=== PATIENT | female | born 1945 | race Caucasian/White ===

== ENCOUNTER → 2016-10-05 | Outpatient (CLI) | payer OTHER ==
[~2016-10-05] MED LIST: ASPEC81 PO; GLCSR500 PO; GLIM2TAB PO; OMG3 PO; PLV75 PO; SIMV40TA4 PO; VTMB12 PO
[2016-10-05 13:01] LABS: ALT/SGPT 17 U/L (12-78); BLOOD UREA NITROGEN 19 mg/dl (7-18); BUN/CREATININE RATIO 20.9 (10-20); CARBON DIOXIDE 25 mmol/L (21-32); CHLORIDE 107 mmol/L (98-107); CHOLESTEROL 190 mg/dl (0-200); CREATININE 0.91 mg/dl (0.60-1.20); GLUCOSE 95 mg/dl (70-99); SODIUM 143 mmol/L (136-145); TRIGLYCERIDES 201 mg/dl (0-150); VERY LOW DENSITY LIPOPROT CALC 40 mg/dl
[2016-10-05 13:08] LABS: ESTIMATED AVERAGE GLUCOSE 120 mg/dl; HA1C FLAG Normal (Normal)
[2016-10-05 13:13] LABS: ALB/GLOB RATIO 1.1 (0.9-2); ALKALINE PHOSPHATASE 38 U/L (45-117); AST/SGOT 11 U/L (15-37); CHOLESTEROL/HDL RATIO 4.8; HDL CHOLESTEROL 40 mg/dl; LDL CHOLESTEROL CALCULATED 110 mg/dl
[2016-10-05 13:15] LABS: RATIO 7.6 mcg/mg (0-30.0)
[2016-10-05 13:22] LABS: CALCIUM 9.7 mg/dl (8.5-10.1)
== END | disposition home or self-care (01) ==
LOC: C.LABBFT 07:34
PROVIDERS: ATTEND Internal Medicine
DX: E11.9 Type 2 diabetes mellitus without complications (principal); E55.9 Vitamin D deficiency, unspecified

== ENCOUNTER → 2017-04-01 | Outpatient (CLI) | payer OTHER ==
[2017-04-01 12:21] LABS: ALT/SGPT 18 U/L (12-78); BLOOD UREA NITROGEN 19 mg/dl (7-18); BUN/CREATININE RATIO 18.5 (10-20); CARBON DIOXIDE 29 mmol/L (21-32); CHLORIDE 102 mmol/L (98-107); CHOLESTEROL 178 mg/dl (0-200); GLUCOSE 100 mg/dl (70-99); POTASSIUM 4.3 mmol/L (3.5-5.1); SODIUM 139 mmol/L (136-145); TRIGLYCERIDES 184 mg/dl (0-150); VERY LOW DENSITY LIPOPROT CALC 37 mg/dl
[2017-04-01 12:31] LABS: ALB/GLOB RATIO 1.1 (0.9-2); ALKALINE PHOSPHATASE 47 U/L (45-117); AST/SGOT 14 U/L (15-37); CHOLESTEROL/HDL RATIO 4.5; HDL CHOLESTEROL 40 mg/dl; LDL CHOLESTEROL CALCULATED 101 mg/dl
[2017-04-01 14:08] LABS: ESTIMATED AVERAGE GLUCOSE 114 mg/dl; HA1C FLAG Normal (Normal)
== END | disposition home or self-care (01) ==
LOC: C.LABBFT 09:48
PROVIDERS: ATTEND Internal Medicine
DX: E11.9 Type 2 diabetes mellitus without complications (principal)

== ENCOUNTER 2017-09-09 11:47 | Inpatient (IN) | payer OTHER ==
[~2017-09-09] VITALS: Ht 154.9 cm; Wt 75.7 kg
[~2017-09-09 11:47] MED LIST changes: -ASPEC81 PO; +ASPI-320 PO
[2017-09-09] MEDS ORDERED: METF500T5 PO (12:25)
[2017-09-09] MEDS ORDERED: GLIM1TAB2 PO (12:25)
[2017-09-09] MEDS ORDERED: CYAN10005 PO (12:25)
[2017-09-09] MEDS ORDERED: ERGO500037 PO (12:25)
[2017-09-09] MEDS ORDERED: SIMV80TA2 PO (12:25)
[2017-09-09] MEDS ORDERED: CLOP1TAB15 PO (12:25)
[2017-09-09] MEDS ORDERED: MoRPHine SULFATE 4 MG/ML 1 ML CARP\\VIAL IV STA (12:44)
[2017-09-09] MEDS ORDERED: ONDANSETRON INJ 2 MG/ML 2 ML VIAL IV STA (12:44)
--- NOTE | 2017-09-09 13:33 | DIAGNOSTIC IMAGING REPORT ---
CHEST ONE VIEW PORTABLE CLINICAL HISTORY: Trauma. Chest pain. COMPARISON STUDY: 10/03/2015 FINDINGS: The heart is enlarged. There is mild mediastinal widening. There is diffuse elevation of the interstitium. This may indicate underlying pulmonary vascular congestion. There is no lobar consolidation. No pneumothorax is visualized on the supine study.[ IMPRESSION: 1. Cardiomegaly 2. Mild mediastinal widening 3. Diffuse elevation of the interstitium. Clinical correlation in regards to congestive failure/fluid overload is recommended Electronically signed by: Serg Peña M.D. 09/09/2017 1:32 PM Dictated Date/Time: 09/09/2017 1:31 PM
--- NOTE | 2017-09-09 13:34 | DIAGNOSTIC IMAGING REPORT ---
R KNEE 3 VIEWS CLINICAL HISTORY: 71 years-old Female presenting with fall. TECHNIQUE: Frontal, lateral, and sunrise views of the right knee were obtained. COMPARISON: None. FINDINGS: Advanced tricompartmental degenerative changes. A bandage overlies the knee which partially obscures underlying osseous detail. Evaluation is further limited by suboptimal positioning on frontal view. Osteopenia also limits evaluation for nondisplaced fracture. Allowing for these limitations, no displaced fracture or acute malalignment is evident. No large knee joint effusion. The patellofemoral compartment demonstrates bone on bone joint space loss laterally with subchondral cystic change. Severe joint space loss also evident to lesser degree in the medial facet. No radiographic soft tissue abnormality. IMPRESSION: 1. Allowing for osteopenia, an overlying bandage, and suboptimal positioning, no evidence of acute osseous injury. 2. Advanced tricompartmental degenerative change most severe in the patellofemoral compartment. Electronically signed by: Heri Olmos M.D. 09/09/2017 1:33 PM Dictated Date/Time: 09/09/2017 1:31 PM
--- NOTE | 2017-09-09 13:34 | DIAGNOSTIC IMAGING REPORT ---
PELVIS 1 OR 2 VIEW ROUTINE CLINICAL HISTORY: Right hip pain status post trauma COMPARISON STUDY: No previous studies for comparison. FINDINGS: The study is mildly obliqued. There is a mildly displaced subcapital right hip fracture. There is no SI joint diastases. There is no symphysis diastases. IMPRESSION: Mildly displaced subcapital right hip fracture. Electronically signed by: Serg Peña M.D. 09/09/2017 1:33 PM Dictated Date/Time: 09/09/2017 1:32 PM
--- NOTE | 2017-09-09 13:39 | DIAGNOSTIC IMAGING REPORT ---
RIGHT FEMUR 4 VIEWS HISTORY: Right leg pain. fall COMPARISON: None. FINDINGS: There is a right femoral neck fracture demonstrating mild superior displacement. No dislocation. The visualized pelvic bones are intact. The mid to distal femur are also intact. The bones are osteopenic. Degenerative changes at the patellofemoral joint. Soft tissues are unremarkable. No radiopaque foreign bodies. IMPRESSION: Mildly displaced subcapital right femoral neck fracture. Electronically signed by: Jose De Jesus Muse M.D. 09/09/2017 1:37 PM Dictated Date/Time: 09/09/2017 1:36 PM
--- NOTE | 2017-09-09 13:39 | DIAGNOSTIC IMAGING REPORT ---
HEAD WITHOUT CONTRAST (CT) CLINICAL HISTORY: 71 years-old Female presenting with fall on the right side. TECHNIQUE: Multidetector CT imaging of the head was performed without the use of intravenous contrast. IV contrast: None. A dose lowering technique was used consistent with the principles of ALARA (as low as reasonably achievable). COMPARISON: 10/03/2015. CT DOSE (mGy.cm): The estimated cumulative dose is 1015.92 mGy.cm. FINDINGS: Programmer Analyst Consultant topogram: The patient is edentulous. Ventricles and sulci normal in size. Unchanged left posterior fossa cystic structure compatible with an arachnoid cyst. Stable left anterior thalamic old appearing infarct. No mass effect or midline shift. No hemorrhage or acute territorial infarct. No extra-axial fluid collection. Mild mucosal thickening in the maxillary sinuses and ethmoid air cells. Calvarium intact. Mild asymmetric swelling of the right temporalis muscle. No large hematoma or significant contusion. IMPRESSION: 1. No significant change compared to the prior study. No acute intracranial abnormality. 2. Mild asymmetric swelling of the right temporalis muscle may be posttraumatic. No large hematoma, significant contusion, or subjacent osseous injury. Electronically signed by: Heri Olmos M.D. 09/09/2017 1:37 PM Dictated Date/Time: 09/09/2017 1:33 PM
--- NOTE | 2017-09-09 13:41 | DIAGNOSTIC IMAGING REPORT ---
CT OF THE CERVICAL SPINE CLINICAL HISTORY: Neck pain status post trauma COMPARISON STUDY: No previous studies for comparison. CT DOSE: TECHNIQUE: CT scan of the cervical spine was performed from the skull base to the thoracic inlet. Images are reviewed in the axial, sagittal, and coronal planes. IV contrast was not administered for this examination. A dose lowering technique was utilized adhering to the principles of ALARA. FINDINGS: There is right paratracheal soft tissue prominence on the insurance clerk topogram The visualized portions of the lung apices reveal no evidence of pneumothorax. There is a left posterior fossa arachnoid cyst No acute fractures are visualized. 1.5 mm of anterior subluxation of C4 on C5 is felt to be degenerative. There are multilevel degenerative changes IMPRESSION: No evidence of acute fracture or traumatic subluxation. Electronically signed by: Serg Peña M.D. 09/09/2017 1:39 PM Dictated Date/Time: 09/09/2017 1:36 PM
[2017-09-09 13:49] LABS: BASO % 0.5 %; BASO ABS # 0.06 K/uL (0-0.2); EOS % 1.2 %; EOS ABS # 0.16 K/uL (0-0.5); HEMATOCRIT 41.5 % (37-47); HEMOGLOBIN 14.5 g/dL (12.0-16.0); IG# 0.03 K/uL (0.00-0.02); LYMPH % 6.9 %; LYMPH ABS # 0.89 K/uL (1.2-3.4); MEAN CELL VOLUME 90.8 fL (80-100); MEAN CORPUSCULAR HEMOGLOBIN 31.7 pg (25-34); MEAN CORPUSCULAR HGB CONC 34.9 g/dl (32-36); MEAN PLATELET VOLUME 10.7 fL (7.4-10.4); MONO % 5.9 %; MONO ABS # 0.76 K/uL (0.11-0.59); NEUT % 85.3 %; NEUT ABS # 10.95 K/uL (1.4-6.5); PLATELET COUNT 214 K/uL (130-400); RED CELL DISTRIBUTION WIDTH CV 13.4 % (11.5-14.5); RED CELL DISTRIBUTION WIDTH SD 44.4 fL (36.4-46.3); WHITE BLOOD COUNT 12.85 K/uL (4.8-10.8)
[2017-09-09 14:00] LABS: CREATININE 0.98 mg/dl (0.60-1.20)
[2017-09-09 14:17] LABS: PTT PATIENT 26.5 SECONDS (21.0-31.0)
[2017-09-09] MEDS ORDERED: BISACODYL 10 MG SUPP PR PRN (14:45)
[2017-09-09] MEDS ORDERED: MoRPHine SULFATE 4 MG/ML 1 ML CARP\\VIAL IV PRN (14:45)
[2017-09-09] MEDS ORDERED: GLUCOSE 10 TABS/TUBE PO PRN (14:45)
[2017-09-09] MEDS ORDERED: GLUCAGON FOR INJ 1 MG VIAL SQ PRN (14:45)
[2017-09-09] MEDS ORDERED: NALOXONE HCL 0.4 MG/1 ML VIAL/CARP IV PRN (14:45)
[2017-09-09] MEDS ORDERED: DEXTROSE 50% 50 ML SYR IV PRN (14:45)
[2017-09-09] MEDS ORDERED: ACETAMINOPHEN 325 MG TAB PO PRN ×2 (14:45)
[2017-09-09] MEDS ORDERED: ALUMINUM/MAGNESIUM/SIMETH (MAALOX MAX) 30 ML UDC PO PRN (14:45)
[2017-09-09] MEDS ORDERED: POLYETHYLENE (MIRALAX) 17 GM PACK PO PRN ×2 (14:45)
[2017-09-09] MEDS ORDERED: MoRPHine SULFATE 2 MG/ML CARP IV PRN (14:45)
[2017-09-09] MEDS ORDERED: GLUCOSE 40% GEL 15 GM TUBE PO PRN (14:45)
[2017-09-09] MEDS ORDERED: SOD PHOSPHATE/SOD BIPHOSPHATE ENEMA 132 ML BTL PR PRN (14:45)
[2017-09-09] MEDS ORDERED: MAGNESIUM HYDROXIDE SUSP 30 ML UDC PO PRN ×2 (14:45)
[2017-09-09] MEDS ORDERED: CARBOHYDRATES FOR HYPOGLYCEMIA PO PRN (14:45)
[2017-09-09] MEDS ORDERED: ONDANSETRON INJ 2 MG/ML 2 ML VIAL IV PRN (14:45)
--- NOTE | 2017-09-09 15:04 | History and Physical ---
History & Physical Date & Time of Service: September 09, 2017 at 14:54 Chief Complaint: Fall/Leg And Hip Pain Primary Care Physician: Guy Metz M.D. History of Present Illness Source: patient, family Ms. Steven is a 71 y/o female with PMHx of CVA (2014), T2DM, and HLD who presents to the ED after a fall this AM. Patient is not a great historian and most of the story came from her . states the fall was not witnessed but he heard her fall and yell for help and he responded immediately and was able to get her off the floor. He states she gets up independently multiple times throughout the night and always slips her slippers on. Theses were found kicked away and he suspects she slid off the bed when trying to put them on. He states she was found sitting on her bottom when he arrived to the room. She instantly developed R hip pain that radiates to the R knee. Patient and family report she has been in normal state of health and had no complaints of illness. She is on Plavix for a CVA in 2014 and took her dose this AM. XR in ED reveals a R subcapital femoral neck fx. CXR suggests possible pulmonary congestion and mildly widened mediastinum. Patient denies SOB or chest pain at this time. Last CXR was from 2014 so difficult to compare. Lungs are clear on auscultation and does not appear to be volume overloaded. Past Medical/Surgical History 1. T2DM 2. CVA - 2014 3. HLD 4. L Internal Carotid Stenosis - 50-60% 5. Grade I Diastolic Dysfunction (2015 Echo) 6. S/P Cholecystectomy Family History Diabetes mellitus Heart Disease Hypertension Myocardial Infarction Social History Smoking Status: Never Smoker Smokeless Tobacco Use: No Drug Use: none Marital Status: Housing status: lives with family Allergies Coded Allergies: NO KNOWN DRUG ALLERGIES (Unverified Allergy, Unknown, N\A, 04/08/15) Home Medications Scheduled Clopidogrel (Plavix), 75 MG PO DAILY Cyanocobalamin (Vitamin B-12), 1,000 MCG PO DAILY Ergocalciferol (Vitamin D 99114 Unit), 50,000 UNIT PO WK Glimepiride (Glimepiride), 1 MG PO DAILY Metformin Hcl Er (Glucophage Er), 500 MG PO BID Simvastatin (Zocor), 80 MG PO QPM Review of Systems Constitutional: No fever, No chills ENT: No nasal symptoms, No sore throat Respiratory: No cough, No shortness of breath Cardiovascular: No chest pain, No palpitations Abdomen: No pain, No nausea, No vomiting, No diarrhea, No constipation Musculoskeletal: + joint pain (R hip with radiation to R knee) Genitourinary - Female: No dysuria Neurologic: No numbness/tingling Hematologic / Lymphatic: No abnormal bleeding/bruising Integumentary: No rash Physical Exam Vital Signs Date Time Temp Pulse Resp B/P (MAP) Pulse Ox O2 Delivery O2 Flow Rate FiO2 09/09/17 13:11 78 09/09/17 11:59 36.5 82 16 142/74 94 Room Air General Appearance: WD/WN, no apparent distress Head: normocephalic, atraumatic Eyes: sclerae normal ENT: hearing grossly normal Neck: supple, no JVD, trachea midline Respiratory/Chest: lungs clear, normal breath sounds, no respiratory distress, no accessory muscle use Cardiovascular: regular rate, rhythm, no gallop, no murmur Abdomen/GI: normal bowel sounds, non tender, soft Extremities/Musculoskelatal: no pedal edema, + pertinent finding Neurologic/Psych: alert, oriented x 3 Skin: normal color, warm/dry Diagnostics Laboratory Results Results Past 24 Hours Test 09/09/17 13:15 Range/Units White Blood Count 12.85 4.8-10.8 K/uL Red Blood Count 4.57 4.2-5.4 M/uL Hemoglobin 14.5 12.0-16.0 g/dL Hematocrit 41.5 37-47 % Mean Corpuscular Volume 90.8 80-100 fL Mean Corpuscular Hemoglobin 31.7 25-34 pg Mean Corpuscular Hemoglobin Concent 34.9 32-36 g/dl Platelet Count 214 130-400 K/uL Mean Platelet Volume 10.7 7.4-10.4 fL Neutrophils (%) (Auto) 85.3 % Lymphocytes (%) (Auto) 6.9 % Monocytes (%) (Auto) 5.9 % Eosinophils (%) (Auto) 1.2 % Basophils (%) (Auto) 0.5 % Neutrophils # (Auto) 10.95 1.4-6.5 K/uL Lymphocytes # (Auto) 0.89 1.2-3.4 K/uL Monocytes # (Auto) 0.76 0.11-0.59 K/uL Eosinophils # (Auto) 0.16 0-0.5 K/uL Basophils # (Auto) 0.06 0-0.2 K/uL RDW Standard Deviation 44.4 36.4-46.3 fL RDW Coefficient of Variation 13.4 11.5-14.5 % Immature Granulocyte % (Auto) 0.2 % Immature Granulocyte # (Auto) 0.03 0.00-0.02 K/uL Prothrombin Time 10.4 9.0-12.0 SECONDS Prothromb Time International Ratio 1.0 0.9-1.1 Activated Partial Thromboplast Time 26.5 21.0-31.0 SECONDS Partial Thromboplastin Ratio 1.0 Sodium Level 139 136-145 mmol/L Potassium Level 4.0 3.5-5.1 mmol/L Chloride Level 106 98-107 mmol/L Carbon Dioxide Level 27 21-32 mmol/L Anion Gap 6.0 3-11 mmol/L Blood Urea Nitrogen 18 7-18 mg/dl Creatinine 0.98 0.60-1.20 mg/dl Est Creatinine Clear Calc Drug Dose 50.4 ml/min Estimated GFR () 68.2 Estimated GFR (Non- 58.9 BUN/Creatinine Ratio 18.8 10-20 Random Glucose 119 70-99 mg/dl Calcium Level 9.0 8.5-10.1 mg/dl Diagnostic Radiology RIGHT FEMUR 4 VIEWS FINDINGS: There is a right femoral neck fracture demonstrating mild superior displacement. No dislocation. The visualized pelvic bones are intact. The mid to distal femur are also intact. The bones are osteopenic. Degenerative changes at the patellofemoral joint. Soft tissues are unremarkable. No radiopaque foreign bodies. IMPRESSION: Mildly displaced subcapital right femoral neck fracture. HEAD WITHOUT CONTRAST (CT) FINDINGS: Director Of Accreditation topogram: The patient is edentulous. Ventricles and sulci normal in size. Unchanged left posterior fossa cystic structure compatible with an arachnoid cyst. Stable left anterior thalamic old appearing infarct. No mass effect or midline shift. No hemorrhage or acute territorial infarct. No extra-axial fluid collection. Mild mucosal thickening in the maxillary sinuses and ethmoid air cells. Calvarium intact. Mild asymmetric swelling of the right temporalis muscle. No large hematoma or significant contusion. IMPRESSION: 1. No significant change compared to the prior study. No acute intracranial abnormality. 2. Mild asymmetric swelling of the right temporalis muscle may be posttraumatic. No large hematoma, significant contusion, or subjacent osseous injury. Impression Assessment and Plan Ms. Steven is a 71 y/o female with PMHx of CVA (2014), T2DM, and HLD who presents to the ED after a fall this AM. Acute Closed R Subcapital Femoral Neck Fracture: - Admit to Med/Surg with geriatic hip protocol; Ancef 2 g IV pre-op - Pain control with Tylenol and Morphine; Continue bowel regimen - Hold Plavix - last dose this AM on 09/09 - Consult orthopedics - appreciate surgical intervention CXR - Congestive Failure? Widened Mediastinum: - Patient is laying supine in bed without dyspnea, appropriate O2 saturations, denies CP or SOB at this time. Does not appear to be volume overloaded at this time. Last CXR from 2014. - Echo 2014 - EF 60-65% and grade I diastolic dysfunction - Repeat CXR in AM Pre-Operative Clearance: - Patient and family state she has never had a cardiac event including CHF, AL, or arrhythmia; CXR as above however is clear on auscultation; echo from 2014 does show grade I diastolic dysfunction but EF 60-65% - Hemoglobin adequate and renal function appropriate, coags WNL; will check liver series; has mild leukocytosis and will monitor with routine labs - no source of infectious process and possibly reactive - According to ACS scale she is below average risk for complication at this time T2DM: Alc 5.6 - states PCP would like her to remain on Metformin and Glimepiride but will hold - Cover with SSI Poor Oral Intake: - Family expresses that patient has been progressively eating less - reporting not much of an appetite but does enjoy boost supplementation; Will continue Boost HLD: - Simvastatin 80 mg daily DVT Prophylaxis: SCDs Code Status: FULL RESUSCITATION Disposition: PT/OT evaluations - likely rehab vs SNF on D/C Resident Physician Supervision Note: I was present with Rene MARTINEZ during the history and exam. I discussed the case with the PA and agree with the findings and plan as documented in the note. Any exceptions or clarifications are listed here: 71 y/o F Hx CVA 2014 with residual R weakness, DM II, HPL - fell onto R side when getting out of bed this AM - pelvic XR is consistent with a R subcapital fracture. OE Poor historian - no obvious distress S1,2 R CTAB NT, ND No CCE - RLE shortened and externally rotated P: Pt will likely proceed for surgery AM Risk is acceptable per RCRI and she does not have a history of decompensated CHF despite history of grade 1 diastolic dysfunction on echo NPO, IVF, pain control - Q6H SS pending ortho eval Admitted with hip Fx protocol Documented By: Victor Hugo Molina Resuscitation Status VTE Prophylaxis Will order VTE Prophylaxis: Yes
[2017-09-09] MEDS: INSULIN ASPART 100 UNITS/ML 3 ML PEN SC SCH ×2 (16:00→21:00)
--- NOTE | 2017-09-09 17:58 | EMERGENCY ROOM VISIT NOTE ---
History Report prepared by Mitali: Jameel Tong Under the Supervision of: Dr. Jacky Rob D.O. First contact with patient: 12:26 Chief Complaint: FALL Stated Complaint: FALL/LEG AND HIP PAIN History of Present Illness The patient is a 71 year old female who presents to the Emergency Room with complaints of constant pain in the right knee and hip that began following a falling episode that occurred just prior to arrival. The patient's daughter at bedside notes that the patient has a history of a stroke, and is not the best historian. The patient states that she was getting up out of bed when she fell. The fall was not witnessed by the , but he states that he found the patient sitting on her butt. The daughter notes that she was trying to put on her slippers when the flipped out from under her. The patient denies hitting her head or losing consciousness, as well as any other injuries. Pain is a 10 out of 10 in the right hip with movement. Rest and keeping flexed does help improve the pain. Source of History: patient Onset: Just prior to arival Position: knee (right) Quality: other (Pain from traumatic fall) Timing: constant Associated Symptoms: No LOC, No headache Review of Systems See HPI for pertinent positives & negatives. A total of 10 systems reviewed and were otherwise negative. Past Medical & Surgical Medical Problems: (1) Closed subcapital fracture of neck of right femur (2) Rhabdomyolysis (3) Stroke Family History Patient reports no known family medical history. Social History Smoking Status: Never Smoker Drug Use: none Marital Status: Housing Status: lives with family Current/Historical Medications Scheduled Clopidogrel (Plavix), 75 MG PO DAILY Cyanocobalamin (Vitamin B-12), 1,000 MCG PO DAILY Ergocalciferol (Vitamin D 87299 Unit), 50,000 UNIT PO WK Glimepiride (Glimepiride), 1 MG PO DAILY Metformin Hcl Er (Glucophage Er), 500 MG PO BID Simvastatin (Zocor), 80 MG PO QPM Allergies Coded Allergies: NO KNOWN DRUG ALLERGIES (Unverified Allergy, Unknown, N\A, 04/08/15) Physical Exam Vital Signs Date Time Temp Pulse Resp B/P (MAP) Pulse Ox O2 Delivery O2 Flow Rate FiO2 09/09/17 17:35 91 18 96 09/09/17 17:30 129/83 09/09/17 17:05 83 14 95 09/09/17 17:00 109/59 09/09/17 16:35 88 18 94 09/09/17 16:30 130/69 09/09/17 16:05 85 18 93 09/09/17 16:00 114/59 09/09/17 15:35 85 20 93 09/09/17 15:30 134/66 09/09/17 15:05 76 20 92 09/09/17 15:00 125/71 09/09/17 14:47 77 20 94 09/09/17 14:30 131/71 09/09/17 14:17 76 17 94 09/09/17 14:00 134/77 09/09/17 13:50 130/73 09/09/17 13:17 79 19 95 09/09/17 13:11 78 09/09/17 13:08 138/81 09/09/17 11:59 36.5 82 16 142/74 94 Room Air Physical Exam GENERAL: alert, well appearing, pleasantly demented, well nourished, no distress , non-toxic HEAD: normal cephalic, atraumatic EYE EXAM: normal conjunctiva, PERRL and EOM's grossly intact OROPHARYNX: no exudate, no erythema, lips, buccal mucosa, and tongue normal and mucous membranes are moist EARS: TMs clear b/l NECK: supple, no nuchal rigidity, no adenopathy, non-tender CHEST: stable to compression anteriorly and posteriorly LUNGS: clear to auscultation. Normal chest wall mechanics HEART: no murmurs, S1 normal and S2 normal ABDOMEN: abdomen soft, non-tender, normo-active bowel sounds, no masses, no rebound or guarding. PELVIS: stable to compression anteriorly and posteriorly BACK: Back is symmetrical on inspection and there is no deformity, no midline tenderness, no CVA tenderness. UPPER EXTREMITIES: full active and passive range of motion of all joints without tenderness to palpation LOWER EXTREMITIES: The right leg is held in flexion at the hip with tenderness on palpation and ROM of the right hip and knee. DPs are 2/4 bilaterally. NEURO EXAM: Patient is awake and alert, following commands, not oriented to year cranial nerves II-XII grossly intact, normal speech, no gross weakness of arms. GCS: 14. Medical Decision & Procedures ER Provider Diagnostic Interpretation: Radiology results as stated below per my review and the radiologist's interpretation: CHEST ONE VIEW PORTABLE CLINICAL HISTORY: Trauma. Chest pain. COMPARISON STUDY: 10/03/2015 FINDINGS: The heart is enlarged. There is mild mediastinal widening. There is diffuse elevation of the interstitium. This may indicate underlying pulmonary vascular congestion. There is no lobar consolidation. No pneumothorax is visualized on the supine study.[ IMPRESSION: 1. Cardiomegaly 2. Mild mediastinal widening 3. Diffuse elevation of the interstitium. Clinical correlation in regards to congestive failure/fluid overload is recommended Electronically signed by: Serg Peña M.D. 09/09/2017 1:32 PM Dictated Date/Time: 09/09/2017 1:[address] OF THE CERVICAL SPINE CLINICAL HISTORY: Neck pain status post trauma COMPARISON STUDY: No previous studies for comparison. CT DOSE: TECHNIQUE: CT scan of the cervical spine was performed from the skull base to the thoracic inlet. Images are reviewed in the axial, sagittal, and coronal planes. IV contrast was not administered for this examination. A dose lowering technique was utilized adhering to the principles of ALARA. FINDINGS: There is right paratracheal soft tissue prominence on the lens hardener topogram The visualized portions of the lung apices reveal no evidence of pneumothorax. There is a left posterior fossa arachnoid cyst No acute fractures are visualized. 1.5 mm of anterior subluxation of C4 on C5 is felt to be degenerative. There are multilevel degenerative changes IMPRESSION: No evidence of acute fracture or traumatic subluxation. HEAD WITHOUT CONTRAST (CT) CLINICAL HISTORY: 71 years-old Female presenting with fall on the right side. TECHNIQUE: Multidetector CT imaging of the head was performed without the use of intravenous contrast. IV contrast: None. A dose lowering technique was used consistent with the principles of ALARA (as low as reasonably achievable). COMPARISON: 10/03/2015. CT DOSE (mGy.cm): The estimated cumulative dose is 1015.92 mGy.cm. FINDINGS: Napper Runner topogram: The patient is edentulous. Ventricles and sulci normal in size. Unchanged left posterior fossa cystic structure compatible with an arachnoid cyst. Stable left anterior thalamic old appearing infarct. No mass effect or midline shift. No hemorrhage or acute territorial infarct. No extra-axial fluid collection. Mild mucosal thickening in the maxillary sinuses and ethmoid air cells. Calvarium intact. Mild asymmetric swelling of the right temporalis muscle. No large hematoma or significant contusion. IMPRESSION: 1. No significant change compared to the prior study. No acute intracranial abnormality. 2. Mild asymmetric swelling of the right temporalis muscle may be posttraumatic. No large hematoma, significant contusion, or subjacent osseous injury. Electronically signed by: Heri Olmos M.D. 09/09/2017 1:37 PM Dictated Date/Time: 09/09/2017 1:33 PM PELVIS 1 OR 2 VIEW ROUTINE CLINICAL HISTORY: Right hip pain status post trauma COMPARISON STUDY: No previous studies for comparison. FINDINGS: The study is mildly obliqued. There is a mildly displaced subcapital right hip fracture. There is no SI joint diastases. There is no symphysis diastases. IMPRESSION: Mildly displaced subcapital right hip fracture. Electronically signed by: Serg Peña M.D. 09/09/2017 1:33 PM Dictated Date/Time: 09/09/2017 1:32 PM RIGHT FEMUR 4 VIEWS HISTORY: Right leg pain. fall COMPARISON: None. FINDINGS: There is a right femoral neck fracture demonstrating mild superior displacement. No dislocation. The visualized pelvic bones are intact. The mid to distal femur are also intact. The bones are osteopenic. Degenerative changes at the patellofemoral joint. Soft tissues are unremarkable. No radiopaque foreign bodies. IMPRESSION: Mildly displaced subcapital right femoral neck fracture. Electronically signed by: Jose De Jesus Muse M.D. 09/09/2017 1:37 PM Dictated Date/Time: 09/09/2017 1:36 PM R KNEE 3 VIEWS CLINICAL HISTORY: 71 years-old Female presenting with fall. TECHNIQUE: Frontal, lateral, and sunrise views of the right knee were obtained. COMPARISON: None. FINDINGS: Advanced tricompartmental degenerative changes. A bandage overlies the knee which partially obscures underlying osseous detail. Evaluation is further limited by suboptimal positioning on frontal view. Osteopenia also limits evaluation for nondisplaced fracture. Allowing for these limitations, no displaced fracture or acute malalignment is evident. No large knee joint effusion. The patellofemoral compartment demonstrates bone on bone joint space loss laterally with subchondral cystic change. Severe joint space loss also evident to lesser degree in the medial facet. No radiographic soft tissue abnormality. IMPRESSION: 1. Allowing for osteopenia, an overlying bandage, and suboptimal positioning, no evidence of acute osseous injury. 2. Advanced tricompartmental degenerative change most severe in the patellofemoral compartment. Electronically signed by: Heri Olmos M.D. 09/09/2017 1:33 PM Dictated Date/Time: 09/09/2017 1:31 PM Laboratory Results 09/09/17 13:15 Red Blood Count 4.57, Mean Corpuscular Volume 90.8, Mean Corpuscular Hemoglobin 31.7, Mean Corpuscular Hemoglobin Concent 34.9, Mean Platelet Volume 10.7, Neutrophils (%) (Auto) 85.3, Lymphocytes (%) (Auto) 6.9, Monocytes (%) (Auto) 5.9, Eosinophils (%) (Auto) 1.2, Basophils (%) (Auto) 0.5, Neutrophils # (Auto) 10.95, Lymphocytes # (Auto) 0.89, Monocytes # (Auto) 0.76, Eosinophils # (Auto) 0.16, Basophils # (Auto) 0.06 09/09/17 13:15 Test 09/09/17 13:15 White Blood Count 12.85 K/uL (4.8-10.8) Red Blood Count 4.57 M/uL (4.2-5.4) Hemoglobin 14.5 g/dL (12.0-16.0) Hematocrit 41.5 % (37-47) Mean Corpuscular Volume 90.8 fL (80-100) Mean Corpuscular Hemoglobin 31.7 pg (25-34) Mean Corpuscular Hemoglobin Concent 34.9 g/dl (32-36) Platelet Count 214 K/uL (130-400) Mean Platelet Volume 10.7 fL (7.4-10.4) Neutrophils (%) (Auto) 85.3 % Lymphocytes (%) (Auto) 6.9 % Monocytes (%) (Auto) 5.9 % Eosinophils (%) (Auto) 1.2 % Basophils (%) (Auto) 0.5 % Neutrophils # (Auto) 10.95 K/uL (1.4-6.5) Lymphocytes # (Auto) 0.89 K/uL (1.2-3.4) Monocytes # (Auto) 0.76 K/uL (0.11-0.59) Eosinophils # (Auto) 0.16 K/uL (0-0.5) Basophils # (Auto) 0.06 K/uL (0-0.2) RDW Standard Deviation 44.4 fL (36.4-46.3) RDW Coefficient of Variation 13.4 % (11.5-14.5) Immature Granulocyte % (Auto) 0.2 % Immature Granulocyte # (Auto) 0.03 K/uL (0.00-0.02) Prothrombin Time 10.4 SECONDS (9.0-12.0) Prothromb Time International Ratio 1.0 (0.9-1.1) Activated Partial Thromboplast Time 26.5 SECONDS (21.0-31.0) Partial Thromboplastin Ratio 1.0 Anion Gap 6.0 mmol/L (3-11) Est Creatinine Clear Calc Drug Dose 50.4 ml/min Estimated GFR () 68.2 Estimated GFR (Non- 58.9 BUN/Creatinine Ratio 18.8 (10-20) Calcium Level 9.0 mg/dl (8.5-10.1) Laboratory results per my review. Medications Administered Medications (Trade) Dose Ordered Sig/Eliz Route Start Time Stop Time Status Last Admin Dose Admin Morphine Sulfate (MoRPHine SULFATE INJ) 4 mg NOW STAT IV 09/09/17 12:44 09/09/17 12:51 DC 09/09/17 13:02 4 MG Ondansetron HCl (Zofran Inj) 4 mg NOW STAT IV 09/09/17 12:44 09/09/17 12:51 DC 09/09/17 13:03 4 MG ED Course ED COURSE: Vital signs were reviewed and showed situationally hypertensive vitals. The patients medical record was reviewed The above diagnostic studies were performed and reviewed. ED treatments and interventions as stated above. 1239: The patient was evaluated in room C7. A complete history and physical examination was performed. 1244: Ordered Zofran 4 mg IV, Morphine Sulfate 4 mg IV. 1333: I discussed the case with Dr. Dallas - Orthopedics. He will come to the department to evaluate the patient. 1420: I discussed the case with Dr. Moilna - [facility] Hospitalist. He will evaluate the patient for further treatment. 1452: Upon reevaluation, the patient is resting in bed.I discussed my findings with the patient and she understands and agrees with the treatment plan. Based on the patients age, coexisting illnesses, exam and lab findings the decision to treat as an inpatient was made. The patient remained stable while under my care. The patient appeared well at the time of discharge. Medical Decision Differential diagnoses include major intracranial, cervical, spinal, thoracic, abdominal, pelvic and neurologic injury. Fracture, contusion, sprain, strain, laceration, abrasions included as well. Patient is a 71-year-old female who presents the ER following falling out of bed. She is complaining of severe right hip pain. X-rays show an obvious fracture. CT head and neck were negative. CBC has a mild leukocytosis. BMP along with INR was unremarkable. X-rays of the knee and chest were unremarkable. Patient was updated at bedside. She was given IV narcotics. Patient and family were updated. Discussed with orthopedics and internal medicine. Patient was admitted for further workup. Head Trauma GCS Score: 14 Medication Reconcilliation Current Medication List: was personally reviewed by me Blood Pressure Screening Patient's blood pressure: Elevated blood pressure Blood pressure disposition: Elevated BP felt to be situational Consults Time Called: 1325 Consulting Physician: Dr. Dallas - Orthopedics Returned Call: [phone] I discussed the case with Dr. [facility]. He will come to the department to evaluate the patient. Impression Primary Impression: Hip fracture, right Additional Impression: Fall Scribe Attestation The scribe's documentation has been prepared under my direction and personally reviewed by me in its entirety. I confirm that the note above accurately reflects all work, treatment, procedures, and medical decision making performed by me. Departure Information Dispostion Being Evaluated By Hospitalist Guy Epps M.D. (PCP) Patient Instructions My [facility] Problem Qualifiers Primary Impression: Hip fracture, right Encounter type: initial encounter Fracture type: closed Qualified Codes: S72.001A - Fracture of unspecified part of neck of right femur, initial encounter for closed fracture Additional Impression: Fall Encounter type: initial encounter Qualified Codes: W19.XXXA - Unspecified fall, initial encounter
[2017-09-09 18:28] VITALS: O2SAT 92; BMI 31.5
[2017-09-09] MEDS: SODIUM CHLORIDE 0.9% 1000ML 1,000 ML IV SCH (19:11)
[2017-09-09] MEDS: BOOST GLUCOSE CONTROL PO SCH (21:00)
[2017-09-09] MEDS ORDERED: SIMVASTATIN 80 MG TAB PO SCH (21:00)
[2017-09-09] MEDS: DOCUSATE SODIUM/SENNA 50/8.6MG TAB PO SCH (22:01)
[2017-09-09 22:40] VITALS: BP 114/65; PULSE 87; TEMP 37.2; O2SAT 93
[2017-09-09] MEDS ORDERED: NURSING DECISION MEDICATION ORDER SCH (23:45)
[2017-09-10] VITALS (8 sets, daily range): BP systolic 98–148; BP diastolic 54–80; PULSE 65–76; TEMP 36.4–37.6; O2SAT 90–97
[2017-09-10] MEDS: SODIUM CHLORIDE 0.9% 1000ML 1,000 ML IV SCH ×3 (05:58→18:45)
[2017-09-10] MEDS: INSULIN ASPART 100 UNITS/ML 3 ML PEN SC SCH ×4 (06:00→21:00)
[2017-09-10] MEDS ORDERED: CEFAZOLIN IV 2,000 MG in DEXTROSE 5% 50ML 50 ML IV SCH (06:00)
[2017-09-10] MEDS ORDERED: CEFAZOLIN 2000MG IV PUSH 15 ML IV SCH (06:00)
[2017-09-10 06:54] LABS: BASO % 0.5 %; BASO ABS # 0.04 K/uL (0-0.2); EOS % 2.7 %; EOS ABS # 0.21 K/uL (0-0.5); HEMATOCRIT 40.4 % (37-47); HEMOGLOBIN 13.3 g/dL (12.0-16.0); IG# 0.01 K/uL (0.00-0.02); LYMPH ABS # 1.25 K/uL (1.2-3.4); MEAN CELL VOLUME 93.3 fL (80-100); MEAN CORPUSCULAR HEMOGLOBIN 30.7 pg (25-34); MEAN CORPUSCULAR HGB CONC 32.9 g/dl (32-36); MEAN PLATELET VOLUME 10.4 fL (7.4-10.4); MONO % 6.3 %; MONO ABS # 0.49 K/uL (0.11-0.59); NEUT % 74.4 %; NEUT ABS # 5.79 K/uL (1.4-6.5); PLATELET COUNT 180 K/uL (130-400); RED CELL DISTRIBUTION WIDTH CV 13.7 % (11.5-14.5); RED CELL DISTRIBUTION WIDTH SD 47.3 fL (36.4-46.3); WHITE BLOOD COUNT 7.79 K/uL (4.8-10.8)
[2017-09-10] MEDS: BOOST GLUCOSE CONTROL PO SCH ×2 (07:11→21:00)
--- NOTE | 2017-09-10 07:12 | DIAGNOSTIC IMAGING REPORT ---
CHEST ONE VIEW PORTABLE HISTORY: 71 years-old Female F/U CXR from ED follow-up study in a patient with acute chest injury with recent fall COMPARISON: Chest radiograph 09/09/2017 TECHNIQUE: Portable AP view of the chest FINDINGS: Cardiac silhouette is mildly enlarged. Atherosclerosis of the aorta. There is decreased amount of mediastinal widening from prior study with better inspiratory effort on today's study. No pneumothorax or large pleural effusion. Mild right hemidiaphragmatic elevation with mild interstitial coarsening, slightly improved. Subsegmental left basilar opacities. Trace fluid within the minor fissure. Degenerative changes of the shoulders and spine. IMPRESSION: 1. Cardiomegaly with persistent mildly improved bilateral interstitial coarsening. 2. Subsegmental left basilar opacities favor atelectasis. The above report was generated using voice recognition software. It may contain grammatical, syntax or spelling errors. Electronically signed by: Van Vazquez M.D. 09/10/2017 7:11 AM Dictated Date/Time: 09/10/2017 7:09 AM
[2017-09-10 07:25] LABS: ALBUMIN 3.3 gm/dl (3.4-5.0); CALCIUM 8.5 mg/dl (8.5-10.1); CREATININE 1.01 mg/dl (0.60-1.20); POTASSIUM 3.9 mmol/L (3.5-5.1)
[2017-09-10 07:28] LABS: TOTAL PROTEIN 6.9 gm/dl (6.4-8.2)
--- NOTE | 2017-09-10 08:36 | Orthopedic Consultation ---
Orthopedic Consultation Date of Consultation: September 10, 2017. Attending Physician: Victor Hugo Molina M.D. Reason for Consultation: Right hip fracture History of Present Illness Patient is a 71-year-old female with significant past medical history for CVA 2015, diabetes, HLD who presented to [facility] after mechanical fall sustained in the morning of 09/09/2017. Patient takes Plavix for her CVA. Patient was evaluated and diagnosed with displaced right subcapital hip fracture. Denies numbness and tingling right lower extremity or additional injuries or pain. Past Medical/Surgical History Medical Problems: (1) Fall Status: Acute (2) Hip fracture, right Status: Acute (3) Malaise and fatigue Status: Acute (4) Stroke Status: Acute (5) Weakness Status: Acute Family History Diabetes mellitus Heart Disease Hypertension Myocardial Infarction Social History Smoking Status: Never Smoker Smokeless Tobacco Use: No Drug Use: none Marital Status: Housing Status: lives with family Allergies Coded Allergies: NO KNOWN DRUG ALLERGIES (Unverified Allergy, Unknown, N\A, 04/08/15) Home Medications Scheduled Clopidogrel (Plavix), 75 MG PO DAILY Cyanocobalamin (Vitamin B-12), 1,000 MCG PO DAILY Ergocalciferol (Vitamin D 40207 Unit), 50,000 UNIT PO WK Glimepiride (Glimepiride), 1 MG PO DAILY Metformin Hcl Er (Glucophage Er), 500 MG PO BID Simvastatin (Zocor), 80 MG PO QPM Current Inpatient Medications Current Inpatient Medications Medications (Trade) Dose Ordered Sig/Eliz Route Start Time Stop Time Status Last Admin Dose Admin Acetaminophen (Tylenol Tab) 650 mg Q4H PRN PO 09/09/17 14:45 10/09/17 14:44 Al Hydrox/Mg Hydrox/Simethicone (Maalox Max Susp) 15 ml Q4H PRN PO 09/09/17 14:45 10/09/17 14:44 Magnesium Hydroxide (Milk Of Magnesia Susp) 30 ml Q6H PRN PO 09/09/17 14:45 10/09/17 14:44 Ondansetron HCl (Zofran Inj) 4 mg Q6H PRN IV 09/09/17 14:45 10/09/17 14:44 Sodium Chloride 1,000 ml @ 75 mls/hr [id number] IV 09/09/17 14:43 10/09/17 14:42 09/10/17 05:58 75 MLS/HR Morphine Sulfate (MoRPHine SULFATE INJ) 2 mg Q2H PRN IV 09/09/17 14:45 09/23/17 14:44 Morphine Sulfate (MoRPHine SULFATE INJ) 4 mg Q2H PRN IV 09/09/17 14:45 09/23/17 14:44 09/09/17 22:00 4 MG Naloxone HCl (Narcan Inj) 0.1 mg PRN PRN IV 09/09/17 14:45 10/09/17 14:44 Senna/Docusate Sodium (Senokot S Tab) 2 tab HS PO 09/09/17 21:00 10/09/17 20:59 09/09/17 22:01 2 TAB Polyethylene (Miralax Powder Packet) 17 gm DAILY PRN PO 09/09/17 14:45 10/09/17 14:44 Bisacodyl (Dulcolax Supp) 10 mg DAILY PRN [place] 09/09/17 14:45 10/09/17 14:44 Sodium Biphosphate/ Sodium Phosphate (Fleet Enema) 132 ml PRN PRN [place] 09/09/17 14:45 Glucose (Glucose 40% Gel) 15-30 GRAMS 15 GRAMS... UD PRN PO 09/09/17 14:45 10/09/17 14:44 Glucose (Glucose Chew Tab) 4-8 Tablets 4 Tabl... UD PRN PO 09/09/17 14:45 10/09/17 14:44 Dextrose (Dextrose 50% 50ML Syringe) 25-50ML 25ML FOR ... UD PRN IV 09/09/17 14:45 10/09/17 14:44 Glucagon (Glucagon Inj) 1 mg UD PRN SQ 09/09/17 14:45 10/09/17 14:44 Carbohydrates (Carbohydrates For Hypoglycemia) 15-30 GRAMS 15 grams if BSG 54-69... UD PRN PO 09/09/17 14:45 10/09/17 14:44 Cyanocobalamin (Vitamin B-12 Tab) 1,000 mcg DAILY PO 09/10/17 09:00 10/10/17 08:59 Simvastatin (Zocor Tab) 80 mg QPM PO 09/09/17 21:00 10/09/17 20:59 09/09/17 22:01 80 MG Enteral Nutritional Formula (Boost Glucose Control) 1 can BID PO 09/09/17 21:00 10/09/17 20:59 Cefazolin Sodium 15 ml @ 3.75 mls/ min PREOP IV 09/10/17 06:00 09/10/17 18:00 Insulin Aspart (novoLOG ASPART) SLIDING SCALE If C... Q6 SC 09/10/17 06:00 10/10/17 05:59 Review of Systems Review of systems negative with exception of those mentioned in HPI above. Physical Exam Date Time Temp Pulse Resp B/P (MAP) Pulse Ox O2 Delivery O2 Flow Rate FiO2 09/10/17 07:37 37.3 76 18 148/80 (102) 92 Room Air 09/10/17 03:03 37.6 75 16 131/70 (90) 90 Room Air 09/09/17 23:50 Room Air 09/09/17 22:40 37.2 87 16 114/65 (81) 93 Room Air 09/09/17 18:28 92 Room Air 09/09/17 18:19 36.5 91 18 129/83 96 09/09/17 18:15 Room Air 09/09/17 17:35 91 18 96 09/09/17 17:30 129/83 09/09/17 17:05 83 14 95 09/09/17 17:00 109/59 09/09/17 16:35 88 18 94 09/09/17 16:30 130/69 09/09/17 16:05 85 18 93 09/09/17 16:00 114/59 09/09/17 15:35 85 20 93 09/09/17 15:30 134/66 09/09/17 15:05 76 20 92 09/09/17 15:00 125/71 09/09/17 14:47 77 20 94 09/09/17 14:30 131/71 09/09/17 14:17 76 17 94 09/09/17 14:00 134/77 09/09/17 13:50 130/73 09/09/17 13:17 79 19 95 09/09/17 13:11 78 09/09/17 13:08 138/81 09/09/17 11:59 36.5 82 16 142/74 94 Room Air No apparent distress Right lower extremity neurovascular sensory intact, positive dorsalis pedis pulse, capillary refill less than 2 seconds, compartments soft nontender, skin intact. Range of motion hip deferred secondary to pain, no tenderness to palpation to the knee or ankle. Left lower extremities neurovascular sensory intact, painless range of motion of the hip knee ankle. Compartments soft nontender. Laboratory Results Last 24 Hours Test 09/09/17 13:15 09/09/17 18:41 09/09/17 21:40 09/09/17 23:55 White Blood Count 12.85 K/uL Red Blood Count 4.57 M/uL Hemoglobin 14.5 g/dL Hematocrit 41.5 % Mean Corpuscular Volume 90.8 fL Mean Corpuscular Hemoglobin 31.7 pg Mean Corpuscular Hemoglobin Concent 34.9 g/dl Platelet Count 214 K/uL Mean Platelet Volume 10.7 fL Neutrophils (%) (Auto) 85.3 % Lymphocytes (%) (Auto) 6.9 % Monocytes (%) (Auto) 5.9 % Eosinophils (%) (Auto) 1.2 % Basophils (%) (Auto) 0.5 % Neutrophils # (Auto) 10.95 K/uL Lymphocytes # (Auto) 0.89 K/uL Monocytes # (Auto) 0.76 K/uL Eosinophils # (Auto) 0.16 K/uL Basophils # (Auto) 0.06 K/uL RDW Standard Deviation 44.4 fL RDW Coefficient of Variation 13.4 % Immature Granulocyte % (Auto) 0.2 % Immature Granulocyte # (Auto) 0.03 K/uL Prothrombin Time 10.4 SECONDS Prothromb Time International Ratio 1.0 Activated Partial Thromboplast Time 26.5 SECONDS Partial Thromboplastin Ratio 1.0 Sodium Level 139 mmol/L Potassium Level 4.0 mmol/L Chloride Level 106 mmol/L Carbon Dioxide Level 27 mmol/L Anion Gap 6.0 mmol/L Blood Urea Nitrogen 18 mg/dl Creatinine 0.98 mg/dl Est Creatinine Clear Calc Drug Dose 50.4 ml/min Estimated GFR () 68.2 Estimated GFR (Non- 58.9 BUN/Creatinine Ratio 18.8 Random Glucose 119 mg/dl Calcium Level 9.0 mg/dl Bedside Glucose 141 mg/dl 120 mg/dl 93 mg/dl Test 09/10/17 00:30 5/8/18 05:59 09/10/17 06:32 Urine Color DK YELLOW Urine Appearance CLEAR Urine pH 5.0 Urine Specific [place] 1.025 Urine Protein NEG Urine Glucose (UA) NEG Urine Ketones NEG Urine Occult Blood 1+ Urine Nitrite NEG Urine Bilirubin NEG Urine Urobilinogen NEG Urine Leukocyte Esterase MODERATE Urine WBC (Auto) >30 /hpf Urine RBC (Auto) 5-10 /hpf Urine Hyaline Casts (Auto) 5-10 /lpf Urine Epithelial Cells (Auto) >30 /lpf Urine Bacteria (Auto) NEG Bedside Glucose 110 mg/dl White Blood Count 7.79 K/uL Red Blood Count 4.33 M/uL Hemoglobin 13.3 g/dL Hematocrit 40.4 % Mean Corpuscular Volume 93.3 fL Mean Corpuscular Hemoglobin 30.7 pg Mean Corpuscular Hemoglobin Concent 32.9 g/dl Platelet Count 180 K/uL Mean Platelet Volume 10.4 fL Neutrophils (%) (Auto) 74.4 % Lymphocytes (%) (Auto) 16.0 % Monocytes (%) (Auto) 6.3 % Eosinophils (%) (Auto) 2.7 % Basophils (%) (Auto) 0.5 % Neutrophils # (Auto) 5.79 K/uL Lymphocytes # (Auto) 1.25 K/uL Monocytes # (Auto) 0.49 K/uL Eosinophils # (Auto) 0.21 K/uL Basophils # (Auto) 0.04 K/uL RDW Standard Deviation 47.3 fL RDW Coefficient of Variation 13.7 % Immature Granulocyte % (Auto) 0.1 % Immature Granulocyte # (Auto) 0.01 K/uL Sodium Level 140 mmol/L Potassium Level 3.9 mmol/L Chloride Level 107 mmol/L Carbon Dioxide Level 28 mmol/L Anion Gap 5.0 mmol/L Blood Urea Nitrogen 18 mg/dl Creatinine 1.01 mg/dl Est Creatinine Clear Calc Drug Dose 48.9 ml/min Estimated GFR () 65.8 Estimated GFR (Non- 56.8 BUN/Creatinine Ratio 17.5 Random Glucose 102 mg/dl Calcium Level 8.5 mg/dl Magnesium Level 2.0 mg/dl Total Bilirubin 0.8 mg/dl Direct Bilirubin 0.2 mg/dl Aspartate Amino Transf (AST/SGOT) 142 U/L Alanine Aminotransferase (ALT/SGPT) 177 U/L Alkaline Phosphatase 52 U/L Total Protein 6.9 gm/dl Albumin 3.3 gm/dl Assessment & Plan Displaced right subcapital femoral neck fracture The patient is a 71-year-old female with displaced right femoral neck fracture sustained after a fall from standing height. I indicated the patient for right hip hemiarthroplasty. The patient, and son were informed of the risks and benefits of surgery, which include but not limited to infection, bleeding, blood clots, damage to nerves, vessels, bone and soft tissue, dislocation, leg length discrepancy, chronic pain, need for additional surgery and . They collectively chose to move forward with surgical intervention and informed consent was obtained. Nonweightbearing right lower extremity Bedrest Zavala N.p.o. Pain control Hold anticoagulation Preoperative antibiotics on hold to the OR Medical clearance pending [~ rep ct add3]] R KNEE 3 VIEWS CLINICAL HISTORY: 71 years-old Female presenting with fall. TECHNIQUE: Frontal, lateral, and sunrise views of the right knee were obtained. COMPARISON: None. FINDINGS: Advanced tricompartmental degenerative changes. A bandage overlies the knee which partially obscures underlying osseous detail. Evaluation is further limited by suboptimal positioning on frontal view. Osteopenia also limits evaluation for nondisplaced fracture. Allowing for these limitations, no displaced fracture or acute malalignment is evident. No large knee joint effusion. The patellofemoral compartment demonstrates bone on bone joint space loss laterally with subchondral cystic change. Severe joint space loss also evident to lesser degree in the medial facet. No radiographic soft tissue abnormality. IMPRESSION: 1. Allowing for osteopenia, an overlying bandage, and suboptimal positioning, no evidence of acute osseous injury. 2. Advanced tricompartmental degenerative change most severe in the patellofemoral compartment. RIGHT FEMUR 4 VIEWS HISTORY: Right leg pain. fall COMPARISON: None. FINDINGS: There is a right femoral neck fracture demonstrating mild superior displacement. No dislocation. The visualized pelvic bones are intact. The mid to distal femur are also intact. The bones are osteopenic. Degenerative changes at the patellofemoral joint. Soft tissues are unremarkable. No radiopaque foreign bodies. IMPRESSION: Mildly displaced subcapital right femoral neck fracture. PELVIS 1 OR 2 VIEW ROUTINE CLINICAL HISTORY: Right hip pain status post trauma COMPARISON STUDY: No previous studies for comparison. FINDINGS: The study is mildly obliqued. There is a mildly displaced subcapital right hip fracture. There is no SI joint diastases. There is no symphysis diastases. IMPRESSION: Mildly displaced subcapital right hip fracture.
--- NOTE | 2017-09-10 09:15 | Hospitalist Progress Note ---
Hospitalist Progress Note Date of Service September 10, 2017. (Simona Montaño PA-C) Subjective Pt evaluation today including: conversation w/ patient, physical exam, chart review, lab review, review of studies, conversation w/ decorating consultant Pain: R hip pain PO Intake: NPO Voiding: no voiding problems, rangel catheter in place The patient was seen and examined this morning. Pt reports significant pain in the RLE even with minimal palpation or movement. Her and son are present at bedside. Patient has been kept n.p.o. this morning. Patient found to be acutely tender in the right upper quadrant, she cannot recall that this is a new or old finding. Patient denies falling and hitting her right side. Her did not witness the event and found her sitting on her bottom after sliding out of bed during the initial insight. Will check a abdomen pelvis CT. Additional Comments: Constitutional: No fever, sweats or chills Eyes: No diplopia, no worsening or blurred vision ENT: normal hearing, no trouble swallowing Respiratory: No cough, sputum, dyspnea at rest or on exertion Cardiovascular: No chest pain, tightness or palpitations Abdomen: No pain, nausea, vomiting, diarrhea or constipation Musculoskeletal: See HPI Neurologic: Progressive bilateral lower extremity weakness, no numbness/tingling , or balance problems, does not use a walker or cane for ambulation assistance. Psychiatric: No anxiety or depression Skin: No rash or itch (Simona Montaño PA-C) Objective Vital Signs Date Time Temp Pulse Resp B/P (MAP) Pulse Ox O2 Delivery O2 Flow Rate FiO2 09/10/17 07:37 37.3 76 18 148/80 (102) 92 Room Air 09/10/17 03:03 37.6 75 16 131/70 (90) 90 Room Air 09/09/17 23:50 Room Air 09/09/17 22:40 37.2 87 16 114/65 (81) 93 Room Air 09/09/17 18:28 92 Room Air 09/09/17 18:19 36.5 91 18 129/83 96 09/09/17 18:15 Room Air 09/09/17 17:35 91 18 96 09/09/17 17:30 129/83 09/09/17 17:05 83 14 95 09/09/17 17:00 109/59 5/7/18 16:35 88 18 94 09/09/17 16:30 130/69 09/09/17 16:05 85 18 93 09/09/17 16:00 114/59 09/09/17 15:35 85 20 93 09/09/17 15:30 134/66 09/09/17 15:05 76 20 92 09/09/17 15:00 125/71 09/09/17 14:47 77 20 94 09/09/17 14:30 131/71 09/09/17 14:17 76 17 94 09/09/17 14:00 134/77 09/09/17 13:50 130/73 09/09/17 13:17 79 19 95 09/09/17 13:11 78 09/09/17 13:08 138/81 09/09/17 11:59 36.5 82 16 142/74 94 Room Air (Simona Montaño PA-C) Physical Exam Notes: General: awake, alert, no apparent distress, obese BMI equal 31.5, fatigued Head: Normocephalic, atraumatic ENT: PERRL, EOMI, no pharyngeal exudate, mucous membranes moist Chest: Clear to auscultation, on room air, no adventitious breath sounds Cardiac: Regular rate and rhythm, no murmur, no JVD, normal peripheral pulses, good capillary refill Abdominal: NABS x 4 quadrants, soft, tenderness to palpation on the RUQ, no rebound, guarding or tenderness, incisional scar present over RUQ s/p cholecystectomy. Extremities: RLE externally rotated and shortened, otherwise normal inspection, no peripheral edema or erythema, calfs nontender to palpation Psych: Normal mood and affect Neuro: AAO x 3, poor historian, speech is clear, no peripheral sensory deficits (Simona Montaño PA-C) Laboratory Results Last 24 Hours Test 09/09/17 13:15 09/09/17 18:41 09/09/17 21:40 09/09/17 23:55 White Blood Count 12.85 K/uL Red Blood Count 4.57 M/uL Hemoglobin 14.5 g/dL Hematocrit 41.5 % Mean Corpuscular Volume 90.8 fL Mean Corpuscular Hemoglobin 31.7 pg Mean Corpuscular Hemoglobin Concent 34.9 g/dl Platelet Count 214 K/uL Mean Platelet Volume 10.7 fL Neutrophils (%) (Auto) 85.3 % Lymphocytes (%) (Auto) 6.9 % Monocytes (%) (Auto) 5.9 % Eosinophils (%) (Auto) 1.2 % Basophils (%) (Auto) 0.5 % Neutrophils # (Auto) 10.95 K/uL Lymphocytes # (Auto) 0.89 K/uL Monocytes # (Auto) 0.76 K/uL Eosinophils # (Auto) 0.16 K/uL Basophils # (Auto) 0.06 K/uL RDW Standard Deviation 44.4 fL RDW Coefficient of Variation 13.4 % Immature Granulocyte % (Auto) 0.2 % Immature Granulocyte # (Auto) 0.03 K/uL Prothrombin Time 10.4 SECONDS Prothromb Time International Ratio 1.0 Activated Partial Thromboplast Time 26.5 SECONDS Partial Thromboplastin Ratio 1.0 Sodium Level 139 mmol/L Potassium Level 4.0 mmol/L Chloride Level 106 mmol/L Carbon Dioxide Level 27 mmol/L Anion Gap 6.0 mmol/L Blood Urea Nitrogen 18 mg/dl Creatinine 0.98 mg/dl Est Creatinine Clear Calc Drug Dose 50.4 ml/min Estimated GFR () 68.2 Estimated GFR (Non- 58.9 BUN/Creatinine Ratio 18.8 Random Glucose 119 mg/dl Calcium Level 9.0 mg/dl Bedside Glucose 141 mg/dl 120 mg/dl 93 mg/dl Test 09/10/17 00:30 09/10/17 05:59 09/10/17 06:32 Urine Color DK YELLOW Urine Appearance CLEAR Urine pH 5.0 Urine Specific [place] 1.025 Urine Protein NEG Urine Glucose (UA) NEG Urine Ketones NEG Urine Occult Blood 1+ Urine Nitrite NEG Urine Bilirubin NEG Urine Urobilinogen NEG Urine Leukocyte Esterase MODERATE Urine WBC (Auto) >30 /hpf Urine RBC (Auto) 5-10 /hpf Urine Hyaline Casts (Auto) 5-10 /lpf Urine Epithelial Cells (Auto) >30 /lpf Urine Bacteria (Auto) NEG Bedside Glucose 110 mg/dl White Blood Count 7.79 K/uL Red Blood Count 4.33 M/uL Hemoglobin 13.3 g/dL Hematocrit 40.4 % Mean Corpuscular Volume 93.3 fL Mean Corpuscular Hemoglobin 30.7 pg Mean Corpuscular Hemoglobin Concent 32.9 g/dl Platelet Count 180 K/uL Mean Platelet Volume 10.4 fL Neutrophils (%) (Auto) 74.4 % Lymphocytes (%) (Auto) 16.0 % Monocytes (%) (Auto) 6.3 % Eosinophils (%) (Auto) 2.7 % Basophils (%) (Auto) 0.5 % Neutrophils # (Auto) 5.79 K/uL Lymphocytes # (Auto) 1.25 K/uL Monocytes # (Auto) 0.49 K/uL Eosinophils # (Auto) 0.21 K/uL Basophils # (Auto) 0.04 K/uL RDW Standard Deviation 47.3 fL RDW Coefficient of Variation 13.7 % Immature Granulocyte % (Auto) 0.1 % Immature Granulocyte # (Auto) 0.01 K/uL Sodium Level 140 mmol/L Potassium Level 3.9 mmol/L Chloride Level 107 mmol/L Carbon Dioxide Level 28 mmol/L Anion Gap 5.0 mmol/L Blood Urea Nitrogen 18 mg/dl Creatinine 1.01 mg/dl Est Creatinine Clear Calc Drug Dose 48.9 ml/min Estimated GFR () 65.8 Estimated GFR (Non- 56.8 BUN/Creatinine Ratio 17.5 Random Glucose 102 mg/dl Calcium Level 8.5 mg/dl Magnesium Level 2.0 mg/dl Total Bilirubin 0.8 mg/dl Direct Bilirubin 0.2 mg/dl Aspartate Amino Transf (AST/SGOT) 142 U/L Alanine Aminotransferase (ALT/SGPT) 177 U/L Alkaline Phosphatase 52 U/L Total Protein 6.9 gm/dl Albumin 3.3 gm/dl (Simona Montaño, PA-C) Assessment and Plan Ms. Steven is a 71 y/o female with PMHx of CVA (2015), T2DM, and HLD who presented after a fall, found to have R. subcapital femoral neck fracture. Acute Closed R Subcapital Femoral Neck Fracture: - Geriatric hip protocol; Ancef 2 g IV pre-op - Pain control with Tylenol and Morphine; Continue bowel regimen - Hold Plavix - last dose 09/09 - Consult orthopedics - appreciate surgical intervention CXR - Congestive Failure? Widened Mediastinum: - Patient is laying supine in bed without dyspnea, appropriate O2 saturations, denies CP or SOB at this time. Does not appear to be volume overloaded at this time. Last CXR from 2014. - Echo 2014 - EF 60-65% and grade I diastolic dysfunction - Repeat CXR this morning showing cardiomegaly with persistent mildly improved bilateral interstitial coarsening. Subsegmental left basilar opacities favor atelectasis. Elevated AST/ALT - Will trend with am labs, CK only 45 so unlikely from rhabdo - s/p cholecystectomy - CT abd/pelvis showing dilation of biliary ducts, significant fecal load. Will order an aggressive bowel regimen status post surgery - on simvastatin 80 mg - will hold for now Pre-Operative Clearance: - Patient and family state she has never had a cardiac event including CHF, CO, or arrhythmia; CXR as above however is clear on auscultation Echo from 2014 does show grade I diastolic dysfunction but EF 60-65% - Hemoglobin adequate and renal function appropriate, coags WNL; mild leukocytosis resolved - possibly reactive - According to ACS scale she is below average risk for complication at this time Internal carotid stenosis - L. ICA 50-60% done apr 2015 - Carotid U/S rechecked today: unchanged compared to previous. 1. Hemodynamically significant stenosis within the proximal left internal carotid artery (50-69% stenosis). 2. Hemodynamically significant stenosis within the proximal left external carotid artery. T2DM: Alc 5.6 - states PCP would like her to remain on Metformin and Glimepiride but will hold - Cover with SSI with accuchecks achs Poor Oral Intake: ? Progressive memory dysfunction? - Family expresses that patient has been progressively eating less - reporting not much of an appetite but does enjoy boost supplementation; Will continue Boost -Also the patient is a very poor historian at bedside. HLD: - HOLD Simvastatin 80 mg daily DVT Prophylaxis: SCDs, no chemical ppx Code Status: FULL RESUSCITATION Disposition: Patient cleared for surgical intervention, PT/OT evaluations - likely rehab vs SNF on D/C (Simona Montaño PA-C) Reviewed: Pt Seen/Exam by Me (Gregoria May MD) History Physician Customer Experience Specialist supervision Note: I interviewed and examined the patient. Discussed with MICHELLE Montaño and agree with findings and plan as documented in the note. Any exceptions or clarifications are listed here: Patient seen in the PACU during recovery. She is still quite drowsy but did wake up to verbal stimulation but fell right back asleep. She is moving all extremities. Vital signs are stable. Vitals reviewed Gen: Drowsy, NAD HEENT: anicteric sclerae, atraumatic CV: RRR no mgr nl S1S2 Pulm: CTAB no wcr Abd: +BS soft NT ND no masses or hernias Ext: no edema, right hip with dressing and ice pack in place Skin: Right upper quadrant of the abdomen with approximately 4 x 3 cm patch of multiple scabbed over circular lesions on the mildly erythematous base, warm/dry Neuro: Moving all 4 extremities This patient is a 71-year-old female with a history of CVA in 2015, DM 2, and dyslipidemia, who presented after a mechanical fall with a right subcapital femoral neck fracture. -Appreciate orthopedic surgical management -DVT prophylaxis with aspirin twice daily, will also add Plavix back tomorrow if okay with orthopedics Also with significantly elevated LFTs-CT of abdomen pelvis without any findings to explain this in the liver or to explain her tenderness on exam by the PA as above except possibly the constipation. But also with rash on the right side of the abdomen that looks like herpes zoster and perhaps could be causing the pain. It is scabbed over and treatment with Valtrex at this point would not be beneficial. -Follow LFTs and holding simvastatin Documented By: Gregoria May (Gregoria May MD)
--- NOTE | 2017-09-10 09:49 | Clinical Documentation Query ---
CLINICAL DOCUMENTATION QUERY QUERY 1 OF 2 71 yo female admitted with right subcapital femoral neck fracture. Patient's 2014 echo showed a grade I diastolic dysfunction and EF of 60-65%. In your clinical opinion is this patient being managed for: ( x ) Chronic diastolic CHF ( ) Not Agree ( ) Other explanation of clinical findings (Please Explain. If no explanation given, this would be considered a no response.) ( ) Unable to determine ( ) Need to Discuss (Please call CDS via extension or qliq. If no interaction occurs this is considered a no response.) The medical record reflects the following clinical findings, treatment, and risk factors. Clinical Indicators: As above Treatment: CXR, echo 2014 Risk Factors: Age, acute fracture QUERY 2 OF 2 Documentation states patient has been progressively eating less, decreased appetite, and uses boost supplementation. In your clinical opinion is this patient being managed for: ( x ) Mild protein-calorie malnutrition ( ) Not Agree ( ) Other explanation of clinical findings (Please Explain. If no explanation given, this would be considered a no response.) ( ) Unable to determine ( ) Need to Discuss (Please call CDS via extension or qliq. If no interaction occurs this is considered a no response.) The medical record reflects the following clinical findings, treatment, and risk factors. Clinical Indicators: As above Treatment: Boost shakes Risk Factors: Age, DM, acute fracture Please clarify and document your clinical opinion in the progress notes and discharge summary. Terms such as "probable", "suspected", "likely", "questionable", "possible", or "still to be ruled out" are acceptable. IF IN AGREEMENT, YOU MUST DOCUMENT ABOVE DIAGNOSTIC STATEMENT IN DAILY PROGRESS NOTES AND DISCHARGE SUMMARY. This document is not part of the patient's record. Thank You, Nadiya Castillo RN [phone]
[2017-09-10] MEDS: CYANOCOBALAMIN 500 MCG TAB (VIT B-12) PO SCH (10:08)
[2017-09-10] MEDS ORDERED: BUPIVACAINE 0.5 % 5 MG/1 ML PF 10ML VIAL ONE (11:22)
[2017-09-10] MEDS ORDERED: ATROPINE SULFATE 0.1 MG/ML 5ML SYR IV PRN (12:45)
[2017-09-10] MEDS ORDERED: FENTANYL CITRATE INJ 50 MCG/1 ML 2 ML VIAL IV PRN (12:45)
[2017-09-10] MEDS ORDERED: EpHEDrine SULFATE INJ 50 MG/ML AMP IV PRN (12:45)
[2017-09-10] MEDS ORDERED: ONDANSETRON INJ 2 MG/ML 2 ML VIAL IV PRN ×2 (12:45→18:45)
[2017-09-10] MEDS ORDERED: OPTIRAY 320 IV PRN (13:30)
--- NOTE | 2017-09-10 13:45 | DIAGNOSTIC IMAGING REPORT ---
CAROTID DOPPLER NECK ART CLINICAL HISTORY: 71 years-old Female presenting with h/o carotid stenosis, follow up prior to surgery. TECHNIQUE: Real-time grayscale and color and spectral Doppler ultrasound imaging of the bilateral carotid arteries was performed. NASCET criteria was used in evaluating this study. COMPARISON: 04/08/2015. FINDINGS: Right: Common carotid: Atherosclerosis at the carotid bulb. Peak systolic velocity 88 cm/s. Internal carotid artery: Atherosclerosis of the proximal ICA. Peak systolic velocity 97 cm/s. End diastolic velocity 22 cm/s. Systolic ratio: 1.1. External carotid artery: Atherosclerosis. Peak systolic velocity 140 cm/s. Left: Common carotid: Atherosclerosis at the carotid bulb. Peak systolic velocity 78 cm/s. Internal carotid artery: Atherosclerosis of the proximal ICA. Peak systolic velocity 190 cm/s. End-diastolic velocity 42 cm/s. Systolic ratio: 2.4. External carotid artery: Atherosclerosis. Peak systolic velocity 267 cm/s. Bilateral antegrade flow within the vertebral arteries. Reference ranges: Stenosis measurements are compared to reference velocity parameters. Primary parameters: ICA peak systolic velocity (PSV) < 125 cm/s normal or indicating < 50% stenosis; ICA PSV 125-230 cm/s equivalent to 50-69% stenosis; ICA PSV > 230 cm/s equivalent to greater than or equal to 70% stenosis. Additional parameters: ICA PSV to common carotid artery PSV ratio < 2 normal or < 50% stenosis; 2-4 equates to 50-69% stenosis, > 4 equates to greater than or equal to 70% stenosis. Normal ICA end-diastolic velocity less than 40. Blood pressure: Brachial: Right: 136/67 mmHg, Left: 133/65 mmHg. IMPRESSION: 1. Hemodynamically significant stenosis within the proximal left internal carotid artery (50-69% stenosis). 2. Hemodynamically significant stenosis within the proximal left external carotid artery. Electronically signed by: Heri Olmos M.D. 09/10/2017 1:44 PM Dictated Date/Time: 09/10/2017 1:39 PM
--- NOTE | 2017-09-10 14:43 | DIAGNOSTIC IMAGING REPORT ---
ABD/PELVIS IV CONTRAST ONLY CT DOSE: 588.49 mGy.cm HISTORY: Pain Assess RUQ pain, elevated ALT, AST TECHNIQUE: Multiaxial CT images of the abdomen and pelvis were performed following the use of intravenous contrast. A dose lowering technique was utilized adhering to the principles of ALARA. COMPARISON STUDY: None. FINDINGS: Mild bibasilar atelectasis. Mild biliary ductal prominence most likely on a postcholecystectomy basis. Liver is uniform. Fatty replacement of the pancreas. The adrenal glands are normal. Kidneys show mild cortical scarring but are negative for hydronephrosis or perinephric infiltrative process. Bowel pattern is considered nonobstructive. There is an increase in fecal load throughout the bulk of the colon consistent with fecal stasis. There is no evidence for abscess or collection. There is a small focal hernia lateral aspect right soft tissue pelvic region. This is considered nonobstructive. There is no bowel distention or bowel wall thickening. Uterus is anteflexed. A Zavala catheter is in position. The fracture of the right femoral neck is again noted. There is moderate generalized surrounding soft tissue edematous change. Moderate degenerative change throughout all remaining additional bony structures. No acute abnormality of 9 noted is appreciated. IMPRESSION: 1. Fracture right hip which of been described previously. 2. Increased colonic fecal load consistent with a component of fecal stasis. 3. Biliary ductal prominence most likely on a postcholecystectomy basis although prior exams are not available for comparison. 4. Remainder the abdomen and pelvis shows no additional acute process. The above report was generated using voice recognition software. It may contain grammatical, syntax or spelling errors. Electronically signed by: Alonso Rodriguez M.D. 09/10/2017 2:42 PM Dictated Date/Time: 09/10/2017 2:35 PM
[2017-09-10] MEDS ORDERED: BISACODYL 10 MG SUPP PR PRN (16:00)
[2017-09-10] MEDS ORDERED: POVIDONE-IODINE OP SOLN 30 ML BTL ONE (16:22)
[2017-09-10] MEDS ORDERED: BACITRACIN 50000 UNIT VIAL ONE (16:22)
[2017-09-10] MEDS ORDERED: MIDAZOLAM HCL 1 MG/ML 2ML VIAL ONE (16:29)
[2017-09-10] MEDS ORDERED: FENTANYL CITRATE INJ 50 MCG/1 ML 2 ML VIAL ONE ×2 (16:30→17:41)
[2017-09-10] MEDS ORDERED: LIDOCAINE HCL 2% 2 ML VIAL (20MG/ML) ONE (17:12)
[2017-09-10] MEDS ORDERED: PROPOFOL IV EMULSION 10 MG/ML 20 ML VIAL ONE (17:12)
[2017-09-10] MEDS ORDERED: ROCURONIUM BROMIDE 10 MG/ML 5 ML VIAL ONE (17:12)
[2017-09-10] MEDS ORDERED: PHENYLEPHRINE 100MCG/ML 5ML SYR ONE (17:43)
[2017-09-10] MEDS ORDERED: ONDANSETRON INJ 2 MG/ML 2 ML VIAL ONE (17:43)
[2017-09-10] MEDS ORDERED: EpHEDrine SULFATE 50MG/5ML SYR ONE (17:43)
[2017-09-10] MEDS ORDERED: NEOSTIGMINE METHYLSULFATE 5 MG/5 ML SYR ONE (17:43)
[2017-09-10] MEDS ORDERED: GLYCOPYRROLATE INJ 0.2 MG/ML VIAL ONE (17:43)
[2017-09-10] MEDS ORDERED: PHENYLEPHRINE HCL INJ 10 MG/ML VIAL ONE (17:43)
[2017-09-10] MEDS ORDERED: ROPIVACAINE 5MG/ML 30 ML 150 MG, BUPIVACAINE 0.5% MPF INJ 30 ML, EpINEphrine HCL INJ 0.... INFIL SCH ×8 (18:00)
--- NOTE | 2017-09-10 18:28 | [facility] Post Operative Brief Note ---
Immediate Operative Summary Operative Date September 10, 2017. Pre-Operative Diagnosis Right femoral neck fracture Post-Operative Diagnosis Right femoral neck fracture Procedure(s) Performed Right hip Hemiarthroplasty Surgeon Dr. Jose Elias [place] Research And Development Technician Surgeon(s) Iker Mcdermott PA-C Estimated Blood Loss 400 Findings Consistent with Post-Op Diagnosis Fluids (cc crystalloids) 1500 Specimens femoral head Drains None Anesthesia Type General Complication(s) none Disposition Disposition: Recovery Room / PACU
--- NOTE | 2017-09-10 18:41 | [facility] Operative Report ---
Operative Report Operative Date September 10, 2017. Pre-Operative Diagnosis Right femoral neck fracture Post-Operative Diagnosis Right femoral neck fracture Procedure(s) Performed Right hip Hemiarthroplasty Surgeon Dr. Jose Elias [place] Medical Physics Professor Surgeon(s) Iker Mcdermott PA-C Estimated Blood Loss 400 Findings See dictated op note Fluids 1500 Specimens femoral head Drains None Anesthesia Type General Complication(s) none Disposition Surgical ICU Indications The patient is a 71-year-old female with displaced right femoral neck fracture sustained after a fall from standing height. The patient was medically stabilized on 09/10/2017. I indicated the patient for right hip hemiarthroplasty. The patient and family members were informed of the risks and benefits of surgery, which include but not limited to infection, bleeding, blood clots, damage to nerves, vessels, bone and soft tissue, dislocation, leg length discrepancy, need for additional surgery and . They collectively chose to move forward with surgical intervention and informed consent was obtained. Description of Procedure Following induction of adequate general anesthesia, the patient was transferred to the OR table and placed in the lateral decubitus position with left hip down. The right hip was prepped and draped in usual sterile manner. A posterior incision was made. Subcutaneous tissue was sharply dissected. Electro cautery was used for hemostasis. Fascia was incised throughout the length of the wound and the piriformis was identified. A #1 Vicryl suture was used to tage the piriformis. The short external rotators were divided from the posterior aspect of the femur and a capsulotomy was performed. A second #1 Vicryl suture was used to tag the capsule. Next, I turned my attention to the femoral neck fracture. The fracture was relatively high on the calcar and decision was made to proceed with the oscillating saw and create the calcar osteotomy. This bone fragment was removed. Following this, tenaculum and cob elevater was utilized to remove the femoral head. The head was measured on the back table and the 43mm femoral head was chosen as the size to be used. Next, attention was turned to the acetabulum which was found to have no significant arthritis. All bony debris was removed. A sponge was placed in the acetabulum. Attention was then turned to the proximal femur where box osteotome was used to gain access to the femoral canal. A canal finder and power lateralizing reamer were utilized to further open. Sequential raspings were taken up to a size 12, which was sunk completely and trial reduction was carried out and a 22+0 mm femoral head was chosen the size to be used with the 43 bipolar cup. Following a trial reduction, the hip was found to be stable to 45 degrees of internal rotation and 90 degrees of flexion with equal leg lengths. The calcar reamer was utilized to smooth the calcar and the instruments and trial components were removed. The hip was thoroughly irrigated with pulsatile irrigation. The canal was irrigated and dried, cement restrictor was placed and [place] cement was mixed. The size 12 low demand fracture stem was placed with a 11 mm disc centralizer and this was held in position well. All excess cement was removed and cement hardened. Following insertion of final stem component another trial reduction was carried out and again a +0 neck size was chosen as the size to be used. The final head and neck was impacted into position and the hip was reduced and stablity assess and was found to be stable to 45 degrees of internal rotation and 90 degrees of flexion. The wound was again irrigated. Giselle-incisional soft tissue was injected with the [place] Orthomix which includes a combination of Ropivicaine 0.5% 150mg, Bupivicaine 0.5%/Epinephrine 1:200,000 30ml, Toradol 30mg, Dexamethasone 4mg, Ketamine 10mg, Clonidine 100mcg and NSS 30ml solution. The capsulebwas repaired using #5 fiberwire sutures through drill holes. Following this, the short external rotators were reapproximated to the posterior aspect of the femur also through drill holes and these were tied. Once again the wound was copiously irrigated with sterile saline solution with bacitracin. Fascia was closed using #1 Vicryl [id number] sutures, subcutaneous tissue was closed using 2-0 vicryl, and skin was closed with leticia. Sterile dressings xeroform, 4x4's, abd's, foam tape were applied and abduction pillow placed between the legs. The patient tolerated the procedure well and was taken to recovery room in stable condition. Due to the complex nature of the procedure, the entire surgery was performed with the operational assistance of Iker Mcdermott PA-C. The medical assistant secretary, under direct supervision, was involved in the actual performance of all aspects of the surgical procedure including patient positioning, hemostasis, tissue retraction, instrument management and wound closure. I attest to the content of the Intraoperative Record and any orders documented therein. Any exceptions are noted below.
[2017-09-10] MEDS ORDERED: ACETAMINOPHEN 325 MG TAB PO PRN (18:45)
[2017-09-10] MEDS ORDERED: OXYCODONE HCL IR 5 MG TAB (IMMEDIATE RELEASE) PO PRN (18:45)
[2017-09-10] MEDS ORDERED: MoRPHine SULFATE 4 MG/ML 1 ML CARP\\VIAL IV PRN (18:45)
--- NOTE | 2017-09-10 18:54 | Orthopedic Progress Note ---
Orthopedic Progress Note Date of Service September 10, 2017. Subjective Additional Notes: Postoperative progress note Patient seen in PACU, she is coming out of general anesthesia, still mildly confused and not following commands however does actually move all 4 extremities. Objective No apparent distress Right lower extremity, vascularly intact, +2 dorsalis pedis pulse, compartments soft nontender, dressings clean dry and intact, abduction pillow in place. Date Time Temp Pulse Resp B/P (MAP) Pulse Ox O2 Delivery O2 Flow Rate FiO2 09/10/17 07:37 37.3 76 18 148/80 (102) 92 Room Air 09/10/17 03:03 37.6 75 16 131/70 (90) 90 Room Air 09/09/17 23:50 Room Air 09/09/17 22:40 37.2 87 16 114/65 (81) 93 Room Air Laboratory Results 24 Hours: Test 09/10/17 06:32 White Blood Count 7.79 K/uL Red Blood Count 4.33 M/uL Hemoglobin 13.3 g/dL Hematocrit 40.4 % Mean Corpuscular Volume 93.3 fL Mean Corpuscular Hemoglobin 30.7 pg Mean Corpuscular Hemoglobin Concent 32.9 g/dl Platelet Count 180 K/uL Mean Platelet Volume 10.4 fL Neutrophils (%) (Auto) 74.4 % Lymphocytes (%) (Auto) 16.0 % Monocytes (%) (Auto) 6.3 % Eosinophils (%) (Auto) 2.7 % Basophils (%) (Auto) 0.5 % Neutrophils # (Auto) 5.79 K/uL Lymphocytes # (Auto) 1.25 K/uL Monocytes # (Auto) 0.49 K/uL Eosinophils # (Auto) 0.21 K/uL Basophils # (Auto) 0.04 K/uL Assessment & Plan Assessment: Status post right hip hemiarthroplasty Plan: -Ancef 24 -DVT prophylaxis aspirin twice daily -Weight-bear as tolerates right lower extremity -Posterior hip precautions -PT OT -Postoperative x-ray -A.m. labs
--- NOTE | 2017-09-10 19:20 | Anesthesiology Progress Note ---
Anesthesia Post Op Note Date & Time September 10, 2017 at 19:20 Vital Signs Pain Intensity: 0 Vital Signs Past 12 Hours Date Time Temp Pulse Resp B/P (MAP) Pulse Ox O2 Delivery O2 Flow Rate FiO2 09/10/17 19:10 71 16 115/59 93 Nasal Cannula 4 09/10/17 19:00 74 17 112/64 94 Oxymask 10 09/10/17 18:50 72 20 123/67 93 Oxymask 10 09/10/17 18:44 37.4 70 18 127/76 94 Oxymask 10 09/10/17 07:37 37.3 76 18 148/80 (102) 92 Room Air Notes Mental Status: alert / awake / arousable, participated in evaluation Pt Amnestic to Procedure: Yes Nausea / Vomiting: adequately controlled Pain: adequately controlled Airway Patency, RR, SpO2: stable & adequate BP & HR: stable & adequate Hydration State: stable & adequate Anesthetic Complications: no major complications apparent
--- NOTE | 2017-09-10 19:21 | DIAGNOSTIC IMAGING REPORT ---
R HIP UNILATERAL 2 VIEWS CLINICAL HISTORY: s/p Right hip hemiarthroplasty COMPARISON: None. DISCUSSION: There are postsurgical changes of a bipolar right hip arthroplasty. There are no acute fractures. There is no dislocation. There are overlying skin leticia. There is air within soft tissues consistent with recent surgery. IMPRESSION: Status post bipolar right hip arthroplasty. No complicating features identified. Electronically signed by: Serg Peña M.D. 09/10/2017 7:20 PM Dictated Date/Time: 09/10/2017 7:17 PM
[2017-09-10] MEDS ORDERED: NURSING VERBAL MED ORDER ONE (20:30)
[2017-09-10] MEDS: DOCUSATE SODIUM/SENNA 50/8.6MG TAB PO SCH ×2 (21:00)
[2017-09-10] MEDS: CEFAZOLIN IV 1,000 MG in SYRINGE 0 ML IV SCH (21:38)
[2017-09-11 03:48] VITALS: BP 114/71; PULSE 67; TEMP 36.8; O2SAT 96
[2017-09-11] MEDS ORDERED: ROPIVACAINE 5MG/ML 30 ML 150 MG, BUPIVACAINE 0.5% MPF INJ 30 ML, EpINEphrine HCL INJ 0.... INFIL SCH ×8 (06:00)
[2017-09-11] MEDS: CEFAZOLIN IV 1,000 MG in SYRINGE 0 ML IV SCH (06:42)
[2017-09-11] MEDS: SODIUM CHLORIDE 0.9% 1000ML 1,000 ML IV SCH (06:43)
[2017-09-11] MEDS: INSULIN ASPART 100 UNITS/ML 3 ML PEN SC SCH ×4 (08:00→20:58)
[2017-09-11 08:08] LABS: BASO % 0.1 %; BASO ABS # 0.02 K/uL (0-0.2); EOS % 0.1 %; EOS ABS # 0.02 K/uL (0-0.5); HEMATOCRIT 34.1 % (37-47); HEMOGLOBIN 11.3 g/dL (12.0-16.0); IG# 0.04 K/uL (0.00-0.02); LYMPH % 6.7 %; LYMPH ABS # 0.89 K/uL (1.2-3.4); MEAN CELL VOLUME 92.4 fL (80-100); MEAN CORPUSCULAR HEMOGLOBIN 30.6 pg (25-34); MEAN CORPUSCULAR HGB CONC 33.1 g/dl (32-36); MEAN PLATELET VOLUME 10.2 fL (7.4-10.4); MONO % 5.3 %; MONO ABS # 0.71 K/uL (0.11-0.59); NEUT % 87.5 %; PLATELET COUNT 166 K/uL (130-400); RED CELL DISTRIBUTION WIDTH CV 13.6 % (11.5-14.5); RED CELL DISTRIBUTION WIDTH SD 45.8 fL (36.4-46.3); WHITE BLOOD COUNT 13.38 K/uL (4.8-10.8)
[2017-09-11 08:28] VITALS: BP 118/65; PULSE 71; TEMP 37; O2SAT 95
--- NOTE | 2017-09-11 08:31 | Orthopedic Progress Note ---
Orthopedic Progress Note Date of Service September 11, 2017. Subjective Post OP Day: 1 Reports: feeling well, Denies: chest pain, SOB, nausea / vomiting, light headedness, calf pain Additional Notes: Pt feeling better since surgery. Much less pain than before. No new complaints this AM. Objective calves soft nontender, N/V intact, dressing C/D/I, A&O x3, toes mobile Date Time Temp Pulse Resp B/P (MAP) Pulse Ox O2 Delivery O2 Flow Rate FiO2 09/11/17 08:28 37.0 71 16 118/65 (82) 95 2.0 09/11/17 03:48 36.8 67 16 114/71 (85) 96 Nasal Cannula 2.0 09/10/17 23:30 96 Nasal Cannula 2.0 09/10/17 23:05 36.6 69 16 109/64 (79) 96 Nasal Cannula 2.0 09/10/17 22:08 36.7 67 16 113/67 (82) 94 Nasal Cannula 3.0 09/10/17 21:02 36.8 65 16 98/54 (69) 97 Nasal Cannula 2.0 09/10/17 20:41 36.6 70 16 118/67 (84) 94 Nasal Cannula 2.0 09/10/17 20:00 96 Nasal Cannula 2.0 09/10/17 20:00 Nasal Cannula 2.0 09/10/17 20:00 36.4 69 16 111/66 (81) 96 Nasal Cannula 2.0 09/10/17 19:45 68 15 111/64 98 Nasal Cannula 2 09/10/17 19:30 64 16 111/56 94 Nasal Cannula 4 09/10/17 19:20 36.2 67 19 111/61 91 Nasal Cannula 4 09/10/17 19:10 71 16 115/59 93 Nasal Cannula 4 09/10/17 19:00 74 17 112/64 94 Oxymask 10 09/10/17 18:50 72 20 123/67 93 Oxymask 10 09/10/17 18:44 37.4 70 18 127/76 94 Oxymask 10 Laboratory Results 24 Hours: Test 09/11/17 07:57 09/11/17 08:24 White Blood Count 13.38 K/uL Red Blood Count 3.69 M/uL Hemoglobin 11.3 g/dL Hematocrit 34.1 % Mean Corpuscular Volume 92.4 fL Mean Corpuscular Hemoglobin 30.6 pg Mean Corpuscular Hemoglobin Concent 33.1 g/dl Platelet Count 166 K/uL Mean Platelet Volume 10.2 fL Neutrophils (%) (Auto) 87.5 % Lymphocytes (%) (Auto) 6.7 % Monocytes (%) (Auto) 5.3 % Eosinophils (%) (Auto) 0.1 % Basophils (%) (Auto) 0.1 % Neutrophils # (Auto) 11.70 K/uL Lymphocytes # (Auto) 0.89 K/uL Monocytes # (Auto) 0.71 K/uL Eosinophils # (Auto) 0.02 K/uL Basophils # (Auto) 0.02 K/uL Assessment & Plan Assessment: POD 1 s/p right hip hemiarthroplasty Plan: -Ancef 24 -DVT prophylaxis aspirin twice daily -Weight-bear as tolerates right lower extremity -Posterior hip precautions -PT OT -Postoperative x-ray -A.m. labs pending Inhouse Planning Pain Management: Morphine, Oxy IR DVT Prophylaxis: TEDs, SCDs, ASA Discharge Planning Discharge Planning: uncertain
--- NOTE | 2017-09-11 08:34 | Hospitalist Progress Note ---
Hospitalist Progress Note Date of Service September 11, 2017. (Simona Montaño PA-C) Subjective Pt evaluation today including: conversation w/ patient, physical exam, chart review, lab review, review of studies Pain: R hip well controlled PO Intake: Good Voiding: no voiding problems The patient was seen and examined this morning. Pt reports doing well this morning. She notes her R hip pain is well controlled. She has not been up out of bed yet today. Pt tolerated breakfast, + flatus but no BM yet. Constitutional: No fever, No chills, No sweats, No fatigue Eyes: No diplopia ENT: No nasal symptoms, No trouble swallowing Respiratory: No cough, No shortness of breath Cardiovascular: No chest pain, No palpitations Abdomen: No pain, No nausea, No vomiting, No diarrhea Musculoskeletal: + see HPI, No muscle pain, No calf pain Neurologic: No numbness/tingling Endo: No fatigue Skin: No rash, No itch (Simona Montaño, ESTEBAN) Objective Vital Signs Date Time Temp Pulse Resp B/P (MAP) Pulse Ox O2 Delivery O2 Flow Rate FiO2 09/11/17 03:48 36.8 67 16 114/71 (85) 96 Nasal Cannula 2.0 09/10/17 23:30 96 Nasal Cannula 2.0 09/10/17 23:05 36.6 69 16 109/64 (79) 96 Nasal Cannula 2.0 09/10/17 22:08 36.7 67 16 113/67 (82) 94 Nasal Cannula 3.0 09/10/17 21:02 36.8 65 16 98/54 (69) 97 Nasal Cannula 2.0 09/10/17 20:41 36.6 70 16 118/67 (84) 94 Nasal Cannula 2.0 09/10/17 20:00 96 Nasal Cannula 2.0 09/10/17 20:00 Nasal Cannula 2.0 09/10/17 20:00 36.4 69 16 111/66 (81) 96 Nasal Cannula 2.0 09/10/17 19:45 68 15 111/64 98 Nasal Cannula 2 09/10/17 19:30 64 16 111/56 94 Nasal Cannula 4 09/10/17 19:20 36.2 67 19 111/61 91 Nasal Cannula 4 09/10/17 19:10 71 16 115/59 93 Nasal Cannula 4 09/10/17 19:00 74 17 112/64 94 Oxymask 10 09/10/17 18:50 72 20 123/67 93 Oxymask 10 09/10/17 18:44 37.4 70 18 127/76 94 Oxymask 10 (Simona Montaño, ESTEBAN) Physical Exam Notes: General: awake, alert, no apparent distress, obese BMI equal 31.5, fatigued Head: Normocephalic, atraumatic ENT: PERRL, EOMI, no pharyngeal exudate, mucous membranes moist Chest: On 2 L via NC, + faint crackles bibasilarly, worse on the L compared to R, no other adventitious breath sounds Cardiac: Regular rate and rhythm, no murmur, no JVD, normal peripheral pulses, good capillary refill Abdominal: NABS x 4 quadrants, soft, No tenderness to palpation on the RUQ, no rebound, guarding or tenderness, incisional scar present over RUQ s/p cholecystectomy. + dermatomal scabbed over lesions over the R flank. Extremities: RLE dressing c/d/i, otherwise normal inspection, no peripheral edema or erythema, calfs nontender to palpation Psych: Normal mood and affect Neuro: AAO x 3, poor historian, speech is clear, no peripheral sensory deficits (Simona Montaño, ESTEBAN) Laboratory Results Last 24 Hours Test 09/10/17 12:01 09/10/17 18:54 09/10/17 20:07 09/11/17 07:57 Bedside Glucose 105 mg/dl 111 mg/dl 118 mg/dl White Blood Count 13.38 K/uL Red Blood Count 3.69 M/uL Hemoglobin 11.3 g/dL Hematocrit 34.1 % Mean Corpuscular Volume 92.4 fL Mean Corpuscular Hemoglobin 30.6 pg Mean Corpuscular Hemoglobin Concent 33.1 g/dl Platelet Count 166 K/uL Mean Platelet Volume 10.2 fL Neutrophils (%) (Auto) 87.5 % Lymphocytes (%) (Auto) 6.7 % Monocytes (%) (Auto) 5.3 % Eosinophils (%) (Auto) 0.1 % Basophils (%) (Auto) 0.1 % Neutrophils # (Auto) 11.70 K/uL Lymphocytes # (Auto) 0.89 K/uL Monocytes # (Auto) 0.71 K/uL Eosinophils # (Auto) 0.02 K/uL Basophils # (Auto) 0.02 K/uL RDW Standard Deviation 45.8 fL RDW Coefficient of Variation 13.6 % Immature Granulocyte % (Auto) 0.3 % Immature Granulocyte # (Auto) 0.04 K/uL (Simona Montaño, ESTEBAN) Assessment and Plan Ms. Steven is a 71 y/o female with PMHx of CVA (2014), T2DM, and HLD who presented after a fall, found to have R. subcapital femoral neck fracture. Acute Closed R Subcapital Femoral Neck Fracture: - S/p fixation by Dr. [place] on 09/10 - appreciate ortho recs and assistance - Pain control with Tylenol and Morphine; Continue bowel regimen as there was large fecal load on CT abd - will order dulcolax supp now. - Hold Plavix - last dose 09/09 - resume today if ok with ortho. - PT/OT, WBAT RLE Chronic Diastolic CHF - no acute exacerbation - Echo 2014 - EF 60-65% and grade I diastolic dysfunction - Repeat CXR this morning showing cardiomegaly with persistent mildly improved bilateral interstitial coarsening. Subsegmental left basilar opacities favor atelectasis. - Faint crackles bibasilarly on exam, slightly worse on the L compared to right - STOP IVFs, monitor closely for pulm edema. Pt instructed on incentive spirometry at bedside. Currently on 2 L, saturations good, no supplemental O2 at baseline so attempt to wean off today. Elevated AST/ALT - Trending labs - today improved, no abdominal tenderness on exam. - CK only 45 so unlikely from rhabdo - s/p cholecystectomy - CT abd/pelvis showing dilation of biliary ducts, significant fecal load. - bowel regimen ordered - on simvastatin 80 mg - will hold for now Hypomagnesemia - 1.7 today, replaced with 1g IV Internal carotid stenosis - L. ICA 50-60% done apr 2015 - Carotid U/S rechecked today: unchanged compared to previous. 1. Hemodynamically significant stenosis within the proximal left internal carotid artery (50-69% stenosis). 2. Hemodynamically significant stenosis within the proximal left external carotid artery. T2DM: Alc 5.6 - Hold Metformin and Glimepiride - Cover with SSI with accuchecks achs Mild Protein Malnutrition ? Progressive memory dysfunction? - Family expresses that patient has been progressively eating less - reporting not much of an appetite but does enjoy boost supplementation; Will continue Boost - Also the patient is a very poor historian at bedside. - albumin 2.8 HLD: - HOLD Simvastatin 80 mg daily DVT Prophylaxis: SCDs, no chemical ppx Code Status: FULL RESUSCITATION Disposition: PT/OT evaluations - likely rehab vs SNF on D/C, possible dc within 1-2 days (Simona Montaño, ESTEBAN) Reviewed: Pt Seen/Exam by Me (Gregoria May MD) History Physician Demolition Hammer Operator supervision Note: I interviewed and examined the patient. Discussed with MICHELLE Montaño and agree with findings and plan as documented in the note. Any exceptions or clarifications are listed here: DOing well, pain controlled. No CP or SOB. LFTs trending downward. Vitals reviewed Gen: AAOx3, NAD HEENT: anicteric sclerae, atraumatic CV: RRR no mgr nl S1S2 Pulm: CTAB no wcr Abd: +BS soft NT ND no masses or hernias Ext: no edema, right hip with dressing and ice pack in place Skin: Right upper quadrant of the abdomen with approximately 4 x 3 cm patch of multiple scabbed over circular lesions on the mildly erythematous base, warm/dry Neuro: Moving all 4 extremities This patient is a 71-year-old female with a history of CVA in 2015, DM 2, and dyslipidemia, who presented after a mechanical fall with a right subcapital femoral neck fracture. -Appreciate orthopedic surgical management -DVT prophylaxis with aspirin twice daily, will also add Plavix back today Also with significantly elevated LFTs now trending downward and no abd pain or tenderness-CT of abdomen pelvis without any findings to explain this but also with rash on the right side of the abdomen that looks like herpes zoster and perhaps could be causing the pain. It is scabbed over and treatment with Valtrex at this point would not be beneficial. -Follow LFTs and holding simvastatin Could be discharged to rehab likely tomorrow Documented By: Gregoria May (Gregoria May MD)
[2017-09-11 08:44] LABS: CALCIUM 8.6 mg/dl (8.5-10.1); CREATININE 0.99 mg/dl (0.60-1.20); POTASSIUM 4.4 mmol/L (3.5-5.1)
[2017-09-11 08:57] LABS: INR 1.1 (0.9-1.1)
[2017-09-11] MEDS: ASPIRIN/ALUM/MAGNES/CAL CARB 325 MG TAB PO SCH ×2 (09:11→21:03)
[2017-09-11] MEDS: CYANOCOBALAMIN 500 MCG TAB (VIT B-12) PO SCH (09:11)
[2017-09-11] MEDS: POLYETHYLENE (MIRALAX) 17 GM PACK PO SCH (09:12)
[2017-09-11] MEDS: SENNA 8.6 MG TAB PO SCH (09:12)
[2017-09-11 09:25] LABS: ALBUMIN 2.8 gm/dl (3.4-5.0); TOTAL PROTEIN 6.1 gm/dl (6.4-8.2)
[2017-09-11] MEDS: BOOST GLUCOSE CONTROL PO SCH ×2 (09:28→21:02)
[2017-09-11] MEDS ORDERED: BISACODYL 10 MG SUPP PR STA (10:17)
[2017-09-11] MEDS ORDERED: MAGNESIUM SULFATE 1GM / D5W 100 ML IV ONE (10:45)
[2017-09-11 11:06] VITALS: Ht 154.9 cm; Wt 75.7 kg
[2017-09-11 12:04] VITALS: BP 102/63; PULSE 82; TEMP 37.2; O2SAT 93
[2017-09-11 16:20] VITALS: BP 147/73; PULSE 101; TEMP 37.7; O2SAT 92
[2017-09-11] MEDS: OXYCODONE HCL IR 5 MG TAB (IMMEDIATE RELEASE) PO PRN ×2 (18:23→19:39)
[2017-09-11] MEDS: DOCUSATE SODIUM/SENNA 50/8.6MG TAB PO SCH ×2 (20:58→21:02)
[2017-09-11 23:47] VITALS: BP 118/69; PULSE 87; TEMP 37.4; O2SAT 87; O2SAT 91
[2017-09-12 07:35] VITALS: BP 140/84; PULSE 87; TEMP 37.2; O2SAT 90
[2017-09-12] MEDS: INSULIN ASPART 100 UNITS/ML 3 ML PEN SC SCH ×2 (08:00→12:00)
--- NOTE | 2017-09-12 08:03 | Orthopedic Progress Note ---
Orthopedic Progress Note Date of Service September 12, 2017. Subjective Post OP Day: 2 Reports: feeling well, Denies: chest pain, SOB, nausea / vomiting, light headedness, calf pain Additional Notes: Lying in bed. Having her labs drawn currently. States her hip is a little sore today. No other complaints. States she was up ambulating yesterday and it went fairly well. Objective calves soft nontender, N/V intact, hip located, incision C/D/I (mild erythema around the leticia), A&O x3, toes mobile Date Time Temp Pulse Resp B/P (MAP) Pulse Ox O2 Delivery O2 Flow Rate FiO2 09/12/17 00:45 Nasal Cannula 2.0 09/11/17 23:47 91 Nasal Cannula 2.0 09/11/17 23:47 37.4 87 14 118/69 (85) 87 Room Air 09/11/17 16:30 Room Air 09/11/17 16:20 37.7 101 18 147/73 (97) 92 Room Air 09/11/17 12:04 37.2 82 18 102/63 (76) 93 Room Air 09/11/17 09:11 Room Air 09/11/17 08:28 37.0 71 16 118/65 (82) 95 2.0 Laboratory Results 24 Hours: Test 09/11/17 08:32 09/12/17 07:44 Prothromb Time International Ratio 1.1 Prothrombin Time 11.2 SECONDS Assessment & Plan Assessment: POD 2 s/p right hip hemiarthroplasty Plan: -DVT prophylaxis aspirin twice daily -Weight-bear as tolerates right lower extremity -Posterior hip precautions -PT OT -A.m. labs pending Inhouse Planning Pain Management: Morphine, Oxy IR DVT Prophylaxis: TEDs, SCDs, ASA, other (Plavix) Discharge Planning Discharge Planning: uncertain
[2017-09-12 08:08] LABS: BASO % 0.3 %; BASO ABS # 0.03 K/uL (0-0.2); EOS % 2.1 %; EOS ABS # 0.21 K/uL (0-0.5); HEMATOCRIT 33.3 % (37-47); HEMOGLOBIN 11.1 g/dL (12.0-16.0); IG# 0.02 K/uL (0.00-0.02); LYMPH % 12.5 %; LYMPH ABS # 1.26 K/uL (1.2-3.4); MEAN CELL VOLUME 91.7 fL (80-100); MEAN CORPUSCULAR HEMOGLOBIN 30.6 pg (25-34); MEAN CORPUSCULAR HGB CONC 33.3 g/dl (32-36); MEAN PLATELET VOLUME 10.5 fL (7.4-10.4); MONO % 7.6 %; MONO ABS # 0.77 K/uL (0.11-0.59); NEUT % 77.3 %; NEUT ABS # 7.82 K/uL (1.4-6.5); PLATELET COUNT 194 K/uL (130-400); RED CELL DISTRIBUTION WIDTH CV 13.9 % (11.5-14.5); RED CELL DISTRIBUTION WIDTH SD 46.2 fL (36.4-46.3); WHITE BLOOD COUNT 10.11 K/uL (4.8-10.8)
[2017-09-12 08:46] LABS: CALCIUM 8.8 mg/dl (8.5-10.1); CREATININE 0.9 mg/dl (0.60-1.20); POTASSIUM 3.7 mmol/L (3.5-5.1)
[2017-09-12] MEDS: BOOST GLUCOSE CONTROL PO SCH (09:00)
[2017-09-12] MEDS ORDERED: CLOPIDOGREL BISULFATE 75 MG TAB PO SCH (09:00)
[2017-09-12] MEDS: ASPIRIN/ALUM/MAGNES/CAL CARB 325 MG TAB PO SCH (09:08)
[2017-09-12] MEDS: CYANOCOBALAMIN 500 MCG TAB (VIT B-12) PO SCH (09:09)
[2017-09-12] MEDS: POLYETHYLENE (MIRALAX) 17 GM PACK PO SCH (09:09)
[2017-09-12] MEDS: SENNA 8.6 MG TAB PO SCH (09:09)
[2017-09-12 09:11] LABS: TOTAL PROTEIN 6.8 gm/dl (6.4-8.2)
--- NOTE | 2017-09-12 11:53 | Hospitalist Progress Note ---
Hospitalist Progress Note Date of Service September 12, 2017. (Jennifer Guerrier CRNP) Subjective Pt evaluation today including: conversation w/ patient, physical exam, chart review, lab review, review of inpatient medication list Voiding: no voiding problems Ms. Steven has no complaints. ROS Constitutional: no chills, aches, sweats or fever Respiratory: no sob,cough, sputum, or wheezing Cardiac: no chest pain, palpitations, edema, orthopnea or lightheadedness GI: no abdominal pain, nausea, vomiting, diarrhea or constipation : no dysuria or hesitancy Extremities: no joint pain or weakness Skin: no rash All other systems reviewed and negative (Jennifer Guerrier CRNP) Medications Medications Administered Medications (Trade) Dose Ordered Sig/Eliz Route Start Time Stop Time Status Last Admin Dose Admin Morphine Sulfate (MoRPHine SULFATE INJ) 4 mg NOW STAT IV 09/09/17 12:44 09/09/17 12:51 DC 09/09/17 13:02 4 MG Ondansetron HCl (Zofran Inj) 4 mg NOW STAT IV 09/09/17 12:44 09/09/17 12:51 DC 09/09/17 13:03 4 MG Sodium Chloride 1,000 ml @ 75 mls/hr [id number] IV 09/09/17 14:43 09/10/17 23:33 DC 09/10/17 05:58 75 MLS/HR Morphine Sulfate (MoRPHine SULFATE INJ) 4 mg Q2H PRN IV 09/09/17 14:45 09/10/17 18:43 DC 09/09/17 22:00 4 MG Senna/Docusate Sodium (Senokot S Tab) 2 tab HS PO 09/09/17 21:00 10/09/17 20:59 09/11/17 21:02 2 TAB Cyanocobalamin (Vitamin B-12 Tab) 1,000 mcg DAILY PO 09/10/17 09:00 10/10/17 08:59 09/12/17 09:09 1,000 MCG Simvastatin (Zocor Tab) 80 mg QPM PO 09/09/17 21:00 10/09/17 20:59 Future Hold 09/09/17 22:01 80 MG Enteral Nutritional Formula (Boost Glucose Control) 1 can BID PO 09/09/17 21:00 10/09/17 20:59 5/9/18 21:02 1 CAN Polyethylene (Miralax Powder Packet) 17 gm DAILY PO 09/11/17 09:00 10/09/17 14:44 09/12/17 09:09 17 GM Senna (Senokot Tab) 8.6 mg QAM PO 09/11/17 09:00 10/11/17 08:59 09/12/17 09:09 8.6 MG Povidone Iodine (Betadine Ophthalmic Prep Solution) 30 ml STK-MED ONCE .ROUTE 09/10/17 16:22 09/10/17 16:23 DC 09/10/17 18:00 30 ML Bacitracin (Bacitracin Inj) 50,000 units STK-MED ONCE .ROUTE 09/10/17 16:22 09/10/17 16:23 DC 09/10/17 18:00 50,000 UNITS Ropivacaine 150 mg/Bupivacaine HCl 30 ml/ Epinephrine HCl 0.15 mg/Ketorolac Tromethamine 30 mg/Dexamethasone Sodium Phosphate 4 mg/Ketamine HCl 10 mg/Clonidine 100 mcg/Sodium Chloride 93.35 ml @ 0 mls/hr 1800 INFIL 09/10/17 18:00 09/10/17 20:00 DC 09/10/17 18:00 93.3 MLS/HR Sodium Chloride 1,000 ml @ 85 mls/hr [id number] IV 09/10/17 18:45 09/11/17 10:25 DC 09/11/17 06:43 85 MLS/HR Cefazolin Sodium 1000 mg/Syringe 7.5 ml @ 2.5 mls/min Q8H IV 09/10/17 23:00 09/11/17 07:02 DC 09/11/17 06:42 2.5 MLS/MIN Oxycodone HCl (Roxicodone Immediate Rel Tab) 5 mg Q4H PRN PO 09/10/17 18:45 09/24/17 18:44 09/11/17 19:39 5 MG Aspirin/Aluminum/ Magnesium/Ca Carb (Ascriptin Tab) 325 mg BID PO 09/11/17 09:00 10/11/17 08:59 09/12/17 09:08 325 MG Magnesium Sulfate 100 ml @ 100 mls/hr TODAY@1045 ONCE IV 09/11/17 10:45 09/11/17 11:44 DC 09/11/17 11:30 100 MLS/HR Bisacodyl (Dulcolax Supp) [address] 09/11/17 10:17 09/11/17 10:33 DC 09/11/17 11:35 10 MG Clopidogrel Bisulfate (plAVix TAB) 75 mg DAILY PO 09/12/17 09:00 10/12/17 08:59 09/12/17 09:08 75 MG (Jennifer Guerrier CRNP) Objective Vital Signs Date Time Temp Pulse Resp B/P (MAP) Pulse Ox O2 Delivery O2 Flow Rate FiO2 09/12/17 07:35 37.2 87 21 140/84 (102) 90 Room Air 09/12/17 00:45 Nasal Cannula 2.0 09/11/17 23:47 91 Nasal Cannula 2.0 09/11/17 23:47 37.4 87 14 118/69 (85) 87 Room Air 09/11/17 16:30 Room Air 09/11/17 16:20 37.7 101 18 147/73 (97) 92 Room Air 09/11/17 12:04 37.2 82 18 102/63 (76) 93 Room Air (Jennifer Guerrier CRNP) Physical Exam Notes: General: no distress Eyes: normal inspection, PERLL Respiratory: chest non tender, clear to auscultation, normal breath sounds, no respiratory distress, no accessory muscle use Cardiac: regular rate and rhythm, no rub or gallop, no murmur, no edema, no jvd GI/: active bowel sounds, no abd pain or tenderness, soft, non distended Extremities: normal range of motion, normal strength, non tender Neuro/Psych: alert and oriented x 3, normal mood and affect Skin: normal color, dry (Jennifer Guerrier CRNP) Laboratory Results Last 24 Hours Test 09/11/17 11:56 09/11/17 17:30 09/11/17 20:52 09/12/17 07:44 Bedside Glucose 178 mg/dl 159 mg/dl 165 mg/dl White Blood Count 10.11 K/uL Red Blood Count 3.63 M/uL Hemoglobin 11.1 g/dL Hematocrit 33.3 % Mean Corpuscular Volume 91.7 fL Mean Corpuscular Hemoglobin 30.6 pg Mean Corpuscular Hemoglobin Concent 33.3 g/dl Platelet Count 194 K/uL Mean Platelet Volume 10.5 fL Neutrophils (%) (Auto) 77.3 % Lymphocytes (%) (Auto) 12.5 % Monocytes (%) (Auto) 7.6 % Eosinophils (%) (Auto) 2.1 % Basophils (%) (Auto) 0.3 % Neutrophils # (Auto) 7.82 K/uL Lymphocytes # (Auto) 1.26 K/uL Monocytes # (Auto) 0.77 K/uL Eosinophils # (Auto) 0.21 K/uL Basophils # (Auto) 0.03 K/uL RDW Standard Deviation 46.2 fL RDW Coefficient of Variation 13.9 % Immature Granulocyte % (Auto) 0.2 % Immature Granulocyte # (Auto) 0.02 K/uL Sodium Level 141 mmol/L Potassium Level 3.7 mmol/L Chloride Level 106 mmol/L Carbon Dioxide Level 27 mmol/L Anion Gap 8.0 mmol/L Blood Urea Nitrogen 18 mg/dl Creatinine 0.90 mg/dl Est Creatinine Clear Calc Drug Dose 54.9 ml/min Estimated GFR () 75.6 Estimated GFR (Non- 65.2 BUN/Creatinine Ratio 20.1 Random Glucose 112 mg/dl Calcium Level 8.8 mg/dl Magnesium Level 2.0 mg/dl Total Bilirubin 0.6 mg/dl Direct Bilirubin 0.2 mg/dl Aspartate Amino Transf (AST/SGOT) 49 U/L Alanine Aminotransferase (ALT/SGPT) 82 U/L Alkaline Phosphatase 48 U/L Total Protein 6.8 gm/dl Albumin 3.0 gm/dl Test 09/12/17 08:03 Bedside Glucose 125 mg/dl (Jennifer Guerrier CRNP) Assessment and Plan Ms. Steven is a 71 year old woman here for right hip fracture following a fall Acute Closed R Subcapital Femoral Neck Fracture: - S/p fixation by Dr. Dallas on 09/10 - appreciate ortho recs and assistance - Pain control with Tylenol and Morphine; Continue bowel regimen as there was large fecal load on CT abd - patient did have large bm overnight. - Plavix restarted - PT/OT, WBAT RLE Chronic Diastolic CHF - no acute exacerbation - Echo 2014 - EF 60-65% and grade I diastolic dysfunction - Repeat CXR 09/11 showing cardiomegaly with persistent mildly improved bilateral interstitial coarsening. Subsegmental left basilar opacities favor atelectasis. Elevated AST/ALT - CK only 45 so unlikely from rhabdo - s/p cholecystectomy - CT abd/pelvis showing dilation of biliary ducts, significant fecal load. - continue bowel regimen - on simvastatin 80 mg - will hold for now until LFTs resolve Hypomagnesemia - replaced Internal carotid stenosis - L. ICA 50-60% done apr 2015 - Carotid U/S rechecked today: unchanged compared to previous. 1. Hemodynamically significant stenosis within the proximal left internal carotid artery (50-69% stenosis). 2. Hemodynamically significant stenosis within the proximal left external carotid artery. T2DM: Alc 5.6 - Hold Metformin and Glimepiride - Cover with SSI with accuchecks achs - bsgs stable Mild Protein Malnutrition ? Progressive memory dysfunction? - Family expresses that patient has been progressively eating less - reporting not much of an appetite but does enjoy boost supplementation; Will continue Boost - albumin 2.8 HLD: - HOLD Simvastatin 80 mg daily as above DVT Prophylaxis: SCDs, no chemical ppx Code Status: FULL RESUSCITATION Disposition: PT/OT evaluations - [facility] (Jennifer Guerrier ., NORBERTO)
[2017-09-12] MEDS ORDERED: SENN-61 PO (12:07)
[2017-09-12] MEDS ORDERED: DLCS PR (12:07)
[2017-09-12] MEDS ORDERED: SENN8.6T7 PO (12:07)
[2017-09-12] MEDS ORDERED: NUTR-7 PO (12:07)
[2017-09-12] MEDS ORDERED: ACET-1047 PO (12:07)
[2017-09-12] MEDS ORDERED: ASPI325T60 PO (12:07)
[2017-09-12 12:21] VITALS: O2SAT 89; O2SAT 97
--- NOTE | 2017-09-12 12:39 | Discharge Instructions ---
Discharge Instructions Date of Service September 12, 2017. Admission Reason for Admission: Closed Subcapital Fracture Of Neck Of Right Femur Discharge Discharge Diagnosis / Problem: Closed subcapital fracture of Neck of Right femur Discharge Goals Goal(s): Decrease discomfort, Increase independence Activity Recommendations Activity Level: Assistance Required Therapies: Physical Therapy, Occupational Therapy Weightbearing Status: Right weightbearing (as tolerated) . Additional Information Patient informed of condition: Yes Advance Directives: No DNR: No Level of Care: Acute Rehab Communicable Disease: Yes (possible resolving shingles rash abd) Prognosis: Stable Oxygen at (LPM): 2L nc [place] Catheter: No Instructions / Follow-Up Instructions / Follow-Up Please have patient hold metformin until evening of 09/[address] contrast administration 09/10. Please have patient follow up with ortho in 2 weeks - patient will need leticia removed Please draw LFTs in a few days to check that they are still trending down. Can restart statin at lower dose when they have normalized Current Hospital Diet Patient's current hospital diet: Regular Diet Discharge Diet Recommended Diet: Regular Diet Procedures Procedures Performed: Right hip Hemiarthroplasty Abdomen pelvis CT Hip Xray Carotid US Cervical Spine Head CT Pelvis Xray Femur Xray Knee Xray Pending Studies Studies pending at discharge: no Physician Orders On Transfer POLST Discussion: without POLST completion Laboratory Results Medications Administered Medications (Trade) Dose Ordered Sig/Eliz Route Start Time Stop Time Status Last Admin Dose Admin Morphine Sulfate (MoRPHine SULFATE INJ) 4 mg NOW STAT IV 09/09/17 12:44 09/09/17 12:51 DC 09/09/17 13:02 4 MG Ondansetron HCl (Zofran Inj) 4 mg NOW STAT IV 09/09/17 12:44 09/09/17 12:51 DC 09/09/17 13:03 4 MG Sodium Chloride 1,000 ml @ 75 mls/hr [id number] IV 09/09/17 14:43 09/10/17 23:33 DC 09/10/17 05:58 75 MLS/HR Morphine Sulfate (MoRPHine SULFATE INJ) 4 mg Q2H PRN IV 09/09/17 14:45 09/10/17 18:43 DC 09/09/17 22:00 4 MG Senna/Docusate Sodium (Senokot S Tab) 2 tab HS PO 09/09/17 21:00 10/09/17 20:59 09/11/17 21:02 2 TAB Cyanocobalamin (Vitamin B-12 Tab) 1,000 mcg DAILY PO 09/10/17 09:00 10/10/17 08:59 09/12/17 09:09 1,000 MCG Simvastatin (Zocor Tab) 80 mg QPM PO 09/09/17 21:00 10/09/17 20:59 Future Hold 09/09/17 22:01 80 MG Enteral Nutritional Formula (Boost Glucose Control) 1 can BID PO 09/09/17 21:00 10/09/17 20:59 09/11/17 21:02 1 CAN Polyethylene (Miralax Powder Packet) 17 gm DAILY PO 09/11/17 09:00 10/09/17 14:44 09/12/17 09:09 17 GM Senna (Senokot Tab) 8.6 mg QAM PO 09/11/17 09:00 10/11/17 08:59 09/12/17 09:09 8.6 MG Povidone Iodine (Betadine Ophthalmic Prep Solution) 30 ml STK-MED ONCE .ROUTE 09/10/17 16:22 09/10/17 16:23 DC 09/10/17 18:00 30 ML Bacitracin (Bacitracin Inj) 50,000 units STK-MED ONCE .ROUTE 09/10/17 16:22 09/10/17 16:23 DC 09/10/17 18:00 50,000 UNITS Ropivacaine 150 mg/Bupivacaine HCl 30 ml/ Epinephrine HCl 0.15 mg/Ketorolac Tromethamine 30 mg/Dexamethasone Sodium Phosphate 4 mg/Ketamine HCl 10 mg/Clonidine 100 mcg/Sodium Chloride 93.35 ml @ 0 mls/hr 1800 INFIL 09/10/17 18:00 09/10/17 20:00 DC 09/10/17 18:00 93.3 MLS/HR Sodium Chloride 1,000 ml @ 85 mls/hr [id number] IV 09/10/17 18:45 09/11/17 10:25 DC 09/11/17 06:43 85 MLS/HR Cefazolin Sodium 1000 mg/Syringe 7.5 ml @ 2.5 mls/min Q8H IV 09/10/17 23:00 09/11/17 07:02 DC 09/11/17 06:42 2.5 MLS/MIN Oxycodone HCl (Roxicodone Immediate Rel Tab) 5 mg Q4H PRN PO 09/10/17 18:45 09/24/17 18:44 09/11/17 19:39 5 MG Aspirin/Aluminum/ Magnesium/Ca Carb (Ascriptin Tab) 325 mg BID PO 09/11/17 09:00 10/11/17 08:59 09/12/17 09:08 325 MG Magnesium Sulfate 100 ml @ 100 mls/hr TODAY@1045 ONCE IV 09/11/17 10:45 09/11/17 11:44 DC 09/11/17 11:30 100 MLS/HR Bisacodyl (Dulcolax Supp) 10 mg NOW STAT GA 09/11/17 10:17 09/11/17 10:33 DC 09/11/17 11:35 10 MG Clopidogrel Bisulfate (plAVix TAB) 75 mg DAILY PO 09/12/17 09:00 10/12/17 08:59 09/12/17 09:08 75 MG Medical Emergencies . Who to Call and When: Medical Emergencies: If at any time you feel your situation is an emergency, please call 911 immediately. . Non-Emergent Contact Non-Emergency issues call your: Primary Care Provider Call Non-Emergent contact if: you have a fever . . "Provider Documentation" section prepared by Jennifer Guerrier. . Core Measure Problem Core Measures: None
[2017-09-12] MEDS ORDERED: NURSING VERBAL MED ORDER ONE (12:45)
--- NOTE | 2017-09-12 12:54 | Discharge Summary ---
Discharge Summary Date of Service September 12, 2017. Discharge Summary Admission Date: September 09, 2017 at 14:51 Discharge Date: September 12, 2017 Discharge Disposition: Rehab Principal Diagnosis: Acute Closed R Subcapital Femoral Neck Fracture Problems/Secondary Diagnoses: Chronic Diastolic CHF Elevated AST/ALT Hypomagnesemia Carotid artery [id number]% DM 2, not on long-term insulin, controlled Mild Protein calorie malnutrition HLD History of CVA Constipation Mild cognitive impairment Herpes zoster Procedures: R HIP UNILATERAL 2 VIEWS CLINICAL HISTORY: s/p Right hip hemiarthroplasty COMPARISON: None. DISCUSSION: There are postsurgical changes of a bipolar right hip arthroplasty. There are no acute fractures. There is no dislocation. There are overlying skin leticia. There is air within soft tissues consistent with recent surgery. IMPRESSION: Status post bipolar right hip arthroplasty. No complicating features identified. Electronically signed by: Serg Peña M.D. 09/10/2017 7:20 PM [~ rep ct add3]] ABD/PELVIS IV CONTRAST ONLY CT DOSE: 588.49 mGy.cm HISTORY: Pain Assess RUQ pain, elevated ALT, AST TECHNIQUE: Multiaxial CT images of the abdomen and pelvis were performed following the use of intravenous contrast. A dose lowering technique was utilized adhering to the principles of ALARA. COMPARISON STUDY: None. FINDINGS: Mild bibasilar atelectasis. Mild biliary ductal prominence most likely on a postcholecystectomy basis. Liver is uniform. Fatty replacement of the pancreas. The adrenal glands are normal. Kidneys show mild cortical scarring but are negative for hydronephrosis or perinephric infiltrative process. Bowel pattern is considered nonobstructive. There is an increase in fecal load throughout the bulk of the colon consistent with fecal stasis. There is no evidence for abscess or collection. There is a small focal hernia lateral aspect right soft tissue pelvic region. This is considered nonobstructive. There is no bowel distention or bowel wall thickening. Uterus is anteflexed. A Zavala catheter is in position. The fracture of the right femoral neck is again noted. There is moderate generalized surrounding soft tissue edematous change. Moderate degenerative change throughout all remaining additional bony structures. No acute abnormality of 9 noted is appreciated. IMPRESSION: 1. Fracture right hip which of been described previously. 2. Increased colonic fecal load consistent with a component of fecal stasis. 3. Biliary ductal prominence most likely on a postcholecystectomy basis although prior exams are not available for comparison. 4. Remainder the abdomen and pelvis shows no additional acute process. The above report was generated using voice recognition software. It may contain grammatical, syntax or spelling errors. Electronically signed by: Alonso Rodriguez M.D. 09/10/2017 2:42 PM CAROTID DOPPLER NECK ART CLINICAL HISTORY: 71 years-old Female presenting with h/o carotid stenosis, follow up prior to surgery. TECHNIQUE: Real-time grayscale and color and spectral Doppler ultrasound imaging of the bilateral carotid arteries was performed. NASCET criteria was used in evaluating this study. COMPARISON: 04/08/2015. FINDINGS: Right: Common carotid: Atherosclerosis at the carotid bulb. Peak systolic velocity 88 cm/s. Internal carotid artery: Atherosclerosis of the proximal ICA. Peak systolic velocity 97 cm/s. End diastolic velocity 22 cm/s. Systolic ratio: 1.1. External carotid artery: Atherosclerosis. Peak systolic velocity 140 cm/s. Left: Common carotid: Atherosclerosis at the carotid bulb. Peak systolic velocity 78 cm/s. Internal carotid artery: Atherosclerosis of the proximal ICA. Peak systolic velocity 190 cm/s. End-diastolic velocity 42 cm/s. Systolic ratio: 2.4. External carotid artery: Atherosclerosis. Peak systolic velocity 267 cm/s. Bilateral antegrade flow within the vertebral arteries. Reference ranges: Stenosis measurements are compared to reference velocity parameters. Primary parameters: ICA peak systolic velocity (PSV) < 125 cm/s normal or indicating < 50% stenosis; ICA PSV 125-230 cm/s equivalent to 50-69% stenosis; ICA PSV > 230 cm/s equivalent to greater than or equal to 70% stenosis. Additional parameters: ICA PSV to common carotid artery PSV ratio < 2 normal or < 50% stenosis; 2-4 equates to 50-69% stenosis, > 4 equates to greater than or equal to 70% stenosis. Normal ICA end-diastolic velocity less than 40. Blood pressure: Brachial: Right: 136/67 mmHg, Left: 133/65 mmHg. IMPRESSION: 1. Hemodynamically significant stenosis within the proximal left internal carotid artery (50-69% stenosis). 2. Hemodynamically significant stenosis within the proximal left external carotid artery. Electronically signed by: Heri Olmos M.D. 09/10/2017 1:44 PM CHEST ONE VIEW PORTABLE HISTORY: 71 years-old Female F/U CXR from ED follow-up study in a patient with acute chest injury with recent fall COMPARISON: Chest radiograph 09/09/2017 TECHNIQUE: Portable AP view of the chest FINDINGS: Cardiac silhouette is mildly enlarged. Atherosclerosis of the aorta. There is decreased amount of mediastinal widening from prior study with better inspiratory effort on today's study. No pneumothorax or large pleural effusion. Mild right hemidiaphragmatic elevation with mild interstitial coarsening, slightly improved. Subsegmental left basilar opacities. Trace fluid within the minor fissure. Degenerative changes of the shoulders and spine. IMPRESSION: 1. Cardiomegaly with persistent mildly improved bilateral interstitial coarsening. 2. Subsegmental left basilar opacities favor atelectasis. Electronically signed by: Van Vazquez M.D. 09/10/2017 7:11 AM CHEST ONE VIEW PORTABLE CLINICAL HISTORY: Trauma. Chest pain. COMPARISON STUDY: 10/03/2015 FINDINGS: The heart is enlarged. There is mild mediastinal widening. There is diffuse elevation of the interstitium. This may indicate underlying pulmonary vascular congestion. There is no lobar consolidation. No pneumothorax is visualized on the supine study.[ IMPRESSION: 1. Cardiomegaly 2. Mild mediastinal widening 3. Diffuse elevation of the interstitium. Clinical correlation in regards to congestive failure/fluid overload is recommended Electronically signed by: Serg Peña M.D. 09/09/2017 1:[address] OF THE CERVICAL SPINE CLINICAL HISTORY: Neck pain status post trauma COMPARISON STUDY: No previous studies for comparison. CT DOSE: TECHNIQUE: CT scan of the cervical spine was performed from the skull base to the thoracic inlet. Images are reviewed in the axial, sagittal, and coronal planes. IV contrast was not administered for this examination. A dose lowering technique was utilized adhering to the principles of ALARA. FINDINGS: There is right paratracheal soft tissue prominence on the ecmo specialist topogram The visualized portions of the lung apices reveal no evidence of pneumothorax. There is a left posterior fossa arachnoid cyst No acute fractures are visualized. 1.5 mm of anterior subluxation of C4 on C5 is felt to be degenerative. There are multilevel degenerative changes IMPRESSION: No evidence of acute fracture or traumatic subluxation. Electronically signed by: Serg Peña M.D. 09/09/2017 1:39 PM HEAD WITHOUT CONTRAST (CT) CLINICAL HISTORY: 71 years-old Female presenting with fall on the right side. TECHNIQUE: Multidetector CT imaging of the head was performed without the use of intravenous contrast. IV contrast: None. A dose lowering technique was used consistent with the principles of ALARA (as low as reasonably achievable). COMPARISON: 10/03/2015. CT DOSE (mGy.cm): The estimated cumulative dose is 1015.92 mGy.cm. FINDINGS: Psych Coordinator topogram: The patient is edentulous. Ventricles and sulci normal in size. Unchanged left posterior fossa cystic structure compatible with an arachnoid cyst. Stable left anterior thalamic old appearing infarct. No mass effect or midline shift. No hemorrhage or acute territorial infarct. No extra-axial fluid collection. Mild mucosal thickening in the maxillary sinuses and ethmoid air cells. Calvarium intact. Mild asymmetric swelling of the right temporalis muscle. No large hematoma or significant contusion. IMPRESSION: 1. No significant change compared to the prior study. No acute intracranial abnormality. 2. Mild asymmetric swelling of the right temporalis muscle may be posttraumatic. No large hematoma, significant contusion, or subjacent osseous injury. Electronically signed by: Heri Olmos M.D. 09/09/2017 1:37 PM [~ rep ct add3]] PELVIS 1 OR 2 VIEW ROUTINE CLINICAL HISTORY: Right hip pain status post trauma COMPARISON STUDY: No previous studies for comparison. FINDINGS: The study is mildly obliqued. There is a mildly displaced subcapital right hip fracture. There is no SI joint diastases. There is no symphysis diastases. IMPRESSION: Mildly displaced subcapital right hip fracture. Electronically signed by: Serg Peña M.D. 09/09/2017 1:33 PM RIGHT FEMUR 4 VIEWS HISTORY: Right leg pain. fall COMPARISON: None. FINDINGS: There is a right femoral neck fracture demonstrating mild superior displacement. No dislocation. The visualized pelvic bones are intact. The mid to distal femur are also intact. The bones are osteopenic. Degenerative changes at the patellofemoral joint. Soft tissues are unremarkable. No radiopaque foreign bodies. IMPRESSION: Mildly displaced subcapital right femoral neck fracture. Electronically signed by: Jose De Jesus Muse M.D. 09/09/2017 1:37 PM R KNEE 3 VIEWS CLINICAL HISTORY: 71 years-old Female presenting with fall. TECHNIQUE: Frontal, lateral, and sunrise views of the right knee were obtained. COMPARISON: None. FINDINGS: Advanced tricompartmental degenerative changes. A bandage overlies the knee which partially obscures underlying osseous detail. Evaluation is further limited by suboptimal positioning on frontal view. Osteopenia also limits evaluation for nondisplaced fracture. Allowing for these limitations, no displaced fracture or acute malalignment is evident. No large knee joint effusion. The patellofemoral compartment demonstrates bone on bone joint space loss laterally with subchondral cystic change. Severe joint space loss also evident to lesser degree in the medial facet. No radiographic soft tissue abnormality. IMPRESSION: 1. Allowing for osteopenia, an overlying bandage, and suboptimal positioning, no evidence of acute osseous injury. 2. Advanced tricompartmental degenerative change most severe in the patellofemoral compartment. Electronically signed by: Heri Olmos M.D. 09/09/2017 1:33 PM Consultations: Dr. Dallas from orthopedic surgery Medication Reconciliation New Medications: Acetaminophen (Mapap) 325 Mg Tab 650 MG PO Q6H PRN for Pain for 14 Days, #112 TAB Aspirin Buffered (Filiberto Carb-Mag (Tri-Buffered Aspirin) 1 Tab Tab 325 MG PO BID for 30 Days, #30 TAB Bisacodyl (Bisac-Evac) 10 Mg Supp 10 MG NE DAILY PRN for Constipation for 7 Days, #7 SUPP Nutritional Supplements (Boost) 1 Liq Liq 1 CAN PO BID for 30 Days, #30 CAN Senna (Senokot) 8.6 Mg Tab 8.6 MG PO QAM for 14 Days, #14 TAB Sennosides-Docusate Sodium (Senokot S) 1 Tab Tab 2 TAB PO HS for 14 Days, #14 TAB Continued Medications: Clopidogrel (Plavix) 75 Mg Tab 75 MG PO DAILY, TAB Cyanocobalamin (Vitamin B-12) 1,000 Mcg Tab 1000 MCG PO DAILY, TAB Ergocalciferol (Vitamin D 12613 Unit) 50,000 Unit Cap 49799 UNIT PO WK, CAP Glimepiride (Glimepiride) 1 Mg Tab 1 MG PO DAILY for 90 Days, #90 TAB 3 Refills Metformin Hcl Er (Glucophage Er) 500 Mg Tab 500 MG PO BID, TAB Simvastatin (Zocor) 80 Mg Tab 80 MG PO QPM, TAB Discharge Exam ROS Constitutional: no chills, aches, sweats or fever Respiratory: no sob,cough, sputum, or wheezing Cardiac: no chest pain, palpitations, edema, orthopnea or lightheadedness GI: no abdominal pain, nausea, vomiting, diarrhea or constipation : no dysuria or hesitancy Extremities: no joint pain or weakness Skin: no rash All other systems reviewed and negative General: no distress Eyes: normal inspection, PERLL Respiratory: chest non tender, very faint basilar crackles, requiring 2L NC, no respiratory distress, no accessory muscle use Cardiac: regular rate and rhythm, no rub or gallop, no murmur, no edema, no jvd GI/: active bowel sounds, no abd pain or tenderness, soft, non distended Extremities: normal range of motion, normal strength, non tender Neuro/Psych: alert and oriented x 3, normal mood and affect Skin: normal color, dry Hospital Course Ms. Steven is a 71 y/o female with PMHx of CVA (2014), T2DM, and HLD who presented to the ED after a fall. Patient is not a great historian and most of the story came from her . stated the fall was not witnessed but he heard her fall and yell for help and he responded immediately and was able to get her off the floor. He stated she gets up independently multiple times throughout the night and always slips her slippers on. Theses were found kicked away and he suspects she slid off the bed when trying to put them on. He states she was found sitting on her bottom when he arrived to the room. She instantly developed R hip pain that radiated to the R knee. Patient and family report she has been in normal state of health and had no complaints of illness. She is on Plavix for a CVA in 2014 and took her dose this AM. XR in ED reveals a R subcapital femoral neck fx. CXR suggests possible pulmonary congestion and mildly widened mediastinum. Acute Closed R Subcapital Femoral Neck Fracture: - S/p fixation by Dr. Dallas on 09/10 - Pain control with Tylenol and Morphine; Continue bowel regimen as there was large fecal load on CT abd - patient did have large bm overnight. - Plavix restarted - PT/OT, WBAT RLE - Ortho consulted Chronic Diastolic CHF - no acute exacerbation - Echo 2014 - EF 60-65% and grade I diastolic dysfunction - Repeat CXR 09/11 showing cardiomegaly with persistent mildly improved bilateral interstitial coarsening. Subsegmental left basilar opacities favor atelectasis. Elevated AST/ALT - continues to trend down - CK only 45 so unlikely from rhabdo - s/p cholecystectomy - CT abd/pelvis showing dilation of biliary ducts, significant fecal load. - continue bowel regimen - on simvastatin 80 mg - will hold for now until LFTs resolve Hypomagnesemia - replaced Internal carotid stenosis - L. ICA 50-60% done apr 2015 - Carotid U/S rechecked today: unchanged compared to previous. 1. Hemodynamically significant stenosis within the proximal left internal carotid artery (50-69% stenosis). 2. Hemodynamically significant stenosis within the proximal left external carotid artery. T2DM: Alc 5.6 - Restart Metformin and Glimepiride for home - hold on metformin until tomorrow evening for CT contrast - Covered with SSI with accuchecks achs - bsgs stable Mild Protein Malnutrition ? Progressive memory dysfunction? - Family expresses that patient has been progressively eating less - reporting not much of an appetite but does enjoy boost supplementation; Will continue Boost - albumin 2.8 HLD: - HOLD Simvastatin 80 mg daily as above - restart at 40 mg daily when LFTs have normalized DVT Prophylaxis: SCDs, no chemical ppx Code Status: FULL RESUSCITATION Disposition: PT/OT evaluations - [facility] Total Time Spent: Greater than 30 minutes This includes examination of the patient, discharge planning, medication reconciliation, and communication with other providers. Discharge Instructions Please refer to the electronic Patient Visit Report (Discharge Instructions) for additional information. Follow-Up Ortho in 1-2 weeks Additional Copies To Jose Elias Dallas D.O.; [facility]; Guy Metz M.D. Reviewed: Pt Seen/Exam by Me History NORBERTO supervision Note: I interviewed and examined the patient. Discussed with NORBERTO Guerrier and agree with findings and plan as documented in the note. Any exceptions or clarifications are listed here: DOing well, pain controlled. No CP or SOB. LFTs trending downward. Moving bowels and tolerating p.o. Vitals reviewed Gen: AAOx3, NAD HEENT: anicteric sclerae, atraumatic CV: RRR no mgr nl S1S2 Pulm: CTAB no wcr Abd: +BS soft NT ND no masses or hernias Ext: no edema, right hip with dressing and ice pack in place Skin: Right upper quadrant of the abdomen with approximately 4 x 3 cm patch of multiple scabbed over circular lesions on the mildly erythematous base, warm/dry Neuro: Moving all 4 extremities This patient is a 71-year-old female with a history of CVA in 2015, DM 2, and dyslipidemia, who presented after a mechanical fall with a right subcapital femoral neck fracture. -Appreciate orthopedic surgical management -DVT prophylaxis with aspirin twice daily, will also add Plavix back Also with significantly elevated LFTs continuing to trend downward and no abd pain or tenderness-CT of abdomen pelvis without any findings to explain this but also with rash on the right side of the abdomen that looks like herpes zoster and perhaps could be causing the pain. It is scabbed over and treatment with Valtrex at this point would not be beneficial. -Follow LFTs at rehab and holding simvastatin until completely back to normal Stable for discharge Documented By: Gregoria May
[2017-09-12] MEDS ORDERED: SIMV40TA4 PO (13:22)
[2017-09-12 15:40] VITALS: BP 140/84; PULSE 87; TEMP 37.2; O2SAT 97
== END 2017-09-12 16:21 | DRG 470 ==
LOC: EDBD 11:47 → C.EDC 11:49 → UNDOADMIN 14:51 → C.MSN 14:51 → ENRESERV 15:12
PROVIDERS: ADMIT Internal Medicine; ATTEND Family Medicine
PROC: 0SRR0J9 Replacement of Right Hip Joint, Femoral Surface with Synthetic Substitute, Cemented, Open Approach (ICD-10-PCS; principal; 2017-09-10 13:00)
DX: S72.011A Unspecified intracapsular fracture of right femur, initial encounter for closed fracture (principal); I50.32 Chronic diastolic (congestive) heart failure; E44.1 Mild protein-calorie malnutrition; Z86.73 Personal history of transient ischemic attack (TIA), and cerebral infarction without residual deficits; E11.9 Type 2 diabetes mellitus without complications; E78.5 Hyperlipidemia, unspecified; I65.22 Occlusion and stenosis of left carotid artery; Z82.49 Family history of ischemic heart disease and other diseases of the circulatory system; Z79.02 Long term (current) use of antithrombotics/antiplatelets; Z79.84 Long term (current) use of oral hypoglycemic drugs; E83.42 Hypomagnesemia; K59.00 Constipation, unspecified; Y92.013 Bedroom of single-family (private) house as the place of occurrence of the external cause; G31.84 Mild cognitive impairment of uncertain or unknown etiology; W06.XXXA Fall from bed, initial encounter

== ENCOUNTER 2018-10-02 20:32 | Inpatient (IN) ==
[2018-10-02 20:51] LABS: iSTAT Hemoglobin 14.6 g/dl (12.0-16.0); iSTAT Ionized Calcium 1.15 mmol/l (1.12-1.32)
[2018-10-02] MEDS ORDERED: OPTIRAY 320 125ml IV PRN (20:52)
--- NOTE | 2018-10-02 20:53 | Emergency Department Note ---
Entered by Jann Tidwell acting as a scribe for History of Present Illness General Chief complaint: Stroke/CVA Symptoms Stated complaint: CVA Time Seen by Provider: 10/02/18 20:36 Source: family and EMS History of Present Illness Provider complaint: Stroke like symptoms Onset (ago): hour(s) (1.5) Location: head Radiation: non-radiation Severity: similar to prior episodes Pain Consistency: + intermittent Relieved By: + none Exacerbated By: + none Associated symptoms: + confusion, + loss of appetite, + weakness and + other (Negative neck pain; Positive facial droop; Positive diarrhea; ); no headaches The patient is a 72 year old female who presents to the Emergency Room via EMS with complaints of intermittent stroke like symptoms that started yesterday. Per the , the patient has not been eating much, she was too weak to get out of her chair, and she had diarrhea. The patient then became altered today around 1900 and did not know where she was. They state the patient has bilateral facial droop and is having trouble talking, both of which started today. She does not have any headache or neck pain. EMS also spoke with the patient's family who told them the patient had a stroke 2 years and has right sided deficits at baseline from this event. Per EMS, the patient is able to move all of her extremities. En route the patient was sating 92% on room air, which went up to 96% after getting put on 4L. The patient does not wear oxygen at baseline, she has not had any recent falls and it not a smoker. Home Medications Home Medications Medication Instructions Recorded Confirmed Type atorvastatin 20 mg PO HS 10/02/18 10/02/18 History clopidogrel [Plavix] 75 mg PO DAILY 10/02/18 10/02/18 History cyanocobalamin (vitamin B-12) 1,000 mcg PO DAILY 10/02/18 10/02/18 History [Vitamin B-12] docusate sodium [Colace] 100 mg PO BID 10/02/18 10/02/18 History food supplemt, lactose-reduced 1 ea PO DAILY 10/02/18 10/02/18 History [Boost] glimepiride 1 mg PO QAM 10/02/18 10/02/18 History metformin 500 mg PO BID 10/02/18 10/02/18 History Allergies Allergy/AdvReac Type Severity Reaction Status Date / Time No Known Drug Allergies Allergy Unknown N\A Verified 10/02/18 20:46 Past Med/Surg History Medical History Abdominal pain (Acute) Closed subcapital fracture of neck of right femur Constipation Rhabdomyolysis Stroke (Resolved) Family History Other Family history non-contributory Social History Preferred Language: Kiswahili Communication Ability: Confusion Communication Ability Comment: Confusion Residential Property Consultant Required: No Beliefs That Will Affect Care: None Current Living Situation: Spouse Other Information That Helps Us Care for You: No Feels Safe at Home: Yes Safety Concerns: Feels Safe At This Time Smoking Status: Never smoker Do You Dip or Chew Tobacco: No Second Hand Exposure: No Tobacco Cessation Education Requested by Patient: No Hx Alcohol Use: No Hx Substance Use: No Review of Systems See HPI for pertinent positives & negatives. and A total of 10 systems reviewed and were otherwise negative Physical Exam Vital Signs Vital Signs - 24 hr 10/02/18 20:35 10/02/18 20:42 10/02/18 20:54 Temperature 37.4 C Temperature Source Oral Sepsis Recent Fever Within 48 Hours No Sepsis New/Unexplained Change in Mental Status Yes Sepsis Action Taken by Nursing No Action Required Pulse Rate 105 H 104 H Pulse Rate [Left Finger] Pulse Rate from SpO2 Sensor Respiratory Rate 20 27 H Respiratory Effort / Characteristics Respiratory Depth Respiratory Pattern Blood Pressure 146/82 H 134/73 Blood Pressure [Left Arm] Blood Pressure Mean 103 93 Blood Pressure Mean [Left Arm] Blood Pressure Position [Left Arm] Pulse Oximetry 88 L 91 92 Oxygen Delivery Method Room Air Nasal Cannula Room Air Nasal Cannula Oxygen Flow Rate 0 2 10/02/18 21:01 10/02/18 21:09 10/02/18 21:16 Temperature Temperature Source Sepsis Recent Fever Within 48 Hours Sepsis New/Unexplained Change in Mental Status Sepsis Action Taken by Nursing Pulse Rate 103 H 105 H 103 H Pulse Rate [Left Finger] Pulse Rate from SpO2 Sensor Respiratory Rate 22 20 27 H Respiratory Effort / Characteristics Respiratory Depth Respiratory Pattern Blood Pressure 139/78 133/79 140/82 Blood Pressure [Left Arm] Blood Pressure Mean 98 97 101 Blood Pressure Mean [Left Arm] Blood Pressure Position [Left Arm] Pulse Oximetry 92 92 93 Oxygen Delivery Method Nasal Cannula Nasal Cannula Nasal Cannula Oxygen Flow Rate 2 2 2 10/02/18 21:31 10/02/18 22:14 10/02/18 22:35 Temperature Temperature Source Sepsis Recent Fever Within 48 Hours Sepsis New/Unexplained Change in Mental Status Sepsis Action Taken by Nursing Pulse Rate 108 H Pulse Rate [Left Finger] 102 H 99 H Pulse Rate from SpO2 Sensor Respiratory Rate 20 20 16 Respiratory Effort / Characteristics Non-Labored Spontaneous Non-Labored Spontaneous Respiratory Depth Normal Normal Respiratory Pattern Regular Regular Blood Pressure 138/88 Blood Pressure [Left Arm] 124/99 137/86 Blood Pressure Mean 104 Blood Pressure Mean [Left Arm] 107 103 Blood Pressure Position [Left Arm] Lying Sitting Pulse Oximetry 93 95 94 Oxygen Delivery Method Nasal Cannula Nasal Cannula Room Air Oxygen Flow Rate 2 2 10/02/18 23:01 10/02/18 23:02 10/02/18 23:16 Temperature Temperature Source Sepsis Recent Fever Within 48 Hours Sepsis New/Unexplained Change in Mental Status Sepsis Action Taken by Nursing Pulse Rate 99 H 113 H 102 H Pulse Rate [Left Finger] Pulse Rate from SpO2 Sensor 102 H Respiratory Rate 22 20 Respiratory Effort / Characteristics Respiratory Depth Respiratory Pattern Blood Pressure 133/95 133/83 Blood Pressure [Left Arm] Blood Pressure Mean 107 99 Blood Pressure Mean [Left Arm] Blood Pressure Position [Left Arm] Pulse Oximetry 93 93 Oxygen Delivery Method Room Air Oxygen Flow Rate 10/02/18 23:17 10/02/18 23:30 Temperature Temperature Source Sepsis Recent Fever Within 48 Hours Sepsis New/Unexplained Change in Mental Status Sepsis Action Taken by Nursing Pulse Rate 100 H 99 H Pulse Rate [Left Finger] Pulse Rate from SpO2 Sensor 100 H 99 H Respiratory Rate 21 18 Respiratory Effort / Characteristics Respiratory Depth Respiratory Pattern Blood Pressure Blood Pressure [Left Arm] Blood Pressure Mean Blood Pressure Mean [Left Arm] Blood Pressure Position [Left Arm] Pulse Oximetry 91 92 Oxygen Delivery Method Oxygen Flow Rate GENERAL: The patient is listless and slow to respond to questioning. She does follow commands slowly. EYES: The conjunctivae are clear. The pupils are round and reactive. EARS, NOSE, MOUTH AND THROAT: Mucous memories are dry. NECK: The neck is nontender and supple. RESPIRATORY: Shallow respirations were noted. Diminished breath sounds noted throughout. CARDIOVASCULAR: Regular rate and rhythm noted there no murmurs rubs or gallops normal S1 normal S2 GASTROINTESTINAL: The abdomen is soft. Bowel sounds are present in all quadrants. Abdomen is nontender BACK: No midline tenderness or or step-off noted range of motion in flexion extension as well as rotation no signs of muscle spasm noted MUSCULOSKELETAL/EXTREMITIES: There is no evidence of gross deformity full range of motion is noted in the hips and shoulders SKIN: There is no obvious evidence of any rash. Trace pedal edema was noted bilaterally. NEUROLOGIC: Patient is slow to respond to questions but can say her name. She appears oriented to person place and situation. Strength was diminished in both lower extremities. Patient is able to hold each leg off the bed for approx imately 5 seconds. There is no drift in the upper extremities. Spot Remover strength is diminished but symmetric. Course 2027: The patient was evaluated in room A01, and a complete history and physical examination were performed. 2054: I spoke to Dr. Leobardo Benson and she is going to evaluate the patient via TeleStroke. 2199: I spoke to Dr. Anthony [facility] Hospitalist about the patient's case and he is going to accept her for further evaluation. Consultations Consultation #1: I spoke to Dr. Leobardo Benson and she is going to evaluate the patient via TeleStroke. Time: 20:55 Consultation #2: I spoke to Dr. Anthony [facility] Hospitalist about the patient's case and he is going to accept her for further evaluation. Time: 22:00 Administered Medications Sodium Chloride (Nss 1000ml) 1,000 mls @ 50 mls/hr IV .Q20H RIMMA Stop: 11/01/18 20:44 Last Infusion: 10/02/18 22:54 Dose: 50 mls/hr Documented by: [id number] Infusion: 10/02/18 21:48 Dose: 0 mls/hr Documented by: [id number] Admin: 10/02/18 21:09 Dose: 50 mls/hr Documented by: [id number] Ioversol (Optiray 320 125ml) 116 ml IV ONCE PRN PRN Reason: Interaction Checking Stop: 10/06/18 20:51 Last Admin: 10/02/18 20:52 Dose: 116 ml Documented by: [id number] Discontinued Medications Sodium Chloride (Nss 1000ml) 1,000 mls @ 999 mls/hr IV .Q1H1M ONE Stop: 10/02/18 22:45 Last Infusion: 10/02/18 22:54 Dose: 0 mls/hr Documented by: [id number] Admin: 10/02/18 21:48 Dose: 999 mls/hr Documented by: [id number] Medical Decision Making Differential Diagnosis Differential Diagnosis includes but is not limited to dehydration, stroke, anemia, hypoglycemia, hyponatremia, hypernatremia, urinary tract infection, pneumonia, bronchitis, sepsis, gastroenteritis, additional abdominal pathology, metabolic abnormalities and infections. Medical Records Attestation: I reviewed the patient's medical records. Home Medications Current Medication List: was personally reviewed by me Laboratory Data Attestation: I reviewed the patient's lab results. Result diagrams: 10/02/18 20:56 10/02/18 20:56 Lab Results 10/02/18 10/02/18 10/02/18 Range/Units 20:36 20:56 20:56 WBC 7.37 (4.8-10.8) K/uL RBC 4.21 (4.2-5.4) M/uL Hgb 13.0 (12.0-16.0) g/dL POC Hgb 14.6 (12.0-16.0) g/dl Hct 38.6 (37-47) % POC Hct 43 (37-47) % MCV 91.7 (80-100) fL MCH 30.9 (25-34) pg MCHC 33.7 (32-36) g/dL RDW Std Deviation 48.7 H (36.4-46.3) fL RDW Coeff of Flaquito 14.5 (11.5-14.5) % Plt Count 189 (130-400) K/uL MPV 10.2 (7.4-10.4) fL Immature Gran % (Auto) 0.1 % Neut % (Auto) 87.8 % Lymph % (Auto) 6.2 % Ellis % (Auto) 5.3 % Eos % (Auto) 0.3 % Baso % (Auto) 0.3 % Immature Gran # (Auto) 0.01 (0.00-0.02) K/uL Neut # (Auto) 6.47 (1.4-6.5) K/uL Lymph # (Auto) 0.46 L (1.2-3.4) K/uL Ellis # (Auto) 0.39 (0.11-0.59) K/uL Eos # (Auto) 0.02 (0-0.5) K/uL Baso # (Auto) 0.02 (0-0.2) K/uL PT 11.4 (9.0-12.0) Seconds INR 1.1 (0.9-1.1) APTT 29.1 (21.0-31.0) Seconds PTT Ratio 1.1 POC Sodium 139 (135-144) mEq/L Sodium (136-145) mmol/L POC Potassium 4.0 (3.3-5.0) mEq/L Potassium (3.5-5.1) mmol/L POC Chloride 102 (101-112) mEq/L Chloride (98-107) mmol/L Carbon Dioxide (21-32) mmol/L POC Total CO2 23 L (24-31) mEq/l Anion Gap (3-11) POC Anion Gap 19.0 (16-25) mmol/L POC BUN 20 H (7-18) mg/dl BUN (7-18) mg/dl Creatinine (0.6-1.2) mg/dl POC Creatinine 1.0 (0.6-1.3) mg/dl Est Cr Clr Drug Dosing ml/min Est GFR ( Amer) Est GFR (Non-Af Amer) BUN/Creatinine Ratio (10-20) Glucose (70-99) mg/dl POC Glucose (other) 167 H (70-99) mg/dl Calcium (8.5-10.1) mg/dl POC Ioniz Calcium Tamika 1.15 (1.12-1.32) mmol/l Magnesium (1.8-2.4) mg/dl Total Bilirubin (0.2-1) mg/dl AST (15-37) U/L ALT (12-78) U/L Alkaline Phosphatase (45-117) U/L Troponin I (0-0.045) ng/ml Total Protein (6.4-8.2) gm/dl Albumin (3.4-5.0) gm/dl Globulin (2.5-4.0) gm/dl Albumin/Globulin Ratio (0.9-2) Blood Type Antibody Screen 10/02/18 10/02/18 Range/Units 20:56 20:56 WBC (4.8-10.8) K/uL RBC (4.2-5.4) M/uL Hgb (12.0-16.0) g/dL POC Hgb (12.0-16.0) g/dl Hct (37-47) % POC Hct (37-47) % MCV (80-100) fL MCH (25-34) pg MCHC (32-36) g/dL RDW Std Deviation (36.4-46.3) fL RDW Coeff of Flaquito (11.5-14.5) % Plt Count (130-400) K/uL MPV (7.4-10.4) fL Immature Gran % (Auto) % Neut % (Auto) % Lymph % (Auto) % Ellis % (Auto) % Eos % (Auto) % Baso % (Auto) % Immature Gran # (Auto) (0.00-0.02) K/uL Neut # (Auto) (1.4-6.5) K/uL Lymph # (Auto) (1.2-3.4) K/uL Ellis # (Auto) (0.11-0.59) K/uL Eos # (Auto) (0-0.5) K/uL Baso # (Auto) (0-0.2) K/uL PT (9.0-12.0) Seconds INR (0.9-1.1) APTT (21.0-31.0) Seconds PTT Ratio POC Sodium (135-144) mEq/L Sodium 137 (136-145) mmol/L POC Potassium (3.3-5.0) mEq/L Potassium 3.8 (3.5-5.1) mmol/L POC Chloride (101-112) mEq/L Chloride 105 (98-107) mmol/L Carbon Dioxide 24 (21-32) mmol/L POC Total CO2 (24-31) mEq/l Anion Gap 8.0 (3-11) POC Anion Gap (16-25) mmol/L POC BUN (7-18) mg/dl BUN 18 (7-18) mg/dl Creatinine 1.05 (0.6-1.2) mg/dl POC Creatinine (0.6-1.3) mg/dl Est Cr Clr Drug Dosing 51.5 ml/min Est GFR ( Amer) 62.3 Est GFR (Non-Af Amer) 53.8 BUN/Creatinine Ratio 16.8 (10-20) Glucose 152 H (70-99) mg/dl POC Glucose (other) (70-99) mg/dl Calcium 8.7 (8.5-10.1) mg/dl POC Ioniz Calcium Tamika (1.12-1.32) mmol/l Magnesium 1.9 (1.8-2.4) mg/dl Total Bilirubin 0.4 (0.2-1) mg/dl AST 10 L (15-37) U/L ALT 14 (12-78) U/L Alkaline Phosphatase 38 L (45-117) U/L Troponin I < 0.015 (0-0.045) ng/ml Total Protein 6.5 (6.4-8.2) gm/dl Albumin 3.1 L (3.4-5.0) gm/dl Globulin 3.4 (2.5-4.0) gm/dl Albumin/Globulin Ratio 0.9 (0.9-2) Blood Type O Positive Antibody Screen NEGATIVE Imaging Data Radiologist's Impression: Radiology results as stated below per my review and the radiologist's interpretation: XR chest 1V portable CLINICAL HISTORY: weakness COMPARISON STUDY: 09/10/2017 FINDINGS: The heart remains enlarged. There is mild mediastinal widening unchanged from the prior study. There is stable interstitial thickening. There is no lobar consolidation. There are no pleural effusions.[ IMPRESSION: Cardiomegaly and stable mild interstitial thickening. No evidence of lobar consolidation Electronically signed by: Serg Peña M.D. 10/02/2018 9:[address] head/brain wo con CLINICAL HISTORY: Stroke evaluation COMPARISON STUDY: 09/09/2017 TECHNIQUE: Axial CT of the brain is performed from the vertex to the skull base. IV contrast was not administered for this examination. A dose lowering technique was utilized adhering to the principles of ALARA. CT DOSE: FINDINGS: There is a stable left retrocerebellar arachnoid cyst. There is no CT evidence of acute cortical infarction. There is no midline shift. There is no acute hemorrhage. There are no calvarial fractures. There are patchy white matter hypodensities likely on a small vessel basis. There is an old lacunar infarct just medial to the genu of the left internal capsule. There is no evidence of pathologic ventricular dilatation. There is trace mucosal thickening/fluid in the sphenoid sinus. On the bacteriology professor topogram, there is possible superior mediastinal widening. This finding was described on a prior chest x-ray performed September 2017 IMPRESSION: 1. No acute intracranial findings 2. Left posterior fossa arachnoid cyst 3. Small lacunar infarct just medial to the genu of the left internal capsule 4. Superior mediastinal widening. Electronically signed by: Serg Peña M.D. 10/02/2018 8:[address] angio head w con CLINICAL HISTORY: Weakness. Possible acute stroke. TECHNIQUE: CT angiography of the head was performed in a dynamic helical fashion during intravenous administration of 116 cc of Optiray 320. MIP imaging was performed. A dose lowering technique was utilized adhering to the principles of ALARA. CT DOSE: COMPARISON STUDY: No previous studies for comparison. FINDINGS: There are no lesion suspicious for aneurysm. There are no major intracranial branch occlusions. The dural venous sinuses appear patent. Inflammatory changes are present within the paranasal sinuses. IMPRESSION: Unremarkable CT angiography of the brain. Electronically signed by: Serg Peña M.D. 10/02/2018 9:[address] angio neck with con CLINICAL HISTORY: weakness POSSIBLE ACUTE STROKE COMPARISON STUDY: No previous studies for comparison. TECHNIQUE: CT angiography was performed from the aortic arch to the skull base. MIP imaging was performed. The patient was scanned in a dynamic helical fashion during intravenous administration of 116 cc of Optiray 320. A dose lowering technique was utilized adhering to the principles of ALARA. CT DOSE: 1057.09 mGy.cm Technique: CT angiogram of the carotid and vertebral arteries was obtained using intravenous contrast and 3-D reconstruction. NASCET criteria was utilized. Findings: The right carotid revealed no evidence of aneurysm and no evidence of dissection. There is no evidence of hemodynamic significant stenosis. The right carotid has a medial retropharyngeal course. There is a 65% diameter stenosis of the left internal carotid origin. The left internal carotid artery has a medial retropharyngeal course. There is prominent plaque at the right vertebral artery origin making stenosis evaluation difficult. There are mild multifocal vertebral artery narrowings, which are not felt to be of hemodynamic significance. There is superior mediastinal widening secondary to mediastinal fat deposition There are multiple venous collaterals within the left neck. There is reflux of contrast into the left internal jugular vein. This is indirect evidence for an innominate vein stenosis. IMPRESSION: 1. 65% diameter stenosis of the left internal carotid artery origin 2. No evidence of hemodynamically significant right internal carotid artery stenosis 3. Mediastinal widening secondary to fat deposition 4. Multiple left-sided venous collaterals. 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 10/02/2018 9:05 PM ECG Data Attestation: I personally reviewed and interpreted this ECG as follows: Indication: altered mental status Rate (beats per minute): 103 Rhythm: sinus tachycardia Findings: + ST depression (High lateral leads); no PAC and no PVC Comparison ECG Date: from (09/12/17) Change: no significant change Blood Pressure Blood Pressure Findings: Normal blood pressure Blood Pressure Disposition: further management by hospitalist MDM Narrative The patient is a 72-year-old female who presented to the emergency department as a possible stroke alert. I was notified by the prehospital personnel that they may have a stroke alert but they did not feel comfortable calling it is a stroke alert because of the patient's subacute presentation. The patient arrived at the emergency department she was made a stroke alert. Further questioning did reveal that the patient had been experiencing some symptoms for the last 2 to 3 days. I discussed the patient's presentation with the stroke neurologist at [facility]. She did evaluate the patient using the telestroke cart. She does not feel the patient at this time has any indication for TPA given the vague presentation as well as the unreliable last known well time. I discussed the patient's laboratory and radiographic studies with her and her family members. She did continue to improve in the emergency departm ent. She was treated with IV fluids. Because of her presentation and her history of stroke in the past I also discussed her case with the on-call [facility] hospitalist group. They have agreed to evaluate the patient to the emergency department for further management and disposition. Impression & Plan Weakness, Altered mental status Discharge Plan Visit Data *Final* Discharge Date/Time: 10/03/18 00:16 Chief Complaint: Stroke/CVA Symptoms Stated Complaint: CVA ED Provider: Damir Tatum Discharge Problem: Weakness, Altered mental status Patient Disposition: Admitted As Inpatient Discharge Instructions Interventions: ED Discharge Assessment Last Done: 10/03/18 00:16 Discharge Problem: Altered mental status Qualifiers: Altered mental status type: unspecified Qualified Code(s): R41.82 - Altered mental status, unspecified The scribe's documentation has been prepared under my direction and personally reviewed by me in its entirety. I confirm that the note above accurately reflects all work, treatment, procedures, and medical decision making performed by me.
--- NOTE | 2018-10-02 20:59 | CT Scan Report ---
CT head/brain wo con CLINICAL HISTORY: Stroke evaluation COMPARISON STUDY: 09/09/2017 TECHNIQUE: Axial CT of the brain is performed from the vertex to the skull base. IV contrast was not administered for this examination. A dose lowering technique was utilized adhering to the principles of ALARA. CT DOSE: FINDINGS: There is a stable left retrocerebellar arachnoid cyst. There is no CT evidence of acute cortical infa rction. There is no midline shift. There is no acute hemorrhage. There are no calvarial fractures. There are patchy white matter hypodensities likely on a small vessel basis. There is an old lacunar i nfarct just medial to the genu of the left internal capsule. There is no evidence of pathologic ventricular dilatation. There is trace mucosal thickening/fluid in the sphenoid sinus. On the core cleaner topogram, there is possible superior mediastinal widening. This finding was described on a prior chest x-ray performed September 2017 IMPRESSION: 1. No acute intracranial findings 2. Left posterior fossa arachnoid cyst 3. Small lacunar infarct just medial to the genu of the left internal capsule 4. Superior mediastinal widening. Electronically signed by: Serg Peña M.D. 10/02/2018 8:57 PM
--- NOTE | 2018-10-02 21:06 | CT Scan Report ---
CT angio neck with con CLINICAL HISTORY: weakness POSSIBLE ACUTE STROKE COMPARISON STUDY: No previous studies for comparison. TECHNIQUE: CT angiography was performed from the aortic arch to the skull base. MIP imaging was perfo rmed. The patient was scanned in a dynamic helical fashion during intravenous administration of 116 c c of Optiray 320. A dose lowering technique was utilized adhering to the principles of ALARA. CT DOSE: 1057.09 mGy.cm Technique: CT angiogram of the carotid and vertebral arteries was obtained using intravenous contrast and 3-D reconstruction. NASCET criteria was utilized. Findings: The right carotid revealed no evidence of aneurysm and no evidence of dissection. There is no evidenc e of hemodynamic significant stenosis. The right carotid has a medial retropharyngeal course. There is a 65% diameter stenosis of the left internal carotid origin. The left internal carotid arter y has a medial retropharyngeal course. There is prominent plaque at the right vertebral artery origin making stenosis evaluation difficult. There are mild multifocal vertebral artery narrowings, which are not felt to be of hemodynamic signif icance. There is superior mediastinal widening secondary to mediastinal fat deposition There are multiple venous collaterals within the left neck. There is reflux of contrast into the left internal jugular vein. This is indirect evidence for an innominate vein stenosis. IMPRESSION: 1. 65% diameter stenosis of the left internal carotid artery origin 2. No evidence of hemodynamically significant right internal carotid artery stenosis 3. Mediastinal widening secondary to fat deposition 4. Multiple left-sided venous collaterals. This is indirect evidence for left innominate vein stenosi s Electronically signed by: Serg Peña M.D. 10/02/2018 9:05 PM
[2018-10-02 21:07] LABS: Basophils # (auto) 0.02 K/uL (0-0.2); Basophils % (auto) 0.3 %; Eosinophils # (auto) 0.02 K/uL (0-0.5); Eosinophils % (auto) 0.3 %; Hematocrit (blood only) 38.6 % (37-47); Immature Granulocytes # (auto) 0.01 K/uL (0.00-0.02); Immature Granulocytes % (auto) 0.1 %; Lymphocytes # (auto) 0.46 K/uL (1.2-3.4); Lymphocytes % (auto) 6.2 %; Mean Corpuscular Hgb Conc 33.7 g/dL (32-36); Mean Corpuscular Volume 91.7 fL (80-100); Mean Platelet Volume 10.2 fL (7.4-10.4); Monocytes # (auto) 0.39 K/uL (0.11-0.59); Monocytes % (auto) 5.3 %; Neutrophils # (auto) 6.47 K/uL (1.4-6.5); Neutrophils % (auto) 87.8 %; Platelet Count 189 K/uL (130-400); RDW Coefficient of Variation 14.5 % (11.5-14.5); RDW Standard Deviation 48.7 fL (36.4-46.3); Red Blood Count 4.21 M/uL (4.2-5.4); White Blood Count 7.37 K/uL (4.8-10.8)
[2018-10-02] MEDS: SODIUM CHLORIDE 0.9% 1000ML 1,000 ML IV SCH (21:09)
--- NOTE | 2018-10-02 21:10 | CT Scan Report ---
CT angio head w con CLINICAL HISTORY: Weakness. Possible acute stroke. TECHNIQUE: CT angiography of the head was performed in a dynamic helical fashion during intravenous a dministration of 116 cc of Optiray 320. MIP imaging was performed. A dose lowering technique was util ized adhering to the principles of ALARA. CT DOSE: COMPARISON STUDY: No previous studies for comparison. FINDINGS: There are no lesion suspicious for aneurysm. There are no major intracranial branch occlusi ons. The dural venous sinuses appear patent. Inflammatory changes are present within the paranasal sinuses. IMPRESSION: Unremarkable CT angiography of the brain. Electronically signed by: Serg Peña M.D. 10/02/2018 9:09 PM
--- NOTE | 2018-10-02 21:11 | XRay Report ---
XR chest 1V portable CLINICAL HISTORY: weakness COMPARISON STUDY: 09/10/2017 FINDINGS: The heart remains enlarged. There is mild mediastinal widening unchanged from the prior julieth dy. There is stable interstitial thickening. There is no lobar consolidation. There are no pleural ef fusions.[ IMPRESSION: Cardiomegaly and stable mild interstitial thickening. No evidence of lobar consolidation Electronically signed by: Serg Peña M.D. 10/02/2018 9:10 PM
[2018-10-02 21:22] LABS: INR 1.1 (0.9-1.1); Partial Thromboplastin Ratio 1.1; Partial Thromboplastin Time 29.1 Seconds (21.0-31.0); Prothrombin Time 11.4 Seconds (9.0-12.0)
[2018-10-02 21:35] LABS: Alanine Aminotransferase 14 U/L (12-78); Albumin Level 3.1 gm/dl (3.4-5.0); Aspartate Aminotransferase 10 U/L (15-37); BUN Creatinine Ratio 16.8 (10-20); Blood Urea Nitrogen 18 mg/dl (7-18); Calcium 8.7 mg/dl (8.5-10.1); Carbon Dioxide 24 mmol/L (21-32); Chloride 105 mmol/L (98-107); Creatinine Clr Calc Pharmacy 51.5 ml/min; Est GFR (African American) 62.3; Est GFR (Non-African American) 53.8; Glucose 152 mg/dl (70-99); Magnesium 1.9 mg/dl (1.8-2.4); Potassium 3.8 mmol/L (3.5-5.1); Sodium 137 mmol/L (136-145)
[2018-10-02 21:40] LABS: Albumin Globulin Ratio 0.9 (0.9-2); Alkaline Phosphatase 38 U/L (45-117); Bilirubin,Total 0.4 mg/dl (0.2-1); Globulin 3.4 gm/dl (2.5-4.0); Total Protein 6.5 gm/dl (6.4-8.2); Troponin I < 0.015 ng/ml (0-0.045)
[2018-10-02] MEDS ORDERED: SODIUM CHLORIDE 0.9% 1000ML 1,000 ML IV ONE (21:45)
--- NOTE | 2018-10-02 23:46 | History & Physical Report ---
Date of Service October 02, 2018 Assessment & Plan (1) TIA (transient ischemic attack): Patient presented to the emergency department with TIA symptoms consisting primarily of altered mental state with confusion and decreased ability to recognize family. By the time of my assessment, family reports the patient had completely returned to her baseline. Patient will be admitted to a monitored bed with the "stroke without TPA" protocol order set. CT of head did not show new findings, but did demonstrate an old lacunar infarct medial to the left internal capsule, of which the patient did have a known stroke 2 years previously, and had right-sided weakness at that had completely resolved. CTA head neck was significant for a 65% stenosis of the left ICA origin. Patient will be continued on clopidogrel 75 mg p.o. daily. We will consult neurology, and will leave to their determination whether the patient should have the addition of aspirin 81 mg daily as well. Neurochecks per protocol. MRI brain without contrast has been ordered. Present on Admission?: Yes (2) More than 50 percent stenosis of left internal carotid artery: As noted on CTA of neck. Present on Admission?: Yes (3) History of CVA (cerebrovascular accident): See above Present on Admission?: Yes (4) Altered mental status: See above Present on Admission?: Yes (5) Hyperlipidemia LDL goal <70: Continue atorvastatin 20 mg p.o. daily at bedtime. Check a fasting lipid panel. Present on Admission?: Yes (6) Diabetes mellitus: Hold metformin 500 mg p.o. twice daily and glimepiride 1 mg p.o. every morning. Placed on Accu-Cheks before meals and at bedtime with NovoLog coverage per scale. Check hemoglobin A1c Present on Admission?: Yes (7) Vitamin B12 deficiency: Continue 1000 mcg p.o. daily supplement Present on Admission?: Yes History of Present Illness Chief Complaint: The patient is brought to the emergency department due to family concerns regarding the development last evening of confusion, loss of appetite, facial droop, generalized weakness and inability to recognize some of her family members. Her reports that he felt the symptoms began after she had an episode of diarrhea last evening. Primary Care Provider: Guy Metz MD The patient is a 72-year-old female with a past medical history including previous CVA that resulted in some persistent and later resolved right-sided weakness, who developed acute onset of confusion, decreased recognition of family members, decreased oral intake both liquids and solids, generalized weakness and facial droop that began last evening. The family reports that around 1900 hrs. today, she became more confused, did not know where she was, at that point was not able to recognize any family members, and EMS was called and brought the patient to the ED for assessment. She presented to the emergency department as a stroke alert, and was assessed by neurologist Dr. Booth via tele-stroke, who did not recommend TPA, but did recommend admission for obs ervation and follow-up MRI and other studies. At the time of my assessment, the family reports that the patient's mental status has returned completely back to baseline. Allergies Allergy/AdvReac Type Severity Reaction Status Date / Time No Known Drug Allergies Allergy Unknown N\\A Verified 10/02/18 20:46 Home Medications Home Medications Medication Instructions Recorded Confirmed Type atorvastatin 20 mg PO HS 10/02/18 10/02/18 History clopidogrel [Plavix] 75 mg PO DAILY 10/02/18 10/02/18 History cyanocobalamin (vitamin B-12) 1,000 mcg PO DAILY 10/02/18 10/02/18 History [Vitamin B-12] docusate sodium [Colace] 100 mg PO BID 10/02/18 10/02/18 History food supplemt, lactose-reduced 1 ea PO DAILY 10/02/18 10/02/18 History [Boost] glimepiride 1 mg PO QAM 10/02/18 10/02/18 History metformin 500 mg PO BID 10/02/18 10/02/18 History Past Med/Surg History Medical History Abdominal pain (Acute) Closed subcapital fracture of neck of right femur Constipation Rhabdomyolysis Stroke (Resolved) Family History Other Family history non-contributory Social History Preferred Language: Russian Communication Ability: Confusion Communication Ability Comment: Confusion 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 Beliefs That Will Affect Care: None Current Living Situation: Spouse Other Information That Helps Us Care for You: No Feels Safe at Home: Yes Safety Concerns: Feels Safe At This Time Smoking Status: Never smoker Do You Dip or Chew Tobacco: No Second Hand Exposure: No Tobacco Cessation Education Requested by Patient: No Hx Alcohol Use: No Hx Substance Use: No Review of Systems Review of Systems: The patient at the time of my assessment, denies chest pain, palpitations, shortness of breath, dyspnea on exertion, cough, lower extremity swelling, sore throat, fevers, chills, sweats, weight change, fatigue, nausea, vomiting, diarrhea , constipation, abdominal pain, pelvic pain, blood in urine or stool, dysuria, urinary frequency or urgency, lightheadedness, dizziness, headache, memory loss, loss of consciousness, rash, abnormal bruising or bleeding, imbalance, focal or generalized weakness, numbness or tingling in arms or legs, generalized arthralgias or myalgias, back or neck pain, or night sweats. The review of systems is otherwise negative other than for that already noted above, and at least 10 systems have been reviewed. Physical Exam Physical Exam: The patient is awake, alert and oriented 3, well developed and well nourished, normocephalic and atraumatic, lying in bed and in no acute distress. HEENT--PERRL, EOMI, mucous membranes and oropharynx normal. Neck--supple. No JVD. No bruits. Thyroid normal, trachea midline, no adenopathy. Heart--normal S1 and S2. No murmurs, rubs or gallops. Lungs--clear bilaterally, no respiratory distress, no accessory muscle use. Abdomen--normal bowel sounds and soft. Nontender. Nondistended. Extremities--no cyanosis or clubbing. No edema. There are good distal pulses b/l. Dermatologic--normal skin turgor, normal color, no abnormal lymph nodes, no rash. Neurologic--cranial nerves II through XII grossly intact. Rheumatologic--normal range of motion. Psychiatric--normal affect. Results & Data Vital Signs (Past 12 Hours) Vital Signs Temp Pulse Pulse Resp BP BP Pulse Ox 10/02/18 23:16 102 H 20 133/83 93 10/02/18 23:02 113 H 10/02/18 23:01 99 H 22 133/95 93 10/02/18 22:35 99 H 16 137/86 94 10/02/18 22:14 102 H 20 124/99 95 10/02/18 21:31 108 H 20 138/88 93 10/02/18 21:16 103 H 27 H 140/82 93 10/02/18 21:09 105 H 20 133/79 92 10/02/18 21:01 103 H 22 139/78 92 10/02/18 20:54 104 H 27 H 134/73 92 10/02/18 20:42 99.3 F 105 H 20 146/82 H 91 10/02/18 20:35 88 L Laboratory Results Laboratory Results WBC 7.37 K/uL (4.8-10.8) 10/02/18 20:56 RBC 4.21 M/uL (4.2-5.4) 10/02/18 20:56 Hgb 13.0 g/dL (12.0-16.0) 10/02/18 20:56 POC Hgb 14.6 g/dl (12.0-16.0) 10/02/18 20:36 Hct 38.6 % (37-47) 10/02/18 20:56 POC Hct 43 % (37-47) 10/02/18 20:36 MCV 91.7 fL (80-100) 10/02/18 20:56 MCH 30.9 pg (25-34) 10/02/18 20:56 MCHC 33.7 g/dL (32-36) 10/02/18 20:56 RDW Std Deviation 48.7 fL (36.4-46.3) H 10/02/18 20:56 RDW Coeff of [place] 14.5 % (11.5-14.5) 10/02/18 20:56 Plt Count 189 K/uL (130-400) 10/02/18 20:56 MPV 10.2 fL (7.4-10.4) 10/02/18 20:56 Immature Gran % (Auto) 0.1 % 10/02/18 20:56 Neut % (Auto) 87.8 % 10/02/18 20:56 Lymph % (Auto) 6.2 % 10/02/18 20:56 [place] % (Auto) 5.3 % 10/02/18 20:56 Eos % (Auto) 0.3 % 10/02/18 20:56 Baso % (Auto) 0.3 % 10/02/18 20:56 Immature Gran # (Auto) 0.01 K/uL (0.00-0.02) 10/02/18 20:56 Neut # (Auto) 6.47 K/uL (1.4-6.5) 10/02/18 20:56 Lymph # (Auto) 0.46 K/uL (1.2-3.4) L 10/02/18 20:56 [place] # (Auto) 0.39 K/uL (0.11-0.59) 10/02/18 20:56 Eos # (Auto) 0.02 K/uL (0-0.5) 10/02/18 20:56 Baso # (Auto) 0.02 K/uL (0-0.2) 10/02/18 20:56 PT 11.4 Seconds (9.0-12.0) 10/02/18 20:56 INR 1.1 (0.9-1.1) 10/02/18 20:56 APTT 29.1 Seconds (21.0-31.0) 10/02/18 20:56 PTT Ratio 1.1 10/02/18 20:56 POC Sodium 139 mEq/L (135-144) 10/02/18 20:36 Sodium 137 mmol/L (136-145) 10/02/18 20:56 POC Potassium 4.0 mEq/L (3.3-5.0) 10/02/18 20:36 Potassium 3.8 mmol/L (3.5-5.1) 10/02/18 20:56 POC Chloride 102 mEq/L (101-112) 10/02/18 20:36 Chloride 105 mmol/L (98-107) 10/02/18 20:56 Carbon Dioxide 24 mmol/L (21-32) 10/02/18 20:56 POC Total CO2 23 mEq/l (24-31) L 10/02/18 20:36 8.0 (3-11) 10/02/18 20:56 POC Anion Gap 19.0 mmol/L (16-25) 10/02/18 20:36 POC BUN 20 mg/dl (7-18) H 10/02/18 20:36 BUN 18 mg/dl (7-18) 10/02/18 20:56 1.05 mg/dl (0.6-1.2) 10/02/18 20:56 POC Creatinine 1.0 mg/dl (0.6-1.3) 10/02/18 20:36 Est Cr Clr Drug Dosing 51.5 ml/min 10/02/18 20:56 Est GFR ( Amer) 62.3 10/02/18 20:56 Est GFR (Non-Af Amer) 53.8 10/02/18 20:56 16.8 (10-20) 10/02/18 20:56 Glucose 152 mg/dl (70-99) H 10/02/18 20:56 POC Glucose (other) 167 mg/dl (70-99) H 10/02/18 20:36 Calcium 8.7 mg/dl (8.5-10.1) 10/02/18 20:56 POC Ioniz Calcium Tamika 1.15 mmol/l (1.12-1.32) 10/02/18 20:36 Magnesium 1.9 mg/dl (1.8-2.4) 10/02/18 20:56 0.4 mg/dl (0.2-1) 10/02/18 20:56 AST 10 U/L (15-37) L 10/02/18 20:56 ALT 14 U/L (12-78) 10/02/18 20:56 38 U/L (45-117) L 10/02/18 20:56 < 0.015 ng/ml (0-0.045) 10/02/18 20:56 6.5 gm/dl (6.4-8.2) 10/02/18 20:56 3.1 gm/dl (3.4-5.0) L 10/02/18 20:56 3.4 gm/dl (2.5-4.0) 10/02/18 20:56 0.9 (0.9-2) 10/02/18 20:56 Blood Type O Positive 10/02/18 20:56 Antibody Screen NEGATIVE 10/02/18 20:56 Diagnostic Findings [facility] [place], [place] [phone] CT Scan Report Patient: FARZANA JIMENEZ EAdmit Date: 10/02/18 MR#: [id number]: [address] [facility] Acct ID:[id number]: Date: 1945[facility] Zip: [place] [address] Age: 72Location: ED Sex: F Room/Bed: Att Phy: Diagnosis: CVA Marie Phy: Guy Metz III, MDService Date: 10/02/18 [facility] Phy: Interpreting Phy: Serg Peña MD Admit Phy: Ordering Phy: Damir Tatum DO cc: ~ CT head/brain wo con CLINICAL HISTORY: Stroke evaluation COMPARISON STUDY: 09/09/2017 TECHNIQUE: Axial CT of the brain is performed from the vertex to the skull base. IV contrast was not administered for this examination. A dose lowering technique was utilized adhering to the principles of ALARA. CT DOSE: FINDINGS: There is a stable left retrocerebellar arachnoid cyst. There is no CT evidence of acute cortical infarction. There is no midline shift. There is no acute hemorrhage. There are no calvarial fractures. There are patchy white matter hypodensities likely on a small vessel basis. There is an old lacunar infarct just medial to the genu of the left internal capsule. There is no evidence of pathologic ventricular dilatation. There is trace mucosal thickening/fluid in the sphenoid sinus. On the aligner typewriter topogram, there is possible superior mediastinal widening. This finding was described on a prior chest x-ray performed September 2017 IMPRESSION: 1. No acute intracranial findings 2. Left posterior fossa arachnoid cyst 3. Small lacunar infarct just medial to the genu of the left internal capsule 4. Superior mediastinal widening. Electronically signed by: Serg Peña M.D. 10/02/2018 8:57 PM Dictated: 10/02/182051 Transcribed: 10/02/182051 [place], [place] [phone] XRay Report Patient: FARZANA JIMENEZ EAdmit Date: 10/02/18 MR#: [id number]: [address] [facility] Acct ID:[id number]: Date: 1945 Zip: [place] [address] Age: 72Location: ED Sex: F Room/Bed: Att Phy: Diagnosis: CVA Marie Phy: Guy Metz III, MDService Date: 10/02/18 [facility] Phy: Interpreting Phy: Serg Peña MD Admit Phy: Ordering Phy: Damir Tatum DO cc: ~ XR chest 1V portable CLINICAL HISTORY: weakness COMPARISON STUDY: 09/10/2017 FINDINGS: The heart remains enlarged. There is mild mediastinal widening u nchanged from the prior study. There is stable interstitial thickening. There is no lobar consolidation. There are no pleural effusions.[ IMPRESSION: Cardiomegaly and stable mild interstitial thickening. No evidence of lobar consolidation Electronically signed by: Serg Peña M.D. 10/02/2018 9:10 PM Dictated: 10/02/182108 Transcribed: 10/02/182108 [facility] [place], [place] [phone] CT Scan Report Patient: FARZANA JIMENEZ EAdmit Date: 10/02/18 MR#: [id number]: 103 [facility] Acct ID:[id number]: Date: 1945[facility] [address] Age: 72Location: ED Sex: F Room/Bed: Att Phy: Diagnosis: CVA Marie Phy: Guy Metz, III, MDService Date: 10/02/18 [facility] Phy: Interpreting Phy: Serg Peña MD Admit Phy: Ordering Phy: Damir Tatum DO cc: ~ CT angio neck with con CLINICAL HISTORY: weakness POSSIBLE ACUTE STROKE COMPARISON STUDY: No previous studies for comparison. TECHNIQUE: CT angiography was performed from the aortic arch to the skull base. MIP imaging was performed. The patient was scanned in a dynamic helical fashion during intravenous administration of 116 cc of Optiray 320. A dose lowering technique was utilized adhering to the principles of ALARA. CT DOSE: 1057.09 mGy.cm Technique: CT angiogram of the carotid and vertebral arteries was obtained using intravenous contrast and 3-D reconstruction. NASCET criteria was utilized. Findings: The right carotid revealed no evidence of aneurysm and no evidence of dissection. There is no evidence of hemodynamic significant stenosis. The right carotid has a medial retropharyngeal course. There is a 65% diameter stenosis of the left internal carotid origin. The left internal carotid artery has a medial retropharyngeal course. There is prominent plaque at the right vertebral artery origin making stenosis evaluation difficult. There are mild multifocal vertebral artery narrowings, which are not felt to be of hemodynamic significance. There is superior mediastinal widening secondary to mediastinal fat deposition There are multiple venous collaterals within the left neck. There is reflux of contrast into the left internal jugular vein. This is indirect evidence for an innominate vein stenosis. IMPRESSION: 1. 65% diameter stenosis of the left internal carotid artery origin 2. No evidence of hemodynamically significant right internal carotid artery stenosis 3. Mediastinal widening secondary to fat deposition 4. Multiple left-sided venous collaterals. 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 10/02/2018 9:05 PM Dictated: 10/02/182056 Transcribed: 10/02/182056 [place], [place] [phone] CT Scan Report Patient: FARZANA JIMENEZ EAdmit Date: 10/02/18 MR#: [id number]: 103 [facility] Acct ID:[id number]: Date: 1945[facility] Zip: [place] [address] Age: 72Location: ED Sex: F Room/Bed: Att Phy: Diagnosis: CVA Marie Phy: Guy Metz, III, MDService Date: 10/02/18 Fam Phy: Interpreting Phy: Serg Peña MD Admit Phy: Ordering Phy: Damir Tatum DO cc: ~ CT angio head w con CLINICAL HISTORY: Weakness. Possible acute stroke. TECHNIQUE: CT angiography of the head was performed in a dynamic helical fashion during intravenous administration of 116 cc of Optiray 320. MIP imaging was performed. A dose lowering technique was utilized adhering to the principles of ALARA. CT DOSE: COMPARISON STUDY: No previous studies for comparison. FINDINGS: There are no lesion suspicious for aneurysm. There are no major intracranial branch occlusions. The dural venous sinuses appear patent. Inflammatory changes are present within the paranasal sinuses. IMPRESSION: Unremarkable CT angiography of the brain. Electronically signed by: Serg Peña M.D. 10/02/2018 9:09 PM Dictated: 10/02/182106 Transcribed: 10/02/182106 Code Status & VTE Plan Code Status Full code VTE Prophylaxis Plan VTE Prophylaxis will be ordered: Yes (1) Altered mental status Altered mental status type: unspecified Qualified Code(s): R41.82 - Altered mental status, unspecified
[2018-10-03] MEDS ORDERED: GLUCOSE 10 TABS/TUBE PO PRN (00:29)
[2018-10-03] MEDS ORDERED: GLUCOSE 40% GEL 15 GM TUBE PO PRN (00:29)
[2018-10-03] MEDS ORDERED: PHARMACIST DISCHARGE MED REC CONSULT PRN (00:29)
[2018-10-03] MEDS ORDERED: DEXTROSE 50% 50 ML SYRINGE IV PRN (00:29)
[2018-10-03] MEDS ORDERED: GLUCAGON FOR INJ 1 MG VIAL SQ PRN (00:29)
[2018-10-03] MEDS ORDERED: CARBOHYDRATES FOR HYPOGLYCEMIA PO PRN (00:29)
[2018-10-03] MEDS ORDERED: NYSTATIN POWDER 15GM BTL EXT PRN (02:44)
[2018-10-03 06:33] LABS: Basophils # (auto) 0.03 K/uL (0-0.2); Basophils % (auto) 0.4 %; Eosinophils # (auto) 0.07 K/uL (0-0.5); Hematocrit (blood only) 39.3 % (37-47); Hemoglobin 13.4 g/dL (12.0-16.0); Immature Granulocytes # (auto) 0.01 K/uL (0.00-0.02); Immature Granulocytes % (auto) 0.1 %; Lymphocytes # (auto) 0.83 K/uL (1.2-3.4); Lymphocytes % (auto) 12.1 %; Mean Corpuscular Hgb Conc 34.1 g/dL (32-36); Mean Corpuscular Volume 91.4 fL (80-100); Monocytes # (auto) 0.48 K/uL (0.11-0.59); Neutrophils # (auto) 5.42 K/uL (1.4-6.5); Neutrophils % (auto) 79.4 %; Platelet Count 188 K/uL (130-400); RDW Coefficient of Variation 14.6 % (11.5-14.5); White Blood Count 6.84 K/uL (4.8-10.8)
--- NOTE | 2018-10-03 06:36 | Magnetic Resonance Report ---
MR brain wo con HISTORY: Mental status change TIA TECHNIQUE: Multiplanar multisequence MRI of the brain was performed without the use of contrast. COMPARISON STUDY: 04/11/2015 FINDINGS: There are no areas of restricted diffusion to suggest acute infarction. The midline structu res are intact. The paranasal sinuses are clear. The mastoid air cells are clear. The ventricles and sulci are within normal limits for age. There is no mass, hematoma, midline shift. The major vascular flow-voids at the skull base are well maintained. There are findings of age-related chronic small ve ssel change and atrophy. There is a left posterior fossa arachnoid cyst unchanged. There is an old le ft thalamic infarct unaltered. IMPRESSION: No acute intracranial abnormality. Chronic and pre-existing change. Age-related change. The above report was generated using voice recognition software. It may contain grammatical, syntax or spelling errors. Electronically signed by: Alonso Rodriguez M.D. 10/03/2018 6:35 AM
[2018-10-03 07:03] LABS: Blood Urea Nitrogen 16 mg/dl (7-18); Calcium 8.8 mg/dl (8.5-10.1); Carbon Dioxide 23 mmol/L (21-32); Chloride 109 mmol/L (98-107); Creatinine Clr Calc Pharmacy 63.3 ml/min; Est GFR (African American) 80.5; Est GFR (Non-African American) 69.4; Glucose 107 mg/dl (70-99); Potassium 3.8 mmol/L (3.5-5.1); Sodium 141 mmol/L (136-145)
[2018-10-03 07:09] LABS: Chol HDL Ratio 5; Cholesterol 166 mg/dl (0-200); HDL Cholesterol 31 mg/dl; LDL Cholesterol Calculated 112 mg/dl; Triglycerides 115 mg/dl (0-150); Troponin I < 0.015 ng/ml (0-0.045); VLDL Cholesterol 23 mg/dl
[2018-10-03] MEDS ORDERED: PERFLUTREN LIPID MICROSPHERE (DEFINITY) IV ONE (07:16)
[2018-10-03] MEDS: INSULIN ASPART 100 UNITS/ML 3 ML PEN SC SCH ×4 (07:58→19:59)
[2018-10-03] MEDS: CLOPIDOGREL BISULFATE 75 MG TAB PO SCH (07:59)
[2018-10-03] MEDS: CYANOCOBALAMIN 500 MCG TABLET (VITAMIN B-12) PO SCH (08:00)
[2018-10-03] MEDS: HEPARIN SOD 5,000 UNIT/0.5 ML VIAL SQ SCH ×2 (08:00→19:59)
--- NOTE | 2018-10-03 08:11 | Hospitalist Progress Note ---
Date of Service October 03, 2018 Assessment & Plan (1) TIA (transient ischemic attack): Patient presented to the emergency department with TIA symptoms consisting primarily of altered mental state with confusion and decreased ability to recognize family. By the time of my assessment, family reports the patient had completely returned to her baseline. admitted with the "stroke without TPA" protocol order set. CT of head did not show new findings, but did demonstrate an old lacunar infarct medial to the left internal capsule, of which the patient did have a known stroke 2 years previously, and had right-sided weakness at that had completely resolved. CTA head neck was significant for a 65% stenosis of the left ICA origin. Patient will be continued on clopidogrel 75 mg p.o. daily MRI brain without contrast with acute changes (2) More than 50 percent stenosis of left internal carotid artery: As noted on CTA of neck. (3) History of CVA (cerebrovascular accident): See above (4) Altered mental status: concern for metabolic encephalopathy, will have urine eval and rule out stool infection given diarrhea (5) Hyperlipidemia LDL goal <70: Continue atorvastatin but increase to 40 mg daily (6) Diabetes mellitus: Hold metformin 500 mg p.o. twice daily and glimepiride 1 mg p.o. every morning. Placed on Accu-Cheks before meals and at bedtime with NovoLog coverage per scale. pending hemoglobin A1c (7) Vitamin B12 deficiency: Continue 1000 mcg p.o. daily supplement Subjective Patient has some baseline memory loss according to the family but she is not near her baseline at this time states that she is been having increased diarrhea at home and but her level of confusion we will admit is used more than her usual. She said no fevers or chills not complain of any urinary complaints to her and she has no acute intracranial event seen on imaging Review of Systems Review of Systems: Unobtainable due to cognitive status Physical Exam Physical Exam: The patient appeared well nourished and normally developed. Vital signs as documented. Head exam is unremarkable. normocephalic, atraumatic Neck is without jugular venous distension, thyromegaly, or lymphademopathy Lungs are clear to auscultation and percussion. Cardiac exam reveals Rhythm is regular. First and second heart sounds normal. Abdominal exam reveals normal bowel sounds, no masses, no organomegaly Extremities are nonedematous and both pedal pulses are present Neurologic exam is A&Ox2, no focal deficits, strength is equal bilateral Psychologically seems bewildered Skin is warm / Dry Results & Data Vital Signs (Past 12 Hours) Vital Signs Temp Pulse Pulse Resp BP BP Pulse Ox 10/03/18 08:00 37.0 C 75 20 130/80 92 10/03/18 04:11 36.9 C 84 16 134/74 94 10/03/18 02:28 94 H 10/03/18 00:38 36.6 C 93 H 16 168/78 H 94 10/03/18 00:00 95 H 19 90 10/02/18 23:49 95 H 24 134/80 91 10/02/18 23:30 99 H 18 92 10/02/18 23:17 100 H 21 91 10/02/18 23:16 102 H 20 133/83 93 10/02/18 23:02 113 H 10/02/18 23:01 99 H 22 133/95 93 10/02/18 22:35 99 H 16 137/86 94 10/02/18 22:14 102 H 20 124/99 95 10/02/18 21:31 108 H 20 138/88 93 10/02/18 21:16 103 H 27 H 140/82 93 10/02/18 21:09 105 H 20 133/79 92 10/02/18 21:01 103 H 22 139/78 92 10/02/18 20:54 104 H 27 H 134/73 92 10/02/18 20:42 37.4 C 105 H 20 146/82 H 91 10/02/18 20:35 88 L (1) Altered mental status Altered mental status type: unspecified Qualified Code(s): R41.82 - Altered mental status, unspecified
[2018-10-03] MEDS ORDERED: NON-FORMULARY MEDICATION (Food Supplemt, Lactose-Reduced [Boost] 1 EA) PO SCH (09:00)
[2018-10-03] MEDS ORDERED: DOCUSATE SODIUM 100 MG CAP PO SCH (09:00)
--- NOTE | 2018-10-03 09:21 | Neurology Consultation ---
Date of Consultation October 03, 2018 Assessment & Plan (1) TIA (transient ischemic attack): Probable TIA presenting with confusion and weakness, although somewhat nonlocalizing. Nonetheless, she does have a 65% stenosis of the left internal carotid artery. She does have a chronic ischemic infarct in the left cerebral hemisphere which may suggest that her carotid stenosis has been symptomatic in the past as well. Agree with increasing the dosage of atorvastatin. Continue clopidogrel. Would add aspirin 81 mg/day for the time being. Would recommend an outpatient consultation with vascular surgery. Would consider discontinuing aspirin after 3 months depending on patient's clinical status. (2) Left carotid stenosis: 65% stenosis of the left internal carotid artery at its origin. I suspect this lesion has been symptomatic. As above, continue Plavix, add daily low-dose aspirin for the time being, agree with atorvastatin dosage increase. Would also recommend outpatient consultation with vascular surgery. History of Present Illness Reason for Consultation: TIA? Requesting Physician: Jonathon Anthony MD Attending Physician: Yo Gibbs MD History of Present Illness The patient is a 72-year-old female who presents with generalized weakness, loss of appetite, diarrhea, and confusion. Her symptoms began subacutely although her altered mental status began about an hour prior to arrival. She has been observed to have difficulty getting up out of her chair and was also felt to have bilateral facial weakness. The patient is an unreliable historian. She denies diplopia, dysphagia, or muscle pain. She denies any vision loss or dizziness. The etiology of her symptoms is not entirely clear although she was admitted with a diagnosis of TIA. Allergies Allergy/AdvReac Type Severity Reaction Status Date / Time No Known Drug Allergies Allergy Unknown N\A Verified 10/02/18 20:46 Home Medications Home Medications Medication Instructions Recorded Confirmed Type atorvastatin 20 mg PO HS 10/02/18 10/02/18 History clopidogrel [Plavix] 75 mg PO DAILY 10/02/18 10/02/18 History cyanocobalamin (vitamin B-12) 1,000 mcg PO DAILY 10/02/18 10/02/18 History [Vitamin B-12] docusate sodium [Colace] 100 mg PO BID 10/02/18 10/02/18 History food supplemt, lactose-reduced 1 ea PO DAILY 10/02/18 10/02/18 History [Boost] glimepiride 1 mg PO QAM 10/02/18 10/02/18 History metformin 500 mg PO BID 10/02/18 10/02/18 History Patient History Medical History Abdominal pain (Acute) Closed subcapital fracture of neck of right femur Constipation Rhabdomyolysis Stroke (Resolved) Family History Other Family history non-contributory Social History Preferred Language: Albanian Communication Ability: Confusion Communication Ability Comment: Confusion 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 Beliefs That Will Affect Care: None Current Living Situation: Spouse Other Information That Helps Us Care for You: No Feels Safe at Home: Yes Safety Concerns: Feels Safe At This Time Smoking Status: Never smoker Do You Dip or Chew Tobacco: No Second Hand Exposure: No Tobacco Cessation Education Requested by Patient: No Hx Alcohol Use: No Hx Substance Use: No Review of Systems Constitutional: no fever and no chills Eyes: no blind spots and no diplopia Ear, Nose, Mouth, Throat: no hearing loss Respiratory: no cough and no dyspnea Cardiovascular: no chest pain and no palpitations Gastrointestinal: as per Subjective / HPI and + diarrhea/loose stools Genitourinary: no dysuria Musculoskeletal: no myalgia Integumentary: no rash and no lesions Neurologic: as per Subjective / HPI Psychiatric: no depression and no anxiety Hematologic / Lymphatic: no easy bleeding Physical Exam Physical Exam: The patient is a well-developed, well-nourished elderly female. She is alert and oriented to person and hospital only. Recent and remote memory are impaired although difficult to fully assess due to impaired attention. Concentration impaired as well. Patient is able to name objects and repeat phrases. Otherwise, she provides little in the way of spontaneous speech. Patient has an age-appropriate fund of knowledge in terms of language comprehension. Visual echevarria full to confrontation. Visual acuity normal. Pupils equal round react to light and accommodation. Eye movements normal. Facial sensation intact. There is normal facial symmetry and strength. Hearing intact. Palate elevates to midline. Shoulder shrug intact. Tongue protrudes to midline. Sensation intact all modalities in all 4 limbs. Deep tendon reflexes are 1+ throughout. Plantar responses downgoing. There is no dysdiadochokinesia or dysmetria [id number]-gl-[id number] or [id number] bilaterally. Ophthalmoscopic examination reveals normal-appearing optic disks and posterior segments. No papilledema or hemorrhages. Carotid pulses normal bilaterally, no bruits to auscultation. Gait is slow and ataxic appearing. Patient has mild proximal weakness for the legs. Strength for the upper limbs intact. Muscle tone normal throughout. There is no focal atrophy. No abnormal movements observed. Results & Data Vital Signs (Past 12 Hours) Vital Signs Temp Pulse Pulse Resp BP BP Pulse Ox 10/03/18 08:00 37.0 C 75 20 130/80 92 10/03/18 04:11 36.9 C 84 16 134/74 94 10/03/18 02:28 94 H 10/03/18 00:38 36.6 C 93 H 16 168/78 H 94 10/03/18 00:00 95 H 19 90 10/02/18 23:49 95 H 24 134/80 91 10/02/18 23:30 99 H 18 92 10/02/18 23:17 100 H 21 91 10/02/18 23:16 102 H 20 133/83 93 10/02/18 23:02 113 H 10/02/18 23:01 99 H 22 133/95 93 10/02/18 22:35 99 H 16 137/86 94 10/02/18 22:14 102 H 20 124/99 95 10/02/18 21:31 108 H 20 138/88 93 Laboratory Results Recent labs reviewed. WBC 6.84, hemoglobin 13.4, platelet count 188, sodium 141, potassium 3.8, BUN 16, creatinine 0.85, glucose 107, transaminases normal, albumin 3.[address] of the head completed yesterday was negative for hemorrhage or acute process. There is a left posterior fossa arachnoid cyst as well as a small chronic lacunar infarct just medial to the genu of the left internal capsule. Images and report reviewed. CTA of the head unremarkable. CTA of the neck reveals a 65% stenosis of the left internal carotid artery at its origin. 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 An MRI of the brain completed today is negative for acute or subacute stroke. There is an old left thalamic infarct and a left posterior fossa arachnoid cyst. Images and report reviewed. Electrocardiogram completed yesterday revealed sinus tachycardia, 103 bpm.
[2018-10-03 09:59] LABS: Estimated Average Glucose 131 mg/dl; Hemoglobin A1C 6.2 % (4.5-5.6)
[2018-10-03] MEDS: SODIUM CHLORIDE 0.9% 1000ML 1,000 ML IV SCH (20:01)
[2018-10-03] MEDS ORDERED: ATORVASTATIN 20 MG TAB PO SCH (21:00)
[2018-10-03] MEDS ORDERED: ATORVASTATIN 40 MG TAB PO SCH (21:00)
[2018-10-04 07:33] LABS: Basophils # (auto) 0.03 K/uL (0-0.2); Basophils % (auto) 0.4 %; Eosinophils # (auto) 0.25 K/uL (0-0.5); Eosinophils % (auto) 3.6 %; Hematocrit (blood only) 39.1 % (37-47); Hemoglobin 13.2 g/dL (12.0-16.0); Immature Granulocytes # (auto) 0.02 K/uL (0.00-0.02); Immature Granulocytes % (auto) 0.3 %; Lymphocytes # (auto) 0.78 K/uL (1.2-3.4); Lymphocytes % (auto) 11.2 %; Mean Corpuscular Hgb Conc 33.8 g/dL (32-36); Mean Platelet Volume 10.3 fL (7.4-10.4); Monocytes # (auto) 0.69 K/uL (0.11-0.59); Monocytes % (auto) 9.9 %; Neutrophils # (auto) 5.18 K/uL (1.4-6.5); Neutrophils % (auto) 74.6 %; Platelet Count 192 K/uL (130-400); RDW Coefficient of Variation 14.6 % (11.5-14.5); RDW Standard Deviation 49.5 fL (36.4-46.3); Red Blood Count 4.25 M/uL (4.2-5.4); White Blood Count 6.95 K/uL (4.8-10.8)
[2018-10-04] MEDS: CYANOCOBALAMIN 500 MCG TABLET (VITAMIN B-12) PO SCH (08:09)
[2018-10-04] MEDS: CLOPIDOGREL BISULFATE 75 MG TAB PO SCH (08:09)
[2018-10-04] MEDS: HEPARIN SOD 5,000 UNIT/0.5 ML VIAL SQ SCH (08:10)
[2018-10-04] MEDS: INSULIN ASPART 100 UNITS/ML 3 ML PEN SC SCH ×2 (08:10→11:51)
[2018-10-04 08:15] LABS: BUN Creatinine Ratio 19.7 (10-20); Calcium 8.8 mg/dl (8.5-10.1); Creatinine Clr Calc Pharmacy 69.4 ml/min; Est GFR (African American) 90.7; Est GFR (Non-African American) 78.2; Potassium 3.5 mmol/L (3.5-5.1)
--- NOTE | 2018-10-04 10:06 | Neurology Progress Note ---
Date of Service October 04, 2018 Assessment & Plan (1) Left carotid stenosis: Left carotid stenosis, probably symptomatic in the past given the presence of a chronic left thalamic ischemic stroke, and possibly symptomatic with her recent presentation that was potentially consistent with TIA. Continue with clopidogrel and atorvastatin. Can probably hold off on adding daily low-dose aspirin as dual antiplatelet therapy is not necessarily proven for stroke risk reduction in patients with moderate degrees of carotid stenosis that may or may not be symptomatic. Would still recommend outpatient consultation with vascular surgery. No further immediate neurological recommendations. Additional medical evaluation ongoing. Discussed with Dr. Gibbs. Subjective Follow-up for TIA The patient is a 72-year-old female who presented with confusion and generalized weakness of acute to subacute onset, but occurring in the context of diarrhea which have been present for a few days. She has a past medical history of a chronic ischemic left thalamic infarct that had presented with transient right hemiparesis a few years ago. A CT angiogram has revealed a 65% stenosis of the left internal carotid artery at its origin during this hospitalization. A brain MRI was negative for acute or subacute infarct, however. The patient did appear to be mildly encephalopathic yesterday as she was not completely oriented and exhibited some impairment of attention and concentration. She was not aphasic, however. A urinalysis has been ordered by the hospitalist service although a clean-catch has not been as of yet obtained. There remains some question as to whether or not her presentation was actually a TIA or may have been triggered by a UTI or her persistent diarrhea. Currently, the patient does seem a bit more attentive and appropriate than she did yesterday. She denies headache, dizziness, speech changes, or focal weakness or sensory loss at this time. Additional details as below. Review of Systems Constitutional: no fever and no chills Eyes: no blind spots and no diplopia Neurologic: as per Subjective / HPI; no localized weakness, no dizziness and no headache(s) Physical Exam Physical Exam: The patient is alert and fully oriented. Attention and concentration are normal. She is able to name objects and repeat phrases. She exhibits an age-appropriate fund of knowledge and normal comprehension of vocabulary. Visual echevarria full to confrontation. Visual acuity normal. Pupils equal round react to light and accommodation. Eye movements normal. Facial sensation intact. There is no facial droop or weakness. Hearing intact. Palate elevates to midline. Shoulder shrug intact. Tongue protrudes to midline. Sensation intact in all 4 limbs. Deep tendon reflexes intact and symmetrical for the arms and legs. There is no dysdiadochokinesia or dysmetria with qkuyze-[id number]-vbtg or efim-cj-[id number] bilaterally. Results & Data Vital Signs (Past 12 Hours) Vital Signs Temp Pulse Pulse Resp BP Pulse Ox 10/04/18 08:00 37 C 84 22 136/77 95 10/04/18 04:13 36.8 C 71 16 149/91 H 95 10/04/18 00:11 37.2 C 86 81 16 136/78 96 Laboratory Results Recent labs reviewed. WBC 6.95, hemoglobin 13.2, hematocrit 39.1, platelet count 192, sodium 140, potassium 3.5, BUN 15, creatinine 0.77, glucose 98 Diagnostic Findings A brain MRI completed yesterday was negative for acute or subacute infarct. There is evidence of chronic small vessel ischemic change and atrophy as well as an old left thalamic infarct. There is also a left posterior fossa arachnoid cyst. A CTA of the head completed October 02, 2018 was unremarkable. A CTA of the neck completed October 02, 2018 revealed a 65% diameter stenosis of the left internal carotid artery at its origin. An echocardiogram completed yesterday revealed normal left ventricular systolic function, ejection fraction 55 to 60%, no regional wall motion abnormalities, no intra-arterial shunt.
[2018-10-04] MEDS: SODIUM CHLORIDE 0.9% 1000ML 1,000 ML IV SCH (11:50)
[2018-10-04 12:39] LABS: Appearance Urine Clear (Clear); Bilirubin Urine Negative (Negative); Blood Urine Negative (Negative); Color Urine Yellow; Glucose Urine UA Negative (Negative); Ketones Urine Negative (Negative); Leukocyte Esterase Urine Negative (Negative); Nitrite Urine Negative (Negative); Protein Urine Negative (Negative); Specific Gravity Urine 1.025 (1.000-1.030); Urobilinogen Urine Negative (Negative)
[2018-10-04] MEDS ORDERED: STROKE PATIENT DISCHARGE STA (13:43)
--- NOTE | 2018-10-04 13:50 | Discharge Summary ---
Date of Service October 04, 2018 Admission HPI Per Admitting Provider The patient is a 72-year-old female with a past medical history including previous CVA that resulted in some persistent and later resolved right-sided weakness, who developed acute onset of confusion, decreased recognition of family members, decreased oral intake both liquids and solids, generalized weakness and facial droop that began last evening. The family reports that around 1900 hrs. today, she became more confused, did not know where she was, at that point was not able to recognize any family members, and EMS was called and brought the patient to the ED for assessment. She presented to the emergency department as a stroke alert, and was assessed by neurologist Dr. Booth via tele-stroke, who did not recommend TPA, but did recommend admission for observation and follow-up MRI and other studies. At the time of my assessment, the family reports that the patient's mental status has returned completely back to baseline. Principal Diagnosis tia left carotid stenosis ulceration Discharge Exam Constitutional well developed and average body habitus Eyes no conjunctival abnormality and no scleral abnormality Neck normal visual inspection and trachea midline Respiratory normal respiratory effort; no respiratory distress Auscultation: lungs clear to auscultation bilaterally Cardiovascular RRR, no murmur, no edema Gastrointestinal (Abdomen) normal bowel sounds, soft, nontender, no hepatosplenomegaly Musculoskeletal no cyanosis or clubbing, extremities motor strength 5/5 Discharge Data Allergies Allergy/AdvReac Type Severity Reaction Status Date / Time No Known Drug Allergies Allergy Unknown N\\A Verified 10/02/18 20:46 Consultations 10/02/18 21:55 ED Decision to Admit Stat 10/03/18 00:29 Consult Case Management - Discharge Planning Routine Consult Neurology Routine 10/04/18 13:44 Consult [facility] noc analyst Routine Ordered Studies 10/02/18 20:36 CT head/brain wo con Stat 10/02/18 20:37 CT angio head w con Stat CT angio neck with con Stat 10/03/18 00:29 MR brain wo con Routine Hospital Course (1) TIA (transient ischemic attack): Patient presented to the emergency department with TIA symptoms consisting primarily of altered mental state with confusion and decreased ability to recognize family. By the time of my assessment, family reports the patient had completely returned to her baseline. admitted with the "stroke without TPA" protocol order set. CT of head did not show new findings, but did demonstrate an old lacunar infarct medial to the left internal capsule, of which the patient did have a known stroke 2 years previously, and had right-sided weakness at that had completely resolved. CTA head neck was significant for a 65% stenosis of the left ICA origin. Patient will be continued on clopidogrel 75 mg p.o. daily, increased atorvastatin to 40 mg daily MRI brain without contrast with acute changes (2) More than 50 percent stenosis of left internal carotid artery: As noted on CTA of neck., will have outpt follow up for progression (3) History of CVA (cerebrovascular accident): See above, maintained on plavix, secondary risk reduction (4) Altered mental status: concern for metabolic encephalopathy, has been ruled out, may have been tia, or mild dehydration though not suggested by labs, improved with hydration (5) Hyperlipidemia LDL goal <70: Continue atorvastatin but increase to 40 mg daily (6) Diabetes mellitus: metformin 500 mg p.o. twice daily and glimepiride 1 mg p.o. every morning. (7) Vitamin B12 deficiency: Continue 1000 mcg p.o. daily supplement Total Time Total Time Spent Total Time Spent (In Minutes): greater than 30 minutes were required to prepare discharge Discharge Plan Discharge Items Patient Disposition: Home - Home Health Services Reason For Visit: TIA Discharge Diagnosis: tia, left carotid artery narrowing that will need to be followed up as outpt Discharge Goals: Decrease discomfort and Diagnostic testing Activity: Resume your previous activity Activity Comment: consider home PT/ot Non-emergency contact: Primary Care Provider Call non-emergency contact if: you have any medication questions Follow-up/Referrals: Guy Metz III, MD [Primary Care Provider] - (Notified Dr. Metz's office that you will need a follow-up appointment within the next week. A task was sent to the nurse. You will be receiving a call from the nurse with your appointment date and time. Please call your PCP's office with any questions or concerns.) Terrance Maria MD [Physician] - (A referral has been sent to Dr. Maria's office. His nurse will be calling you with an appointment date and time. Please call his office with any questions or concerns. ) Diet: Heart Healthy Addtl Provider Instructions: Please rest and recover be sure to follow up with your primary care doctor this week, we will increase your atrovostatin to 40 mg and are awaiting final analysis of your urine testing Prescriptions: New atorvastatin 20 mg Tablet 40 mg PO HS Qty: 60 RF: 5 Continued metformin 500 mg Tablet 500 mg PO BID RF: 0 clopidogrel [Plavix] 75 mg Tablet 75 mg PO DAILY RF: 0 glimepiride 1 mg Tablet 1 mg PO QAM RF: 0 cyanocobalamin (vitamin B-12) [Vitamin B-12] 500 mcg Tablet 1,000 mcg PO DAILY RF: 0 Boost 0.04 gram- 1 kcal/mL Liquid 1 ea PO DAILY RF: 0 Discontinued docusate sodium [Colace] 100 mg Capsule 100 mg PO BID RF: 0 Stand-Alone Forms: [facility] Discharge Orders: Discharge Order (Routine); Ordered 10/04/18 Ordered By: Yo Gibbs Admission Data Admit Date/Time: 10/02/18 23:45 Attending Provider: Yo Gibbs Admit Provider: Jonathon Anthony Primary Care Provider: Guy Metz III Other Providers: Jonathon Anthony ; Ismael Fong Service: Telemetry Other Interventions: Discharge Summary Assessment (RN) Last Done: 10/04/18 13:43
== END 2018-10-04 14:42 | disposition home health service (06) | DRG 69 ==
LOC: ED 20:32 → SUATTDRO 23:45 → 2S 23:45

== ENCOUNTER 2020-04-27 04:03 | Observation (INO) ==
[2020-04-27] MEDS ORDERED: SODIUM CHLORIDE 0.9% 1000ML 500 ML IV ONE (04:11)
--- NOTE | 2020-04-27 04:14 | Emergency Department Note ---
Impression & Plan Acute confusion, Acidosis, lactic ED Provider Note Name: FARZANA JIMENEZ Age: 74 Sex: F Arrives Via: Ambulance Informant: Patient, EMS ED Provider: Vincent Phelps MD Chief Complaint: Confusion Impression: Acute Confusion Acidosis, Lactic Medical Decision Makin yr old female with history DMII, Vit d deficiency, CVA, HTN, B12 deficiency, dyslipidemia who arrives for 3 days worsening confusion. She is shaking on arrival unclear if rigors, chilled or tremors. Given IV fluids and labs obtained. CT head negative. CXR ok. No evidence cardiac issues at present. Lactate returns mildly elevated. No fevers, no wbc and no clear evidence infection. Not convinced this is infectious cause rather seems more likely dehydration. Will given further fluids and consult hospitalist. Patient comfortable and stable. She has soft non-tender abdomen, she has no nuchal rigidity. Prior Medical Record and Triage/Nursing Notes reviewed by Me Additional history obtained from chart Differentials:Infection, hypoglycemia, electrolyte abnormalities, overdose, toxicologic, cardiac sources, intracerebral event, neurologic, trauma, as well as other pathologies. Vital Signs: reviewed and remarkable for no significant abnormalities Interventions: saline lock, nss bolus Labs:Reviewed and remarkable for lactic elevation Imaging:[facility] Radiologist interpretation reviewed by me: ct head negative X ray results are stated below per my interpretation: Chest: 1 view: No infiltrate, no effusion, normal cardiac border. EKG:Per My Interpretation: Indication confusion: NSR 83 bpm, qtc 432 with nonspecific U wave noted in some leads. No Ectopy. No Ischemia. Compared to EKG 04/27/20, no significant changes. Cardiac/Tele Monitoring: Cardiac Monitoring: An Order was placed for continuous cardiac monitoring. The monitor shows a rate of 80 with a normal sinus rhythm. Consults:Dr Gabrielle BANGURA Hospitalist Plan: Disposition:Hospitalization. Condition: Good History of Present Illness:74 yr old female arrives for evaluation of co nfusion. Patient was confused this evening at home not knowing what time it was, who she was nor where she was. This was with her who called 911. En route symptoms improving. Patient notes she feels cold but denies other symptoms. No medications priro to arrival. Time made better, nothing seemed to make worse. No reported trauma, injuries, falls. This occurred previously with hypoglycemia but her BSG was 80 at home. Patient denies chest pain, sob, cough, fevers, syncope, headache, neck pain, weakness, abdominal pain, nausea, vomiting, bowel/bladder changes, leg swelling, rashes, nor other symptoms. States she has been taking her medications as prescribed. ROS: See above HPI for pertinent positives & negatives. A total of 10 systems reviewed and were otherwise negative. Past Medical History:DMII, Vit d deficiency, CVA, HTN, B12 deficiency, dyslipidemia Past Surgical History:right hip surgery, cholecystectomy Family History:See Below Social History:Retired, lives with , nonsmoker, no etoh Home Medications:atorvastatin, clopidogrel, codusate, glimepiride, metformin Allergies:NKDA Vitals:Blood Pressure: 160/81, Pulse 78, RR 18, T 37C, O2 94% on RA Physical Exam: GENERAL: Patient is tired appearing and in mild distress. Dehydrated appearing EYES: No scleral icterus, unremarkable pupils. ENT: Mucous membranes dry, no nasal congestion. NECK: No masses appreciated, nomeningismus, trachea is midline. RESPIRATORY: No dyspnea. Clear to auscultation and equal bilaterally. No wheeze, no rhonchi. CARDIOVASCULAR: Regular rate and rhythm.No murmurs, rubs, gallops appreciated. GASTROINTESTINAL: Abdomen soft, non-tender, no peritonitis.Bowel sounds positive.No masses appreciated. BACK: No midline tenderness, no CVA tenderness EXTREMITIES: Normal motion all extremities, no cyanosis, no edema. NEUROLOGIC: Periodic tremors/rigors, mildly confused, simple answers, no acute motor or sensory deficits, no focal weakness, cranial nerves grossly intact. SKIN: No rash, no jaundice, no diaphoresis. PSYCH: Appropriate GCS: 15 ED Course: Times/Reassessments: Stable, tired Vincent Phelps MD Past Med/Surg History Medical History (Updated 04/28/20 @ 01:12 by Vincent Phelps MD) Abdominal pain Closed subcapital fracture of neck of right femur Constipation Essential hypertension Hip fracture, right History of CVA (cerebrovascular accident) Hyperlipidemia Ischemic stroke (~2014) More than 50 percent stenosis of left internal carotid artery Rhabdomyolysis Stenosis of carotid artery Stroke Type 2 diabetes mellitus Vitamin D deficiency Surgical History History of cholecystectomy History of right hip hemiarthroplasty (~09/09/17) Dr. [place] Family History Sister Cardiac disorder Diabetes Hypertension Gallbladder disease Daughter Gallbladder disease Family/Other Myocardial infarction Gait abnormality Other Family history non-contributory Social History Smoking Status: Never smoker Second Hand Exposure: No; Hx Alcohol Use: No Hx Substance Use: No Preferred Language: Armenian Communication Ability: Effective Hearing Ability: Normal Crimp Setter Required: No Beliefs That Will Affect Care: None marital status: Current Living Situation: Spouse current occupational status: retired Feels Safe at Home: Yes Seatbelt Use: always Sunscreen Use: No Assistive Devices: Denture - Upper, Glasses and Walker Allergies Allergies Allergy/AdvReac Type Severity Reaction Status Date / Time No Known Drug Allergies Allergy Unknown N\A Verified 04/27/20 05:13 Home Meds Home Medications Medication Instructions Recorded Confirmed Boost 1 ea PO DAILY 10/02/18 04/27/20 blood sugar diagnostic #10 ea 10/06/18 02/22/20 docusate sodium 100 mg capsule 100 mg PO BID cap 05/17/19 04/27/20 Previous Rx's Medication Instructions Recorded lancets 28 gauge #25 ea 10/06/18 atorvastatin 40 mg tablet 40 mg PO DAILY #90 tab 08/04/19 clopidogrel 75 mg tablet 75 mg PO DAILY #90 tab 08/04/19 glimepiride 1 mg tablet 1 mg PO DAILY #90 tab 08/04/19 metformin 500 mg tablet 500 mg PO BID #180 tab 08/04/19 Results & Data (ED) Vital Signs Vital Signs - 24 hr 04/27/20 04:10 04/27/20 04:15 04/27/20 04:20 Temperature 37 C Temperature Source Rectal Pulse Rate 77 78 90 Pulse Rate from SpO2 Sensor 76 90 Respiratory Rate 17 18 16 Respiratory Depth Normal Blood Pressure 160/81 H Blood Pressure Mean 107 Pulse Oximetry 96 94 93 Oxygen Delivery Method Room Air Sepsis Recent Fever Within 48 Hours No Sepsis New/Unexplained Change in Mental Status No Sepsis Action Taken by Nursing No Action Required 04/27/20 04:30 04/27/20 04:31 04/27/20 04:49 Temperature Temperature Source Pulse Rate 78 79 81 Pulse Rate from SpO2 Sensor 82 78 86 Respiratory Rate 20 14 18 Respiratory Depth Blood Pressure 165/84 H Blood Pressure Mean 112 Pulse Oximetry 96 94 94 Oxygen Delivery Method Sepsis Recent Fever Within 48 Hours Sepsis New/Unexplained Change in Mental Status Sepsis Action Taken by Nursing 04/27/20 04:50 04/27/20 05:00 04/27/20 05:10 Temperature Temperature Source Pulse Rate 94 H 81 77 Pulse Rate from SpO2 Sensor 86 74 78 Respiratory Rate 16 21 15 Respiratory Depth Blood Pressure Blood Pressure Mean Pulse Oximetry 97 95 94 Oxygen Delivery Method Sepsis Recent Fever Within 48 Hours Sepsis New/Unexplained Change in Mental Status Sepsis Action Taken by Nursing 04/27/20 05:20 04/27/20 06:00 Temperature Temperature Source Pulse Rate Pulse Rate from SpO2 Sensor 79 89 Respiratory Rate 15 Respiratory Depth Blood Pressure Blood Pressure Mean Pulse Oximetry 93 98 Oxygen Delivery Method Sepsis Recent Fever Within 48 Hours Sepsis New/Unexplained Change in Mental Status Sepsis Action Taken by Nursing Laboratory Data Result diagrams: 04/27/20 04:15 04/27/20 04:15 Lab Results 04/27/20 04/27/20 04/27/20 Range/Units 04:15 04:15 04:15 WBC 9.19 (4.8-10.8) K/uL RBC 4.57 (4.2-5.4) M/uL Hgb 13.9 (12.0-16.0) g/dL Hct 42.6 (37-47) % MCV 93.2 (80-100) fL MCH 30.4 (25-34) pg MCHC 32.6 (32-36) g/dL RDW Std Deviation 48.6 H (36.4-46.3) fL RDW Coeff of [place] 14.5 (11.5-14.5) % Plt Count 287 (130-400) K/uL MPV 10.0 (7.4-10.4) fL Immature Gran % (Auto) 0.2 % Neut % (Auto) 71.1 % Lymph % (Auto) 17.3 % [place] % (Auto) 6.9 % Eos % (Auto) 3.8 % Baso % (Auto) 0.7 % Neut # (Auto) 6.54 H (1.4-6.5) K/uL Lymph # (Auto) 1.59 (1.2-3.4) K/uL [place] # (Auto) 0.63 H (0.11-0.59) K/uL Eos # (Auto) 0.35 (0-0.5) K/uL Baso # (Auto) 0.06 (0-0.2) K/uL Immature Gran # (Auto) 0.02 (0.00-0.02) K/uL Sodium 139 (136-145) mmol/L Potassium 4.2 (3.5-5.1) mmol/L Chloride 106 (98-107) mmol/L Carbon Dioxide 28 (21-32) mmol/L Anion Gap 5.0 (3-11) BUN 13 (7-18) mg/dl Creatinine 1.04 (0.6-1.2) mg/dl Est Cr Clr Drug Dosing 51.0 ml/min Est GFR ( Amer) 62.2 Est GFR (Non-Af Amer) 53.6 BUN/Creatinine Ratio 12.3 (10-20) Glucose 112 H (70-99) mg/dl Lactate 2.4 H* (0.4-2.0) mmol/L Calcium 9.3 (8.5-10.1) mg/dl Magnesium 2.4 (1.8-2.4) mg/dl Total Bilirubin 0.4 (0.2-1) mg/dl Direct Bilirubin < 0.1 (0-0.2) mg/dl AST 12 L (15-37) U/L ALT 19 (12-78) U/L Alkaline Phosphatase 57 (45-117) U/L Troponin I < 0.015 (0-0.045) ng/ml Total Protein 7.8 (6.4-8.2) gm/dl Albumin 3.8 (3.4-5.0) gm/dl Triglycerides (0-150) mg/dl Cholesterol (0-200) mg/dl LDL Cholesterol, Calc mg/dl VLDL Cholesterol, Calc mg/dl HDL Cholesterol mg/dl Cholesterol/HDL Ratio Procalcitonin (0-0.5) ng/ml TSH 2.520 (0.300-4.500) uIu/ml Urine Color Urine Appearance (Clear) Urine pH (4.5-7.5) Ur Specific [place] (1.000-1.030) Urine Protein (Negative) Urine Glucose (UA) (Negative) Urine Ketones (Negative) Urine Blood (Negative) Urine Nitrite (Negative) Urine Bilirubin (Negative) Urine Urobilinogen (Negative) Ur Leukocyte Esterase (Negative) Urine WBC (Auto) (0-5) /hpf Urine RBC (Auto) (0-4) /hpf U Hyaline Cast (Auto) (0-5) /lpf U Epithel Cells (Auto) (0-5) /lpf Urine Bacteria (Auto) (Negative) COVID-19 Eval Order SARS-CoV-2, RNA, NAAT (NEGATIVE) 04/27/20 04/27/20 04/27/20 Range/Units 04:15 04:15 04:20 WBC (4.8-10.8) K/uL RBC (4.2-5.4) M/uL Hgb (12.0-16.0) g/dL Hct (37-47) % MCV (80-100) fL MCH (25-34) pg MCHC (32-36) g/dL RDW Std Deviation (36.4-46.3) fL RDW Coeff of [place] (11.5-14.5) % Plt Count (130-400) K/uL MPV (7.4-10.4) fL Immature Gran % (Auto) % Neut % (Auto) % Lymph % (Auto) % [place] % (Auto) % Eos % (Auto) % Baso % (Auto) % Neut # (Auto) (1.4-6.5) K/uL Lymph # (Auto) (1.2-3.4) K/uL [place] # (Auto) (0.11-0.59) K/uL Eos # (Auto) (0-0.5) K/uL Baso # (Auto) (0-0.2) K/uL Immature Gran # (Auto) (0.00-0.02) K/uL Sodium (136-145) mmol/L Potassium (3.5-5.1) mmol/L Chloride (98-107) mmol/L Carbon Dioxide (21-32) mmol/L Anion Gap (3-11) BUN (7-18) mg/dl Creatinine (0.6-1.2) mg/dl Est Cr Clr Drug Dosing ml/min Est GFR ( Amer) Est GFR (Non-Af Amer) BUN/Creatinine Ratio (10-20) Glucose (70-99) mg/dl Lactate (0.4-2.0) mmol/L Calcium (8.5-10.1) mg/dl Magnesium (1.8-2.4) mg/dl Total Bilirubin (0.2-1) mg/dl Direct Bilirubin (0-0.2) mg/dl AST (15-37) U/L ALT (12-78) U/L Alkaline Phosphatase (45-117) U/L Troponin I (0-0.045) ng/ml Total Protein (6.4-8.2) gm/dl Albumin (3.4-5.0) gm/dl Triglycerides 201 H (0-150) mg/dl Cholesterol 197 (0-200) mg/dl LDL Cholesterol, Calc 117 mg/dl VLDL Cholesterol, Calc 40 mg/dl HDL Cholesterol 40 mg/dl Cholesterol/HDL Ratio 5 Procalcitonin < 0.05 (0-0.5) ng/ml TSH (0.300-4.500) uIu/ml Urine Color Yellow Urine Appearance Cloudy A (Clear) Urine pH 8.5 H (4.5-7.5) Ur Specific [place] 1.017 (1.000-1.030) Urine Protein Negative (Negative) Urine Glucose (UA) Negative (Negative) Urine Ketones Negative (Negative) Urine Blood Negative (Negative) Urine Nitrite Negative (Negative) Urine Bilirubin Negative (Negative) Urine Urobilinogen Negative (Negative) Ur Leukocyte Esterase 1+ H (Negative) Urine WBC (Auto) 1-5 (0-5) /hpf Urine RBC (Auto) 0-4 (0-4) /hpf U Hyaline Cast (Auto) 1-5 (0-5) /lpf U Epithel Cells (Auto) 5-10 H (0-5) /lpf Urine Bacteria (Auto) Negative (Negative) COVID-19 Eval Order SARS-CoV-2, RNA, NAAT (NEGATIVE) 04/27/20 04/27/20 04/27/20 Range/Units 05:07 05:07 06:03 WBC (4.8-10.8) K/uL RBC (4.2-5.4) M/uL Hgb (12.0-16.0) g/dL Hct (37-47) % MCV (80-100) fL MCH (25-34) pg MCHC (32-36) g/dL RDW Std Deviation (36.4-46.3) fL RDW Coeff of [place] (11.5-14.5) % Plt Count (130-400) K/uL MPV (7.4-10.4) fL Immature Gran % (Auto) % Neut % (Auto) % Lymph % (Auto) % [place] % (Auto) % Eos % (Auto) % Baso % (Auto) % Neut # (Auto) (1.4-6.5) K/uL Lymph # (Auto) (1.2-3.4) K/uL [place] # (Auto) (0.11-0.59) K/uL Eos # (Auto) (0-0.5) K/uL Baso # (Auto) (0-0.2) K/uL Immature Gran # (Auto) (0.00-0.02) K/uL Sodium (136-145) mmol/L Potassium (3.5-5.1) mmol/L Chloride (98-107) mmol/L Carbon Dioxide (21-32) mmol/L Anion Gap (3-11) BUN (7-18) mg/dl Creatinine (0.6-1.2) mg/dl Est Cr Clr Drug Dosing ml/min Est GFR ( Amer) Est GFR (Non-Af Amer) BUN/Creatinine Ratio (10-20) Glucose (70-99) mg/dl Lactate 1.7 (0.4-2.0) mmol/L Calcium (8.5-10.1) mg/dl Magnesium (1.8-2.4) mg/dl Total Bilirubin (0.2-1) mg/dl Direct Bilirubin (0-0.2) mg/dl AST (15-37) U/L ALT (12-78) U/L Alkaline Phosphatase (45-117) U/L Troponin I (0-0.045) ng/ml Total Protein (6.4-8.2) gm/dl Albumin (3.4-5.0) gm/dl Triglycerides (0-150) mg/dl Cholesterol (0-200) mg/dl LDL Cholesterol, Calc mg/dl VLDL Cholesterol, Calc mg/dl HDL Cholesterol mg/dl Cholesterol/HDL Ratio Procalcitonin (0-0.5) ng/ml TSH (0.300-4.500) uIu/ml Urine Color Urine Appearance (Clear) Urine pH (4.5-7.5) Ur Specific [place] (1.000-1.030) Urine Protein (Negative) Urine Glucose (UA) (Negative) Urine Ketones (Negative) Urine Blood (Negative) Urine Nitrite (Negative) Urine Bilirubin (Negative) Urine Urobilinogen (Negative) Ur Leukocyte Esterase (Negative) Urine WBC (Auto) (0-5) /hpf Urine RBC (Auto) (0-4) /hpf U Hyaline Cast (Auto) (0-5) /lpf U Epithel Cells (Auto) (0-5) /lpf Urine Bacteria (Auto) (Negative) COVID-19 Eval Order Covid19 IDNow [id number] SARS-CoV-2, RNA, NAAT NEGATIVE (NEGATIVE) Administered Medications Atorvastatin Calcium (Atorvastatin 40 Mg Tab) 80 mg PO DAILY RIMMA Stop: 05/27/20 09:34 Last Admin: 04/27/20 13:24 Dose: 80 mg Documented by: [id number] Clopidogrel Bisulfate (Clopidogrel Bisulfate 75 Mg Tab) 75 mg PO DAILY RIMMA Stop: 05/27/20 09:34 Last Admin: 04/27/20 13:24 Dose: 75 mg Documented by: [id number] Docusate Sodium (Docusate Sodium 100 Mg Cap) 100 mg PO BID RIMMA Stop: 05/27/20 09:34 Last Admin: 04/27/20 20:28 Dose: 100 mg Documented by: [id number] Admin: 04/27/20 13:24 Dose: 100 mg Documented by: [id number] Insulin Aspart (Insulin Aspart 100 Units/Ml 3 Ml Pen) 0 units SC ACHS RIMMA Stop: 05/27/20 09:34 Last Admin: 04/27/20 20:28 Dose: Not Given Documented by: [id number] Cosigned by: [id number] Admin: 04/27/20 17:42 Dose: 1 units Documented by: [id number] Cosigned by: [id number] Admin: 04/27/20 12:15 Dose: Not Given Documented by: [id number] Cosigned by: [id number] Admin: 04/27/20 10:16 Dose: Not Given Documented by: [id number] Cosigned by: [id number] Discontinued Medications Sodium Chloride (Nss 1000ml) 500 mls @ 999 mls/hr IV .Q31M ONE Stop: 04/27/20 04:41 Last Infusion: 04/27/20 04:53 Dose: 0 mls/hr Documented by: [id number] Admin: 04/27/20 04:20 Dose: 999 mls/hr Documented by: [id number] Sodium Chloride (Nss 1000ml) 1,000 mls @ 999 mls/hr IV .Q1H1M ONE Stop: 04/27/20 05:56 Last Infusion: 04/27/20 06:00 Dose: 0 mls/hr Documented by: [id number] Admin: 04/27/20 05:05 Dose: 999 mls/hr Documented by: [id number] Potassium Chloride/Sodium Chloride (Normal Saline W/20 Meq Kcl) 20 meq in 1,000 mls @ 100 mls/hr IV .Q10H RIMMA Stop: 04/27/20 19:59 Last Infusion: 04/28/20 00:15 Dose: 0 mls/hr Documented by: [id number] Admin: 04/27/20 14:07 Dose: 100 mls/hr Documented by: [id number] Ioversol (Optiray 320 125ml) 120 ml IV ONCE ONE Stop: 04/27/20 11:04 Last Admin: 04/27/20 11:04 Dose: 120 ml Documented by: [id number] Discharge Plan Visit Data Chief Complaint: Altered Mental Status Stated Complaint: ALTERED MENTAL STATUS ED Provider: Vincent Phelps Discharge Problem: Acute confusion, Acidosis, lactic Patient Disposition: Admitted As Inpatient Discharge Instructions Interventions: ED Discharge Assessment Last Done: 04/27/20 08:28
[2020-04-27 04:24] LABS: Basophils # (auto) 0.06 K/uL (0-0.2); Basophils % (auto) 0.7 %; Eosinophils # (auto) 0.35 K/uL (0-0.5); Eosinophils % (auto) 3.8 %; Hematocrit (blood only) 42.6 % (37-47); Hemoglobin 13.9 g/dL (12.0-16.0); Immature Granulocytes # (auto) 0.02 K/uL (0.00-0.02); Immature Granulocytes % (auto) 0.2 %; Lymphocytes # (auto) 1.59 K/uL (1.2-3.4); Lymphocytes % (auto) 17.3 %; Mean Corpuscular Hemoglobin 30.4 pg (25-34); Mean Corpuscular Hgb Conc 32.6 g/dL (32-36); Mean Corpuscular Volume 93.2 fL (80-100); Monocytes # (auto) 0.63 K/uL (0.11-0.59); Monocytes % (auto) 6.9 %; Neutrophils # (auto) 6.54 K/uL (1.4-6.5); Neutrophils % (auto) 71.1 %; Platelet Count 287 K/uL (130-400); RDW Coefficient of Variation 14.5 % (11.5-14.5); RDW Standard Deviation 48.6 fL (36.4-46.3); Red Blood Count 4.57 M/uL (4.2-5.4); White Blood Count 9.19 K/uL (4.8-10.8)
[2020-04-27 04:38] LABS: Appearance Urine Cloudy (Clear); Bacteria Urine Automated Negative (Negative); Bilirubin Urine Negative (Negative); Blood Urine Negative (Negative); Color Urine Yellow; Glucose Urine UA Negative (Negative); Ketones Urine Negative (Negative); Leukocyte Esterase Urine 1+ (Negative); Nitrite Urine Negative (Negative); Protein Urine Negative (Negative); RBC Urine Automated 0-4 /hpf (0-4); Specific Gravity Urine 1.017 (1.000-1.030); Urobilinogen Urine Negative (Negative); pH Urine 8.5 (4.5-7.5)
[2020-04-27 04:46] LABS: Alanine Aminotransferase 19 U/L (12-78); Albumin Level 3.8 gm/dl (3.4-5.0); Aspartate Aminotransferase 12 U/L (15-37); BUN Creatinine Ratio 12.3 (10-20); Bilirubin Direct < 0.1 mg/dl (0-0.2); Blood Urea Nitrogen 13 mg/dl (7-18); Calcium 9.3 mg/dl (8.5-10.1); Carbon Dioxide 28 mmol/L (21-32); Chloride 106 mmol/L (98-107); Est GFR (African American) 62.2; Est GFR (Non-African American) 53.6; Glucose 112 mg/dl (70-99); Magnesium 2.4 mg/dl (1.8-2.4); Potassium 4.2 mmol/L (3.5-5.1); Sodium 139 mmol/L (136-145)
[2020-04-27] MEDS ORDERED: SODIUM CHLORIDE 0.9% 1000ML 1,000 ML IV ONE (04:56)
[2020-04-27 04:57] LABS: Alkaline Phosphatase 57 U/L (45-117); Bilirubin,Total 0.4 mg/dl (0.2-1); Total Protein 7.8 gm/dl (6.4-8.2); Troponin I < 0.015 ng/ml (0-0.045)
--- NOTE | 2020-04-27 06:52 | History & Physical Report ---
Date of Service April 27, 2020 Assessment & Plan (1) Decreased appetite: Her is more concerned about her decrease in appetite than any specific neurologic cause of her symptoms. He reports that he can hardly get her to eat anything. She does take Metformin 500 mg p.o. twice daily, which may be acting as too much of an appetite suppressant for her. We will hold metformin and recommend either holding Metformin upon discharge or cutting the dose to once daily in the a.m. He reports that the last time she eats anything is sometime in the afternoon, and at the same time she takes her second dose of Metformin. We will hold glimepiride while in hospital also. Depend upon how her Accu-Cheks are, may consider decreasing the dose of this medication as well, due to the prolonged hypoglycemia it may cause with her irregular appetite We will perform a full neurologic work-up as noted below, however, the thinks and clinically it appears that her symptoms may be more metabolic in nature. Present on Admission?: Yes (2) TIA (transient ischemic attack): TIA in September 2018/old left thalamic CVA- Order CTA head neck. Order MRI brain without contrast Continue clopidogrel 75 mg every morning. She received full dose 324 mg aspirin in the ED. We will start aspirin 81 mg every morning on 04/28. Consult PT/OT/neurology. Present on Admission?: Yes (3) Ischemic stroke: See above Present on Admission?: Yes (4) Type 2 diabetes mellitus: As noted above. Check hemoglobin A1c Present on Admission?: Yes (5) Essential hypertension: Allow permissive hypertension. Present on Admission?: Yes (6) Left carotid stenosis: Left internal carotid artery stenosis of 65% noted during admission from 09/2018. We will order CTA of head and neck for follow-up now. Present on Admission?: Yes (7) Hyperlipidemia LDL goal <70: At last admission in September 2018, her atorvastatin was increased from 20 to 40 mg. We will increase atorvastatin further from 40 to 80 mg. Check a fasting lipid panel Present on Admission?: Yes (8) Vitamin B12 deficiency: She is noted in her history is having a B12 deficiency, but is not appear to be on any supplement other than boost. Check a vitamin B 12 and folic acid level Present on Admission?: Yes (9) Vitamin D deficiency: She is also noted to have a vitamin D deficiency, but is not on any supplementation at this time. Check a vitamin D level. Present on Admission?: Yes History of Present Illness Chief Complaint: The patient presents to the emergency department with an episode of confusion that occurred during the evening, when she awoke up from sleep. Her reports that this is occurred the past few evenings, because it was a second time in a row, he called 911 and she was brought to the emergency department. Primary Care Provider: Guy Metz MD The patient is a 74-year-old female with a past medical history including vitamin D deficiency, diabetes mellitus type 2, ischemic stroke in 2014, essential hypertension, left internal carotid artery stenosis 65% on 09/2018, Rob B12 deficiency, hyperlipidemia, TIA 09/2018, constipation and decreased appetite. The patient presented with similar symptoms when I admitted her from 10/02/2018-10/04/2018, and in both instances, symptoms were resolved and patient was back to her baseline by the time of our assessment. Her is concerned about her decreased appetite, reporting that her last intake of food may be sometime in mid afternoon and that is the time that she takes her second Metformin pill. She reports no change in physical activity. Allergies Allergy/AdvReac Type Severity Reaction Status Date / Time No Known Drug Allergies Allergy Unknown N\A Verified 04/27/20 05:13 Home Medications Medication Instructions Recorded Confirmed Type Boost 1 ea PO DAILY 10/02/18 04/27/20 History blood sugar diagnostic #10 ea 10/06/18 02/22/20 History lancets 28 gauge #25 ea 10/06/18 02/22/20 Rx docusate sodium 100 mg capsule 100 mg PO BID cap 05/17/19 04/27/20 History atorvastatin 40 mg tablet 40 mg PO DAILY #90 tab 08/04/19 04/27/20 Rx clopidogrel 75 mg tablet 75 mg PO DAILY #90 tab 08/04/19 04/27/20 Rx glimepiride 1 mg tablet 1 mg PO DAILY #90 tab 08/04/19 04/27/20 Rx metformin 500 mg tablet 500 mg PO BID #180 tab 08/04/19 04/27/20 Rx Past Med/Surg History Medical History (Updated 04/27/20 @ 06:40 by Jonathon Anthony MD) Abdominal pain Closed subcapital fracture of neck of right femur Constipation Essential hypertension Hip fracture, right History of CVA (cerebrovascular accident) Hyperlipidemia Ischemic stroke (~2014) More than 50 percent stenosis of left internal carotid artery Rhabdomyolysis Stenosis of carotid artery Stroke Type 2 diabetes mellitus Vitamin D deficiency Surgical History History of cholecystectomy History of right hip hemiarthroplasty (~09/09/17) Dr. [place] Family History Sister Cardiac disorder Diabetes Hypertension Gallbladder disease Daughter Gallbladder disease Family/Other Myocardial infarction Gait abnormality Other Family history non-contributory Social History Smoking Status: Never smoker Second Hand Exposure: No; Hx Alcohol Use: No Hx Substance Use: No Preferred Language: Moldovan Communication Ability: Effective Hearing Ability: Normal Procurement Officer Required: No Beliefs That Will Affect Care: None marital status: Current Living Situation: Spouse current occupational status: retired Feels Safe at Home: Yes Seatbelt Use: always Sunscreen Use: No Assistive Devices: Walker Review of Systems Review of Systems: The patient denies chest pain, palpitations, shortness of breath, dyspnea on exertion, cough, lower extremity swelling, sore throat, fevers, chills, sweats, nausea, vomiting, diarrhea , constipation, abdominal pain, pelvic pain, blood in urine or stool, dysuria, urinary frequency or urgency, loss of consciousness, rash, abnormal bruising or bleeding, imbalance, focal weakness, numbness or tingling in arms or legs, generalized arthralgias or myalgias, back or neck pain, or night sweats. The review of systems is otherwise negative other than for that already noted above, and at least 10 systems have been reviewed. Physical Exam Physical Exam: The patient is awake, alert and oriented 3, well developed and well nourished, normocephalic and atraumatic, lying in bed and in no acute distress. HEENT--PERRL, EOMI, mucous membranes and oropharynx dry. Neck--supple. No JVD. No bruits. Thyroid normal, trachea midline, no adenopathy. Heart--normal S1 and S2. No murmurs, rubs or gallops. Lungs--clear bilaterally, no respiratory distress, no accessory muscle use. Abdomen--normal bowel sounds and soft. Nontender. Nondistended, no hernias or masses, no organomegaly. Extremities--no cyanosis or clubbing. No edema. Dermatologic--normal skin turgor, normal color, no abnormal lymph nodes, no rash. Neurologic--cranial nerves II through XII grossly intact. Rheumatologic--normal range of motion. Psychiatric--normal affect. Results & Data Results & Data ([facility]) Vital Signs (Past 12 Hours) Vital Signs Temp Pulse Resp BP Pulse Ox 04/27/20 05:20 15 93 04/27/20 05:10 77 15 94 04/27/20 05:00 81 21 95 04/27/20 04:50 94 H 16 97 04/27/20 04:49 81 18 94 04/27/20 04:31 79 14 165/84 H 94 04/27/20 04:30 78 20 96 04/27/20 04:20 90 16 93 04/27/20 04:15 98.6 F 78 18 160/81 H 94 04/27/20 04:10 77 17 96 Laboratory Results Laboratory Results WBC 9.19 K/uL (4.8-10.8) 04/27/20 04:15 RBC 4.57 M/uL (4.2-5.4) 04/27/20 04:15 Hgb 13.9 g/dL (12.0-16.0) 04/27/20 04:15 Hct 42.6 % (37-47) 04/27/20 04:15 MCV 93.2 fL (80-100) 04/27/20 04:15 MCH 30.4 pg (25-34) 04/27/20 04:15 MCHC 32.6 g/dL (32-36) 04/27/20 04:15 RDW Std Deviation 48.6 fL (36.4-46.3) H 04/27/20 04:15 RDW Coeff of [place] 14.5 % (11.5-14.5) 04/27/20 04:15 Plt Count 287 K/uL (130-400) 04/27/20 04:15 MPV 10.0 fL (7.4-10.4) 04/27/20 04:15 Immature Gran % (Auto) 0.2 % 04/27/20 04:15 Neut % (Auto) 71.1 % 04/27/20 04:15 Lymph % (Auto) 17.3 % 04/27/20 04:15 [place] % (Auto) 6.9 % 04/27/20 04:15 Eos % (Auto) 3.8 % 04/27/20 04:15 Baso % (Auto) 0.7 % 04/27/20 04:15 Neut # (Auto) 6.54 K/uL (1.4-6.5) H 04/27/20 04:15 Lymph # (Auto) 1.59 K/uL (1.2-3.4) 04/27/20 04:15 [place] # (Auto) 0.63 K/uL (0.11-0.59) H 04/27/20 04:15 Eos # (Auto) 0.35 K/uL (0-0.5) 04/27/20 04:15 Baso # (Auto) 0.06 K/uL (0-0.2) 04/27/20 04:15 Immature Gran # (Auto) 0.02 K/uL (0.00-0.02) 04/27/20 04:15 Sodium 139 mmol/L (136-145) 04/27/20 04:15 Potassium 4.2 mmol/L (3.5-5.1) 04/27/20 04:15 Chloride 106 mmol/L (98-107) 04/27/20 04:15 Carbon Dioxide 28 mmol/L (21-32) 04/27/20 04:15 Anion Gap 5.0 (3-11) 04/27/20 04:15 BUN 13 mg/dl (7-18) 04/27/20 04:15 Creatinine 1.04 mg/dl (0.6-1.2) 04/27/20 04:15 Est Cr Clr Drug Dosing 51.0 ml/min 04/27/20 04:15 Est GFR ( Amer) 62.2 04/27/20 04:15 Est GFR (Non-Af Amer) 53.6 04/27/20 04:15 BUN/Creatinine Ratio 12.3 (10-20) 04/27/20 04:15 Glucose 112 mg/dl (70-99) H 04/27/20 04:15 Lactate 2.4 mmol/L (0.4-2.0) H* 04/27/20 04:15 Calcium 9.3 mg/dl (8.5-10.1) 04/27/20 04:15 Magnesium 2.4 mg/dl (1.8-2.4) 04/27/20 04:15 Total Bilirubin 0.4 mg/dl (0.2-1) 04/27/20 04:15 Direct Bilirubin < 0.1 mg/dl (0-0.2) 04/27/20 04:15 AST 12 U/L (15-37) L 04/27/20 04:15 ALT 19 U/L (12-78) 04/27/20 04:15 Alkaline Phosphatase 57 U/L (45-117) 04/27/20 04:15 Troponin I < 0.015 ng/ml (0-0.045) 04/27/20 04:15 Total Protein 7.8 gm/dl (6.4-8.2) 04/27/20 04:15 Albumin 3.8 gm/dl (3.4-5.0) 04/27/20 04:15 Procalcitonin < 0.05 ng/ml (0-0.5) 04/27/20 04:15 TSH 2.520 uIu/ml (0.300-4.500) 04/27/20 04:15 Urine Color Yellow 04/27/20 04:20 Urine Appearance Cloudy (Clear) A 04/27/20 04:20 Urine pH 8.5 (4.5-7.5) H 04/27/20 04:20 Ur Specific [place] 1.017 (1.000-1.030) 04/27/20 04:20 Urine Protein Negative (Negative) 04/27/20 04:20 Urine Glucose (UA) Negative (Negative) 04/27/20 04:20 Urine Ketones Negative (Negative) 04/27/20 04:20 Urine Blood Negative (Negative) 04/27/20 04:20 Urine Nitrite Negative (Negative) 04/27/20 04:20 Urine Bilirubin Negative (Negative) 04/27/20 04:20 Urine Urobilinogen Negative (Negative) 04/27/20 04:20 Ur Leukocyte Esterase 1+ (Negative) H 04/27/20 04:20 Urine WBC (Auto) 1-5 /hpf (0-5) 04/27/20 04:20 Urine RBC (Auto) 0-4 /hpf (0-4) 04/27/20 04:20 U Hyaline Cast (Auto) 1-5 /lpf (0-5) 04/27/20 04:20 U Epithel Cells (Auto) 5-10 /lpf (0-5) H 04/27/20 04:20 Urine Bacteria (Auto) Negative (Negative) 04/27/20 04:20 COVID-19 Eval Order Covid19 [facility] 04/27/20 05:07 SARS-CoV-2, RNA, NAAT NEGATIVE (NEGATIVE) 04/27/20 05:07 Diagnostic Findings [facility] Patient: FARZANA JIMENEZ (Female) : 49 Status: ER Date: 04/27/20 04:49 Room #: History: AMS, CONFUSION Slices: 66 Priors: Tech: Allan Estrella @ [phone] Exams: CT HEAD Contrast: Accession Numbers: [id number] Preliminary Findings Only See Final Report For Complete Findings CT HEAD: Comparison MRI of the brain, 10/03/2018. No acute intracranial hemorrhage, edema or mass. Old left thalamic infarct, as before. Left posterior fossa arachnoid cyst, as before. No calvarial fracture. Mild chronic sinus disease. Orbits and mastoids are unremarkable. Radiologist: Zachariah Prajapati M.D. Study ready at 04:54 and initial results transmitted at 05:02 *This report constitutes a preliminary interpretation only. Non-acute findings felt to be unrelated to the clinical presentation may not be discussed in this report. The study will be interpreted and a final report will be generated by the local Radiologist the following shift. To reach the hospital radiology department call [phone]. If a discrepancy is found between the preliminary and final interpretations of this study, please notify us via our Client Portal at [email or web address] under QA Exams.You can also fax this report with a description of the discrepancy, or include the final report, to our daytime fax number [phone].If faxing, please indicate the severity of discrepancy using one of the following categories: [ ] 1 - Agree/Informational [ ] 2 - Unlikely to Affect Management [ ] 3 - Possible Eventual Change of Management [ ] 4 - Probable Immediate Change of Management For all other patient related information, please fax us at [phone]. [id number] Code Status & VTE Plan Code Status Full code VTE Prophylaxis Plan VTE Prophylaxis will be ordered: Yes PG Care Time/CCT Total # of Minutes Spent Total Time Spent with Patient: Total time spent is greater than 50% in coordination of care (as documented) at patient's floor/unit and/or counseling patient: Coding Level of Care Code 16717 OBS Care - Level 3 Diagnoses Decreased appetite R63.0 TIA (transient ischemic attack) G45.9 Ischemic stroke I63.9 Type 2 diabetes mellitus E11.9 Essential hypertension I10 Left carotid stenosis I65.22 Hyperlipidemia LDL goal <70 E78.5 Vitamin B12 deficiency E53.8 Vitamin D deficiency E55.9
--- NOTE | 2020-04-27 07:07 | XRay Report ---
XR chest 1V portable CLINICAL HISTORY: Confusion COMPARISON STUDY: Chest radiograph October 02, 2018. FINDINGS: Lung volumes are normal. There is no pneumothorax or pleural effusion. Cardiomegaly is unch anged. There is no evidence for pulmonary edema. The appearance of the chest is unchanged. IMPRESSION: No acute cardiopulmonary findings. No change in appearance of the chest. ACT 112: Negative or not required by law. Electronically signed by: Amando Stephens M.D. 04/27/2020 7:06 AM
--- NOTE | 2020-04-27 07:18 | CT Scan Report ---
HEAD CT NONCONTRAST CT DOSE: 614.27 mGy.cm HISTORY: confusion TECHNIQUE: Multiaxial CT images of the head were performed without the use of intravenous contrast. A utomated exposure control was utilized for this study. A dose lowering technique was utilized adheri ng to the principles of ALARA. Comparison: Head CT 10/02/2018. Findings: Mild mucosal thickening within the ethmoid air cells and a small retention cyst within the right maxillary sinus. The mastoid air cells are clear. The calvarium and skull base are intact. Ther e is no mass, hematoma, midline shift, acute infarct. White matter hypodensity is nonspecific but sug gestive of microvascular ischemic change. The ventricles and sulci demonstrate mild age-related invol utional changes. Old lacunar infarct within the left thalamus. Left posterior fossa arachnoid cyst, u nchanged. Impression: No significant change compared to the prior study. No acute intracranial abnormality. ACT 112: Negative or not required by law. Electronically signed by: Jose De Jesus Muse M.D. 04/27/2020 7:16 AM
[2020-04-27 09:20] LABS: Folate (Folic Acid) 15.8 ng/ml (>5.38)
[2020-04-27] MEDS ORDERED: CARBOHYDRATES FOR HYPOGLYCEMIA PO PRN (09:35)
[2020-04-27] MEDS ORDERED: DEXTROSE 50% 50 ML SYRINGE IV PRN (09:35)
[2020-04-27] MEDS ORDERED: ACETAMINOPHEN 325 MG TAB PO PRN (09:35)
[2020-04-27] MEDS ORDERED: GLUCOSE 40% GEL 15 GM TUBE PO PRN (09:35)
[2020-04-27] MEDS ORDERED: GLUCOSE 10 TABS/TUBE PO PRN (09:35)
[2020-04-27] MEDS ORDERED: GLUCAGON FOR INJ 1 MG VIAL SQ PRN (09:35)
[2020-04-27] MEDS ORDERED: NON-FORMULARY MEDICATION (Food Supplemt, Lactose-Reduced [Boost] 0.04 gram- 1 kcal/mL Liqu PO SCH (09:35)
[2020-04-27] MEDS ORDERED: ONDANSETRON INJ 2 MG/ML 2 ML VIAL IV PRN (09:35)
[2020-04-27] MEDS ORDERED: NSS + 20MEQ KCL 20 MEQ/1,000 ML BAG IV SCH (10:00)
[2020-04-27] MEDS: INSULIN ASPART 100 UNITS/ML 3 ML PEN SC SCH ×4 (10:16→20:28)
[2020-04-27] MEDS ORDERED: OPTIRAY 320 125ml IV ONE (11:03)
--- NOTE | 2020-04-27 11:23 | CT Scan Report ---
CTA ANGIOGRAPHY OF THE HEAD CLINICAL HISTORY: Transient ischemic attack. COMPARISON STUDY: CTA of the head October 02, 2018. MRI of the brain October 03, 2018. Head CT April 27, 2020. TECHNIQUE: Helical axial images of the head were obtained following uneventful intravenous administr ation of 120 cc of Optiray 320. Sagittal and coronal reconstructions were viewed as well as maximal i ntensity projections on an independent 3-D workstation. Automated exposure control was utilized for the study. A dose lowering technique was utilized adhering to the principles of ALARA. FINDINGS: No acute intracranial hemorrhage, midline shift or mass effect is present. A left posterior fossa arachnoid cyst is unchanged. Ventricular system is unremarkable. Basal cisterns are patent. Th ere are no extra-axial collections. No intracranial masses are identified. The bilateral M1 and A1 se gments are patent. The right M2 segments are unremarkable. No central vessel occlusion is identified. Note is made of asymmetric decreased flow within multiple left sylvian branches which appear attenua og. This was not evident on prior head CT of October 02, 2018. No definitive intraluminal thrombus is id entified. There is mild plaque within the proximal intracranial portion of the right vertebral artery without significant stenosis. Note is made of severe stenosis of the right T1 segment. Basilar arter y is patent. There is mild stenosis of the left posterior cerebral artery. There is no intracranial a neurysm. IMPRESSION: 1. No central vessel occlusion however asymmetric decreased flow within multiple distal left MCA bran ches which appear attenuated, a finding new since CTA of October 02, 2018. An MRI of the brain could be o btained to evaluate for an associated acute infarct. 2. Bilateral posterior cerebral artery stenoses, more severe on the right. ACT 112: Negative or not required by law. Electronically signed by: Amando Stephens M.D. 04/27/2020 11:21 AM
--- NOTE | 2020-04-27 11:26 | CT Scan Report ---
NECK CTA HISTORY: Altered mental status. Confusion. TIA, Hx left ICA 65% stenosis TECHNIQUE: Multiaxial CT images of the neck were performed following the intravenous administration o f contrast to evaluate the major cervical vessels. Maximum intensity projection images were also obta ined. All measurements were calculated based on NASCET criteria. A dose lowering technique was utili zed adhering to the principles of ALARA. COMPARISON STUDY: Neck CTA 10/02/2018. FINDINGS: The aortic arch and proximal great vessels are widely patent. There is approximately 70% f ocal stenosis at the takeoff of the left internal carotid artery. This is similar to the prior study. The right internal carotid artery and bilateral vertebral arteries appear patent. No evidence for oc clusion or dissection. There is a 7 mm groundglass nodule within the right lung apex. There are few p artially visualized borderline enlarged mediastinal lymph nodes. IMPRESSION: 1. Approximately 70% focal stenosis at the takeoff of the left internal carotid artery. This is simil ar to the prior study. 2. No evidence for vascular occlusion or dissection within the carotid or vertebral arteries. 3. A 7 mm groundglass nodule within the right lung apex. Please refer to the chart below for recommen ded follow-up. 4. A few partially visualized poorly enlarged mediastinal lymph nodes. These can also be evaluated on the follow-up chest CT. Please refer to below summary of Fleischner criteria recommendations for fol low-up of incidental CT nodules (Ray Harrison, Guidelines for management of small pulmonary nodules det ected on CT scans: A statement from the Fleischner Society, Radiology 237: [phone].) SOLID NODULES Solitary nodule size: <6 mm * Low risk patients: no follow-up needed * high risk patients: optional CT at 12 months Solitary nodule size: 6-8 mm * Low risk patients: follow-up at 6-12 months, then consider further follow-up at 18-24 months * high risk patients: initial follow-up CT at 6-12 months and then at 18-24 months if no change Solitary nodule size: >8 mm * either low or high risk patients - consider follow-up CT at 3 months, and/or CT-PET, and/or biopsy Multiple nodules size: <6 mm * Low risk patients: no routine follow-up * high risk patients: optional CT at 12 months Multiple nodules size: 6-8 mm * Low risk patients: follow-up at 3-6 months, then consider further follow-up at 18-24 months * high risk patients: follow-up at 3-6 months, then at 18-24 months if no change Multiple nodules size: >8 mm * Low risk patients: follow-up at 3-6 months, then consider further follow-up at 18-24 months * high risk patients: follow-up at 3-6 months, then at 18-24 months if no change Note: newly detected indeterminate nodule in persons 35 years of age or older. * Low risk patients: minimal or absent history of smoking and/or other known risk factors * high risk patients: history of smoking or of other known risk factors (e.g. first degree relative with lung cancer, or exposure to asbestos, radon, uranium) * if a nodule up to 8 mm is partly solid or is ground glass further follow-up is required after 24 m onths to exclude possible slow growing adenocarcinoma (ELIO) SUBSOLID NODULES Solitary pure ground-glass nodule * nodule size <6 mm - no CT follow-up required * nodule size >=6 mm - follow-up CT at 6-12 months, then every 2 years until 5 years Solitary part-solid nodule * nodule size <6 mm - no CT follow-up required * nodule size >=6 mm - follow-up CT at 3-6 months. If unchanged, and solid component remains <6 mm, then annual follow-up for 5 years Multiple subsolid nodules * nodule size <6 mm - follow-up CT at 3-6 months, consider further follow-up at 2 and 4 years if sta ble * nodule size >=6 mm - follow-up CT at 3-6 months, subsequent management based on the most suspiciou s nodule(s) ACT 112: Positive. There are findings on this exam that require communication between the performing entity and the patient folowing Patient Test Result Information Act ([place] Act 112) guidelines. Electronically signed by: Jose De Jesus Muse M.D. 04/27/2020 11:25 AM
[2020-04-27 11:41] LABS: Chol HDL Ratio 5; Cholesterol 197 mg/dl (0-200); HDL Cholesterol 40 mg/dl; LDL Cholesterol Calculated 117 mg/dl; Triglycerides 201 mg/dl (0-150); VLDL Cholesterol 40 mg/dl
--- NOTE | 2020-04-27 12:44 | XCELERA ---
[id number] \\[id number]
--- NOTE | 2020-04-27 12:49 | Magnetic Resonance Report ---
MRI OF THE BRAIN WITHOUT IV CONTRAST CLINICAL HISTORY: Transient ischemic attack. COMPARISON STUDY: CT of the brain dated 04/27/2020. TECHNIQUE: MRI of the brain was performed utilizing various T1 and T2-weighted sequences in the axial , sagittal, and coronal planes. IV contrast was not administered for this examination. FINDINGS: Brain parenchyma: There is age-related involutional change noting minimal microangiopathic disease. T here is no hemorrhage or midline shift. A 5 cm arachnoid cyst is again seen in the left posterior fos sa. This causes mild mass effect on the left cerebellar hemisphere. There is no restricted diffusion to suggest acute ischemia. A chronic lacunar infarct is noted in the left thalamus. Contreras-white matter differentiation is preserved. No extra-axial fluid collection is seen. The cerebellar tonsils are no rmal in configuration. Ventricles, sulci, and cisterns: Prominent secondary to involutional change. Pituitary and sella: Unremarkable. Intracranial vasculature: Normal flow voids are maintained at the skull base. Orbits: The bony orbits are grossly intact. Orbital contents are normal in appearance. Sinuses and mastoids: Mild mucosal thickening is noted in the maxillary antra. The remaining paranasa l sinuses and the mastoid air cells are clear. Calvarium: Unremarkable. Cervical cord: Partially visualized cervical spinal cord is normal in morphology and signal intensity . IMPRESSION: No acute intracranial abnormality. ACT 112: Negative or not required by law. Electronically signed by: Nilton Harley M.D. 04/27/2020 12:47 PM
[2020-04-27] MEDS: DOCUSATE SODIUM 100 MG CAP PO SCH ×2 (13:24→20:28)
[2020-04-27] MEDS: ATORVASTATIN 40 MG TAB PO SCH (13:24)
[2020-04-27] MEDS: CLOPIDOGREL BISULFATE 75 MG TAB PO SCH (13:24)
--- NOTE | 2020-04-27 17:05 | Electrocardiogram Report ---
Test Reason : Blood Pressure : / mmHG Vent. Rate : 083 BPM Atrial Rate : 083 BPM P-R Int : 164 ms QRS Dur : 082 ms QT Int : 368 ms P-R-T Axes : 052 017 081 degrees QTc Int : 432 ms Poor data quality, interpretation may be adversely affected Normal sinus rhythm Normal ECG When compared with ECG of 02-OCT-2018 20:34, Nonspecific T wave abnormality no longer present Confirmed by Ari Peterson ([id number]) on 04/27/2020 5:04:51 PM Referred By: REFERRED SELF Confirmed By:Ari Peterson
[2020-04-28] MEDS: DOCUSATE SODIUM 100 MG CAP PO SCH (07:55)
[2020-04-28] MEDS: ATORVASTATIN 40 MG TAB PO SCH (07:55)
[2020-04-28] MEDS: CLOPIDOGREL BISULFATE 75 MG TAB PO SCH (07:55)
[2020-04-28] MEDS: INSULIN ASPART 100 UNITS/ML 3 ML PEN SC SCH ×2 (07:56→12:10)
[2020-04-28 08:43] LABS: Basophils # (auto) 0.03 K/uL (0-0.2); Basophils % (auto) 0.4 %; Eosinophils # (auto) 0.37 K/uL (0-0.5); Hematocrit (blood only) 41.2 % (37-47); Hemoglobin 13.5 g/dL (12.0-16.0); Immature Granulocytes # (auto) 0.01 K/uL (0.00-0.02); Immature Granulocytes % (auto) 0.1 %; Lymphocytes # (auto) 1.34 K/uL (1.2-3.4); Lymphocytes % (auto) 18.3 %; Mean Corpuscular Hemoglobin 30.5 pg (25-34); Mean Corpuscular Hgb Conc 32.8 g/dL (32-36); Mean Platelet Volume 10.4 fL (7.4-10.4); Monocytes # (auto) 0.39 K/uL (0.11-0.59); Monocytes % (auto) 5.3 %; Neutrophils # (auto) 5.19 K/uL (1.4-6.5); Neutrophils % (auto) 70.9 %; Platelet Count 287 K/uL (130-400); RDW Coefficient of Variation 14.4 % (11.5-14.5); RDW Standard Deviation 48.7 fL (36.4-46.3); Red Blood Count 4.43 M/uL (4.2-5.4); White Blood Count 7.33 K/uL (4.8-10.8)
[2020-04-28 08:53] LABS: Partial Thromboplastin Time 29.1 Seconds (21.0-31.0)
[2020-04-28] MEDS ORDERED: ASPIRIN 81 MG ECTAB PO SCH (09:00)
[2020-04-28 09:03] LABS: Estimated Average Glucose 140 mg/dl; Hemoglobin A1C 6.5 % (4.5-5.6)
[2020-04-28 09:13] LABS: Albumin Level 3.7 gm/dl (3.4-5.0); BUN Creatinine Ratio 11.1 (10-20); Calcium 9.5 mg/dl (8.5-10.1); Creatinine Clr Calc Pharmacy 53.7 ml/min; Est GFR (African American) 67.6; Est GFR (Non-African American) 58.3; Magnesium 2.3 mg/dl (1.8-2.4)
--- NOTE | 2020-04-28 09:13 | Neurology Consultation ---
Date of Consultation April 28, 2020 Assessment & Plan (1) Acute confusion: (2) Left carotid stenosis: (3) Ischemic stroke: (4) Decreased appetite: Patient has been having episodes of confusion. She has no encephalopathy this morning but acts more like a combination of depression damon ses underlying dementia. there may be a vascular dementia present. She does have a history of small left thalamic stroke in 2014 as well as a "TIA" in September of 2018 has been stable on clopidogrel. I do not believe this current event was a TIA. MRI shows no stroke. Patient has a history of left internal carotid artery stenosis of 70 percent, and some decrease prominence of distal MCA branches bilaterally. I am very concerned with her clinical picture including the decreased appetite and the lung and lymph node changes seen on CT angiography. She may have a metastatic process occurring. Recommendations: 1. follow up with CT scan of the chest and other tests as necessary to evaluate for metastases 2. I do not have any testing recommendations from a neurologic standpoint to make otherwise at this time. I can follow as an outpatient. 3. Treat vitamin-D deficiency with 5000 units of vitamin D3 daily. Overall, I spent a total of 60 minutes with this case including review of records, review of MRI films , direct evaluation the patient at bedside, and discussion of the case with the patient at bedside, RN at bedside, and Dr. Freedman including differential diagnosis and treatment options. History of Present Illness Reason for Consultation: Patient is a 74-year-old, who I was asked to see at the request of Dr. Anthony, for neurologic consultation regarding new onset confusion Requesting Physician: Dr. Anthony Attending Physician: Yeison Freedman MD History of Present Illness I 1st saw this patient in April of 2015 when she had right-sided weakness and was discovered to have a relatively small left thalamic / internal capsule stroke. I did not see her again. In September of [address] Fong and was determined to have a TIA and was noted to have a left internal carotid artery stenosis of 65 percent.Patient has been on clopidogrel 75 milligrams daily. She also has a history of diabetes type 2, dyslipidemia, hypertension, and a s ignificantly decreased appetite recently. Apparently she has been waking from sleep with confusion the last several days and did so April 27. She arrived to the emergency room April 27 at 0415 with a temperature of 37, pulse 78 regular, respiratory rate 14, blood pressure 160/81, and O2 saturation 94 percent. Neurologic examination was described in the emergency room as mildly confused without focal deficits and periodically tremors. By the time of her admission, her neurologic examination was described as normal CBC and Chem profile were unremarkable. Vitamin-D was low at 22 and B12 and TSH were unremarkable. CT scan of the head was unremarkable for acute changes. CT angiography of the neck revealed 70 percent stenosis at the origin of the left internal carotid artery as well as a 7 millimeter right lung apex glass ground lesion with increased lymph nodes. CT angiography of the head showed decreased flow in the distal MCA branches bilaterally. MRI of the brain showed no acute stroke but did show atrophy and small vessel ischemic changes. Echocardiogram showed no change compared to September of 2018. Hemoglobin A1c is pending. Nursing reports no new issues overnight the patient feels "good" this morning. She does not have any recall as to why she is here but has no complaint of pain, headache, dizziness, vision issues, weakness, numbness, or other problems Allergies Allergy/AdvReac Type Severity Reaction Status Date / Time No Known Drug Allergies Allergy Unknown N\\A Verified 04/27/20 05:13 Home Medications Medication Instructions Recorded Confirmed Type Boost 1 ea PO DAILY 10/02/18 04/27/20 History blood sugar diagnostic #10 ea 10/06/18 02/22/20 History lancets 28 gauge #25 ea 10/06/18 02/22/20 Rx docusate sodium 100 mg capsule 100 mg PO BID cap 05/17/19 04/27/20 History atorvastatin 40 mg tablet 40 mg PO DAILY #90 tab 08/04/19 04/27/20 Rx clopidogrel 75 mg tablet 75 mg PO DAILY #90 tab 08/04/19 04/27/20 Rx glimepiride 1 mg tablet 1 mg PO DAILY #90 tab 08/04/19 04/27/20 Rx metformin 500 mg tablet 500 mg PO BID #180 tab 08/04/19 04/27/20 Rx Patient History Medical History Abdominal pain Closed subcapital fracture of neck of right femur Constipation Essential hypertension Hip fracture, right History of CVA (cerebrovascular accident) Hyperlipidemia Ischemic stroke (~2014) More than 50 percent stenosis of left internal carotid artery Rhabdomyolysis Stenosis of carotid artery Stroke Type 2 diabetes mellitus Vitamin D deficiency Surgical History History of cholecystectomy History of right hip hemiarthroplasty (~09/09/17) Dr. Dallas Family History Sister Cardiac disorder Diabetes Hypertension Gallbladder disease Daughter Gallbladder disease Family/Other Myocardial infarction Gait abnormality Mother , in her 80s of stroke Diabetes Stroke Father , in early 90s of cerebral aneurysm Cerebral aneurysm Other Family history non-contributory Social History Smoking Status: Never smoker Second Hand Exposure: No; Hx Alcohol Use: No Hx Substance Use: No Preferred Language: Tanzanian Communication Ability: Effective Hearing Ability: Normal Bracer Required: No Beliefs That Will Affect Care: None marital status: Current Living Situation: Spouse current occupational status: retired Feels Safe at Home: Yes Seatbelt Use: always Sunscreen Use: No Assistive Devices: Denture - Upper, Glasses and Walker Review of Systems Constitutional: + anorexia; no fever, no fatigue and no weakness Eyes: no diplopia, no eye pain and no worsening vision Ear, Nose, Mouth, Throat: no ear pain, no tinnitus, no hearing loss, no dizziness, no snoring, no hoarseness and no dysphagia Respiratory: no cough and no dyspnea Cardiovascular: no chest pain, no palpitations and no lightheadedness Gastrointestinal: no abdominal pain, no nausea and no vomiting Genitourinary: no dysuria, no urinary frequency and no urinary incontinence Musculoskeletal: no back pain, no neck pain, no radicular pain, no joint pain and no myalgia Integumentary: no rash and no lesions Neurologic: + memory loss; no gait abnormality, no localized weakness, no generalized weakness, no tingling, no numbness, no tremor(s), no abnormal movements, no headache(s), no abnormal speech and no confusion Psychiatric: no depression, no irritability, no anxiety, no difficulty concentrating, no confusion and no hallucinations Endocrine: no fatigue and no flushing Hematologic / Lymphatic: no easy bleeding and no easy bruising Allergy / Immunological: no urticaria and no problem reported Exam (Neuro) Physical Exam: The patient is right-handed. The patient is awake, alert, and attentive. Speech is sparse/quiet, but without any obvious aphasia or dysarthria. She can name objects, repeat phrases, and has normal spontaneous speech. Mentation and thought processes are somewhat poor. She knew the month and the fact that she was in the hospital but did not know her age, date, day, or year. Attention and concentration are normal. Although she is pleasant and cooperative, and her mood is reasonable, she has a quiet /flat affect. General appearance and grooming are normal. Short and long- term memory are impaired The discs are sharp with positive venous pulsations bilaterally. There are no exudates, hemorrhages, or blood vessel changes seen. Pupils are 3 mm bilaterally and reactive to light. Extraocular eye muscles are intact without nystagmus. Visual acuity and visual echevarria seem normal grossly to confrontation. There are no deficits to sensation in the face in all 3 distributions of the fifth cranial nerve bilaterally. Corneal reflexes are positive bilaterally. Facial strength was normal bilaterally, but there may have been some slight asymmetry of the corner of the mouth on the right with a little droop compared to the left. It does move voluntarily. Hearing seems normal to whisper and finger rub bilaterally. Palate moves well without asymmetry. There is normal sternocleidomastoid and trapezius (shoulder shrug) strength bilaterally. Tongue is midline with good strength bilaterally. Neck has a full range of motion without discomfort. There are no cervical bruits bilaterally. There are no cranial or ocular bruits. Heart is without murmur. There is a regular rhythm and rate. Cervical, thoracic, and lumbar spine are nontender to palpation. Gait is narrow based but cautious. She needs a walker for support. With outstretched arms there is no drift. There are no resting, postural, or action tremors. There is no ataxia with finger to nose testing. There is no ataxia with [id number] testing. There is good facility in the hands. No other abnormal involuntary movements are noted. Motor strength is 5/5 diffusely in the arms bilaterally including deltoids, biceps, triceps, brachioradialis, wrist flexors and extensors, photo optics technician, and intrinsic hand muscles. Motor strength is 5/5 diffusely in the legs bilaterally including hip flexors, quadriceps, hamstrings, gastrocnemius, tibialis anterior, tibialis posterior, and Peroneii muscles. Toe extensors are normal and there is good bulk in the extensor digitorum brevis muscles bilaterally. The limbs have good tone without rigidity or spasticity. There is no atrophy noted in the muscles. Muscle bulk is normal, there is no tenderness to palpation, no myotonia to percussion, and no fasciculations seen. Sensory examination is intact to touch and pin throughout all 4 limbs diffusely. Reflexes are 2/4 in the biceps, triceps, brachioradialis, and quadriceps tendons bilaterally. Achilles tendon reflexes are absent bilaterally. There is no clonus bilaterally. Toes are downgoing with plantar stimulation bilaterally. Peripheral pulses are present and of normal quality distally in all 4 limbs. There is no peripheral edema noted in the limbs. Results & Data ([facility]) Vital Signs (Past 12 Hours) Vital Signs Temp Pulse Resp BP BP Pulse Ox 04/28/20 08:02 36.9 C 86 18 145/69 H 95 04/27/20 23:12 36.6 C 74 17 153/72 H 98 PG Care Time/CCT Total # of Minutes Spent Total Time Spent with Patient: Total time spent is greater than 50% in coord ination of care (as documented) at patient's floor/unit and/or counseling patient: Coding Level of Care Code 22973 Initial Inpt Care Lvl 3 Diagnoses Acute confusion R41.0 Left carotid stenosis I65.22 Ischemic stroke I63.9 Decreased appetite R63.0 Time Spent (min) 60
[2020-04-28 09:16] LABS: Bilirubin,Total 0.7 mg/dl (0.2-1); Globulin 3.6 gm/dl (2.5-4.0); Total Protein 7.3 gm/dl (6.4-8.2)
--- NOTE | 2020-04-28 13:24 | CT Scan Report ---
CT chest wo con CT DOSE: 460.77 mGy.cm CLINICAL HISTORY: 74 years-old Female with Nodules; lymphadenopathy. Follow-up study in a patient wi th 7 mm groundglass nodule of the right lung apex TECHNIQUE: Multiaxial CT images of the chest were performed without contrast. A dose lowering techni que was utilized adhering to the principles of ALARA. COMPARISON: CTA of the neck 04/27/2020, 10/02/2018, CT cervical spine 09/09/2017. FINDINGS: Unremarkable thyroid. There is no adenopathy. Mild cardiomegaly with extensive coronary artery calcif ications. There is no thoracic aortic aneurysm. No pneumothorax or pleural effusion. No overt pulmona ry edema or lobar airspace consolidation. Subpleural 7 mm groundglass nodule of the right lung apex o n image 65 series 4 is new from 10/02/2018. There is mild bibasilar predominant subpleural reticulatio n with intermixed groundglass densities. Central airways are patent. Scattered calcified granulomata of the liver. Unremarkable soft tissues. No acute fracture or suspici ous bone lesion. Chronic appearing superior endplate compression deformity at T12. IMPRESSION: 1. 7 mm groundglass nodule of the apical segment right upper lobe is new from 10/02/2018. This may ref lect an adenomatous lesion and continued follow-up is recommended. 2. Mild subpleural reticulation with intermixed groundglass densities in a bibasilar predominant dist ribution is suggestive of mild fibrosis with atelectasis. 3. Mild cardiomegaly with extensive coronary artery calcifications. Please refer to below summary of Fleischner criteria recommendations for follow-up of incidental CT n odules (Ray Harrison, Guidelines for management of small pulmonary nodules detected on CT scans: A sta tement from the Fleischner Society, Radiology 237: [id number].) Note: newly detected indeterminate nodule in persons 35 years of age or older. * Low risk patients: minimal or absent history of smoking and/or other known risk factors * high risk patients: history of smoking or of other known risk factors (e.g. first degree relative with lung cancer, or exposure to asbestos, radon, uranium) * if a nodule up to 8 mm is partly solid or is ground glass further follow-up is required after 24 m onths to exclude possible slow growing adenocarcinoma (ELIO) SUBSOLID NODULES Solitary pure ground-glass nodule * nodule size <6 mm - no CT follow-up required * nodule size >=6 mm - follow-up CT at 6-12 months, then every 2 years until 5 years ACT 112: Positive. There are findings on this exam that require communication between the performing entity and the patient following Patient Test Result Information Act ([place] Act 112) guidelines. Electronically signed by: Van Vazquez M.D. 04/28/2020 1:23 PM
--- NOTE | 2020-04-28 15:37 | Discharge Summary ---
Date of Service April 28, 2020 Admission HPI Per Admitting Provider The patient is a 74-year-old female with a past medical history including vitamin D deficiency, diabetes mellitus type 2, ischemic stroke in 2015, essential hypertension, left internal carotid artery stenosis 65% on 09/2018, Rob B12 deficiency, hyperlipidemia, TIA 09/2018, constipation and decreased appetite. The patient presented with similar symptoms when I admitted her from 10/02/2018-10/04/2018, and in both instances, symptoms were resolved and patient was back to her baseline by the time of our assessment. Her is concerned about her decreased appetite, reporting that her last intake of food may be sometime in mid afternoon and that is the time that she takes her second Metformin pill. She reports no change in physical activity. Principal Diagnosis Episode of confusion Discharge Exam Constitutional WD/WN, vitals as above Eyes EOM intact bilaterally; no conjunctival abnormality ENMT external ear and nose normal, oropharynx normal Neck trachea midline, no thyromegaly normal visual inspection Respiratory normal respiratory effort, lungs clear to auscultation no respiratory distress Cardiovascular RRR, no murmur, no edema Gastrointestinal (Abdomen) Inspection/Auscultation: abdomen normal to inspection; abdomen not distended Musculoskeletal no cyanosis or clubbing, extremities motor strength 5/5 Skin no rashes, warm and dry Neurologic moves all extremities and awake Psychiatric Orientation: alert, oriented to person and cooperative Discharge Data Allergies Allergy/AdvReac Type Severity Reaction Status Date / Time No Known Drug Allergies Allergy Unknown N\\A Verified 04/27/20 05:13 Consultations 04/27/20 06:04 ED Decision to Admit Stat 04/27/20 09:35 Consult Case Management - Discharge Planning Routine Consult Neurology Routine Ordered Studies 04/27/20 04:11 CT head/brain wo con Urgent 04/27/20 09:35 CT angio head w con Stat CT angio neck with con Stat MR brain wo con Routine 04/28/20 12:10 CT chest wo con Routine Hospital Course (1) Acute confusion: Unclear etiology. TIA possible, but thought less likely by neurology. Possible hypoglycemic episode. - Resolved in the ED. - MRI showed no new CVA. - CTA head/neck showed overall stable ICAs. CTA head did show "decreased flow within multiple distal left MCA branches" which neurology felt was chronic plaque and not related to her acute symptoms. - On discharge, her glimepiride was stopped in case a hypoglycemic event was the cause of her transient confusion. Dr. Gay also was concerned about early cognitive decline or depression causing cognitive decline. The patient reported sadness due to not seeing her family because of Covid, but denied other symptoms of depression to me. TSH was checked and normal. - Advised to follow up with Dr. Gay for further memory testing as well as management of her CVA/TIA issues. (2) Decreased appetite: Her reports this is long-term and not of great concern to him. Per him, her "mother was the same way." (3) TIA (transient ischemic attack): TIA in September 2018/old left thalamic CVA- - As above (4) Ischemic stroke: See above (5) Type 2 diabetes mellitus: As noted above. Check hemoglobin A1c (6) Essential hypertension: BP was 170/75 in the hospital. Will monitor and can manage as an outpatient. (7) Left carotid stenosis: Left internal carotid artery stenosis of 65% noted during admission from 09/2018. - Stable on imaging (8) Hyperlipidemia LDL goal <70: At last admission in September 2018, her atorvastatin was increased from 20 to 40 mg. - Continue (9) Vitamin B12 deficiency: She is noted in her history is having a B12 deficiency, but is not appear to be on any supplement other than boost. - B12 was 336; send home on supplement. (10) Vitamin D deficiency: She is also noted to have a vitamin D deficiency, but is not on any supplementation at this time. - Low vitamin D. Will discharge on supplement. Total Time Total Time Spent Total Time Spent (In Minutes): 35 Discharge Plan Discharge Items Patient Disposition: Home - Self-Care Reason For Visit: ALTERED MENTAL STATUS Discharge Diagnosis: Confusion Activity: Resume your previous activity Non-emergency contact: Primary Care Provider and Neurologist Call non-emergency contact if: your symptoms worsen Follow-up/Referrals: Kali Gay MD [Physician] - (Please see Dr. Gay or a colleague next month to see how your memory is and any further testing.) Guy Metz III, MD [Primary Care Provider] - Diet: Carb Consistent or DM2 Addtl Attending Provider Instructions: Ms. Steven was admitted for confusion. This resolved by the time she was in the Emergency Department and did not return. We were worried about a TIA (or "mini- stroke"), so we did an MRI and CT scans of the brain, head, and neck. Luckily, we did not see any significant stroke or anything like that. All the findings in the brain were stable. This could also be from the diabetic medications, and we will stop one medication to try to prevent a low blood sugar event which can also cause confusion. Dr. Anthony (the admitting doctor) thought that metformin might be the cause, but the glimepiride is more likely to cause low blood sugars which can cause confusion. Please hold this medication until you see Dr. Metz in the next week or two. For any ongoing memory issues, we would like you to follow up with Dr. Gay next month. Pending Studies at Discharge: No Stand-Alone Forms: [facility], Smoking Cessation Medications and DC Order Prescriptions: New ergocalciferol (vitamin D2) 1,250 mcg (50,000 unit) capsule 50,000 unit PO .weekly Qty: 6 RF: 0 cyanocobalamin (vitamin B-12) 1,000 mcg tablet extended release 1,000 mcg PO DAILY Qty: 30 RF: 0 Continued atorvastatin 40 mg tablet 40 mg PO DAILY Qty: 90 RF: 3 metformin 500 mg tablet 500 mg PO BID Qty: 180 RF: 3 clopidogrel [Plavix] 75 mg tablet 75 mg PO DAILY Qty: 90 RF: 3 docusate sodium 100 mg capsule 100 mg PO BID RF: 0 (DME) Freestyle [employer] Test Strips strip See Dose Instructions .ROUTE .MEDSUPPLY Qty: 10 RF: 0 (DME) lancets [FreeStyle Lancets] 28 gauge misc See Dose Instructions .ROUTE .MEDSUPPLY Qty: 25 RF: 0 Boost 0.04 gram- 1 kcal/mL Liquid 1 ea PO DAILY RF: 0 Discontinued glimepiride 1 mg tablet 1 mg PO DAILY Qty: 90 RF: 3 Discharge Orders: Discharge Order (Routine); Ordered 04/28/20 Ordered By: Yeison Hinton/Other Patient Handouts: Managing Type 2 Diabetes Admission Data Admit Date/Time: 04/27/20 06:29 Attending Provider: Yeison Freedman Admit Provider: Jonathon Anthony Primary Care Provider: Guy Metz III Other Providers: Ismael Fong ; Yeison Freedman Other Interventions: Discharge Summary Assessment (RN) Last Done: 04/28/20 15:07 Coding Level of Care Code 66422 OBS Care - Discharge Diagnoses Acute confusion R41.0 Decreased appetite R63.0 TIA (transient ischemic attack) G45.9 Ischemic stroke I63.9 Type 2 diabetes mellitus E11.9 Essential hypertension I10 Left carotid stenosis I65.22 Hyperlipidemia LDL goal <70 E78.5 Vitamin B12 deficiency E53.8 Vitamin D deficiency E55.9
== END 2020-04-28 15:38 | disposition home or self-care (01) ==
LOC: ED 04:03 → EDINP 04:03 → SUATTDRO 06:29 → 2S 08:28

== ENCOUNTER 2020-11-04 05:57 | Observation (INO) ==
--- NOTE | 2020-11-04 06:07 | Emergency Department Note ---
Impression & Plan Acute alteration in mental status ED Provider Note Name: FARZANA JIMENEZ Age: 75 Sex: F Arrives Via: Ambulance Informant: Patient, EMS, Family ED Provider: Vincent Phelps MD Chief Complaint: AMS Impression: Acute Alteraction in Mental Status Medical Decision Makin yr old female with history DMII, Vit d deficiency, CVA, HTN, B12 deficiency, dyslipidemia arrives from home with several hours of confusion, slurred speech and ataxia. Apparently was normal self when she went to bed around 8pm last night, then awoke around 4 with these symptoms. This is 3rd visit to ED over last 2 years with similar episodes which have been felt to be possible CVA th ough no clear evidence acute stroke noted on MRIs that have been done (older thalamic infarct) Has been on Plavix for this for quite some time. Patient has RACE score of 2 on EMS arrival which resolved and she was talking en route. Normal BSG for EMS with unremarkable vitals. On arrival in ED she once again became slurred speech and aphasic/confused. This happened about 5 minutes after arrival as I was evaluating here. Stroke alert immediately called and patient sent to CT. CT unremarkable and [facility] Neuro consulted. Agree TPA not indicated. On evaluation patient has now had resolution of symptoms and interacting normally. I suspect there could be some sort of underlying seizure going one but will hold off on anti epileptics until further work-up and evaluation. No evidence infec tious etiology at this time. Did seem to feel better with fluids thus possibly this was dehydration exacerbating old infarcts. Prior Medical Record and Triage/Nursing Notes reviewed by Me Additional history obtained from chart, ems, and family Differentials:Infection, dehydration, metabolic abnormality, hypo/hyperglycemia, electrolyte disturbance, anemia, hypoxia, cardiac sources, intracerebral event, toxicologic, neurologic, as well as other pathologies. Vital Signs: reviewed and remarkable for no significant abnormalities Interventions: NSS infusion Labs:Reviewed and remarkable for no acute findings Imaging:Radiologist interpretation reviewed by me: CT head cta head/neck no acute findings: chronic carotid narrowing EKG:Per My Interpretation: Indication AMS: NSR 69 bpm, qtc 413. No Ectopy. No Ischemia. Compared to EKG 04/27/20, no significant changes. Cardiac/Tele Monitoring: Cardiac Monitoring: An Order was placed for continuous cardiac monitoring. The monitor shows a rate of 70 with a normal sinus rhythm. Consults:Dr Sai BANGURA Hospitalist Plan: Disposition:Hospitalization. Condition: Good History of Present Illness:75 yr old female arrives for evaluation of stroke l angie symptoms. Patient was feeling well and her normal self when she went to bed at 8pm. This morning she awoke at 4am with her . She was noted to be confused, was having difficulty walking straight and was slurred speech. After no improvement 911 was called. EMS arrived, vitals OK and BSG OK. She then was noted to wax and wane with her mental status. She was transported to ED. As they arrived she had completely resolved symptoms and stated feeling fine. She denies chest pain, sob, back pain, abdominal pain, urinary symptoms, leg swelling, syncope, neck pain, headache, weakness, nor other symptoms. States she feels well and in no distress. ROS: See above HPI for pertinent positives & negatives. A total of 10 systems reviewed and were otherwise negative. Past Medical History:DMII, Vit d deficiency, CVA, HTN, B12 deficiency, dyslipidemia Past Surgical History:See Below Family History:See Below Social History:See Below Home Medications:See Below Allergies:NKDA Vitals:Blood Pressure: 164/82, Pulse 70, RR 18, T 36.5C, O2 94% on RA Physical Exam: (exam after return from CT SCAN) Initial exam with confusion, ataxia with extremities, not following most commands and slurred/confused minimal speech. GENERAL: Patient is chronically unwell appearing and in no acute distress. EYES: No scleral icterus, unremarkable pupils. ENT: Mucous membranes moist, no nasal congestion. NECK: No masses appreciated, nomeningismus, trachea is midline. RESPIRATORY: No dyspnea. Clear to auscultation and equal bilaterally. No wheeze, no rhonchi. CARDIOVASCULAR: Regular rate and rhythm.No murmurs, rubs, gallops appreciated. GASTROINTESTINAL: Abdomen soft, non-tender, no peritonitis.Bowel sounds positive.No masses appreciated. BACK: No midline tenderness, no CVA tenderness EXTREMITIES: Normal motion all extremities, no cyanosis, no edema. NEUROLOGIC: Alert and oriented, no acute motor or sensory deficits, no focal weakness, cranial nerves grossly intact. SKIN: No rash, no jaundice, no diaphoresis. PSYCH: Appropriate GCS: 15 ED Course: Times/Reassessments: 5:58a arrival by EMS. 6:03a Evaluation by me with acute onset of stroke findings 6:06a Stroke alert called. Patient taken to CT emergently. 6:24a discussed case with Dr Melo and by 6:27a we had agreed that TPA not indicated given waxing/waning, unknown LNW, and history of this several times previously with acute infarct on MRI 6:29a patient with resolution of symptoms and back to normal. Multiple further evaluations completed. Critical Care: I have personally spent 35 minutes of critical care time in the direct management of this patient. Acute Stroke findings leading to Stroke Alert and consideration of TPA. This was a life/limb threatening event. This 35 minutes is in excess of all separately billable procedures. Vincent Phelps MD Past Med/Surg History Medical History (Updated 11/04/20 @ 07:34 by Vincent Phelps MD) Abdominal pain Closed subcapital fracture of neck of right femur Constipation Essential hypertension Hip fracture, right History of CVA (cerebrovascular accident) Hyperlipidemia Ischemic stroke (~2014) More than 50 percent stenosis of left internal carotid artery Rhabdomyolysis Stenosis of carotid artery Stroke Type 2 diabetes mellitus Vitamin D deficiency Surgical History History of cholecystectomy History of right hip hemiarthroplasty (~09/09/17) Dr. [place] Family History Sister Cardiac disorder Diabetes Hypertension Gallbladder disease Daughter Gallbladder disease Family/Other Myocardial infarction Gait abnormality Mother Diabetes Stroke Father Cerebral aneurysm Other Family history non-contributory Social History Smoking Status: Unknown if ever smoked Second Hand Exposure: No; Hx Alcohol Use: No Hx Substance Use: No Preferred Language: Albanian Communication Ability: Impaired Hearing Ability: Normal Humidifier Attendant Required: No Beliefs That Will Affect Care: None marital status: Current Living Situation: Spouse current occupational status: retired Feels Safe at Home: Yes Seatbelt Use: always Sunscreen Use: No Assistive Devices: Denture - Upper, Glasses and Walker Allergies Allergies Allergy/AdvReac Type Severity Reaction Status Date / Time No Known Drug Allergies Allergy Unknown N\A Verified 11/04/20 07:29 Home Meds Home Medications Medication Instructions Recorded Confirmed Boost 1 ea PO DAILY 10/02/18 05/02/20 blood sugar diagnostic #10 ea 10/06/18 05/02/20 docusate sodium 100 mg capsule 100 mg PO BID cap 05/17/19 05/02/20 cholecalciferol (vitamin D3) 25 50 mcg PO DAILY cap 09/05/20 09/05/20 mcg (1,000 unit) capsule Previous Rx's Medication Instructions Recorded lancets 28 gauge #25 ea 10/06/18 atorvastatin 40 mg tablet 40 mg PO DAILY #90 tab 05/11/20 clopidogrel 75 mg tablet 75 mg PO DAILY #90 tab 05/11/20 metformin 500 mg tablet 500 mg PO BID #180 tab 05/11/20 Results & Data (ED) Vital Signs Vital Signs - 24 hr 11/04/20 06:01 11/04/20 06:18 11/04/20 06:23 Temperature 36.5 C Temperature Source Oral Pulse Rate 69 74 70 Pulse Rate from SpO2 Sensor 71 75 Respiratory Rate 22 18 18 Respiratory Effort / Characteristics Non-Labored Spontaneous Respiratory Depth Normal Blood Pressure 164/82 H 157/74 H 164/82 H Blood Pressure Mean 109 101 109 Pulse Oximetry 94 93 94 Oxygen Delivery Method Room Air Sepsis New/Unexplained Change in Mental Status N/A Sepsis Action Taken by Nursing No Action Required 11/04/20 06:30 Temperature Temperature Source Pulse Rate 74 Pulse Rate from SpO2 Sensor 72 Respiratory Rate 14 Respiratory Effort / Characteristics Respiratory Depth Blood Pressure 154/76 H Blood Pressure Mean 102 Pulse Oximetry 94 Oxygen Delivery Method Sepsis New/Unexplained Change in Mental Status Sepsis Action Taken by Nursing Laboratory Data Result diagrams: 11/04/20 06:25 11/04/20 06:25 Lab Results 11/04/20 11/04/20 11/04/20 Range/Units 06:22 06:25 06:25 WBC 8.19 (4.8-10.8) K/uL RBC 4.40 (4.2-5.4) M/uL Hgb 13.2 (12.0-16.0) g/dL Hct 40.3 (37-47) % MCV 91.6 (80-100) fL MCH 30.0 (25-34) pg MCHC 32.8 (32-36) g/dL RDW Std Deviation 46.6 H (36.4-46.3) fL RDW Coeff of [place] 13.9 (11.5-14.5) % Plt Count 255 (130-400) K/uL MPV 10.2 (7.4-10.4) fL Immature Gran % (Auto) 0.2 % Neut % (Auto) 73.1 % Lymph % (Auto) 16.8 % [place] % (Auto) 5.7 % Eos % (Auto) 3.8 % Baso % (Auto) 0.4 % Neut # (Auto) 5.98 (1.4-6.5) K/uL Lymph # (Auto) 1.38 (1.2-3.4) K/uL [place] # (Auto) 0.47 (0.11-0.59) K/uL Eos # (Auto) 0.31 (0-0.5) K/uL Baso # (Auto) 0.03 (0-0.2) K/uL Immature Gran # (Auto) 0.02 (0.00-0.02) K/uL PT 10.7 (9.0-12.0) Seconds INR 1.1 (0.9-1.1) APTT 26.8 (21.0-31.0) Seconds PTT Ratio 1.0 Sodium (136-145) mmol/L Potassium (3.5-5.1) mmol/L Chloride (98-107) mmol/L Carbon Dioxide (21-32) mmol/L Anion Gap (3-11) BUN (7-18) mg/dl Creatinine (0.6-1.2) mg/dl Est Cr Clr Drug Dosing ml/min Est GFR ( Amer) ml/min Est GFR (Non-Af Amer) ml/min BUN/Creatinine Ratio (10-20) Glucose (70-99) mg/dl POC Glucose 136 H (70-99) mg/dl Calcium (8.5-10.1) mg/dl Magnesium (1.8-2.4) mg/dl Total Bilirubin (0.2-1) mg/dl AST (15-37) U/L ALT (12-78) U/L Alkaline Phosphatase (45-117) U/L Troponin I (0-0.045) ng/ml Total Protein (6.4-8.2) gm/dl Albumin (3.4-5.0) gm/dl Globulin (2.5-4.0) gm/dl Albumin/Globulin Ratio (0.9-2) Urine Color Urine Appearance (Clear) Urine pH (4.5-7.5) Ur Specific [place] (1.000-1.030) Urine Protein (Negative) Urine Glucose (UA) (Negative) Urine Ketones (Negative) Urine Blood (Negative) Urine Nitrite (Negative) Urine Bilirubin (Negative) Urine Urobilinogen (Negative) Ur Leukocyte Esterase (Negative) COVID-19 Eval Order 11/04/20 11/04/20 11/04/20 Range/Units 06:25 06:40 06:48 WBC (4.8-10.8) K/uL RBC (4.2-5.4) M/uL Hgb (12.0-16.0) g/dL Hct (37-47) % MCV (80-100) fL MCH (25-34) pg MCHC (32-36) g/dL RDW Std Deviation (36.4-46.3) fL RDW Coeff of [place] (11.5-14.5) % Plt Count (130-400) K/uL MPV (7.4-10.4) fL Immature Gran % (Auto) % Neut % (Auto) % Lymph % (Auto) % [place] % (Auto) % Eos % (Auto) % Baso % (Auto) % Neut # (Auto) (1.4-6.5) K/uL Lymph # (Auto) (1.2-3.4) K/uL [place] # (Auto) (0.11-0.59) K/uL Eos # (Auto) (0-0.5) K/uL Baso # (Auto) (0-0.2) K/uL Immature Gran # (Auto) (0.00-0.02) K/uL PT (9.0-12.0) Seconds INR (0.9-1.1) APTT (21.0-31.0) Seconds PTT Ratio Sodium 136 (136-145) mmol/L Potassium 3.8 (3.5-5.1) mmol/L Chloride 103 (98-107) mmol/L Carbon Dioxide 29 (21-32) mmol/L Anion Gap 5.0 (3-11) BUN 16 (7-18) mg/dl Creatinine 0.93 (0.6-1.2) mg/dl Est Cr Clr Drug Dosing 54.6 ml/min Est GFR ( Amer) 70.7 ml/min Est GFR (Non-Af Amer) 61.0 ml/min BUN/Creatinine Ratio 17.4 (10-20) Glucose 134 H (70-99) mg/dl POC Glucose (70-99) mg/dl Calcium 9.0 (8.5-10.1) mg/dl Magnesium 1.9 (1.8-2.4) mg/dl Total Bilirubin 0.6 (0.2-1) mg/dl AST 15 (15-37) U/L ALT 15 (12-78) U/L Alkaline Phosphatase 39 L (45-117) U/L Troponin I < 0.015 (0-0.045) ng/ml Total Protein 6.6 (6.4-8.2) gm/dl Albumin 3.3 L (3.4-5.0) gm/dl Globulin 3.3 (2.5-4.0) gm/dl Albumin/Globulin Ratio 1.0 (0.9-2) Urine Color Yellow Urine Appearance Clear (Clear) Urine pH 7.5 (4.5-7.5) Ur Specific [place] 1.035 H (1.000-1.030) Urine Protein Negative (Negative) Urine Glucose (UA) Negative (Negative) Urine Ketones Negative (Negative) Urine Blood Negative (Negative) Urine Nitrite Negative (Negative) Urine Bilirubin Negative (Negative) Urine Urobilinogen Negative (Negative) Ur Leukocyte Esterase Negative (Negative) COVID-19 Eval Order Covid19 at [facility] Administered Medications Discontinued Medications Sodium Chloride (Nss) 500 mls @ 999 mls/hr IV .Q31M ONE Stop: 11/04/20 07:00 Last Admin: 11/04/20 06:47 Dose: 999 mls/hr Documented by: [id number] Ioversol (Optiray 320 125ml) 120 ml IV ONCE ONE Stop: 11/04/20 06:09 Last Admin: 11/04/20 06:08 Dose: 120 ml Documented by: [id number] Imaging Data Radiologist's Impression: Head CT 11/04/20 06:05 CT head/brain wo con CLINICAL HISTORY: Stroke Like Symptoms COMPARISON STUDY: Head CT dated 04/27/2020, MRI dated 04/27/2020 TECHNIQUE: Axial CT of the brain is performed from the vertex to the skull base. IV contrast was not administered for this examination. A dose lowering technique was utilized adhering to the principles of ALARA. CT DOSE: FINDINGS: There is a left retrocerebellar arachnoid cyst, unchanged from the preceding study. There is no CT evidence of acute cortical infarction. There is no midline shift. There is no acute hemorrhage. There is an old left thalamic lacunar infarct. There are no calvarial fractures. There are patchy white matter hypodensities likely on a small vessel basis. There is no evidence of pathologic ventricular dilatation. There is minor mucosal thickening within the sphenoid and ethmoid air cells. IMPRESSION: No acute intracranial findings ACT 112: Negative or not required by law. Electronically signed by: Serg Peña M.D. 11/04/2020 6:52 AM Head CTA 11/04/20 06:[address] ANGIOGRAM OF THE BRAIN CLINICAL HISTORY: Strokelike symptoms. COMPARISON STUDY: Unenhanced CT of the brain performed concurrently on 11/04/2020. CT angiogram of the brain dated 04/27/2020. TECHNIQUE: Following the IV administration of 120 cc of Optiray 320, CT angiogram of the brain was performed from the skull base to the vertex. Images are reviewed in the axial, sagittal, and coronal planes. 3-D MIPS images are created and assessed. IV contrast was administered without complication. A dose lowering technique was utilized adhering to the principles of ALARA. CT DOSE: 1163.19 mGy.cm FINDINGS: Brain parenchyma: There is age-related involutional change noting mild subcortical and periventricular microangiopathic disease. A 4.5 cm arachnoid cyst is again seen in the left posterior fossa. There is no hemorrhage, mass effect, or evidence of acute territorial ischemia by CT criteria. There is no evidence of enhancing mass lesion on the angiogram phase images. No extra-axial fluid collection is seen. Contreras-white matter differentiation is preserved. Ventricles, sulci, and cisterns: Prominent secondary to involutional change. CT angiogram of the brain: There is atherosclerotic calcification of the cavernous carotid and vertebral arteries. The internal carotid arteries are widely patent, as are the anterior and middle cerebral arteries. The vertebrobasilar system and posterior cerebral arteries are widely patent. The vertebral arteries are codominant. There is no aneurysm, high-grade stenosis, or focal vessel cutoff identified throughout the intracranial circulation. Dural sinuses: Clear as visualized. Orbits: The bony orbits are intact. The orbital contents are normal as visualized. Sinuses and mastoids: There is mild mucosal thickening within the maxillary and ethmoid sinuses. Trace mucosal thickening is seen within the left sphenoid sinus. The remaining paranasal sinuses are clear. The mastoid air cells are well pneumatized. Calvarium: Unremarkable. IMPRESSION: 1. There is no evidence of hemorrhage, mass effect, or acute territorial ischemia noting angiographic phase technique. 2. Unremarkable CT angiogram of the brain. ACT 112: Negative or not required by law. Electronically signed by: Nilton Harley M.D. 11/04/2020 6:59 AM Neck CTA 11/04/20 06:05 CT angio neck with con CLINICAL HISTORY: Stroke Like Symptoms COMPARISON STUDY: 04/27/2020 TECHNIQUE: CT angiography was performed from the aortic arch to the skull base. MIP imaging was performed. The patient was scanned in a dynamic helical fashion during intravenous administration of 120 cc of Optiray. A dose lowering technique was utilized adhering to the principles of ALARA. CT DOSE: Technique: CT angiogram of the carotid and vertebral arteries was obtained using intravenous contrast and 3-D reconstruction. NASCET criteria was utilized. Findings: The right carotid revealed no evidence of aneurysm and no evidence of dissection. There is no evidence of hemodynamic significant stenosis. There is a 60% diameter stenosis of the left internal carotid origin. There is no evidence of carotid aneurysm or dissection. The carotids have a retropharyngeal course There is no evidence of hemodynamically significant vertebral stenosis. There is no evidence of vertebral dissection. Mediastinal lymph nodes remaining at the upper limits of normal in size. IMPRESSION: 1. No significant change in the 60% diameter stenosis of the left internal carotid origin. 2. No evidence of hemodynamically significant left internal carotid artery stenosis 3. No evidence of hemodynamically significant vertebral artery stenosis. ACT 112: Negative or not required by law. Electronically signed by: Serg Peña M.D. 11/04/2020 6:57 AM Discharge Plan Visit Data Chief Complaint: Neuro Symptoms/Deficit Stated Complaint: NEURO SYMPTOMS ED Provider: Vincent Phelps Discharge Problem: Acute alteration in mental status Forms Stand Alone Forms: My [facility] Prescriptions Prescriptions: No Action atorvastatin 40 mg tablet 40 mg PO DAILY Qty: 90 RF: 3 clopidogrel [Plavix] 75 mg tablet 75 mg PO DAILY Qty: 90 RF: 3 metformin 500 mg tablet 500 mg PO BID Qty: 180 RF: 3 docusate sodium 100 mg capsule 100 mg PO BID RF: 0 cholecalciferol (vitamin D3) 25 mcg (1,000 unit) capsule 50 mcg PO DAILY RF: 0 (DME) Freestyle [employer] Test Strips strip See Dose Instructions .ROUTE .MEDSUPPLY Qty: 10 RF: 0 (DME) lancets [FreeStyle Lancets] 28 gauge misc See Dose Instructions .ROUTE .MEDSUPPLY Qty: 25 RF: 0 Boost 0.04 gram- 1 kcal/mL Liquid 1 ea PO DAILY RF: 0
[2020-11-04] MEDS ORDERED: OPTIRAY 320 125ml IV ONE (06:08)
[2020-11-04] MEDS ORDERED: SODIUM CHLORIDE 0.9% 500 ML IV ONE (06:30)
[2020-11-04 06:35] LABS: Basophils # (auto) 0.03 K/uL (0-0.2); Basophils % (auto) 0.4 %; Eosinophils # (auto) 0.31 K/uL (0-0.5); Eosinophils % (auto) 3.8 %; Hematocrit (blood only) 40.3 % (37-47); Hemoglobin 13.2 g/dL (12.0-16.0); Immature Granulocytes # (auto) 0.02 K/uL (0.00-0.02); Immature Granulocytes % (auto) 0.2 %; Lymphocytes # (auto) 1.38 K/uL (1.2-3.4); Lymphocytes % (auto) 16.8 %; Mean Corpuscular Hgb Conc 32.8 g/dL (32-36); Mean Corpuscular Volume 91.6 fL (80-100); Mean Platelet Volume 10.2 fL (7.4-10.4); Monocytes # (auto) 0.47 K/uL (0.11-0.59); Monocytes % (auto) 5.7 %; Neutrophils # (auto) 5.98 K/uL (1.4-6.5); Neutrophils % (auto) 73.1 %; Platelet Count 255 K/uL (130-400); RDW Coefficient of Variation 13.9 % (11.5-14.5); RDW Standard Deviation 46.6 fL (36.4-46.3); White Blood Count 8.19 K/uL (4.8-10.8)
[2020-11-04 06:49] LABS: INR 1.1 (0.9-1.1); Partial Thromboplastin Time 26.8 Seconds (21.0-31.0); Prothrombin Time 10.7 Seconds (9.0-12.0)
--- NOTE | 2020-11-04 06:53 | CT Scan Report ---
CT head/brain wo con CLINICAL HISTORY: Stroke Like Symptoms COMPARISON STUDY: Head CT dated 04/27/2020, MRI dated 04/27/2020 TECHNIQUE: Axial CT of the brain is performed from the vertex to the skull base. IV contrast was not administered for this examination. A dose lowering technique was utilized adhering to the principles of ALARA. CT DOSE: FINDINGS: There is a left retrocerebellar arachnoid cyst, unchanged from the preceding study. There is no CT ev idence of acute cortical infarction. There is no midline shift. There is no acute hemorrhage. There i s an old left thalamic lacunar infarct. There are no calvarial fractures. There are patchy white matter hypodensities likely on a small vessel basis. There is no evidence of pathologic ventricular dilatation. There is minor mucosal thickening within the sphenoid and ethmoid air cells. IMPRESSION: No acute intracranial findings ACT 112: Negative or not required by law. Electronically signed by: Serg Peña M.D. 11/04/2020 6:52 AM
[2020-11-04 06:56] LABS: Alanine Aminotransferase 15 U/L (12-78); Albumin Level 3.3 gm/dl (3.4-5.0); Aspartate Aminotransferase 15 U/L (15-37); BUN Creatinine Ratio 17.4 (10-20); Blood Urea Nitrogen 16 mg/dl (7-18); Carbon Dioxide 29 mmol/L (21-32); Chloride 103 mmol/L (98-107); Creatinine Clr Calc Pharmacy 54.6 ml/min; Est GFR (African American) 70.7 ml/min; Glucose 134 mg/dl (70-99); Magnesium 1.9 mg/dl (1.8-2.4); Potassium 3.8 mmol/L (3.5-5.1); Sodium 136 mmol/L (136-145)
[2020-11-04 06:57] LABS: Appearance Urine Clear (Clear); Bilirubin Urine Negative (Negative); Blood Urine Negative (Negative); Color Urine Yellow; Glucose Urine UA Negative (Negative); Ketones Urine Negative (Negative); Leukocyte Esterase Urine Negative (Negative); Nitrite Urine Negative (Negative); Protein Urine Negative (Negative); Specific Gravity Urine 1.035 (1.000-1.030); Urobilinogen Urine Negative (Negative); pH Urine 7.5 (4.5-7.5)
--- NOTE | 2020-11-04 06:58 | CT Scan Report ---
CT angio neck with con CLINICAL HISTORY: Stroke Like Symptoms COMPARISON STUDY: 04/27/2020 TECHNIQUE: CT angiography was performed from the aortic arch to the skull base. MIP imaging was perfo rmed. The patient was scanned in a dynamic helical fashion during intravenous administration of 120 c c of Optiray. A dose lowering technique was utilized adhering to the principles of ALARA. CT DOSE: Technique: CT angiogram of the carotid and vertebral arteries was obtained using intravenous contrast and 3-D reconstruction. NASCET criteria was utilized. Findings: The right carotid revealed no evidence of aneurysm and no evidence of dissection. There is no evidenc e of hemodynamic significant stenosis. There is a 60% diameter stenosis of the left internal carotid origin. There is no evidence of carotid aneurysm or dissection. The carotids have a retropharyngeal course There is no evidence of hemodynamically significant vertebral stenosis. There is no evidence of verte bral dissection. Mediastinal lymph nodes remaining at the upper limits of normal in size. IMPRESSION: 1. No significant change in the 60% diameter stenosis of the left internal carotid origin. 2. No evidence of hemodynamically significant left internal carotid artery stenosis 3. No evidence of hemodynamically significant vertebral artery stenosis. ACT 112: Negative or not required by law. Electronically signed by: Serg Peña M.D. 11/04/2020 6:57 AM
[2020-11-04 07:01] LABS: Alkaline Phosphatase 39 U/L (45-117); Bilirubin,Total 0.6 mg/dl (0.2-1); Globulin 3.3 gm/dl (2.5-4.0); Total Protein 6.6 gm/dl (6.4-8.2); Troponin I < 0.015 ng/ml (0-0.045)
--- NOTE | 2020-11-04 07:01 | CT Scan Report ---
320 CT ANGIOGRAM OF THE BRAIN CLINICAL HISTORY: Strokelike symptoms. COMPARISON STUDY: Unenhanced CT of the brain performed concurrently on 11/04/2020. CT angiogram of the brain dated 04/27/2020. TECHNIQUE: Following the IV administration of 120 cc of Optiray 320, CT angiogram of the brain was pe rformed from the skull base to the vertex. Images are reviewed in the axial, sagittal, and coronal pl anes. 3-D MIPS images are created and assessed. IV contrast was administered without complication. A dose lowering technique was utilized adhering to the principles of ALARA. CT DOSE: 1163.19 mGy.cm FINDINGS: Brain parenchyma: There is age-related involutional change noting mild subcortical and periventricula r microangiopathic disease. A 4.5 cm arachnoid cyst is again seen in the left posterior fossa. There is no hemorrhage, mass effect, or evidence of acute territorial ischemia by CT criteria. There is no evidence of enhancing mass lesion on the angiogram phase images. No extra-axial fluid collection is s een. Contreras-white matter differentiation is preserved. Ventricles, sulci, and cisterns: Prominent secondary to involutional change. CT angiogram of the brain: There is atherosclerotic calcification of the cavernous carotid and verteb ral arteries. The internal carotid arteries are widely patent, as are the anterior and middle cerebra l arteries. The vertebrobasilar system and posterior cerebral arteries are widely patent. The vertebr al arteries are codominant. There is no aneurysm, high-grade stenosis, or focal vessel cutoff identif ied throughout the intracranial circulation. Dural sinuses: Clear as visualized. Orbits: The bony orbits are intact. The orbital contents are normal as visualized. Sinuses and mastoids: There is mild mucosal thickening within the maxillary and ethmoid sinuses. Trac e mucosal thickening is seen within the left sphenoid sinus. The remaining paranasal sinuses are maycol r. The mastoid air cells are well pneumatized. Calvarium: Unremarkable. IMPRESSION: 1. There is no evidence of hemorrhage, mass effect, or acute territorial ischemia noting angiographic phase technique. 2. Unremarkable CT angiogram of the brain. ACT 112: Negative or not required by law. Electronically signed by: Nilton Harley M.D. 11/04/2020 6:59 AM
--- NOTE | 2020-11-04 07:29 | History & Physical Report ---
Date of Service November 04, 2020 Assessment & Plan (1) Stroke-like symptoms: Patient came in for stroke alert having waxing and waning strokelike symptoms known as infarction seen no progression of previous left internal carotid artery stenosis. tPA not indicated. Neuro tele-stroke consultation in ER. Previously on Plavix and atorvastatin these to be continued pending neurology consultation. ? Aggrenox given abrupt on and off of these situation wonder if should consider EEG (2) Hypercholesteremia: Patient atorvastatin 40 may consider increasing to 80 (3) Type 2 diabetes mellitus: typically on Metformin this will be held patient be on basal bolus insulin if needed (4) Essential hypertension: Patient has essential hypertension by history however she is not on any medications at this time will allow permissive hypertension (5) Vitamin B12 deficiency: And a B12 on admission last checked April 2020 in normal range (6) DVT prophylaxis: Will consider enoxaparin History of Present Illness Primary Care Provider: Guy Metz MD 75 yr old female with history DMII, Vit d deficiency, CVA, HTN, B12 deficiency, dyslipidemia arrives from home with several hours of confusion, slurred speech and ataxia. Apparently was normal self when she went to bed around 8pm last night, then awoke around 4 with these symptoms. This is 3rd visit to ED over last 2 years with similar episodes which have been felt to be possible CVA though no clear evidence acute stroke noted on MRIs that have been done (older thalamic infarct) Has been on Plavix for this for quite some time. Patient has RACE score of 2 on EMS arrival which resolved and she was talking en route. Normal BSG for EMS with unremarkable vitals. On arrival in ED she once again became slurred speech and aphasic/confused. This happened about 5 minutes after arrival as I was evaluating here. Stroke alert immediately called and patient sent to CT. CT unremarkable and [facility] consulted. Agree TPA not indicated. On evaluation patient has now had resolution of symptoms and interacting normally. According to the she is demented at home she cannot do many activities other than get herself simple food and drink she can move about the home she is not oriented to time. He denies missing any medications prior to this nor changes in her typical habits. [] Allergies Allergy/AdvReac Type Severity Reaction Status Date / Time No Known Drug Allergies Allergy Unknown N\A Verified 11/04/20 07:29 Home Medications Medication Instructions Recorded Confirmed Type Boost 1 ea PO DAILY 10/02/18 05/02/20 History blood sugar diagnostic #10 ea 10/06/18 05/02/20 History lancets 28 gauge #25 ea 10/06/18 05/02/20 Rx clopidogrel 75 mg tablet 75 mg PO DAILY #90 tab 05/11/20 11/04/20 Rx metformin 500 mg tablet 500 mg PO BID #180 tab 05/11/20 11/04/20 Rx cholecalciferol (vitamin D3) 25 50 mcg PO QAM cap 09/05/20 11/04/20 History mcg (1,000 unit) capsule atorvastatin 40 mg PO QAM 11/04/20 11/04/20 History Past Med/Surg History Medical History (Updated 11/05/20 @ 11:34 by Kali Gay MD) Abdominal pain Closed subcapital fracture of neck of right femur Constipation Essential hypertension Hip fracture, right History of CVA (cerebrovascular accident) Hyperlipidemia Ischemic stroke (~2014) More than 50 percent stenosis of left internal carotid artery Rhabdomyolysis Stenosis of carotid artery Stroke Type 2 diabetes mellitus Vitamin D deficiency Surgical History History of cholecystectomy History of right hip hemiarthroplasty (~09/09/17) Dr. Dallas Family History Sister Cardiac disorder Diabetes Hypertension Gallbladder disease Daughter Gallbladder disease Family/Other Myocardial infarction Gait abnormality Mother , in her 80s of stroke Diabetes Stroke Father , in early 90s of cerebral aneurysm Cerebral aneurysm Other Family history non-contributory Social History Smoking Status: Unknown if ever smoked Second Hand Exposure: No; Hx Alcohol Use: No Hx Substance Use: No Preferred Language: Maldivian Communication Ability: Effective Hearing Ability: Normal Director Search Marketing Strategies Required: No Beliefs That Will Affect Care: None marital status: Current Living Situation: Spouse current occupational status: retired Feels Safe at Home: Yes Seatbelt Use: always Sunscreen Use: No Assistive Devices: Denture - Upper, Glasses and Walker Review of Systems Review of Systems: Mild distress and fatigue she has baseline tremor that is easily visible no headache, no visual changes no current speech or swallowing issues he speaks intermittent quiet voice she is able to swallow water in the room for me no chest pain, pressure or palpitations no shortness of breath, cough or wheezes Minor suprapubic abdominal pain, no nausea or vomiting, diarrhea or constipation no dysuria, hematuria or frequency no focal joint pain or swelling no back pain, CVA tenderness or radicular pain no bruising, bleeding or rashes no focal signs of weakness or numbness or altered sensation no complaints of anxiety or depression. Is not oriented to time, does not know the president is. Physical Exam Physical Exam: The patient appeared well nourished and normally developed. the pt is weakened and frail, states this is her baseline Vital signs as documented. Head exam is normocephalic atraumatic Neck is without JVD, thyromegaly, or carotid bruits. Lungs are clear to auscultation, no focal loss of breath sounds Cardiac exam, Rhythm is regular.. No murmurs, rubs or gallops. 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 that she states is from arthritis Skin is without bruises or rashes Psychologically is with concerns for dementia Results & Data Results & Data ([facility]) Vital Signs (Past 12 Hours) Vital Signs Temp Pulse Resp BP Pulse Ox 11/04/20 06:30 74 14 154/76 H 94 11/04/20 06:23 97.7 F 70 18 164/82 H 94 11/04/20 06:18 74 18 157/74 H 93 11/04/20 06:01 69 22 164/[address] 11/04/20 06:05 CT head/brain wo con CLINICAL HISTORY: Stroke Like Symptoms COMPARISON STUDY: Head CT dated 04/27/2020, MRI dated 04/27/2020 TECHNIQUE: Axial CT of the brain is performed from the vertex to the skull base. IV contrast was not administered for this examination. A dose lowering technique was utilized adhering to the principles of ALARA. CT DOSE: FINDINGS: There is a left retrocerebellar arachnoid cyst, unchanged from the preceding study. There is no CT evidence of acute cortical infarction. There is no midline shift. There is no acute hemorrhage. There is an old left thalamic lacunar infarct. There are no calvarial fractures. There are patchy white matter hypodensities likely on a small vessel basis. There is no evidence of pathologic ventricular dilatation. There is minor mucosal thickening within the sphenoid and ethmoid air cells. IMPRESSION: No acute intracranial findings Electronically signed by: Serg Peña M.D. 11/04/2020 6:52 AM Head CTA 11/04/20 06:[address] ANGIOGRAM OF THE BRAIN CLINICAL HISTORY: Strokelike symptoms. COMPARISON STUDY: Unenhanced CT of the brain performed concurrently on 11/04/2020. CT angiogram of the brain dated 04/27/2020. TECHNIQUE: Following the IV administration of 120 cc of Optiray 320, CT angiogram of the brain was performed from the skull base to the vertex. Images are reviewed in the axial, sagittal, and coronal planes. 3-D MIPS images are created and assessed. IV contrast was administered without complication. A dose lowering technique was utilized adhering to the principles of ALARA. CT DOSE: 1163.19 mGy.cm FINDINGS: Brain parenchyma: There is age-related involutional change noting mild subcortical and periventricular microangiopathic disease. A 4.5 cm arachnoid cyst is again seen in the left posterior fossa. There is no hemorrhage, mass effect, or evidence of acute territorial ischemia by CT criteria. There is no evidence of enhancing mass lesion on the angiogram phase images. No extra-axial fluid collection is seen. Contreras-white matter differentiation is preserved. Ventricles, sulci, and cisterns: Prominent secondary to involutional change. CT angiogram of the brain: There is atherosclerotic calcification of the cavernous carotid and vertebral arteries. The internal carotid arteries are widely patent, as are the anterior and middle cerebral arteries. The vertebrobasilar system and posterior cerebral arteries are widely patent. The vertebral arteries are codominant. There is no aneurysm, high-grade stenosis, or focal vessel cutoff identified throughout the intracranial circulation. Dural sinuses: Clear as visualized. Orbits: The bony orbits are intact. The orbital contents are normal as visualized. Sinuses and mastoids: There is mild mucosal thickening within the maxillary and ethmoid sinuses. Trace mucosal thickening is seen within the left sphenoid sinus. The remaining paranasal sinuses are clear. The mastoid air cells are well pneumatized. Calvarium: Unremarkable. IMPRESSION: 1. There is no evidence of hemorrhage, mass effect, or acute territorial ischemia noting angiographic phase technique. 2. Unremarkable CT angiogram of the brain. Electronically signed by: Nilton Harley M.D. 11/04/2020 6:59 AM Neck CTA 11/04/20 06:05 CT angio neck with con CLINICAL HISTORY: Stroke Like Symptoms COMPARISON STUDY: 04/27/2020 TECHNIQUE: CT angiography was performed from the aortic arch to the skull base. MIP imaging was performed. The patient was scanned in a dynamic helical fashion during intravenous administration of 120 cc of Optiray. A dose lowering technique was utilized adhering to the principles of ALARA. CT DOSE: Technique: CT angiogram of the carotid and vertebral arteries was obtained using intravenous contrast and 3-D reconstruction. NASCET criteria was utilized. Findings: The right carotid revealed no evidence of aneurysm and no evidence of dissection. There is no evidence of hemodynamic significant stenosis. There is a 60% diameter stenosis of the left internal carotid origin. There is no evidence of carotid aneurysm or dissection. The carotids have a retropharyngeal course There is no evidence of hemodynamically significant vertebral stenosis. There is no evidence of vertebral dissection. Mediastinal lymph nodes remaining at the upper limits of normal in size. IMPRESSION: 1. No significant change in the 60% diameter stenosis of the left internal carotid origin. 2. No evidence of hemodynamically significant left internal carotid artery stenosis 3. No evidence of hemodynamically significant vertebral artery stenosis. Electronically signed by: Serg Peña M.D. 11/04/2020 6:57 AM PG Care Time/CCT Total # of Minutes Spent Total Time Spent with Patient: Total time spent is greater than 50% in coordination of care (as documented) at patient's floor/unit and/or counseling patient: Coding Level of Care Code 39381 Initial Inpt Care Lvl 3 Diagnoses Stroke-like symptoms R29.90 Hypercholesteremia E78.00 Type 2 diabetes mellitus E11.9 Essential hypertension I10 Vitamin B12 deficiency E53.8 DVT prophylaxis Z29.9
--- NOTE | 2020-11-04 12:02 | Neurology Consultation ---
Date of Consultation November 04, 2020 Assessment & Plan (1) Acute alteration in mental status: (2) Dementia: (3) Stroke-like symptoms: (4) Left carotid stenosis: The patient has had several episodes in the last 2 years of admission for acute confusion with no obvious etiology, with the most recent episode being in April of 2020. today she had an episode of acute confusion occurred company by slurred speech and ataxic gait. On examination currently she seems confused, although I suspect an underlying dementia as well. she has no focal weakness or sensory deficits but I do note some resting tremor in the left upper extremity and perhaps some cogwheeling in that limb as well. She has some bradykinesia and and early parkinsonism cannot be excluded. she has a head tremor and action tremor of a mild nature bilaterally as. Considering her acute confusion and tremor I wonder about a seizure disorder. MRI does not show any lesions new or old that would put her at risk for seizures however. She is afebrile and has no signs of infection currently. There is no evidence for an acute stroke although I cannot entirely exclude a TIA. The patient has a stable left carotid stenosis Recommendations: 1. EEG routine 2. Additional recommendations will be made depending on her clinical course and the EEG. Overall, I spent a total of 60 minutes with this case including review of records, review of MRI films, direct evaluation the patient at bedside, and discussion of the case with Dr. Gibbs including differential diagnosis and treatment options. History of Present Illness Reason for Consultation: Patient is a 75-year-old, who I was asked to see at the request of Dr. Gibbs, for neurologic consultation regarding new onset neurologic symptoms, question stroke. Requesting Physician: Dr. Gibbs History of Present Illness I 1st saw this patient in April of 2015 when she had right-sided weakness and was discovered to have a relatively small left thalamic / internal capsule stroke. I did not see her in followup. In September of [address] Fong, was determined to have a TIA, and was noted to have a left internal carotid artery stenosis of 65 percent. Patient has been on clopidogrel 75 milligrams daily ever since. I next saw her in April of 2020 , for a several day period of confusion. CT scan of the head was unremarkable and CT angiography revealed 70% stenosis of the origin of the left internal carotid artery. MRI of the brain showed no acute stroke but there was atrophy and small vessel ischemic changes of an old nature. She has been on Plavix 75 mg and atorvastatin 40 mg daily. She takes metformin for glucose and vitamin-D for a vitamin-D deficiency. Apparently the patient went to bed at around 8:00 p.m., on November 03 feeling well with no issues. She awoke at 4:00 a.m. today with confusion and slurred speech, according to her . She had balance issues and could not walk well. She arrived to the emergency room today at 0601 with a temperature of 36.5, pulse 69 and regular, respiratory rate 22, blood pressure 164/82, and O2 saturation 94%. She was described as being confused with ataxia in the limbs, not following commands, and some slurred speech. CBC was unremarkable. Chem profile was unremarkable although glucose was 134. urinalysis was negative and she was Covid-[address] scan of the head showed no acute changes. CT angiography of the head was unremarkable without any significant vascular stenoses or anomalies. CT angiography of the neck revealed a 60% stenosis at the origin of the left internal carotid artery, unchanged compared to April of 2020. MRI of the brain showed no acute findings but there was old atrophy and small vessel ischemic changes as before. I reviewed these films. Repeat blood pressure was 141/86. The patient denied pain or headache, dizziness or shakiness. She does admit to being confused and does not recall any abnormalities at home or the ride to the hospital. Allergies Allergy/AdvReac Type Severity Reaction Status Date / Time No Known Drug Allergies Allergy Unknown N\A Verified 11/04/20 07:29 Home Medications Medication Instructions Recorded Confirmed Type Boost 1 ea PO DAILY 10/02/18 05/02/20 History blood sugar diagnostic #10 ea 10/06/18 05/02/20 History lancets 28 gauge #25 ea 10/06/18 05/02/20 Rx clopidogrel 75 mg tablet 75 mg PO DAILY #90 tab 05/11/20 11/04/20 Rx metformin 500 mg tablet 500 mg PO BID #180 tab 05/11/20 11/04/20 Rx cholecalciferol (vitamin D3) 25 50 mcg PO QAM cap 09/05/20 11/04/20 History mcg (1,000 unit) capsule atorvastatin 40 mg PO QAM 11/04/20 11/04/20 History Patient History Medical History (Updated 11/04/20 @ 12:28 by Kali Gay MD) Abdominal pain Closed subcapital fracture of neck of right femur Constipation Essential hypertension Hip fracture, right History of CVA (cerebrovascular accident) Hyperlipidemia Ischemic stroke (~2014) More than 50 percent stenosis of left internal carotid artery Rhabdomyolysis Stenosis of carotid artery Stroke Type 2 diabetes mellitus Vitamin D deficiency Surgical History History of cholecystectomy History of right hip hemiarthroplasty (~09/09/17) Dr. Dallas Family History Sister Cardiac disorder Diabetes Hypertension Gallbladder disease Daughter Gallbladder disease Family/Other Myocardial infarction Gait abnormality Mother , in her 80s of stroke Diabetes Stroke Father , in early 90s of cerebral aneurysm Cerebral aneurysm Other Family history non-contributory Social History Smoking Status: Unknown if ever smoked Second Hand Exposure: No; Hx Alcohol Use: No Hx Substance Use: No Preferred Language: Stateless Communication Ability: Impaired Hearing Ability: Normal Talent Development Coordinator Required: No Beliefs That Will Affect Care: None marital status: Current Living Situation: Spouse current occupational status: retired Feels Safe at Home: Yes Seatbelt Use: always Sunscreen Use: No Assistive Devices: Denture - Upper, Glasses and Walker Review of Systems Constitutional: no fever, no fatigue and no weakness Eyes: no diplopia, no eye pain and no worsening vision Ear, Nose, Mouth, Throat: no ear pain, no tinnitus, no hearing loss, no dizziness, no hoarseness and no dysphagia Respiratory: no cough and no dyspnea Cardiovascular: no chest pain, no palpitations and no lightheadedness Gastrointestinal: no abdominal pain, no nausea and no vomiting Genitourinary: no dysuria, no urinary frequency and no urinary incontinence Musculoskeletal: no back pain, no neck pain, no radicular pain, no joint pain and no myalgia Integumentary: no rash and no lesions Neurologic: + confusion; no gait abnormality, no localized weakness, no generalized weakness, no tingling, no numbness, no tremor(s), no abnormal movements, no headache(s), no abnormal speech and no memory loss Psychiatric: no depression, no irritability, no anxiety, no difficulty concentrating, no confusion and no hallucinations Endocrine: no fatigue and no flushing Hematologic / Lymphatic: no easy bleeding and no easy bruising Allergy / Immunological: no urticaria and no problem reported Exam (Neuro) Physical Exam: The patient is right-handed. The patient is awake And alert, and mostly attentive. I do not detect any obvious aphasia or dysarthria. she knew her name, but did not know her age, the date, the day, the month, the year, or where she lives ( she says [facility] but the chart says she lives in [place]). Her mood is reasonable on her affect is mildly flat. She does follow one-step commands and is cooperative. She seems a little restless / agitated however but can't be specific as to why. The discs are sharp with positive venous pulsations bilaterally. There are no exudates, hemorrhages, or blood vessel changes seen. Pupils are 4 mm bilaterally and reactive to light. Extraocular eye muscles are intact without nystagmus. Visual acuity and visual echevarria seem normal grossly to confrontation. Patient has a mild waxing and waning head tremor from side to side. She also has a mild left hand resting tremor of an intermittent nature. There may be a little bit of bradykinesia and masked face present. There are no deficits to sensation in the face in all 3 distributions of the fifth cranial nerve bilaterally. Corneal reflexes are positive bilaterally. Facial strength and symmetry was normal bilaterally. Hearing seems normal to whisper and finger rub bilaterally. Palate moves well without asymmetry. There is normal sternocleidomastoid and trapezius (shoulder shrug) strength bilaterally. Tongue is midline with good strength bilaterally. Neck has a full range of motion without discomfort. There are no cervical bruits bilaterally. There are no cranial or ocular bruits. Heart is without murmur. There is a regular rhythm and rate. Cervical and thoracic spine are nontender to palpation. Lumbar spinal is mildly tender to palpation without spasm. Gait was not tested and stance sitting up in bed is reasonable although she tires and wants to fall back into the bed. With outstretched arms there is no obvious drift. There is no ataxia with finger to nose or heel to echevarria testing. there is no resting tremor on the right but there is some mild tremor with finger-nose testing bilaterally. There is decreased facility in the hands bilaterally. Motor strength is 5/5 diffusely in the arms bilaterally including deltoids, biceps, triceps, brachioradialis, wrist flexors and extensors, jalousies installer, and intrinsic hand muscles. Motor strength is 5/5 diffusely in the legs bilaterally including hip flexors, quadriceps, hamstrings, gastrocnemius, tibialis anterior, tibialis posterior, and Peroneii muscles. Toe extensors are normal and there is good bulk in the extensor digitorum brevis muscles bilaterally. I do not note any focal weakness. There may be some mild cogwheel rigidity of the left upper extremity but I do not believe there is any on the right. Sensory examination is intact to touch and pin throughout all 4 limbs diffusely. Reflexes are 1/4 in the biceps, triceps, brachioradialis, and quadriceps tendons bilaterally. Achilles tendon reflexes are absent bilaterally. There is no clonus bilaterally. Toes are downgoing with plantar stimulation bilaterally. Peripheral pulses are present and of normal quality distally in all 4 limbs. There is no peripheral edema noted in the limbs. Results & Data ([facility]) Vital Signs (Past 12 Hours) Vital Signs Temp Pulse Resp BP Pulse Ox 11/04/20 11:30 86 18 141/86 H 94 11/04/20 11:20 75 22 91 11/04/20 11:14 90 18 149/72 H 96 11/04/20 09:00 79 18 158/94 H 93 11/04/20 08:31 81 20 148/107 H 94 11/04/20 08:01 84 24 163/108 H 94 11/04/20 07:01 73 22 157/97 H 93 11/04/20 06:30 74 14 154/76 H 94 11/04/20 06:23 36.5 C 70 18 164/82 H 94 11/04/20 06:18 74 18 157/74 H 93 11/04/20 06:01 69 22 164/82 H 94 PG Care Time/CCT Total # of Minutes Spent Total Time Spent with Patient: Total time spent is greater than 50% in coordination of care (as documented) at patient's floor/unit and/or counseling patient: Coding Level of Care Code 00237 OBS Care - Level 2 Diagnoses Acute alteration in mental status R41.82 Dementia F03.90 Stroke-like symptoms R29.90 Left carotid stenosis I65.22 Time Spent (min) 60
[2020-11-04] MEDS ORDERED: POLYETHYLENE (MIRALAX) 17 GM PACK PO PRN (12:17)
[2020-11-04] MEDS ORDERED: ACETAMINOPHEN 325 MG TAB PO PRN (12:17)
[2020-11-04] MEDS ORDERED: ONDANSETRON INJ 2 MG/ML 2 ML VIAL IV PRN (12:17)
[2020-11-04] MEDS ORDERED: CARBOHYDRATES FOR HYPOGLYCEMIA PO PRN (12:17)
[2020-11-04] MEDS ORDERED: ALUMINUM/MAGNESIUM SUSP 30 ML UDC PO PRN (12:17)
[2020-11-04] MEDS ORDERED: DEXTROSE 50% 50 ML SYRINGE IV PRN (12:17)
[2020-11-04] MEDS ORDERED: PHARMACIST DISCHARGE MED REC CONSULT PRN (12:17)
[2020-11-04] MEDS ORDERED: GLUCOSE 40% GEL 15 GM TUBE PO PRN (12:17)
[2020-11-04] MEDS ORDERED: GLUCOSE 10 TABS/TUBE PO PRN (12:17)
[2020-11-04] MEDS ORDERED: GLUCAGON FOR INJ 1 MG VIAL SQ PRN (12:17)
[2020-11-04] MEDS: CHOLECALCIFEROL 1,000 UNITS 25 MCG TAB PO SCH (13:15)
[2020-11-04] MEDS: ATORVASTATIN 40 MG TAB PO SCH (13:15)
[2020-11-04] MEDS: CLOPIDOGREL BISULFATE 75 MG TAB PO SCH (13:15)
[2020-11-04] MEDS: DOCUSATE SODIUM 100 MG CAP PO SCH ×2 (13:18→21:42)
[2020-11-04] MEDS: INSULIN ASPART 100 UNITS/ML 3 ML PEN SC SCH ×3 (13:19→20:37)
--- NOTE | 2020-11-04 13:43 | Electroencephalogram ---
EEG Procedure Note Date of Service November 04, 2020 Start / End Times Start Time: 1324 End Time: [address] Gibbs History 75-year-old with episodes of confusion, question seizure disorder Home Medication List Medication Instructions Recorded Confirmed Type Boost 1 ea PO DAILY 10/02/18 05/02/20 History blood sugar diagnostic #10 ea 10/06/18 05/02/20 History lancets 28 gauge #25 ea 10/06/18 05/02/20 Rx clopidogrel 75 mg tablet 75 mg PO DAILY #90 tab 05/11/20 11/04/20 Rx metformin 500 mg tablet 500 mg PO BID #180 tab 05/11/20 11/04/20 Rx cholecalciferol (vitamin D3) 25 50 mcg PO QAM cap 09/05/20 11/04/20 History mcg (1,000 unit) capsule atorvastatin 40 mg PO QAM 11/04/20 11/04/20 History Inpatient Medication List Atorvastatin Calcium (Atorvastatin 40 Mg Tab) 40 mg PO DAILY RIMMA Stop: 12/04/20 12:16 Last Admin: 11/04/20 13:15 Dose: 40 mg Documented by: [id number] Clopidogrel Bisulfate (Clopidogrel Bisulfate 75 Mg Tab) 75 mg PO DAILY RIMMA Stop: 12/04/20 12:16 Last Admin: 11/04/20 13:15 Dose: 75 mg Documented by: [id number] Docusate Sodium (Docusate Sodium 100 Mg Cap) 100 mg PO BID RIMMA Stop: 12/04/20 12:16 Last Admin: 11/04/20 13:18 Dose: 100 mg Documented by: [id number] Insulin Aspart (Insulin Aspart 100 Units/Ml 3 Ml Pen) 0 units SC ACHS RIMMA Stop: 12/04/20 12:16 Last Admin: 11/04/20 13:19 Dose: 2 units Documented by: [id number] Cosigned by: [id number] Vitamin D (Cholecalciferol 1,000 Units 25 Mcg Tab) 2,000 units PO DAILY RIMMA Stop: 12/04/20 12:16 Last Admin: 11/04/20 13:15 Dose: 2,000 units Documented by: [id number] Discontinued Medications Sodium Chloride (Nss) 500 mls @ 999 mls/hr IV .Q31M ONE Stop: 11/04/20 07:00 Last Infusion: 11/04/20 07:17 Dose: 0 mls/hr Documented by: [id number] Admin: 11/04/20 06:47 Dose: 999 mls/hr Documented by: [id number] Ioversol (Optiray 320 125ml) 120 ml IV ONCE ONE Stop: 11/04/20 06:09 Last Admin: 11/04/20 06:08 Dose: 120 ml Documented by: [id number] Description This is a 21 electrode EEG with a single channel dedicated to limited EKG. The electrodes were placed in accordance with the International 10-20 system. Interpretation The predominant background activity consists of an irregular 4-5 Hz activity, of up to 50 mV in amplitude,seen symmetrically distributed over the posterior head regions bilaterally. there was no significant attenuation with eye opening or other alerting procedures. Photic stimulation was performed and elicited considerable artifact and movement changes, but no abnormal responses were seen. Hyperventilation was not performed. A significant amount of muscle and movement artifact activity contaminated the recording, hinder interpretation throughout most of the recording. There was a significant A2 electrode artifact persistent throughout most of the recording. The muscle and movement artifact activity was such that it was very difficult to see potentially epileptogenic activity, however, there were enough to "quiet" times and I wondered if there was some left frontoparietal sharp waves and spikes at times. Patient did not enter drowsiness or sleep. In summary, this EEG was Abnormal in that it showed generalized slowing of a moderate nature in the background. There were no focal abnormalities although there may be some left frontoparietal potentially epileptogenic discharges present. This was very difficult to interpret due to the movement and A2 electrode artifact present Clinical Correlation A seizure disorder might be present in this patient [facility] EEG Procedure Codes Indication for Procedure (1) Acute alteration in mental status: (2) Seizure-like activity: Neurology Neurology: 78078 EEG include record awake & drowsy
--- NOTE | 2020-11-04 15:50 | Electrocardiogram Report ---
Test Reason : Blood Pressure : / mmHG Vent. Rate : 069 BPM Atrial Rate : 069 BPM P-R Int : 176 ms QRS Dur : 078 ms QT Int : 386 ms P-R-T Axes : 049 017 050 degrees QTc Int : 413 ms Poor data quality, interpretation may be adversely affected Normal sinus rhythm Normal ECG When compared with ECG of 27-APR-2020 04:12, No significant change was found Confirmed by Robert Levin ([id number]) on 11/04/2020 3:50:07 PM Referred By: Confirmed By:Robert Levin
[2020-11-05] MEDS: ENOXAPARIN INJ 40 MG/0.4 ML SYR SQ SCH (06:07)
[2020-11-05 07:00] LABS: Basophils # (auto) 0.03 K/uL (0-0.2); Basophils % (auto) 0.3 %; Eosinophils # (auto) 0.34 K/uL (0-0.5); Eosinophils % (auto) 3.4 %; Hematocrit (blood only) 40.6 % (37-47); Hemoglobin 13.5 g/dL (12.0-16.0); Immature Granulocytes # (auto) 0.02 K/uL (0.00-0.02); Immature Granulocytes % (auto) 0.2 %; Lymphocytes # (auto) 1.65 K/uL (1.2-3.4); Lymphocytes % (auto) 16.6 %; Mean Corpuscular Hemoglobin 30.6 pg (25-34); Mean Corpuscular Hgb Conc 33.3 g/dL (32-36); Mean Corpuscular Volume 92.1 fL (80-100); Mean Platelet Volume 10.3 fL (7.4-10.4); Neutrophils # (auto) 7.21 K/uL (1.4-6.5); Neutrophils % (auto) 72.5 %; Platelet Count 284 K/uL (130-400); RDW Coefficient of Variation 14.1 % (11.5-14.5); RDW Standard Deviation 47.5 fL (36.4-46.3); Red Blood Count 4.41 M/uL (4.2-5.4); White Blood Count 9.95 K/uL (4.8-10.8)
[2020-11-05 07:18] LABS: Estimated Average Glucose 166 mg/dl; Hemoglobin A1C 7.4 % (4.5-5.6)
[2020-11-05 07:34] LABS: BUN Creatinine Ratio 16.3 (10-20); Calcium 9.3 mg/dl (8.5-10.1); Creatinine Clr Calc Pharmacy 55.3 ml/min; Est GFR (African American) 76.6 ml/min; Est GFR (Non-African American) 66.1 ml/min; Potassium 3.9 mmol/L (3.5-5.1)
--- NOTE | 2020-11-05 10:09 | Magnetic Resonance Report ---
MRI OF THE BRAIN WITHOUT IV CONTRAST CLINICAL HISTORY: Strokelike symptoms. COMPARISON STUDY: CT of the brain dated 11/04/2020. TECHNIQUE: MRI of the brain was performed utilizing various T1 and T2-weighted sequences in the axial , sagittal, and coronal planes. IV contrast was not administered for this examination. FINDINGS: Brain parenchyma: There is mild age-related involutional change. There is no hemorrhage or mass effec t. There is no restricted diffusion to suggest acute ischemia. Contreras-white matter differentiation is p reserved. No extra-axial fluid collection is seen. The cerebellar tonsils are normal in configuration . A 5 cm arachnoid cyst is noted in the left posterior fossa. Ventricles, sulci, and cisterns: Prominent secondary to involutional change. Pituitary and sella: Unremarkable. Intracranial vasculature: Normal flow voids are maintained at the skull base. Orbits: The bony orbits are grossly intact. Orbital contents are normal in appearance. Sinuses and mastoids: There is mild mucosal thickening within the ethmoid and maxillary sinuses. The remaining paranasal sinuses are clear. The mastoid air cells are well pneumatized. Calvarium: Unremarkable. Cervical cord: Partially visualized cervical spinal cord is normal in morphology and signal intensity . IMPRESSION: No acute intracranial abnormality. ACT 112: Negative or not required by law. Electronically signed by: Nilton Harley M.D. 11/05/2020 10:08 AM
[2020-11-05] MEDS: CHOLECALCIFEROL 1,000 UNITS 25 MCG TAB PO SCH (10:22)
[2020-11-05] MEDS: CLOPIDOGREL BISULFATE 75 MG TAB PO SCH (10:22)
[2020-11-05] MEDS: ATORVASTATIN 40 MG TAB PO SCH (10:22)
[2020-11-05] MEDS: DOCUSATE SODIUM 100 MG CAP PO SCH ×2 (10:22→20:54)
[2020-11-05] MEDS: INSULIN ASPART 100 UNITS/ML 3 ML PEN SC SCH ×4 (10:23→20:54)
--- NOTE | 2020-11-05 11:41 | Neurology Progress Note ---
Date of Service November 05, 2020 Assessment & Plan (1) Acute alteration in mental status: (2) Dementia: (3) Seizure-like activity: (4) Stroke-like symptoms: (5) Left carotid stenosis: (6) Parkinsonism: The patient has had several episodes in the last 2 years of admission for acute confusion with no obvious etiology, with the most recent episode being in April of 2020. on November 04, she had an episode of acute confusion occurred company by slurred speech and ataxic gait. On examination November 04 she seemed confused, although I suspected an underlying dementia as well. She had no focal weakness or sensory deficits but I do note some resting tremor in the left upper extremity and perhaps some cogwheeling in that limb as well. She has some bradykinesia and an early parkinsonism cannot be excluded. she has a head tremor and action tremor of a mild nature bilaterally as well. Today she is less confused and very calm. I strongly suspect a significant underlying dementia. She also has very mild but noticeable resting tremor of the left hand with some cogwheeling in that extremity. The head tremor is mild this morning and she has no postural or action tremor in the upper extremities. EEG yesterday was remarkable for potential epileptogenic activity although it was very difficult to read due to artifact and movement. MRI of the brain was unremarkable today. There was no stroke or other issues. Considering her acute confusion, tremor , and EEG, I wonder about a seizure disorder. MRI does not show any lesions new or old that would put her at risk for seizures, however. She is afebrile and has no signs of infection currently. In addition she has some early Parkinson's. Although she did not have an actual stroke I cannot entirely exclude TIA November 04. The patient has a stable left carotid stenosis Recommendations: 1. initiate Lamictal 25 mg twice daily for 1 week, then 50 mg twice daily. this would be excellent for possible seizures as well as mood. 2. There is no reason to initiate any antiparkinson medication at this time. 3. Hold on initiating any dementia medication as well. 4. I can follow as an outpatient. Overall, I spent a total of 35 minutes with this case including review of records, review of MRI films, direct evaluation the patient at bedside, and discussion of the case with Dr. Gibbs including differential diagnosis and treatment options. Admission and Anticipated Discharge Date Admission Date: November 04, 2020 Subjective patient feels better today and has no pain or headache. She is not dizzy or weak. She has no numbness. EEG yesterday was very difficult to interpret due to movement and electrode artifact. I did think there may have been some left-sided spikes and sharp waves intermittently. MRI of the brain was obtained this morning and was unremarkable. I reviewed these films. CBC and Chem profile today were unremarkable. Hemoglobin A1c was 7.4, triglycerides 129, total cholesterol 161. Patient is in sinus rhythm in the 60s to 80s and blood pressure was 135/65. Results & Data ([facility]) Vital Signs (Past 12 Hours) Vital Signs Temp Pulse Pulse Resp BP Pulse Ox 11/05/20 07:30 36.8 C 65 16 135/65 94 11/05/20 07:15 67 11/05/20 03:36 37.0 C 88 18 130/78 99 11/05/20 00:50 65 Exam (Neuro) Physical Exam: She is awake and alert. She does not have aphasia or dysarthria. She is poor with answering long and short-term memory questions and was not oriented to the date, the day, the month, the year, or her age. She was pleasant and cooperative with a good mood. She had a rather flat affect. There is slight masklike face but a negative glabellar sign. Gait is slow and cautious particularly with turns and needs the assistance of at least 1. she has very mild intermittent resting tremor of the left hand and some mild cogwheel rigidity of the left upper extremity. This was not present on the right. She has very mild horizontal head tremor which is intermittent but no obvious postural or action tremor in the upper extremities. There is no ataxia with [id number]-[id number] testing and strength was symmetrical in all 4 limbs. PG Care Time/CCT Total # of Minutes Spent Total Time Spent with Patient: Total time spent is greater than 50% in tripe cooker rdination of care (as documented) at patient's floor/unit and/or counseling patient: Coding Level of Care Code 31326 Subseq Hosp Care Lvl 3 Diagnoses Acute alteration in mental status R41.82 Dementia F03.90 Seizure-like activity R56.9 Stroke-like symptoms R29.90 Left carotid stenosis I65.22 Parkinsonism G20 Time Spent (min) 35
--- NOTE | 2020-11-05 16:23 | Hospitalist Progress Note ---
Date of Service November 05, 2020 Assessment & Plan (1) Stroke-like symptoms: Patient came in for stroke alert having waxing and waning strokelike symptoms known as infarction seen no progression of previous left internal carotid artery stenosis. tPA not indicated. Neuro tele-stroke consultation in ER. Previously on Plavix and atorvastatin these to be continued Agitation cannot rule out seizure activity will initiate Lamictal therapy 25 twice daily for 1 week then increase to 50 twice daily. Will follow neurology clinic. PT OT evaluation (2) Hypercholesteremia: Patient atorvastatin 40 (3) Type 2 diabetes mellitus: typically on Metformin this will be held patient be on basal bolus insulin if needed (4) Essential hypertension: Patient has essential hypertension by history however she is not on any medications at this time will allow permissive hypertension (5) Vitamin B12 deficiency: And a B12 on admission last checked April 2020 in normal range (6) DVT prophylaxis: Will consider enoxaparin Admission and Anticipated Discharge Date Admission Date: November 04, 2020 Subjective patient feels better today and has no pain or headache. Patient still has some tremulousness and the consideration of the rapid onset of symptoms and resolution is concerning for possible seizure activity. EEG was difficult to interpret per neurology however they wish to initiate Lamictal therapy at 25 twice daily for 1 week then 50 twice daily with follow-up in their clinic. We will initiate this therapy get PT OT evaluation to determine her fitness to r eturn home. Review of Systems Review of Systems: Mild distress and fatigue she has baseline tremor that is e asily visible no headache, no visual changes no current speech or swallowing issues he speaks intermittent quiet voice has been swallowing without issues no chest pain, pressure or palpitations no shortness of breath, cough or wheezes Minor suprapubic abdominal pain, no nausea or vomiting, diarrhea or constipation no dysuria, hematuria or frequency no focal joint pain or swelling no back pain, CVA tenderness or radicular pain no bruising, bleeding or rashes no focal signs of weakness or numbness or altered sensation no complaints of anxiety or depression. Is not oriented to time Physical Exam Physical Exam: The patient appeared well nourished and normally developed. the pt is weakened and frail, states this is her baseline Vital signs as documented. Head exam is normocephalic atraumatic Neck is without JVD, thyromegaly, or carotid bruits. Lungs are clear to auscultation, no focal loss of breath sounds Cardiac exam, Rhythm is regular.. No murmurs, rubs or gallops. Abdominal exam reveals normal bowel sounds, soft mild suprapubic tenderness Extremities are nonedematous and both pedal pulses are present Neurologic exam is alert and oriented x 2, no focal loss of strength or sensation, some decrease left hand window draper that she states is from arthritis Skin is without bruises or rashes Psychologically is with concerns for dementia Results & Data Results & Data ([facility]) Vital Signs (Past 12 Hours) Vital Signs Temp Pulse Pulse Resp BP Pulse Ox 11/05/20 12:00 98.2 F 72 18 122/63 96 11/05/20 07:30 98.2 F 65 16 135/65 94 11/05/20 07:15 67 PG Care Time/CCT Total # of Minutes Spent Total Time Spent with Patient: Total time spent is greater than 50% in coordination of care (as documented) at patient's floor/unit and/or counseling patient: Coding Level of Care Code 62413 Subseq Hosp Care Lvl 2 Diagnoses Stroke-like symptoms R29.90 Hypercholesteremia E78.00 Type 2 diabetes mellitus E11.9 Essential hypertension I10 Vitamin B12 deficiency E53.8 DVT prophylaxis Z29.9
[2020-11-05] MEDS: lamoTRIgine 25 MG TAB PO SCH (20:54)
[2020-11-06] MEDS: ENOXAPARIN INJ 40 MG/0.4 ML SYR SQ SCH (06:07)
[2020-11-06 06:51] LABS: Basophils # (auto) 0.04 K/uL (0-0.2); Basophils % (auto) 0.5 %; Eosinophils # (auto) 0.32 K/uL (0-0.5); Eosinophils % (auto) 4.4 %; Hematocrit (blood only) 42.9 % (37-47); Hemoglobin 14.1 g/dL (12.0-16.0); Immature Granulocytes # (auto) 0.01 K/uL (0.00-0.02); Immature Granulocytes % (auto) 0.1 %; Lymphocytes # (auto) 1.15 K/uL (1.2-3.4); Lymphocytes % (auto) 15.8 %; Mean Corpuscular Hemoglobin 29.9 pg (25-34); Mean Corpuscular Hgb Conc 32.9 g/dL (32-36); Mean Corpuscular Volume 91.1 fL (80-100); Mean Platelet Volume 10.2 fL (7.4-10.4); Monocytes # (auto) 0.48 K/uL (0.11-0.59); Monocytes % (auto) 6.6 %; Neutrophils # (auto) 5.28 K/uL (1.4-6.5); Neutrophils % (auto) 72.6 %; Platelet Count 276 K/uL (130-400); RDW Coefficient of Variation 14.1 % (11.5-14.5); Red Blood Count 4.71 M/uL (4.2-5.4); White Blood Count 7.28 K/uL (4.8-10.8)
[2020-11-06 07:20] LABS: BUN Creatinine Ratio 15.4 (10-20); Calcium 9.5 mg/dl (8.5-10.1); Creatinine Clr Calc Pharmacy 48.7 ml/min; Est GFR (African American) 66.3 ml/min; Est GFR (Non-African American) 57.2 ml/min; Potassium 3.8 mmol/L (3.5-5.1)
[2020-11-06] MEDS: INSULIN ASPART 100 UNITS/ML 3 ML PEN SC SCH ×2 (08:02→11:15)
[2020-11-06] MEDS: ATORVASTATIN 40 MG TAB PO SCH (08:03)
[2020-11-06] MEDS: CLOPIDOGREL BISULFATE 75 MG TAB PO SCH (08:04)
[2020-11-06] MEDS: lamoTRIgine 25 MG TAB PO SCH (08:04)
[2020-11-06] MEDS: CHOLECALCIFEROL 1,000 UNITS 25 MCG TAB PO SCH (08:04)
[2020-11-06] MEDS: DOCUSATE SODIUM 100 MG CAP PO SCH (08:06)
--- NOTE | 2020-11-06 15:41 | Discharge Summary ---
Date of Service November 06, 2020 Admission HPI Per Admitting Provider 75 yr old female with history DMII, Vit d deficiency, CVA, HTN, B12 deficiency, dyslipidemia arrives from home with several hours of confusion, slurred speech and ataxia. Apparently was normal self when she went to bed around 8pm last night, then awoke around 4 with these symptoms. This is 3rd visit to ED over last 2 years with similar episodes which have been felt to be possible CVA though no clear evidence acute stroke noted on MRIs that have been done (older thalamic infarct) Has been on Plavix for this for quite some time. Patient has RACE score of 2 on EMS arrival which resolved and she was talking en route. Normal BSG for EMS with unremarkable vitals. On arrival in ED she once again became slurred speech and aphasic/confused. This happened about 5 minutes after arrival as I was evaluating here. Stroke alert immediately called and patient sent to CT. CT unremarkable and [place] [facility] consulted. Agree TPA not indicated. On evaluation patient has now had resolution of symptoms and interacting normally. According to the she is demented at home she cannot do many activities other than get herself simple food and drink she can move about the home she is not oriented to time. He denies missing any medications prior to this nor changes in her typical habits. [] Principal Diagnosis possible seizure Discharge Exam The patient appeared well Vital signs as documented. Lungs are clear to auscultation and appear unlabored Cardiac exam, Rhythm is regular.. No murmurs, rubs or gallops. Abdominal exam reveals normal bowel sounds, soft non tender, no masses Extremities are nonedematous and both pedal pulses are normal. Neurologic exam is alert and oriented now oritented to time too, still with minor tremor,no clearly resting tremor , no focal loss of strength or sensation Skin is without bruises or rashes Psychologically is with concerns for dementia Discharge Data Allergies Allergy/AdvReac Type Severity Reaction Status Date / Time No Known Drug Allergies Allergy Unknown N\A Verified 11/04/20 07:29 Consultations 11/04/20 07:03 ED Decision to Admit Stat 11/04/20 12:17 Consult Neurology Routine Ordered Studies 11/04/20 06:05 CT angio head w con Stat CT angio neck with con Stat CT head/brain wo con Stat 11/05/20 08:57 MR brain wo con Routine Hospital Course (1) Stroke-like symptoms: Patient came in for stroke alert having waxing and waning strokelike symptoms known as infarction seen no progression of previous left internal carotid artery stenosis. tPA not indicated. Neuro tele-stroke consultation in ER. Previously on Plavix and atorvastatin these to be continued Agitation cannot rule out seizure activity will initiate Lamictal therapy 25 twice daily for 1 week then increase to 50 twice daily. Will follow neurology clinic. PT OT evaluation (2) Hypercholesteremia: Patient atorvastatin 40 (3) Type 2 diabetes mellitus: typically on Metformin (4) Essential hypertension: Patient has essential hypertension by history however she is not on any medications at this time (5) Vitamin B12 deficiency: And a B12 on admission last checked April 2020 in normal range Total Time Total Time Spent Total Time Spent (In Minutes): It required greater than 30 minutes to prepare this patient for discharge Discharge Plan Discharge Items Patient Disposition: Home - Home Health Services Reason For Visit: STROKE LIKE SYMPTOMS Discharge Diagnosis: possible atypical seizure Activity: Per Instructions section Activity Comment: slowly increase activity Non-emergency contact: Primary Care Provider and Neurologist Call non-emergency contact if: you have any medication questions and your symptoms worsen Follow-up/Referrals: Kali Gay MD [Physician] - None (please call office this week to set a 4 week follow up) Guy Metz III, MD [Primary Care Provider] - (please call office this week to set a one week follow up) Diet: Regular Addtl Attending Provider Instructions: take new medicine lamictal twice a day, after one week double the dose to take 2 pills twice a day Pending Studies at Discharge: No Stand-Alone Forms: My [employer], Smoking Cessation Medications and DC Order Prescriptions: New lamotrigine [Lamictal] 25 mg Tablet 25 mg PO UD Qty: 120 RF: 5 Continued clopidogrel [Plavix] 75 mg tablet 75 mg PO DAILY Qty: 90 RF: 3 metformin 500 mg tablet 500 mg PO BID Qty: 180 RF: 3 cholecalciferol (vitamin D3) 25 mcg (1,000 unit) capsule 50 mcg PO QAM RF: 0 (DME) Freestyle [employer] Test Strips strip See Dose Instructions .ROUTE .MEDSUPPLY Qty: 10 RF: 0 (DME) lancets [FreeStyle Lancets] 28 gauge misc See Dose Instructions .ROUTE .MEDSUPPLY Qty: 25 RF: 0 Boost 0.04 gram- 1 kcal/mL Liquid 1 ea PO DAILY RF: 0 atorvastatin 40 mg tablet 40 mg PO QAM RF: 0 Discharge Orders: Discharge Order (Routine); Ordered 11/06/20 Ordered By: Yo Hinton/Other Patient Handouts: High Blood Sugar (Hyperglycemia), Hypoglycemia (Low Blood Sugar), Managing Type 2 Diabetes, ED Seizure New Onset Unk Cause Ch, A1C Admission Data Admit Date/Time: 11/04/20 07:52 Attending Provider: Yo Gibbs Admit Provider: Yo Gibbs Primary Care Provider: Guy Metz III Other Providers: Yo Gibbs ; Kali Gay Other Interventions: Discharge Summary Assessment (RN) Last Done: 11/06/20 11:06 Coding Level of Care Code D/C Day Management >30 mins Diagnoses Stroke-like symptoms R29.90 Hypercholesteremia E78.00 Type 2 diabetes mellitus E11.9 Essential hypertension I10 Vitamin B12 deficiency E53.8
== END 2020-11-06 13:24 | disposition home health service (06) ==
LOC: ED 05:57 → 2S 07:52 → INTOOBSV 07:52 → 2S 11:47

== ENCOUNTER 2021-05-02 17:23 | Inpatient (IN) ==
[2021-05-02] MEDS ORDERED: SODIUM CHLORIDE 0.9% 1000ML 500 ML IV ONE (17:45)
--- NOTE | 2021-05-02 17:59 | Emergency Department Note ---
Impression & Plan Tachycardia, COVID-19, Weakness, Caregiver unable to cope ED Provider Note CHIEF COMPLAINT: Generalized weakness, Covid, poor p.o. intake HISTORY OF PRESENT ILLNESS: This 75-year-old female patient presents to the emergency department by EMS after being diagnosed with Covid in the early morn ing hours today. Patient was seen in the emergency department for generalized weakness and falls from bed. Patient did test positive for COVID-19 but was felt stable for discharge, for which she insisted. Today the EMS crew apparently was called to the house 2 or 3 times by report. Family was concerned for persistent weakness and inability to care. Patient does have a history of dementia and parkinsonism. stated she does not leave the house much. REVIEW OF SYSTEMS: History and review of systems are limited due to the patient's dementia and limited verbal feedback. ALLERGIES: see below MEDICATIONS: see below PMH: see below SOCIAL HISTORY: see below DDx: Infection, dehydration, metabolic abnormality, hypo/hyperglycemia, electrolyte disturbance, anemia, hypoxia, cardiac sources, intracerebral event, toxicologic, neurologic, as well as other pathologies. PHYSICAL EXAM: Vital signs reviewed. General: Chronically ill appearing 75 yo female, in no significant distress. HEENT: No scleral icterus, PERRLA, neck supple. Atraumatic. Dry mucous membranes. Cardiovascular: Tachycardic rate and regular rhythm, no extra sounds. Pulmonary: Clear to auscultation bilaterally, normal work of breathing. Abdomen: Soft, nontender, nondistended, positive bowel sounds. Musculoskeletal: Atraumatic, no peripheral edema. Neurologic: Patient awake alert and answers simple questions. Does follow simple commands and moves all extremities equally. Skin: Warm, dry, no rash EMERGENCY DEPARTMENT COURSE/MDM: This patient was evaluated and appeared to be in no significant distress. IV access was obtained and laboratory work was drawn. Patient was placed on a campus monitor and noted to be in a sinus tachycardia. Was hydrated with normal saline solution. Patient is not able to give much history however I was the provider on the case yesterday and much of the history is by report with nursing/EMS. Patient's laboratory work today is fairly reassuring. She has received IV hydration with normal saline solution bolus 500 mL and a maintenance rate of 150 mL/h. Given that the patient failed outpatient management and EMS was called multiple times during the 12 hours or so that she was at home, is likely an unsafe situation to send the patient back home to given her disabilities. The hospitalist service has been contacted for admission and further management. MONITORING: An order for cardiac monitoring was placed and the patient is noted to be in a sinus tachycardia at 111 beats per minute. RADIOLOGY: See below EKG: Normal sinus rhythm at 97 bpm. Normal axis. No PVC, no PAC. Possible previous anterior infarct. QTC is 424. No significant change from previous which was 05/01/21. DISPOSITION: Admit Past Med/Surg History Medical History Abdominal pain Closed subcapital fracture of neck of right femur Constipation Essential hypertension Hip fracture, right History of CVA (cerebrovascular accident) Hyperlipidemia Ischemic stroke (~2014) More than 50 percent stenosis of left internal carotid artery Rhabdomyolysis Stenosis of carotid artery Stroke Type 2 diabetes mellitus Vitamin D deficiency Surgical History History of cholecystectomy History of right hip hemiarthroplasty (~09/09/17) Dr. Dallas Family History Sister Cardiac disorder Diabetes Hypertension Gallbladder disease Daughter Gallbladder disease Family/Other Myocardial infarction Gait abnormality Mother , in her 80s of stroke Diabetes Stroke Father , in early 90s of cerebral aneurysm Cerebral aneurysm Other Family history non-contributory Denies family history of Ovarian cancer Prostate cancer Breast cancer Colorectal cancer Social History Smoking Status: Never smoker Second Hand Exposure: No; Hx Alcohol Use: No Hx Substance Use: No Preferred Language: Polish Communication Ability: Effective Hearing Ability: Normal Mobile Application Developer Required: No Beliefs That Will Affect Care: None marital status: Current Living Situation: Spouse current occupational status: retired Feels Safe at Home: Yes Safety Concerns: Feels Safe At This Time Physical Activity Frequency: Does not Exercise Seatbelt Use: always Sunscreen Use: No Assistive Devices: Denture - Upper, Glasses and Hearing Aid - Bilateral Allergies Allergies Allergy/AdvReac Type Severity Reaction Status Date / Time No Known Allergies Allergy Verified 05/02/21 17:45 Home Meds Home Medications Medication Instructions Recorded Confirmed food supplemt, lactose-reduced 1 ea PO DAILY 10/02/18 05/02/21 0.04 gram-1 kcal/mL oral liquid (Boost) metformin 500 mg tablet See Rx Instructions .ROUTE .COMPLEX 12/01/20 05/02/21 cholecalciferol (vitamin D3) 25 2,000 unit PO QAM cap 03/06/21 05/02/21 mcg (1,000 unit) capsule Previous Rx's Medication Instructions Recorded lamotrigine 25 mg tablet (Lamictal) 50 mg PO BID #360 tab 11/10/20 docusate sodium 100 mg capsule 100 mg PO BID 30 Days #60 cap 12/02/20 (Colace) atorvastatin 40 mg tablet 40 mg PO QAM #90 tab 04/06/21 clopidogrel 75 mg tablet (Plavix) 75 mg PO DAILY #90 tab 04/06/21 Results & Data (ED) Vital Signs Vital Signs - 24 hr 05/02/21 17:32 Temperature 37.3 C Temperature Source Oral Pulse Rate 111 H Respiratory Rate 20 Respiratory Effort / Characteristics Non-Labored Spontaneous Respiratory Depth Normal Respiratory Pattern Regular Blood Pressure 131/72 Blood Pressure Mean 91 Blood Pressure Position Lying Pulse Oximetry 92 Oxygen Delivery Method Room Air Sepsis Recent Fever Within 48 Hours No Sepsis New/Unexplained Change in Mental Status No Sepsis Action Taken by Nursing No Action Required Home Medications Current Medication List: was personally reviewed by me Laboratory Data Attestation: I reviewed the patient's lab results. Result diagrams: 05/02/21 18:52 05/02/21 18:52 Lab Results 05/02/21 05/02/21 05/02/21 Range/Units 18:52 18:52 18:52 WBC 8.06 (4.8-10.8) K/uL RBC 4.39 (4.2-5.4) M/uL Hgb 13.2 (12.0-16.0) g/dL Hct 41.0 (37-47) % MCV 93.4 (80-100) fL MCH 30.1 (25-34) pg MCHC 32.2 (32-36) g/dL RDW Std Deviation 48.3 H (36.4-46.3) fL RDW Coeff of [place] 14.2 (11.5-14.5) % Plt Count 250 (130-400) K/uL MPV 10.3 (7.4-10.4) fL Immature Gran % (Auto) 0.1 % Neut % (Auto) 73.0 % Lymph % (Auto) 10.0 % [place] % (Auto) 15.6 % Eos % (Auto) 0.9 % Baso % (Auto) 0.4 % Neut # (Auto) 5.88 (1.4-6.5) K/uL Lymph # (Auto) 0.81 L (1.2-3.4) K/uL [place] # (Auto) 1.26 H (0.11-0.59) K/uL Eos # (Auto) 0.07 (0-0.5) K/uL Baso # (Auto) 0.03 (0-0.2) K/uL Immature Gran # (Auto) 0.01 (0.00-0.02) K/uL Sodium 137 (136-145) mmol/L Potassium 4.0 (3.5-5.1) mmol/L Chloride 105 (98-107) mmol/L Carbon Dioxide 27 (21-32) mmol/L Anion Gap 5.0 (3-11) BUN 17 (7-18) mg/dl Creatinine 1.04 (0.6-1.2) mg/dl Est Cr Clr Drug Dosing Not Reportable Est GFR ( Amer) 61.7 ml/min Est GFR (Non-Af Amer) 53.3 ml/min BUN/Creatinine Ratio 16.0 (10-20) Glucose 132 H (70-99) mg/dl Lactate 1.8 (0.4-2.0) mmol/L Calcium 9.5 (8.5-10.1) mg/dl Magnesium 2.1 (1.8-2.4) mg/dl Total Bilirubin 0.2 (0.2-1) mg/dl AST 16 (15-37) U/L ALT 22 (12-78) Alkaline Phosphatase 54 (45-117) U/L C-Reactive Protein 2.26 H (0-0.29) mg/dl Total Protein 7.2 (6.4-8.2) gm/dl Albumin 3.6 (3.4-5.0) gm/dl Globulin 3.6 (2.5-4.0) gm/dl Albumin/Globulin Ratio 1.0 (0.9-2) TSH 1.470 (0.300-4.500) uIu/ml Administered Medications Docusate Sodium (Docusate Sodium 100 Mg Cap) 100 mg PO BID RIMMA Stop: 06/01/21 20:59 Last Admin: 05/02/21 21:50 Dose: 100 mg Documented by: [id number] Enoxaparin Sodium (Enoxaparin Inj 40 Mg/0.4 Ml Syr) 40 mg SQ Q12H RIMMA Stop: 06/01/21 20:59 Last Admin: 05/02/21 21:50 Dose: 40 mg Documented by: [id number] Sodium Chloride (Nss 1000ml) 1,000 mls @ 150 mls/hr IV .Q6H40M RIMMA Stop: 06/01/21 17:44 Last Admin: 05/02/21 20:06 Dose: 150 mls/hr Documented by: [id number] Insulin Aspart (Insulin Aspart Per Unit) 0 units SC ACHS RIMMA Stop: 06/01/21 20:59 Last Admin: 05/02/21 22:04 Dose: Not Given Documented by: [id number] Cosigned by: [id number] Lamotrigine (Lamotrigine 25 Mg Tab) 50 mg PO BID RIMMA Stop: 06/01/21 20:59 Last Admin: 05/02/21 21:51 Dose: 50 mg Documented by: [id number] Discontinued Medications Sodium Chloride (Nss 1000ml) 500 mls @ 999 mls/hr IV .Q31M ONE Stop: 05/02/21 18:15 Last Infusion: 05/02/21 19:41 Dose: 0 mls/hr Documented by: [id number] Admin: 05/02/21 18:41 Dose: 999 mls/hr Documented by: [id number] Imaging Data Radiologist's Impression: Chest X-Ray 05/02/21 17:39 XR chest 1V portable CLINICAL HISTORY: weakness COMPARISON STUDY: Chest CT April 28, 2020. Chest radiograph performed earlier today. FINDINGS: There is no pneumothorax or pleural effusion. Cardiomegaly is unchanged. There are mild bibasilar opacities. These favor atelectasis. Interstitial thickening has slightly increased. IMPRESSION: 1. Increase in interstitial thickening. This may reflect mild pulmonary edema. An infectious process is considered less likely but could appear similar. 2. Mild bibasilar opacities which favor atelectasis. ACT 112: Negative or not required by law. Electronically signed by: Amando Stephens M.D. 05/02/2021 6:20 PM Blood Pressure Blood Pressure Findings: Normal blood pressure Blood Pressure Disposition: did not require urgent referral Discharge Plan Visit Data Chief Complaint: Weakness Stated Complaint: Weakness ED Provider: Chichi Romero Discharge Problem: Tachycardia, COVID-19, Weakness, Caregiver unable to cope Patient Disposition: Admitted As Inpatient Discharge Instructions Interventions: ED Discharge Assessment Last Done: 05/02/21 20:30
--- NOTE | 2021-05-02 18:21 | XRay Report ---
XR chest 1V portable CLINICAL HISTORY: weakness COMPARISON STUDY: Chest CT April 28, 2020. Chest radiograph performed earlier today. FINDINGS: There is no pneumothorax or pleural effusion. Cardiomegaly is unchanged. There are mild bib asilar opacities. These favor atelectasis. Interstitial thickening has slightly increased. IMPRESSION: 1. Increase in interstitial thickening. This may reflect mild pulmonary edema. An infectious process is considered less likely but could appear similar. 2. Mild bibasilar opacities which favor atelectasis. ACT 112: Negative or not required by law. Electronically signed by: Amando Stephens M.D. 05/02/2021 6:20 PM
--- NOTE | 2021-05-02 18:41 | History & Physical Report ---
Date of Service May 02, 2021 Assessment & Plan (1) Weakness: Plan: Patient is 75-year-old female with a past medical history of TIA, COVID-19, left carotid stenosis, essential hypertension, ischemic stroke in 2015, type 2 diabetes mellitus, pulmonary nodules, hyperlipidemia, dementia with parkinsonism, and seizure-like activity who presented to the emergency department by EMS and who was diagnosed with Covid this morning. Was found to have generalized weakness and falls, initially was discharged to home as patient was not hypoxic on representation to the ER family is concerned for continued weakness and inability to care. Weakness 2/2 Covid pneumonia 2 falls yesterday, 2 falls today. Patient initially seen in ER for weakness due to Covid and sent home, was back with concerns for falls and inability to care for patient. No hypoxia in ER, Dex/remdesivir/baricitinib not indicated - Tachycardic with normal pressure on admit, finishing NSS bolus 500cc x1 with maintenance fluids at time of assessment Symptom onset with weakness approximately 2 days ago No leukocytosis No gross electrolyte derangements Creatinine at baseline at last check, repeat pending. If CrCL decreased, dose adjust lovenox ppx as needed No troponin elevation UA negative Covid positive, flu negative CXR: Increased interstitial thickening suggestive of infectious process versus mild pulmonary edema. Mild bibasilar opacities in favor of atelectasis. CThead: No acute pathology, cerebral cortical atrophy and remote small vessel disease re-demonstrated and left subarachnoid cyst re-demonstrated. BC pending EKG with nonspecific T wave abnormality, no acute ST segment changes TTE 04/2020 with EF 55 to 60%, LV normal in size, mild concentric LVH and grade 1 diastolic dysfunction - PT/OT - Admit obs CRP pending, Covid DVT prophylaxis (2) COVID-19: Plan: -As above (3) Tachycardia: Plan: - As above (4) Ischemic stroke: Plan: History of CVD Continue atorvastatin 40 mg daily Continue Plavix 75 mg daily CThead with no acute findings as above No focal neuro deficits appreciated at time of admission (5) Type 2 diabetes mellitus: Plan: Type 2 diabetes mellitus Hold home metformin Glucose checks AC/at bedtime A1c pending. Last 5 months ago 7.2% Goal BSG [id number] SSI correction factor 60, carb ratio 21 (6) Dementia: Plan: Delirium precautionsdietary supplementation with boost Plan: DVT prophylaxis: COVID DVT PPx Diet: Aspiration precautions, DM 2 Disposition: Medical/surgical, patient is not hypoxic or toxic but is very weak and suspect placement may be required. PT/OT ordered. Continue daily labs. CODE STATUS: Full code, confirmed with family. Would want intubation for declining respiratory status. History of Present Illness Chief Complaint: Weakness Primary Care Provider: Guy Metz MD Patient is 75-year-old female with a past medical history of TIA, COVID-19, left carotid stenosis, essential hypertension, ischemic stroke in 2015, type 2 diabetes mellitus, pulmonary nodules, hyperlipidemia, dementia with parkinsonism, and seizure-like activity who presented to the emergency department by EMS and who was diagnosed with Covid this morning. Was found to have generalized weakness and falls, initially was discharged to home as patient was not hypoxic on representation to the ER family is concerned for continued weakness and inability to care. History is limited by dementia. Pt is pleasant and answers some questions, but is not oriented to place/ Discussed with her by phone. Is having 'weakness spells.' 2x falls yesterday and today. Had to call the ambulance to help her move. Seems to have globally progressive weakness. No cough, shortness of breath, dyspnea. She had 1 shot of Pfizer vaccination. Was due for the second one next week. Weakness has been worse for 2 days. Does not feel that he can care for her safely at home, and is concerned about her falls. No history of heart problems. No tobacco use history. No history of lung problems. Medical History: Reviewed Medications: Reviewed Surgical History: Reviewed Allergies: Reviewed PCP: Dr. Metz Social History: No tobacco, alcohol, or recreational drug. Code Status: Full Code and would want intubation for declining respiratory status. Allergies Allergy/AdvReac Type Severity Reaction Status Date / Time No Known Allergies Allergy Verified 05/02/21 17:45 Home Medications Medication Instructions Recorded Confirmed Type food supplemt, lactose-reduced 1 ea PO DAILY 10/02/18 05/02/21 History 0.04 gram-1 kcal/mL oral liquid (Boost) lamotrigine 25 mg tablet (Lamictal) 50 mg PO BID #360 tab 11/10/20 05/02/21 Rx metformin 500 mg tablet See Rx Instructions .ROUTE .COMPLEX 12/01/20 05/02/21 History docusate sodium 100 mg capsule 100 mg PO BID 30 Days #60 cap 12/02/20 05/02/21 Rx (Colace) cholecalciferol (vitamin D3) 25 2,000 unit PO QAM cap 03/06/21 05/02/21 History mcg (1,000 unit) capsule atorvastatin 40 mg tablet 40 mg PO QAM #90 tab 04/06/21 05/02/21 Rx clopidogrel 75 mg tablet (Plavix) 75 mg PO DAILY #90 tab 04/06/21 05/02/21 Rx Past Med/Surg History Medical History Abdominal pain Closed subcapital fracture of neck of right femur Constipation Essential hypertension Hip fracture, right History of CVA (cerebrovascular accident) Hyperlipidemia Ischemic stroke (~2014) More than 50 percent stenosis of left internal carotid artery Rhabdomyolysis Stenosis of carotid artery Stroke Type 2 diabetes mellitus Vitamin D deficiency Surgical History History of cholecystectomy History of right hip hemiarthroplasty (~09/09/17) Dr. Dallas Family History Sister Cardiac disorder Diabetes Hypertension Gallbladder disease Daughter Gallbladder disease Family/Other Myocardial infarction Gait abnormality Mother , in her 80s of stroke Diabetes Stroke Father , in early 90s of cerebral aneurysm Cerebral aneurysm Other Family history non-contributory Denies family history of Ovarian cancer Prostate cancer Breast cancer Colorectal cancer Social History Smoking Status: Never smoker Second Hand Exposure: No; Hx Alcohol Use: No Hx Substance Use: No Preferred Language: Mauritanian Communication Ability: Effective Hearing Ability: Normal Refuge Worker Required: No Beliefs That Will Affect Care: None marital status: Current Living Situation: Spouse current occupational status: retired Feels Safe at Home: Yes Physical Activity Frequency: Does not Exercise Seatbelt Use: always Sunscreen Use: No Assistive Devices: Denture - Upper, Glasses and Walker Review of Systems Review of Systems: Somewhat limited by dementia, patient grossly denies 10 point review of systems. Of note, denies weakness Physical Exam Physical Exam: General: Patient not oriented to place, date, reason for admission, or season. Follows commands and cooperative. Does not appear tremulous. Nontoxic. HEENT: Atraumatic, normocephalic. Visual acuity and hearing grossly intact. Pulm: CTAB A&P. -wheezes, -rales, -rhonchi. Bibasilar crackles. Symmetrical chest rise. No increase work of breathing. No respiratory distress. Cardiac: RRR, -mrg. Radial pulses intact and symmetrical. Abdominal: Nontender, nondistended, soft. BS present. Extremities: Moves all extremities weakness, 4+/5 to evidence custodian strength bilaterally, ankle dorsiflexion/plantar flexion, patient with difficulty unresisted antigravity to hip flexion. Sensation to soft touch intact in hands and feet. Results & Data Results & Data ([facility]) Vital Signs (Past 12 Hours) Vital Signs Temp Pulse Resp BP Pulse Ox 05/02/21 17:32 37.3 C 111 H 20 131/72 92 PG Care Time/CCT Total # of Minutes Spent Total Time Spent with Patient: Total time spent is greater than 50% in coordination of care (as documented) at patient's floor/unit and/or counseling patient: Coding Level of Care Code INT OBSERVATION CARE 50M LVL 2 Diagnoses Weakness R53.1 COVID-19 U07.1 Tachycardia R00.0 Ischemic stroke I63.9 Type 2 diabetes mellitus E11.9 Dementia F03.90
[2021-05-02 19:03] LABS: Basophils # (auto) 0.03 K/uL (0-0.2); Basophils % (auto) 0.4 %; Eosinophils # (auto) 0.07 K/uL (0-0.5); Eosinophils % (auto) 0.9 %; Hemoglobin 13.2 g/dL (12.0-16.0); Immature Granulocytes # (auto) 0.01 K/uL (0.00-0.02); Immature Granulocytes % (auto) 0.1 %; Lymphocytes # (auto) 0.81 K/uL (1.2-3.4); Mean Corpuscular Hemoglobin 30.1 pg (25-34); Mean Corpuscular Hgb Conc 32.2 g/dL (32-36); Mean Corpuscular Volume 93.4 fL (80-100); Mean Platelet Volume 10.3 fL (7.4-10.4); Monocytes # (auto) 1.26 K/uL (0.11-0.59); Monocytes % (auto) 15.6 %; Neutrophils # (auto) 5.88 K/uL (1.4-6.5); Platelet Count 250 K/uL (130-400); RDW Coefficient of Variation 14.2 % (11.5-14.5); RDW Standard Deviation 48.3 fL (36.4-46.3); Red Blood Count 4.39 M/uL (4.2-5.4); White Blood Count 8.06 K/uL (4.8-10.8)
[2021-05-02 19:27] LABS: Alanine Aminotransferase 22 (12-78); Albumin Level 3.6 gm/dl (3.4-5.0); Aspartate Aminotransferase 16 U/L (15-37); Blood Urea Nitrogen 17 mg/dl (7-18); Calcium 9.5 mg/dl (8.5-10.1); Carbon Dioxide 27 mmol/L (21-32); Chloride 105 mmol/L (98-107); Est GFR (African American) 61.7 ml/min; Est GFR (Non-African American) 53.3 ml/min; Glucose 132 mg/dl (70-99); Magnesium 2.1 mg/dl (1.8-2.4); Sodium 137 mmol/L (136-145)
[2021-05-02 19:38] LABS: Alkaline Phosphatase 54 U/L (45-117); Bilirubin,Total 0.2 mg/dl (0.2-1); Globulin 3.6 gm/dl (2.5-4.0); Total Protein 7.2 gm/dl (6.4-8.2)
[2021-05-02] MEDS: SODIUM CHLORIDE 0.9% 1000ML 1,000 ML IV SCH (20:06)
[2021-05-02] MEDS ORDERED: DEXTROSE 50% 50 ML SYRINGE IV PRN (20:48)
[2021-05-02] MEDS ORDERED: CARBOHYDRATES FOR HYPOGLYCEMIA PO PRN (20:48)
[2021-05-02] MEDS ORDERED: GLUCOSE 40% GEL 15 GM TUBE PO PRN (20:48)
[2021-05-02] MEDS ORDERED: ACETAMINOPHEN 325 MG TAB PO PRN (20:48)
[2021-05-02] MEDS ORDERED: GLUCOSE 10 TABS/TUBE PO PRN (20:48)
[2021-05-02] MEDS ORDERED: GLUCAGON FOR INJ 1 MG VIAL SQ PRN (20:48)
[2021-05-02 21:12] LABS: C Reactive Protein 2.26 mg/dl (0-0.29)
[2021-05-02] MEDS: DOCUSATE SODIUM 100 MG CAP PO SCH (21:50)
[2021-05-02] MEDS: ENOXAPARIN INJ 40 MG/0.4 ML SYR SQ SCH (21:50)
[2021-05-02] MEDS: lamoTRIgine 25 MG TAB PO SCH (21:51)
[2021-05-02] MEDS: INSULIN ASPART PER UNIT SC SCH (22:04)
[2021-05-02] MEDS ORDERED: OLANZapine 10 MG/2.1 ML SDV IM STA (23:33)
[2021-05-03] MEDS: SODIUM CHLORIDE 0.9% 1000ML 1,000 ML IV SCH ×3 (03:21→16:10)
[2021-05-03] MEDS ORDERED: MICONAZOLE NITRATE POWDER 43 GM EXT PRN (06:16)
[2021-05-03 06:24] LABS: Basophils # (auto) 0.03 K/uL (0-0.2); Basophils % (auto) 0.6 %; Eosinophils # (auto) 0.03 K/uL (0-0.5); Eosinophils % (auto) 0.6 %; Hematocrit (blood only) 37.5 % (37-47); Hemoglobin 11.8 g/dL (12.0-16.0); Immature Granulocytes # (auto) 0.01 K/uL (0.00-0.02); Immature Granulocytes % (auto) 0.2 %; Lymphocytes # (auto) 0.96 K/uL (1.2-3.4); Lymphocytes % (auto) 19.6 %; Mean Corpuscular Hemoglobin 29.3 pg (25-34); Mean Corpuscular Hgb Conc 31.5 g/dL (32-36); Mean Corpuscular Volume 93.1 fL (80-100); Mean Platelet Volume 10.2 fL (7.4-10.4); Monocytes # (auto) 0.83 K/uL (0.11-0.59); Monocytes % (auto) 16.9 %; Neutrophils # (auto) 3.04 K/uL (1.4-6.5); Neutrophils % (auto) 62.1 %; Platelet Count 213 K/uL (130-400); RDW Coefficient of Variation 14.4 % (11.5-14.5); RDW Standard Deviation 49.1 fL (36.4-46.3); Red Blood Count 4.03 M/uL (4.2-5.4)
[2021-05-03 07:02] LABS: Albumin Level 3.1 gm/dl (3.4-5.0); BUN Creatinine Ratio 14.3 (10-20); Calcium 8.7 mg/dl (8.5-10.1); Creatinine Clr Calc Pharmacy 56.8 ml/min; Est GFR (African American) 77.7 ml/min; Potassium 3.6 mmol/L (3.5-5.1)
[2021-05-03 07:05] LABS: Bilirubin,Total 0.5 mg/dl (0.2-1); Globulin 3.1 gm/dl (2.5-4.0); Total Protein 6.2 gm/dl (6.4-8.2)
[2021-05-03 07:37] LABS: Estimated Average Glucose 146 mg/dl; Hemoglobin A1C 6.7 % (4.5-5.6)
[2021-05-03] MEDS: INSULIN ASPART PER UNIT SC SCH ×4 (08:33→21:38)
[2021-05-03] MEDS: DOCUSATE SODIUM 100 MG CAP PO SCH ×2 (08:35→21:39)
[2021-05-03] MEDS: CLOPIDOGREL BISULFATE 75 MG TAB PO SCH (08:35)
[2021-05-03] MEDS: lamoTRIgine 25 MG TAB PO SCH ×2 (08:35→21:39)
[2021-05-03] MEDS: CHOLECALCIFEROL 1,000 UNITS 25 MCG TAB PO SCH (08:35)
[2021-05-03] MEDS: ATORVASTATIN 40 MG TAB PO SCH (08:35)
[2021-05-03] MEDS: ENOXAPARIN INJ 40 MG/0.4 ML SYR SQ SCH ×2 (09:57→21:39)
--- NOTE | 2021-05-03 11:15 | Electrocardiogram Report ---
Test Reason : Blood Pressure : / mmHG Vent. Rate : 097 BPM Atrial Rate : 097 BPM P-R Int : 154 ms QRS Dur : 072 ms QT Int : 334 ms P-R-T Axes : 048 013 078 degrees QTc Int : 424 ms Poor data quality, interpretation may be adversely affected Normal sinus rhythm When compared with ECG of 01-MAY-2021 23:07, No significant change was found Confirmed by Dieter Gonzalez ([id number]) on 05/03/2021 11:15:21 AM Referred By: REFERRED SELF Confirmed By:Benigno Gonzalez
--- NOTE | 2021-05-03 13:08 | Hospitalist Progress Note ---
Date of Service May 03, 2021 Assessment & Plan (1) Weakness: Plan: Weakness 2/2 Covid pneumonia. Four falls prior to admission. Patient initially seen in ER for weakness due to Covid and sent home, was back with concerns for falls and inability to care for patient. No hypoxia, dex/remdesivir/baricitinib not indicated. Covid positive, flu negative - PT/OT -> Possibly need placement (2) COVID-19: Plan: - As above (3) Ischemic stroke: Plan: History of CVD. CT head on admission with no acute findings. No focal neuro d eficits appreciated at time of admission. Continue atorvastatin 40 mg daily Continue Plavix 75 mg daily (4) Type 2 diabetes mellitus: Plan: A1c this admission was 6.7%. Hold home metformin Sliding scale insulin (5) Dementia: Plan: Pleasant, responsive; however, does not know location, date, or current situation. Delirium precautionsdietary supplementation with boost Plan: DVT prophylaxis: Lovenox 40 mg SQ Q12h Admission and Anticipated Discharge Date Admission Date: May 02, 2021 Subjective Feels well. Reports no fevers/chills, chest pain, shortness of breath, abdominal pain, nausea, or vomiting. Physical Exam Constitutional: WD/WN, vitals as above Eyes: EOM intact bilaterally; no conjunctival abnormality ENMT: external ear and nose normal, oropharynx normal Neck: trachea midline, no thyromegaly normal visual inspection Respiratory: normal respiratory effort, lungs clear to auscultation no respiratory distress Cardiovascular: RRR, no murmur, no edema Gastrointestinal (Abdomen): Inspection/Auscultation: abdomen normal to inspection; abdomen not distended Musculoskeletal: no cyanosis or clubbing, extremities motor strength 5/5 Skin: no rashes, warm and dry Neurologic: moves all extremities and awake Psychiatric: Orientation: alert, oriented to person and cooperative; + not oriented to place and + not oriented to time Results & Data Results & Data ([facility]) Vital Signs (Past 12 Hours) Vital Signs Temp Pulse Resp BP Pulse Ox Pulse Ox 05/03/21 08:00 36.8 C 78 18 139/80 92 05/03/21 07:53 92 05/03/21 07:52 92 PG Care Time/CCT Total # of Minutes Spent Total Time Spent with Patient: Total time spent is greater than 50% in coordination of care (as documented) at patient's floor/unit and/or counseling patient: Coding Level of Care Code 45116 Subseq Hosp Care Lvl 2 Diagnoses Weakness R53.1 COVID-19 U07.1 Ischemic stroke I63.9 Type 2 diabetes mellitus E11.9 Dementia F03.90
[2021-05-04 06:15] LABS: Hematocrit (blood only) 38.5 % (37-47); Hemoglobin 12.7 g/dL (12.0-16.0); Mean Corpuscular Hemoglobin 30.4 pg (25-34); Mean Corpuscular Volume 92.1 fL (80-100); Mean Platelet Volume 10.3 fL (7.4-10.4); Platelet Count 224 K/uL (130-400); RDW Coefficient of Variation 14.4 % (11.5-14.5); RDW Standard Deviation 48.6 fL (36.4-46.3); Red Blood Count 4.18 M/uL (4.2-5.4); White Blood Count 4.99 K/uL (4.8-10.8)
[2021-05-04 06:48] LABS: BUN Creatinine Ratio 14.9 (10-20); Creatinine Clr Calc Pharmacy 61.8 ml/min; Est GFR (African American) 86.1 ml/min; Est GFR (Non-African American) 74.3 ml/min; Magnesium 2.1 mg/dl (1.8-2.4); Potassium 3.7 mmol/L (3.5-5.1)
[2021-05-04] MEDS: INSULIN ASPART PER UNIT SC SCH ×4 (08:38→19:43)
[2021-05-04] MEDS: lamoTRIgine 25 MG TAB PO SCH ×2 (08:39→19:44)
[2021-05-04] MEDS: ENOXAPARIN INJ 40 MG/0.4 ML SYR SQ SCH ×2 (08:39→19:42)
[2021-05-04] MEDS: DOCUSATE SODIUM 100 MG CAP PO SCH ×2 (08:39→19:44)
[2021-05-04] MEDS: ATORVASTATIN 40 MG TAB PO SCH (08:39)
[2021-05-04] MEDS: CHOLECALCIFEROL 1,000 UNITS 25 MCG TAB PO SCH (08:39)
[2021-05-04] MEDS: CLOPIDOGREL BISULFATE 75 MG TAB PO SCH (08:39)
--- NOTE | 2021-05-04 15:17 | Hospitalist Progress Note ---
Date of Service May 04, 2021 Assessment & Plan (1) Weakness: Plan: Weakness 2/2 Covid pneumonia. Four falls prior to admission. Patient initially seen in ER for weakness due to Covid and sent home, was back with concerns for falls and inability to care for patient. No hypoxia, dex/remdesivir/baricitinib not indicated. Covid positive, flu negative - PT/OT -> Difficult situation. PT/OT recommend home with services and 24h care. However, and daughter both likely have Covid at home and do not feel they can care for her. Her assist needs are fairly substantial due to her dementia and safety issues. (2) COVID-19: Plan: - As above (3) Ischemic stroke: Plan: History of CVD. CT head on admission with no acute findings. No focal neuro deficits appreciated at time of admission. Continue atorvastatin 40 mg daily Continue Plavix 75 mg daily (4) Type 2 diabetes mellitus: Plan: A1c this admission was 6.7%. Hold home metformin Sliding scale insulin (5) Dementia: Plan: Pleasant, responsive; however, does not know location, date, or current situation. Delirium precautionsdietary supplementation with boost Plan: DVT prophylaxis: Lovenox 40 mg SQ QAM Admission and Anticipated Discharge Date Admission Date: May 03, 2021 Subjective Feels well. Reports no fevers/chills, chest pain, shortness of breath, abdominal pain, nausea, or vomiting. Physical Exam Constitutional: WD/WN, vitals as above Eyes: EOM intact bilaterally; no conjunctival abnormality ENMT: external ear and nose normal, oropharynx normal Neck: trachea midline, no thyromegaly normal visual inspection Respiratory: normal respiratory effort, lungs clear to auscultation no respiratory distress Cardiovascular: RRR, no murmur, no edema Gastrointestinal (Abdomen): Inspection/Auscultation: abdomen normal to inspection; abdomen not distended Musculoskeletal: no cyanosis or clubbing, extremities motor strength 5/5 Skin: no rashes, warm and dry Neurologic: moves all extremities and awake Psychiatric: Orientation: alert, oriented to person and cooperative; + not oriented to place and + not oriented to time Results & Data Results & Data ([facility]) Vital Signs (Past 12 Hours) Vital Signs Temp Pulse Resp BP Pulse Ox 05/04/21 12:44 37.2 C 83 24 136/75 92 05/04/21 08:02 37.4 C 69 24 120/72 95 PG Care Time/CCT Total # of Minutes Spent Total Time Spent with Patient: Total time spent is greater than 50% in coordination of care (as documented) at patient's floor/unit and/or counseling patient: Coding Level of Care Code 84707 Subseq Hosp Care Lvl 2 Diagnoses Weakness R53.1 COVID-19 U07.1 Ischemic stroke I63.9 Type 2 diabetes mellitus E11.9 Dementia F03.90
[2021-05-05] MEDS: DOCUSATE SODIUM 100 MG CAP PO SCH ×2 (08:18→20:45)
[2021-05-05] MEDS: ENOXAPARIN INJ 40 MG/0.4 ML SYR SQ SCH (08:18)
[2021-05-05] MEDS: lamoTRIgine 25 MG TAB PO SCH ×2 (08:19→20:45)
[2021-05-05] MEDS: CLOPIDOGREL BISULFATE 75 MG TAB PO SCH (08:19)
[2021-05-05] MEDS: CHOLECALCIFEROL 1,000 UNITS 25 MCG TAB PO SCH (08:19)
[2021-05-05] MEDS: ATORVASTATIN 40 MG TAB PO SCH (08:19)
[2021-05-05] MEDS: INSULIN ASPART PER UNIT SC SCH ×4 (08:20→20:45)
--- NOTE | 2021-05-05 12:24 | Hospitalist Progress Note ---
Date of Service May 05, 2021 Assessment & Plan (1) Weakness: Plan: Weakness 2/2 Covid pneumonia. Four falls prior to admission. Patient initially seen in ER for weakness due to Covid and sent home, was back with concerns for falls and inability to care for patient. No hypoxia, dex/remdesivir/baricitinib not indicated. Covid positive, flu negative - PT/OT -> Difficult situation. PT/OT recommend home with services and 24h care. However, and daughter both have Covid at home and do not feel they can care for her. Her assist needs are fairly substantial due to her dementia and safety issues. Presently [facility] is essentially a respite care for family. Hopefully she can go home Saturday or Saturday if and daughter feel better. (2) COVID-19: Plan: - As above (3) Ischemic stroke: Plan: History of CVD. CT head on admission with no acute findings. No focal neuro deficits appreciated at time of admission. Continue atorvastatin 40 mg daily Continue Plavix 75 mg daily (4) Type 2 diabetes mellitus: Plan: A1c this admission was 6.7%. Hold home metformin Sliding scale insulin - BSs have been 95 - 120 in last 24 hours. (5) Dementia: Plan: Pleasant, responsive; however, does not know location, date, or current situation. - Continue lamotrigine Delirium precautionsdietary supplementation with boost Plan: DVT prophylaxis: Lovenox 40 mg SQ QAM Admission and Anticipated Discharge Date Admission Date: May 03, 2021 Subjective Feels well. Reports no fevers/chills, chest pain, shortness of breath, abdominal pain, nausea, or vomiting. Physical Exam Constitutional: WD/WN, vitals as above Eyes: EOM intact bilaterally; no conjunctival abnormality ENMT: external ear and nose normal, oropharynx normal Neck: trachea midline, no thyromegaly normal visual inspection Respiratory: normal respiratory effort, lungs clear to auscultation no respiratory distress Cardiovascular: RRR, no murmur, no edema Gastrointestinal (Abdomen): Inspection/Auscultation: abdomen normal to inspection; abdomen not distended Musculoskeletal: no cyanosis or clubbing, extremities motor strength 5/5 Skin: no rashes, warm and dry Neurologic: moves all extremities and awake Psychiatric: Orientation: alert, oriented to person and cooperative; + not oriented to place and + not oriented to time Results & Data Results & Data ([facility]) Vital Signs (Past 12 Hours) Vital Signs Temp Pulse Resp BP Pulse Ox 05/05/21 08:12 36.8 C 76 20 150/79 H 90 PG Care Time/CCT Total # of Minutes Spent Total Time Spent with Patient: Total time spent is greater than 50% in coordination of care (as documented) at patient's floor/unit and/or counseling patient: Coding Level of Care Code 29871 Subseq Hosp Care Lvl 2 Diagnoses Weakness R53.1 COVID-19 U07.1 Ischemic stroke I63.9 Type 2 diabetes mellitus E11.9 Dementia F03.90
[2021-05-06] MEDS: INSULIN ASPART PER UNIT SC SCH ×4 (08:45→20:12)
[2021-05-06] MEDS: DOCUSATE SODIUM 100 MG CAP PO SCH ×2 (09:04→20:11)
[2021-05-06] MEDS: CLOPIDOGREL BISULFATE 75 MG TAB PO SCH (09:04)
[2021-05-06] MEDS: ATORVASTATIN 40 MG TAB PO SCH (09:04)
[2021-05-06] MEDS: lamoTRIgine 25 MG TAB PO SCH ×2 (09:04→20:12)
[2021-05-06] MEDS: CHOLECALCIFEROL 1,000 UNITS 25 MCG TAB PO SCH (09:04)
[2021-05-06] MEDS: ENOXAPARIN INJ 40 MG/0.4 ML SYR SQ SCH (09:05)
--- NOTE | 2021-05-06 13:28 | Hospitalist Progress Note ---
Date of Service May 06, 2021 Assessment & Plan (1) Weakness: Plan: Weakness 2/2 Covid pneumonia. Four falls prior to admission. Patient initially seen in ER for weakness due to Covid and sent home, was back with concerns for falls and inability to care for patient. No hypoxia, dex/remdesivir/baricitinib not indicated. Covid positive, flu negative Additional Covid treatments not indicated at this time - PT/OT recommend home with services and 24h care. However, and daughter both have Covid at home and do not feel they can care for her. Her assist needs are fairly substantial due to her dementia and safety issues. Presently [facility] is essentially a respite care for family. Anticipate to go home Saturday or Saturday if and daughter feel better. Clinically stable at this time (2) COVID-19: Plan: - As above (3) Ischemic stroke: Plan: History of CVD. CT head on admission with no acute findings. No focal neuro deficits appreciated at time of admission. Continue atorvastatin 40 mg daily Continue Plavix 75 mg daily (4) Type 2 diabetes mellitus: Plan: A1c this admission was 6.7%. Hold home metformin Sliding scale insulin - BSs have been 95 - 120 in last 24 hours. (5) Dementia: Plan: Pleasant, responsive; however, does not know location, date, or current situation. - Continue lamotrigine Delirium precautionsdietary supplementation with boost Plan: DVT prophylaxis: Lovenox 40 mg SQ QAM Admission and Anticipated Discharge Date Admission Date: May 03, 2021 Subjective Seen at bedside, awakens easily. Denies fever, chills, pain, shortness of br eath, difficulty breathing, or acute concerns. Falls back asleep following exam. Limited by dementia, oriented to name only. Review of Systems Review of Systems: Oriented to name only, somewhat limited by dementia but grossly denies 10 point review of this. Physical Exam Physical Exam: General: Awakens easily, oriented to name only, falls back asleep after exam. Follows commands and cooperative. HEENT: Atraumatic, normocephalic. Visual acuity and hearing grossly intact. Pulm: CTAB A&P. -wheezes, -rales, -rhonchi. Bibasilar crackles. Symmetrical chest rise. No increase work of breathing. No respiratory distress. Cardiac: RRR, -mrg. Radial pulses intact and symmetrical. Abdominal: Nontender, nondistended, soft. BS present. 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 Sensation to soft touch intact in hands and feet. Results & Data Results & Data ([facility]) Vital Signs (Past 12 Hours) Vital Signs Temp Pulse Resp BP Pulse Ox 05/06/21 07:12 37.1 C 78 20 122/64 95 PG Care Time/CCT Total # of Minutes Spent Total Time Spent with Patient: Total time spent is greater than 50% in coordination of care (as documented) at patient's floor/unit and/or counseling patient: Coding Level of Care Code 13958 Subseq Hosp Care Lvl 1 Diagnoses Weakness R53.1 COVID-19 U07.1 Ischemic stroke I63.9 Type 2 diabetes mellitus E11.9 Dementia F03.90
[2021-05-07] MEDS: INSULIN ASPART PER UNIT SC SCH ×4 (08:44→20:22)
[2021-05-07] MEDS: CHOLECALCIFEROL 1,000 UNITS 25 MCG TAB PO SCH (08:45)
[2021-05-07] MEDS: lamoTRIgine 25 MG TAB PO SCH ×2 (08:45→20:21)
[2021-05-07] MEDS: CLOPIDOGREL BISULFATE 75 MG TAB PO SCH (08:45)
[2021-05-07] MEDS: ENOXAPARIN INJ 40 MG/0.4 ML SYR SQ SCH (08:46)
[2021-05-07] MEDS: DOCUSATE SODIUM 100 MG CAP PO SCH ×2 (08:46→20:21)
[2021-05-07] MEDS: ATORVASTATIN 40 MG TAB PO SCH (08:46)
--- NOTE | 2021-05-07 13:42 | Hospitalist Progress Note ---
Date of Service May 07, 2021 Assessment & Plan (1) Weakness: Plan: Weakness 2/2 Covid pneumonia. Four falls prior to admission. Patient initially seen in ER for weakness due to Covid and sent home, was back with concerns for falls and inability to care for patient. No hypoxia, dex/remdesivir/baricitinib not indicated. Covid positive, flu negative Additional Covid treatments not indicated at this time - PT/OT recommend home with services and 24h care. However, and daughter both have Covid at home and do not feel they can care for her. Her assist needs are fairly substantial due to her dementia and safety issues. Presently [facility] is essentially a respite care for family. Anticipate to go home Saturday or Saturday Clinically stable at this time (2) COVID-19: Plan: - As above (3) Ischemic stroke: Plan: History of CVD. CT head on admission with no acute findings. No focal neuro deficits appreciated at time of admission. Continue atorvastatin 40 mg daily Continue Plavix 75 mg daily (4) Type 2 diabetes mellitus: Plan: A1c this admission was 6.7%. Hold home metformin Sliding scale insulin - BSs have been 95 - 120 in last 24 hours. (5) Dementia: Plan: Pleasant, responsive; however, does not know location, date, or current situation. - Continue lamotrigine Delirium precautionsdietary supplementation with boost Plan: DVT prophylaxis: Lovenox 40 mg SQ QAM Admission and Anticipated Discharge Date Admission Date: May 03, 2021 Subjective Seen at bedside, awakens easily. Falls back asleep following exam. Limited by dementia, oriented to name only. Voices no concerns, grossly denies all review of symptoms. Review of Systems Review of Systems: Oriented to name only, somewhat limited by dementia but grossly denies 10 point review of systems Physical Exam Physical Exam: General: Awakens easily, oriented to name only, falls back asleep after exam. Nondistressed HEENT: Atraumatic, normocephalic. Visual acuity and hearing grossly intact. Pulm: CTAB A&P. -wheezes, -rales, -rhonchi. Bibasilar crackles. Symmetrical chest rise. No increase work of breathing. No respiratory distress. Cardiac: RRR, -mrg. Radial pulses intact and symmetrical. Abdominal: Nontender, nondistended, soft. 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 Sensation to soft touch intact in hands and feet. Results & Data Results & Data ([facility]) Vital Signs (Past 12 Hours) Vital Signs Temp Pulse Resp BP Pulse Ox 05/07/21 07:09 37.0 C 47 L 20 120/70 95 PG Care Time/CCT Total # of Minutes Spent Total Time Spent with Patient: Total time spent is greater than 50% in coordination of care (as documented) at patient's floor/unit and/or counseling patient: Coding Level of Care Code 09874 Subseq Hosp Care Lvl 1 Diagnoses Weakness R53.1 COVID-19 U07.1 Ischemic stroke I63.9 Type 2 diabetes mellitus E11.9 Dementia F03.90
[2021-05-08] MEDS: ATORVASTATIN 40 MG TAB PO SCH (08:51)
[2021-05-08] MEDS: CHOLECALCIFEROL 1,000 UNITS 25 MCG TAB PO SCH (08:51)
[2021-05-08] MEDS: CLOPIDOGREL BISULFATE 75 MG TAB PO SCH (08:52)
[2021-05-08] MEDS: ENOXAPARIN INJ 40 MG/0.4 ML SYR SQ SCH (08:52)
[2021-05-08] MEDS: DOCUSATE SODIUM 100 MG CAP PO SCH (08:52)
[2021-05-08] MEDS: lamoTRIgine 25 MG TAB PO SCH (08:52)
[2021-05-08] MEDS: INSULIN ASPART PER UNIT SC SCH ×2 (08:54→12:20)
--- NOTE | 2021-05-08 16:44 | Discharge Summary ---
Date of Service May 08, 2021 Admission HPI Per Admitting Provider Patient is 75-year-old female with a past medical history of TIA, COVID-19, left carotid stenosis, essential hypertension, ischemic stroke in 2015, type 2 diabetes mellitus, pulmonary nodules, hyperlipidemia, dementia with parkinsonism, and seizure-like activity who presented to the emergency department by EMS and who was diagnosed with Covid this morning. Was found to have generalized weakness and falls, initially was discharged to home as patient was not hypoxic on representation to the ER family is concerned for continued weakness and inability to care. History is limited by dementia. Pt is pleasant and answers some questions, but is not oriented to place/ Discussed with her by phone. Is having 'weakness spells.' 2x falls yesterday and today. Had to call the ambulance to help her move. Seems to have globally progressive weakness. No cough, shortness of breath, dyspnea. She had 1 shot of Pfizer vaccination. Was due for the second one next week. Weakness has been worse for 2 days. Does not feel that he can care for her safely at home, and is concerned about her falls. No history of heart problems. No tobacco use history. No history of lung problems. Medical History: Reviewed Medications: Reviewed Surgical History: Reviewed Allergies: Reviewed PCP: Dr. Metz Social History: No tobacco, alcohol, or recreational drug. Code Status: Full Code and would want intubation for declining respiratory status. Principal Diagnosis Weakness from Covid-19 Discharge Exam Constitutional WD/WN, vitals as above Eyes EOM intact bilaterally; no conjunctival abnormality ENMT external ear and nose normal, oropharynx normal Neck trachea midline, no thyromegaly normal visual inspection Respiratory normal respiratory effort, lungs clear to auscultation no respiratory distress Cardiovascular RRR, no murmur, no edema Gastrointestinal (Abdomen) Inspection/Auscultation: abdomen normal to inspection; abdomen not distended Musculoskeletal no cyanosis or clubbing, extremities motor strength 5/5 Skin no rashes, warm and dry Neurologic moves all extremities and awake Psychiatric Orientation: alert, oriented to person and cooperative; + not oriented to place and + not oriented to time Discharge Data Allergies Allergy/AdvReac Type Severity Reaction Status Date / Time No Known Allergies Allergy Verified 05/02/21 17:45 Consultations 05/02/21 18:37 ED Decision to Admit Stat Hospital Course (1) Weakness: Weakness 2/2 Covid pneumonia. Four falls prior to admission. Patient initially seen in ER for weakness due to Covid and sent home, was back with concerns for falls and inability to care for patient. No hypoxia, dex/remdesivir/baricitinib not indicated. Covid positive, flu negative - PT/OT -> PT/OT recommend home with services and 24h care. and daughter both had Covid and felt they could receive her back with ability to care for her on Saturday. Patient discharged in baseline state of health. (2) Urinary retention: On day of discharge, she retained 450 mL and had to be straight cathed x 1. She did not retain again, but did not have much urine in bladder on scanning. - Urology referral outpatient made for a voiding trial (3) COVID-19: - As above (4) Ischemic stroke: History of CVD. CT head on admission with no acute findings. No focal neuro deficits appreciated at time of admission. Continue atorvastatin 40 mg daily Continue Plavix 75 mg daily (5) Type 2 diabetes mellitus: A1c this admission was 6.7%. Hold home metformin Sliding scale insulin - BSs have been 95 - 120 in last 24 hours. (6) Dementia: Pleasant, responsive; however, does not know location, date, or current situation. - Continue lamotrigine Delirium precautionsdietary supplementation with boost DVT prophylaxis: Lovenox 40 mg SQ QAM Total Time Total Time Spent Total Time Spent (In Minutes): 35 Discharge Plan Discharge Items Patient Disposition: Home - Home Health Services Reason For Visit: WEAKNESS, COVID19 Discharge Diagnosis: Covid-19, weakness Activity: Resume your previous activity Non-emergency contact: Primary Care Provider and Urologist Call non-emergency contact if: your symptoms worsen Follow-up/Referrals: Guy Metz III, MD [Primary Care Provider] - Jean Corrales, [Physician] - (Please see someone in the Urology office in 1-2 weeks to check on a voiding trial.) Diet: Carb Consistent or DM2 Addtl Attending Provider Instructions: Ms. Steven was in the hospital for weakness associated with Covid-19. She had no trouble with her breathing while in the hospital. She did have some urinary retention a single time. If there is any further concern for this, please see someone in the Urology office. The information has been attached. They can do a voiding trial to be sure she is not having back-up of urine in the bladder. Pending Studies at Discharge: No Stand-Alone Forms: My [facility], Smoking Cessation Medications and DC Order Prescriptions: Continued clopidogrel [Plavix] 75 mg tablet 75 mg PO DAILY Qty: 90 RF: 3 atorvastatin 40 mg tablet 40 mg PO QAM Qty: 90 RF: 1 docusate sodium [Colace] 100 mg capsule 100 mg PO BID 30 Days Qty: 60 RF: 6 cholecalciferol (vitamin D3) 25 mcg (1,000 unit) capsule 2,000 unit PO QAM RF: 0 lamotrigine [Lamictal] 25 mg tablet 50 mg PO BID Qty: 360 RF: 3 Boost 0.04 gram- 1 kcal/mL Liquid 1 ea PO DAILY RF: 0 metformin 500 mg tablet See Rx Instructions .ROUTE .COMPLEX RF: 0 Discharge Orders: Discharge Order (Routine); Ordered 05/08/21 Ordered By: Yeison Freedman Admission Data Admit Date/Time: 05/03/21 13:05 Attending Provider: Yeison Freedman Admit Provider: Heri Donahue Primary Care Provider: Guy Metz III Other Providers: Yeison Freedman Other Interventions: Discharge Summary Assessment (RN) Last Done: 05/08/21 16:16 Coding Level of Care Code D/C DAY MANAGEMENT >30 MINS Diagnoses Weakness R53.1 COVID-19 U07.1 Ischemic stroke I63.9 Type 2 diabetes mellitus E11.9 Dementia F03.90 Urinary retention R33.9
== END 2021-05-08 17:48 | disposition home health service (06) | DRG 177 ==
LOC: ED 17:23 → 2W 17:23 → SUATTDRO 19:10 → 2W 20:30 → SUATTDRO 05-03 13:05

== ENCOUNTER 2021-05-10 16:32 | Inpatient (IN) ==
[2021-05-10] MEDS ORDERED: SODIUM CHLORIDE 0.9% 500 ML IV SCH (19:00)
--- NOTE | 2021-05-10 19:46 | Emergency Department Note ---
History of Present Illness General Chief complaint: Illness Stated complaint: UNABLE TO VOID, CONSTIPATION Time Seen by Provider: 05/10/21 19:33 Source: patient and family () Mode of arrival: EMS History of Present Illness Provider complaint: Unable to urinate Onset (ago): day(s) 2 Location: genitals Pain Consistency: + constant Quality: + other (Has not urinated for 48 hours) Relieved By: + none Associated symptoms: + weakness; no chest pain, no cough, no fever/chills, no headaches, no nausea/vomiting or no shortness of breath This is a 75-year-old female who was recently discharged from the hospital 2 days ago for COVID-19 and generalized weakness. She is presenting today with i nability urinate for the past 2 days. Before she was discharged they had to catheterize her. Since she got home she has been unable to urinate. She has the urge to go but has been unable to do so. She also has not had a bowel movement. She has not been eating or drinking very much but this is not changed from prior to her admission. She denies any abdominal pain. She has had no vomiting. She denies any fever cough, chest pain or shortness of breath. She is vaccinated for COVID-19. She denies falling but does state that she is somewhat weak. Her states that she has been actually more energetic and able to do things after being discharged. Home Medications Medication Instructions Recorded Confirmed Type lamotrigine 25 mg tablet (Lamictal) 50 mg PO BID #360 tab 11/10/20 05/10/21 Rx metformin 500 mg tablet See Rx Instructions .ROUTE .COMPLEX 12/01/20 05/10/21 History cholecalciferol (vitamin D3) 25 2,000 unit PO QAM cap 03/06/21 05/10/21 History mcg (1,000 unit) capsule atorvastatin 40 mg tablet 40 mg PO QAM #90 tab 04/06/21 05/10/21 Rx clopidogrel 75 mg tablet (Plavix) 75 mg PO DAILY #90 tab 04/06/21 05/10/21 Rx docusate sodium 100 mg capsule 100 mg PO BID 30 Days #60 cap 05/08/21 05/10/21 Rx (Colace) Allergies Allergy/AdvReac Type Severity Reaction Status Date / Time No Known Allergies Allergy Verified 05/10/21 19:36 Past Med/Surg History Medical History Abdominal pain Closed subcapital fracture of neck of right femur Constipation Essential hypertension Hip fracture, right History of CVA (cerebrovascular accident) Hyperlipidemia Ischemic stroke (~2014) More than 50 percent stenosis of left internal carotid artery Rhabdomyolysis Stenosis of carotid artery Stroke Type 2 diabetes mellitus Vitamin D deficiency Surgical History History of cholecystectomy History of right hip hemiarthroplasty (~09/09/17) Dr. [place] Family History Sister Cardiac disorder Diabetes Hypertension Gallbladder disease Daughter Gallbladder disease Family/Other Myocardial infarction Gait abnormality Mother , in her 80s of stroke Diabetes Stroke Father , in early 90s of cerebral aneurysm Cerebral aneurysm Other Family history non-contributory Denies family history of Ovarian cancer Prostate cancer Breast cancer Colorectal cancer Social History Smoking Status: Never smoker Second Hand Exposure: No; Hx Alcohol Use: No Hx Substance Use: No Preferred Language: Gibralt[place] Communication Ability: Effective Hearing Ability: Normal [employer]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 and A total of 10 systems reviewed and were otherwise negative Physical Exam Vital Signs Vital Signs - 24 hr 05/10/21 16:38 05/10/21 19:25 05/10/21 21:06 Temperature 36.7 C Temperature Source Oral Pulse Rate 83 92 H Pulse Rate [Apical] 83 Pulse Rate from SpO2 Sensor 91 H Pulse Rhythm Regular Pulse Rhythm [Apical] Regular Pulse Strength Normal Respiratory Rate 18 16 23 Respiratory Effort / Characteristics Non-Labored Spontaneous Non-Labored Respiratory Depth Normal Normal Respiratory Pattern Regular Blood Pressure 106/62 Blood Pressure [Right Arm] 134/78 Blood Pressure Mean 76 Blood Pressure Mean [Right Arm] 96 Blood Pressure Position Sitting Pulse Oximetry 91 94 93 Oxygen Delivery Method Room Air Room Air Room Air Sepsis Recent Fever Within 48 Hours No Sepsis New/Unexplained Change in Mental Status No Sepsis Action Taken by Nursing No Action Required 05/10/21 21:10 05/10/21 21:20 05/10/21 21:38 Temperature Temperature Source Pulse Rate 88 101 H 92 H Pulse Rate [Apical] Pulse Rate from SpO2 Sensor 89 96 H 93 H Pulse Rhythm Pulse Rhythm [Apical] Pulse Strength Respiratory Rate 20 20 20 Respiratory Effort / Characteristics Respiratory Depth Respiratory Pattern Blood Pressure Blood Pressure [Right Arm] Blood Pressure Mean Blood Pressure Mean [Right Arm] Blood Pressure Position Pulse Oximetry 94 92 93 Oxygen Delivery Method Room Air Sepsis Recent Fever Within 48 Hours Sepsis New/Unexplained Change in Mental Status Sepsis Action Taken by Nursing 05/10/21 21:40 05/10/21 21:50 05/10/21 22:00 Temperature Temperature Source Pulse Rate 91 H 85 86 Pulse Rate [Apical] Pulse Rate from SpO2 Sensor 89 84 87 Pulse Rhythm Pulse Rhythm [Apical] Pulse Strength Respiratory Rate 20 20 20 Respiratory Effort / Characteristics Respiratory Depth Respiratory Pattern Blood Pressure 127/77 Blood Pressure [Right Arm] Blood Pressure Mean 93 Blood Pressure Mean [Right Arm] Blood Pressure Position Pulse Oximetry 93 94 94 Oxygen Delivery Method Room Air Sepsis Recent Fever Within 48 Hours Sepsis New/Unexplained Change in Mental Status Sepsis Action Taken by Nursing 05/10/21 22:10 05/10/21 22:21 05/10/21 22:30 Temperature Temperature Source Pulse Rate 82 78 81 Pulse Rate [Apical] Pulse Rate from SpO2 Sensor 81 80 81 Pulse Rhythm Pulse Rhythm [Apical] Pulse Strength Respiratory Rate 22 21 18 Respiratory Effort / Characteristics Respiratory Depth Respiratory Pattern Blood Pressure 133/67 Blood Pressure [Right Arm] Blood Pressure Mean 89 Blood Pressure Mean [Right Arm] Blood Pressure Position Pulse Oximetry 91 92 94 Oxygen Delivery Method Sepsis Recent Fever Within 48 Hours Sepsis New/Unexplained Change in Mental Status Sepsis Action Taken by Nursing 05/10/21 23:31 Temperature Temperature Source Pulse Rate 82 Pulse Rate [Apical] Pulse Rate from SpO2 Sensor Pulse Rhythm Pulse Rhythm [Apical] Pulse Strength Respiratory Rate 22 Respiratory Effort / Characteristics Respiratory Depth Respiratory Pattern Blood Pressure 115/62 Blood Pressure [Right Arm] Blood Pressure Mean 79 Blood Pressure Mean [Right Arm] Blood Pressure Position Pulse Oximetry 94 Oxygen Delivery Method Sepsis Recent Fever Within 48 Hours Sepsis New/Unexplained Change in Mental Status Sepsis Action Taken by Nursing Constitutional: Vital signs reviewed. Eyes: Pupils are equal round reactive to light. Conjunctiva are noninjected. ENT: Pharynx is clear without erythema or exudate. Mucous membranes are somewhat dry. Neck supple without meningeal signs. Respiratory: Clear to auscultation bilaterally. Breath sounds are equal bilaterally. Cardiovascular: Regular rate and rhythm. No rubs or gallops. GI: Soft, nondistended and nontender. Bowel sounds are present. Musculoskeletal: No peripheral edema. No lower extremity tenderness. Integumentary: No cyanosis. or jaundice. Neurological: The patient is awake and alert. No focal deficits. Psychiatric: Normal affect. Not anxious appearing. Course Administered Medications Sodium Chloride (Nss) 500 mls @ 80 mls/hr IV .Q6H15M [facility] Stop: 06/09/21 20:29 Last Admin: 05/10/21 21:08 Dose: 80 mls/hr Documented by: [id number] Discontinued Medications Sodium Chloride (Nss) 500 mls @ 999 mls/hr IV .Q31M [facility] Stop: 05/10/21 19:30 Last Infusion: 05/10/21 20:41 Dose: 0 mls/hr Documented by: [id number] Admin: 05/10/21 20:08 Dose: 999 mls/hr Documented by: [id number] Medical Decision Making Differential Diagnosis Urinary retention, UTI, SHANTELLE, dehydration, constipation Medical Records Attestation: I reviewed the patient's medical records. I did perform a limited focused review of portions of the patient's old chart on the electronic medical record. The patient was just admitted to the hospital for COVID-19 and generalized weakness with frequent falls. She was discharged 2 days ago and it was noted that she was unable to urinate with a bladder scan of 450 mL. She was straight cathed and advised to follow-up with urology for outpatient care. Home Medications Current Medication List: was personally reviewed by me Laboratory Data Attestation: I reviewed the patient's lab results. Result diagrams: 05/10/21 19:42 05/10/21 19:42 Lab Results 05/10/21 05/10/21 05/10/21 Range/Units 19:42 19:42 21:08 WBC 7.42 (4.8-10.8) K/uL RBC 4.59 (4.2-5.4) M/uL Hgb 13.8 (12.0-16.0) g/dL Hct 42.3 (37-47) % MCV 92.2 (80-100) fL MCH 30.1 (25-34) pg MCHC 32.6 (32-36) g/dL RDW Std Deviation 49.5 H (36.4-46.3) fL RDW Coeff of [place] 14.6 H (11.5-14.5) % Plt Count 300 (130-400) K/uL MPV 10.7 H (7.4-10.4) fL Immature Gran % (Auto) 0.0 % Neut % (Auto) 67.0 % Lymph % (Auto) 20.8 % Parmer % (Auto) 10.0 % Eos % (Auto) 1.5 % Baso % (Auto) 0.7 % Neut # (Auto) 4.98 (1.4-6.5) K/uL Lymph # (Auto) 1.54 (1.2-3.4) K/uL Parmer # (Auto) 0.74 H (0.11-0.59) K/uL Eos # (Auto) 0.11 (0-0.5) K/uL Baso # (Auto) 0.05 (0-0.2) K/uL Immature Gran # (Auto) 0.00 (0.00-0.02) K/uL Polychromasia 1+ Echinocytes 1+ Sodium 140 (136-145) mmol/L Potassium 3.7 (3.5-5.1) mmol/L Chloride 107 (98-107) mmol/L Carbon Dioxide 24 (21-32) mmol/L Anion Gap 9.0 (3-11) BUN 53 H (7-18) mg/dl Creatinine 1.76 H (0.6-1.2) mg/dl Est Cr Clr Drug Dosing 24.0 ml/min Est GFR ( Amer) 32.7 ml/min Est GFR (Non-Af Amer) 28.2 ml/min BUN/Creatinine Ratio 29.8 H (10-20) Glucose 166 H (70-99) mg/dl Calcium 9.6 (8.5-10.1) mg/dl Total Bilirubin 0.4 (0.2-1) mg/dl AST 34 (15-37) U/L ALT 30 (12-78) Alkaline Phosphatase 47 (45-117) U/L Total Protein 7.9 (6.4-8.2) gm/dl Albumin 3.6 (3.4-5.0) gm/dl Globulin 4.3 H (2.5-4.0) gm/dl Albumin/Globulin Ratio 0.8 L (0.9-2) Urine Color Dark Yellow Urine Appearance Clear (Clear) Urine pH 5.0 (4.5-7.5) Ur Specific Greenback 1.025 (1.000-1.030) Urine Protein Trace H (Negative) Urine Glucose (UA) Negative (Negative) Urine Ketones Trace H (Negative) Urine Blood Negative (Negative) Urine Nitrite Negative (Negative) Urine Bilirubin 1+ H (Negative) Urine Urobilinogen Negative (Negative) Ur Leukocyte Esterase Negative (Negative) Urine WBC (Auto) 1-5 (0-5) /hpf Urine RBC (Auto) 0-4 (0-4) /hpf U Hyaline Cast (Auto) 1-5 (0-5) /lpf U Epithel Cells (Auto) 5-10 H (0-5) /lpf Urine Bacteria (Auto) 2+ H (Negative) Imaging Data Radiologist's Impression: Chest/Abdomen X-ray 05/10/21 19:42 AP CHEST WITH ABDOMINAL SERIES CLINICAL HISTORY: Covid pneumonia. FINDINGS: An AP, portable, upright chest radiograph is compared to study dated 05/02/2021 and correlated with chest CT dated 04/28/2020. The cardiomediastinal silhouette is unremarkable noting atherosclerotic calcification of the thoracic aorta. Multifocal airspace consolidation is seen throughout both lungs, right greater than left. No large pleural effusion or pneumothorax is identified. The skeletal structures are osteopenic. The bony thorax is grossly intact. Supine and erect abdominal radiographs are correlated with abdominal CT dated 09/10/2017. There is a nonobstructed abdominal bowel gas pattern. There is mild gaseous distention of the colon. No bowel obstruction is identified. There are no abnormal abdominal calcifications. The lumbosacral spine and bony pelvis appear intact. There is lumbosacral spondylosis. Arthritic changes seen in the left hip. A right hip arthroplasty is in place. IMPRESSION: 1. Multifocal airspace consolidation is consistent with the reported history of a viral pneumonia. Radiographic follow-up to resolution is recommended. 2. Nonobstructed abdominal bowel gas pattern noting gaseous distention of the c olon. ACT 112: Negative or not required by law. Electronically signed by: Nilton Harley M.D. 05/10/2021 9:41 PM [facility] Patient: FARZANA JIMENEZ (Female) : 49 Status: ER Date: 05/10/21 21:40 Room #: History: eval for obstruction Slices: [id number] Priors: Tech: [email or web address] @ [id number] Exams: CT ABDOMEN & PELVIS Without Contrast Contrast: Accession Numbers: [id number] Referring Physician: REFERRED SELF Preliminary Findings Only See Final Report For Complete Findings CT ABDOMEN & PELVIS Without Contrast: Comparison: CT abdomen pelvis with contrast 09/10/17 Impression: Examination is limited by absence of intravenous and oral contrast. No evidence of small bowel obstruction. No significant bowel wall thickening. No significant free fluid or free air in the abdomen or pelvis. Multifocal opacities within the partially imaged lung bases may represent an acute infectious/inflammatory process such as pneumonia which may include Covid pneumonia. Incidental findings: Status post cholecystectomy with stable intrahepatic and extra hepatic biliary dilatation. Fatty infiltration of the pancreas. Zavala catheter in place within a decompressed urinary bladder. Right total hip arthroplasty. Stable ventral abdominal wall hernia containing fat Radiologist: Sanjuana Garcia M.D. Study ready at 21:45 and initial results transmitted at 22:35 [facility] Narrative I did evaluate the patient as noted above. The patient recently was discharged for COVID-19. She did not receive any therapeutics. She was mostly admitted for weakness. She is back today because she has not urinated for the past 48 hours. Her states that she has not really been eating or drinking very much since she got Covid. She did have to have a straight cath prior to discharge 2 days ago due to urinary retention. A Zavala catheter was placed and she only drained about 200 cc of dark urine. IV access was established. I did treat her with normal saline IV. I did place an order for continuous cardiac monitoring. The monitor showed normal sinus rhythm at a rate of 80 bpm. I did order and personally reviewed the images of the patient's chest and abdominal x- rays as described above. She appears to have a multifocal pneumonia. She has a significant amount of bowel gas. I did order a urine analysis. She does not have a UTI. I did order and review the patient's blood work as noted in the electronic medical record. Her white count is not elevated. She is not thrombocytopenic or anemic. Her electrolytes are unremarkable. Creatinine is elevated at 1.76. Previous creatinine was less than 0.8. BUN is 53. LFTs are unremarkable. I did order a CT of the abdomen and pelvis. I did review the lula ges myself as well as the radiology report as described above. There is no evidence of obstruction. The patient will be hospitalized for further care and evaluation. Her kidney injury is likely prerenal. I did discuss the test results with the patient as well as her over the telephone. I did discuss the case with the hospitalist and case briefer. Impression & Plan SHANTELLE (acute kidney injury), Multifocal pneumonia, Pneumonia due to 2019 novel coronavirus Discharge Plan Visit Data Chief Complaint: Illness Stated Complaint: UNABLE TO VOID, CONSTIPATION ED Provider: Yo Merrill Discharge Problem: SHANTELLE (acute kidney injury), Multifocal pneumonia, Pneumonia due to 2019 novel coronavirus Patient Disposition: Being Evaluated by Hospitalist Forms Stand Alone Forms: My [facility] Prescriptions Prescriptions: No Action clopidogrel [Plavix] 75 mg tablet 75 mg PO DAILY Qty: 90 RF: 3 atorvastatin 40 mg tablet 40 mg PO QAM Qty: 90 RF: 1 docusate sodium [Colace] 100 mg capsule 100 mg PO BID 30 Days Qty: 60 RF: 6 cholecalciferol (vitamin D3) 25 mcg (1,000 unit) capsule 2,000 unit PO QAM RF: 0 lamotrigine [Lamictal] 25 mg tablet 50 mg PO BID Qty: 360 RF: 3 metformin 500 mg tablet See Rx Instructions .ROUTE .COMPLEX RF: 0 Referrals Referrals: Guy Metz III, MD [Primary Care Provider] -
[2021-05-10 19:56] LABS: Hematocrit (blood only) 42.3 % (37-47); Hemoglobin 13.8 g/dL (12.0-16.0); Mean Corpuscular Hemoglobin 30.1 pg (25-34); Mean Corpuscular Hgb Conc 32.6 g/dL (32-36); Mean Corpuscular Volume 92.2 fL (80-100); Mean Platelet Volume 10.7 fL (7.4-10.4); Platelet Count 300 K/uL (130-400); RDW Coefficient of Variation 14.6 % (11.5-14.5); RDW Standard Deviation 49.5 fL (36.4-46.3); Red Blood Count 4.59 M/uL (4.2-5.4); White Blood Count 7.42 K/uL (4.8-10.8)
[2021-05-10 20:13] LABS: Albumin Level 3.6 gm/dl (3.4-5.0); BUN Creatinine Ratio 29.8 (10-20); Calcium 9.6 mg/dl (8.5-10.1); Est GFR (African American) 32.7 ml/min; Est GFR (Non-African American) 28.2 ml/min; Potassium 3.7 mmol/L (3.5-5.1)
[2021-05-10 20:16] LABS: Albumin Globulin Ratio 0.8 (0.9-2); Bilirubin,Total 0.4 mg/dl (0.2-1); Globulin 4.3 gm/dl (2.5-4.0); Total Protein 7.9 gm/dl (6.4-8.2)
[2021-05-10 20:27] LABS: Basophils # (auto) 0.05 K/uL (0-0.2); Basophils % (auto) 0.7 %; Echinocytes 1+; Eosinophils # (auto) 0.11 K/uL (0-0.5); Eosinophils % (auto) 1.5 %; Lymphocytes # (auto) 1.54 K/uL (1.2-3.4); Lymphocytes % (auto) 20.8 %; Monocytes # (auto) 0.74 K/uL (0.11-0.59); Neutrophils # (auto) 4.98 K/uL (1.4-6.5); Polychromasia 1+
[2021-05-10] MEDS: SODIUM CHLORIDE 0.9% 500 ML IV SCH (21:08)
[2021-05-10 21:25] LABS: Appearance Urine Clear (Clear); Bacteria Urine Automated 2+ (Negative); Blood Urine Negative (Negative); Color Urine Dark Yellow; Glucose Urine UA Negative (Negative); Ketones Urine Trace (Negative); Leukocyte Esterase Urine Negative (Negative); Nitrite Urine Negative (Negative); Protein Urine Trace (Negative); Specific Gravity Urine 1.025 (1.000-1.030); Urobilinogen Urine Negative (Negative)
--- NOTE | 2021-05-10 21:42 | XRay Report ---
AP CHEST WITH ABDOMINAL SERIES CLINICAL HISTORY: Covid pneumonia. FINDINGS: An AP, portable, upright chest radiograph is compared to study dated 05/02/2021 and correlated with c hest CT dated 04/28/2020. The cardiomediastinal silhouette is unremarkable noting atherosclerotic rossy cification of the thoracic aorta. Multifocal airspace consolidation is seen throughout both lungs, ri ght greater than left. No large pleural effusion or pneumothorax is identified. The skeletal structur es are osteopenic. The bony thorax is grossly intact. Supine and erect abdominal radiographs are correlated with abdominal CT dated 09/10/2017. There is a no nobstructed abdominal bowel gas pattern. There is mild gaseous distention of the colon. No bowel obst ruction is identified. There are no abnormal abdominal calcifications. The lumbosacral spine and bony pelvis appear intact. There is lumbosacral spondylosis. Arthritic changes seen in the left hip. A ri ght hip arthroplasty is in place. IMPRESSION: 1. Multifocal airspace consolidation is consistent with the reported history of a viral pneumonia. Ra diographic follow-up to resolution is recommended. 2. Nonobstructed abdominal bowel gas pattern noting gaseous distention of the colon. ACT 112: Negative or not required by law. Electronically signed by: Nilton Harley M.D. 05/10/2021 9:41 PM
[2021-05-10 21:50] LABS: Bilirubin Urine 1+ (Negative)
[2021-05-10 21:54] LABS: RBC Urine Automated 0-4 /hpf (0-4)
--- NOTE | 2021-05-10 23:56 | History & Physical Report ---
Date of Service May 10, 2021 Assessment & Plan (1) Multifocal pneumonia: Plan: Multifocal pneumonia/COVID-19 pneumonia on May 02, 2021/hypoxia Dexamethasone 6 mg IV every morning Nasal cannula oxygen, titrate to keep pulse ox 94-95% Vitamin D 5000 international units p.o. every morning Zinc sulfate 200 mg p.o. every morning Azithromycin 500 mg IV daily Consider for necessity for rehab facility upon discharge (2) Pneumonia due to 2019 novel coronavirus: Plan: See above (3) Hypoxia: Plan: See above (4) SHANTELLE (acute kidney injury): Plan: Creatinine 1.76 upon admission, with baseline 0.79 Continue NSS at 80 mils per hour Repeat laboratories in a.m. (5) UTI (urinary tract infection): Plan: Follow urine culture and sensitivity Ceftriaxone 1 g IV daily (6) Seizure-like activity: Plan: Continue lamotrigine 50 mg p.o. twice daily (7) Hypercholesteremia: Plan: Continue atorvastatin 40 mg in the morning (8) Type 2 diabetes mellitus: Plan: Hold Metformin Place on Accu-Cheks before meals and at bedtime with NovoLog coverage per scale (9) Parkinsonism: Plan: On no specific treatment History of Present Illness Chief Complaint: The patient presents the emergency department with complaint of inability to urinate , and no bowel movement, since being discharged from the hospital on 05/08. Primary Care Provider: Guy Metz MD The patient is a 75-year-old female with a past medical history including generalized weakness, TIA, hyperlipidemia, vitamin 12 deficiency, left carotid stenosis, hypertension, ischemic stroke, days mellitus type II, vitamin D deficiency, pulmonary nodule, dementia, seizure-like activity and parkinsonism. She was most recently admitted to [facility] from 05/02-05/08 for COVID-19 pneumonia. She presents to the ED with inability urinate and have a bowel movement since being discharged on 05/08. She continues to have decreased oral intake, which is unchanged from prior to admission. She continues to be very weak, and does not move much at home. Her reports that she has been more energetic and able to do a few more things at home since being discharged. Allergies Allergy/AdvReac Type Severity Reaction Status Date / Time No Known Allergies Allergy Verified 05/10/21 19:36 Home Medications Medication Instructions Recorded Confirmed Type lamotrigine 25 mg tablet (Lamictal) 50 mg PO BID #360 tab 11/10/20 05/10/21 Rx metformin 500 mg tablet See Rx Instructions .ROUTE .COMPLEX 12/01/20 05/10/21 History cholecalciferol (vitamin D3) 25 2,000 unit PO QAM cap 03/06/21 05/10/21 History mcg (1,000 unit) capsule atorvastatin 40 mg tablet 40 mg PO QAM #90 tab 04/06/21 05/10/21 Rx clopidogrel 75 mg tablet (Plavix) 75 mg PO DAILY #90 tab 04/06/21 05/10/21 Rx docusate sodium 100 mg capsule 100 mg PO BID 30 Days #60 cap 05/08/21 05/10/21 Rx (Colace) Past Med/Surg History Medical History Abdominal pain Closed subcapital fracture of neck of right femur Constipation Essential hypertension Hip fracture, right History of CVA (cerebrovascular accident) Hyperlipidemia Ischemic stroke (~2014) More than 50 percent stenosis of left internal carotid artery Rhabdomyolysis Stenosis of carotid artery Stroke Type 2 diabetes mellitus Vitamin D deficiency Surgical History History of cholecystectomy History of right hip hemiarthroplasty (~09/09/17) Dr. [place] Family History Sister Cardiac disorder Diabetes Hypertension Gallbladder disease Daughter Gallbladder disease Family/Other Myocardial infarction Gait abnormality Mother , in her 80s of stroke Diabetes Stroke Father , in early 90s of cerebral aneurysm Cerebral aneurysm Other Family history non-contributory Denies family history of Ovarian cancer Prostate cancer Breast cancer Colorectal cancer Social History Smoking Status: Never smoker Second Hand Exposure: No; Hx Alcohol Use: No Hx Substance Use: No Preferred Language: Sudanese Communication Ability: Effective Hearing Ability: Normal General Counselor Required: No Beliefs That Will Affect Care: None marital status: Current Living Situation: Spouse current occupational status: retired How many Children do You have: 3 Feels Safe at Home: Yes Physical Activity Frequency: Does not Exercise Seatbelt Use: always Sunscreen Use: No Assistive Devices: None Review of Systems Review of Systems: The patient denies chest pain, palpitations, cough, lower extremity swelling, sore throat, fevers, chills, sweats, nausea, vomiting, diarrhea , constipation, abdominal pain, pelvic pain, blood in urine or stool, dysuria, urinary frequency or urgency, lightheadedness, dizziness, headache, memory loss, loss of consciousness, rash, abnormal bruising or bleeding, focal weakness, numbness or tingling in arms or legs, generalized arthralgias or myalgias, back or neck pain, or night sweats. The review of systems is otherwise negative other than for that already noted above, and at least 10 systems have been reviewed. Physical Exam Physical Exam: The patient is awake, lethargic but responsive, normocephalic and atraumatic, lying in bed and in no acute distress. HEENT--PERRL, EOMI, mucous membranes and oropharynx dry. Neck--supple. No JVD. No bruits. Thyroid normal, trachea midline, no adenopathy. Heart--normal S1 and S2. No murmurs, rubs or gallops. Lungs--clear bilaterally, no respiratory distress, no accessory muscle use. Abdomen--normal bowel sounds and soft. Nontender. Nondistended. Morbidly obese Extremities--no cyanosis or clubbing. No edema. Dermatologic--normal skin turgor, normal color, no abnormal lymph nodes, no rash. Neurologic--cranial nerves II through XII grossly intact. Rheumatologic-- limited exam due to body habitus Psychiatric--flat affect. Results & Data Results & Data ([facility]) Vital Signs (Past 12 Hours) Vital Signs Temp Pulse Pulse Resp BP BP Pulse Ox 05/10/21 23:31 82 22 115/62 94 05/10/21 22:30 81 18 133/67 94 05/10/21 22:21 78 21 92 05/10/21 22:10 82 22 91 05/10/21 22:00 86 20 127/77 94 05/10/21 21:50 85 20 94 05/10/21 21:40 91 H 20 93 05/10/21 21:38 92 H 20 93 05/10/21 21:20 101 H 20 92 05/10/21 21:10 88 20 94 05/10/21 21:06 92 H 23 93 05/10/21 19:25 83 16 134/78 94 05/10/21 16:38 36.7 C 83 18 106/62 91 Laboratory Results Laboratory Results WBC 7.42 K/uL (4.8-10.8) 05/10/21 19:42 RBC 4.59 M/uL (4.2-5.4) 05/10/21 19:42 Hgb 13.8 g/dL (12.0-16.0) 05/10/21 19:42 Hct 42.3 % (37-47) 05/10/21 19:42 MCV 92.2 fL (80-100) 05/10/21 19:42 MCH 30.1 pg (25-34) 05/10/21 19:42 MCHC 32.6 g/dL (32-36) 05/10/21 19:42 RDW Std Deviation 49.5 fL (36.4-46.3) H 05/10/21 19:42 RDW Coeff of [place] 14.6 % (11.5-14.5) H 05/10/21 19:42 Plt Count 300 K/uL (130-400) 05/10/21 19:42 MPV 10.7 fL (7.4-10.4) H 05/10/21 19:42 Immature Gran % (Auto) 0.0 % 05/10/21 19:42 Neut % (Auto) 67.0 % 05/10/21 19:42 Lymph % (Auto) 20.8 % 05/10/21 19:42 [place] % (Auto) 10.0 % 05/10/21 19:42 Eos % (Auto) 1.5 % 05/10/21 19:42 Baso % (Auto) 0.7 % 05/10/21 19:42 Neut # (Auto) 4.98 K/uL (1.4-6.5) 05/10/21 19:42 Lymph # (Auto) 1.54 K/uL (1.2-3.4) 05/10/21 19:42 [place] # (Auto) 0.74 K/uL (0.11-0.59) H 05/10/21 19:42 Eos # (Auto) 0.11 K/uL (0-0.5) 05/10/21 19:42 Baso # (Auto) 0.05 K/uL (0-0.2) 05/10/21 19:42 Immature Gran # (Auto) 0.00 K/uL (0.00-0.02) 05/10/21 19:42 Polychromasia 1+ 05/10/21 19:42 Echinocytes 1+ 05/10/21 19:42 Sodium 140 mmol/L (136-145) 05/10/21 19:42 Potassium 3.7 mmol/L (3.5-5.1) 05/10/21 19:42 Chloride 107 mmol/L (98-107) 05/10/21 19:42 Carbon Dioxide 24 mmol/L (21-32) 05/10/21 19:42 Anion Gap 9.0 (3-11) 05/10/21 19:42 BUN 53 mg/dl (7-18) H 05/10/21 19:42 Creatinine 1.76 mg/dl (0.6-1.2) H 05/10/21 19:42 Est Cr Clr Drug Dosing 24.0 ml/min 05/10/21 19:42 Est GFR ( Amer) 32.7 ml/min 05/10/21 19:42 Est GFR (Non-Af Amer) 28.2 ml/min 05/10/21 19:42 BUN/Creatinine Ratio 29.8 (10-20) H 05/10/21 19:42 Glucose 166 mg/dl (70-99) H 05/10/21 19:42 Calcium 9.6 mg/dl (8.5-10.1) 05/10/21 19:42 Total Bilirubin 0.4 mg/dl (0.2-1) 05/10/21 19:42 AST 34 U/L (15-37) 05/10/21 19:42 ALT 30 (12-78) 05/10/21 19:42 Alkaline Phosphatase 47 U/L (45-117) 05/10/21 19:42 Total Protein 7.9 gm/dl (6.4-8.2) 05/10/21 19:42 Albumin 3.6 gm/dl (3.4-5.0) 05/10/21 19:42 Globulin 4.3 gm/dl (2.5-4.0) H 05/10/21 19:42 Albumin/Globulin Ratio 0.8 (0.9-2) L 05/10/21 19:42 Urine Color Dark Yellow 05/10/21 21:08 Urine Appearance Clear (Clear) 05/10/21 21:08 Urine pH 5.0 (4.5-7.5) 05/10/21 21:08 Ur Specific [place] 1.025 (1.000-1.030) 05/10/21 21:08 Urine Protein Trace (Negative) H 05/10/21 21:08 Urine Glucose (UA) Negative (Negative) 05/10/21 21:08 Urine Ketones Trace (Negative) H 05/10/21 21:08 Urine Blood Negative (Negative) 05/10/21 21:08 Urine Nitrite Negative (Negative) 05/10/21 21:08 Urine Bilirubin 1+ (Negative) H 05/10/21 21:08 Urine Urobilinogen Negative (Negative) 05/10/21 21:08 Ur Leukocyte Esterase Negative (Negative) 05/10/21 21:08 Urine WBC (Auto) 1-5 /hpf (0-5) 05/10/21 21:08 Urine RBC (Auto) 0-4 /hpf (0-4) 05/10/21 21:08 U Hyaline Cast (Auto) 1-5 /lpf (0-5) 05/10/21 21:08 U Epithel Cells (Auto) 5-10 /lpf (0-5) H 05/10/21 21:08 Urine Bacteria (Auto) 2+ (Negative) H 05/10/21 21:08 Impressions Chest/Abdomen X-ray 05/10/21 19:42 AP CHEST WITH ABDOMINAL SERIES CLINICAL HISTORY: Covid pneumonia. FINDINGS: An AP, portable, upright chest radiograph is compared to study dated 05/02/2021 and correlated with chest CT dated 04/28/2020. The cardiomediastinal silhouette is unremarkable noting atherosclerotic calcification of the thoracic aorta. Multifocal airspace consolidation is seen throughout both lungs, right greater than left. No large pleural effusion or pneumothorax is identified. The skeletal structures are osteopenic. The bony thorax is grossly intact. Supine and erect abdominal radiographs are correlated with abdominal CT dated 09/10/2017. There is a nonobstructed abdominal bowel gas pattern. There is mild gaseous distention of the colon. No bowel obstruction is identified. There are no abnormal abdominal calcifications. The lumbosacral spine and bony pelvis appear intact. There is lumbosacral spondylosis. Arthritic changes seen in the left hip. A right hip arthroplasty is in place. IMPRESSION: 1. Multifocal airspace consolidation is consistent with the reported history of a viral pneumonia. Radiographic follow-up to resolution is recommended. 2. Nonobstructed abdominal bowel gas pattern noting gaseous distention of the colon. ACT 112: Negative or not required by law. Electronically signed by: Nilton Harley M.D. 05/10/2021 9:41 PM Code Status & VTE Plan Code Status Full code VTE Prophylaxis Plan VTE Prophylaxis will be ordered: Yes PG Care Time/CCT Total # of Minutes Spent Total Time Spent with Patient: Total time spent is greater than 50% in coordination of care (as documented) at patient's floor/unit and/or counseling patient: Coding Level of Care Code 36574 Initial Inpt Care Lvl 3 Diagnoses SHANTELLE (acute kidney injury) N17.9 Parkinsonism G20 Seizure-like activity R56.9 Hypercholesteremia E78.00 Type 2 diabetes mellitus E11.9 UTI (urinary tract infection) N39.0 Multifocal pneumonia J18.9 Pneumonia due to 2019 novel coronavirus U07.1; J12.82 Hypoxia R09.02
[2021-05-11] MEDS ORDERED: ACETAMINOPHEN 325 MG TAB PO PRN (02:00)
[2021-05-11] MEDS ORDERED: ONDANSETRON INJ 2 MG/ML 2 ML VIAL IV PRN (02:00)
[2021-05-11] MEDS: lamoTRIgine 25 MG TAB PO SCH ×3 (02:43→20:21)
[2021-05-11] MEDS: AZITHROMYCIN 500 MG in DEXTROSE 5% 250 ML IV SCH (02:44)
[2021-05-11] MEDS: dexAMETHasone 6 MG in SYRINGE 0 ML IV SCH ×2 (02:44→08:30)
[2021-05-11] MEDS: SODIUM CHLORIDE 0.9% 500 ML IV SCH (05:04)
[2021-05-11] MEDS: cefTRIAXone SODIUM 1,000 MG in DEXTROSE 5% 50 ML IV SCH (05:08)
[2021-05-11] MEDS: SODIUM CHLORIDE 0.9% 1000ML 1,000 ML IV SCH ×2 (05:13→17:52)
[2021-05-11 05:24] LABS: Basophils # (auto) 0.01 K/uL (0-0.2); Basophils % (auto) 0.2 %; Eosinophils # (auto) 0.08 K/uL (0-0.5); Eosinophils % (auto) 1.2 %; Hematocrit (blood only) 38.6 % (37-47); Hemoglobin 12.5 g/dL (12.0-16.0); Immature Granulocytes # (auto) 0.01 K/uL (0.00-0.02); Immature Granulocytes % (auto) 0.2 %; Lymphocytes # (auto) 0.86 K/uL (1.2-3.4); Lymphocytes % (auto) 13.2 %; Mean Corpuscular Hemoglobin 30.3 pg (25-34); Mean Corpuscular Hgb Conc 32.4 g/dL (32-36); Mean Corpuscular Volume 93.7 fL (80-100); Mean Platelet Volume 10.6 fL (7.4-10.4); Monocytes # (auto) 0.31 K/uL (0.11-0.59); Monocytes % (auto) 4.8 %; Neutrophils # (auto) 5.25 K/uL (1.4-6.5); Neutrophils % (auto) 80.4 %; Platelet Count 276 K/uL (130-400); RDW Coefficient of Variation 14.6 % (11.5-14.5); RDW Standard Deviation 50.3 fL (36.4-46.3); Red Blood Count 4.12 M/uL (4.2-5.4); White Blood Count 6.52 K/uL (4.8-10.8)
[2021-05-11 05:45] LABS: Albumin Level 3.1 gm/dl (3.4-5.0); BUN Creatinine Ratio 32.1 (10-20); Calcium 8.8 mg/dl (8.5-10.1); Creatinine Clr Calc Pharmacy 34.6 ml/min; Est GFR (African American) 50.9 ml/min; Est GFR (Non-African American) 43.9 ml/min; Potassium 3.8 mmol/L (3.5-5.1)
[2021-05-11 05:47] LABS: Albumin Globulin Ratio 0.8 (0.9-2); Bilirubin,Total 0.4 mg/dl (0.2-1); Globulin 3.8 gm/dl (2.5-4.0); Total Protein 6.9 gm/dl (6.4-8.2)
--- NOTE | 2021-05-11 07:25 | CT Scan Report ---
ABDOMEN AND PELVIS CT WITHOUT CONTRAST CT DOSE: 824.00 mGy.cm HISTORY: Acute generalized abdominal pain with possible small bowel obstruction eval for obatruciton TECHNIQUE: Multiaxial CT images of the abdomen and pelvis were performed without contrast. A dose lo wering technique was utilized adhering to the principles of ALARA. COMPARISON STUDY: Acute abdominal series radiographs of same day, CT abdomen and pelvis 09/10/2017, [facility] CT 04/28/2020 FINDINGS: Limited exam secondary to upper extremity positioning and lack of contrast . Cardiomegaly with coronary artery calcifications. Partially imaged groundglass and consolidative op acities of the lungs. No pneumatosis or pneumoperitoneum. The unenhanced spleen, mildly atrophic panc reas and adrenal glands are unremarkable. Cholecystectomy with likely postsurgical dilation of the in trahepatic and extrahepatic biliary tree. Unremarkable liver. 3 mm calcification of the interpolar left kidney, possibly vascular. No ureteral calculi or hydroneph rosis. Decompressed or bladder with Zavala catheter in place. Intraluminal air in the bladder is likel y secondary to instrumentation. The uterus appears prominent in size for patient age. Atherosclerosis of the aorta without aneurysm. There is no adenopathy. No bowel obstruction or bowel wall thickening. Moderate fecal retention. Colonic diverticulosis witho ut acute diverticulitis. There is mild gaseous distention of the right hemicolon. There is no CT evid ence of acute appendicitis. Unchanged small ventral abdominal wall hernia.. Right hip total joint art hroplasty. Degenerative changes of the spine, pelvis and hips. Chronic mild T12 compression deformity without retropulsion. IMPRESSION: 1. Partially imaged bibasilar groundglass and consolidative opacities are compatible with viral pneum onia. 2. No bowel obstruction or bowel wall thickening. 3. Additional findings as above. ACT 112: Negative or not required by law. The above report was generated using voice recognition software. It may contain grammatical, syntax o r spelling errors. Electronically signed by: Jeremias Vazquez M.D. 05/11/2021 7:23 AM
[2021-05-11] MEDS: ATORVASTATIN 40 MG TAB PO SCH (08:29)
[2021-05-11] MEDS: CHOLECALCIFEROL 1,000 UNITS 25 MCG TAB PO SCH (08:29)
[2021-05-11] MEDS: CLOPIDOGREL BISULFATE 75 MG TAB PO SCH (08:29)
[2021-05-11] MEDS: ENOXAPARIN INJ 30 MG/0.3 ML SYR SQ SCH (08:30)
[2021-05-11] MEDS: DOCUSATE SODIUM 100 MG CAP PO SCH ×2 (08:30→20:21)
[2021-05-11] MEDS ORDERED: bisacodyL 10 MG SUPP PR STA (11:05)
--- NOTE | 2021-05-11 14:08 | Hospitalist Progress Note ---
Date of Service May 11, 2021 Assessment & Plan (1) Pneumonia due to 2019 novel coronavirus: Plan: mild on imaging O2 sats low 90s since presentation was initiated on dexamethasone by admitting physician reasonable to continue such given her low-normal O2 sats day #2 today of IV dexamethasone 6mg (2) SHANTELLE (acute kidney injury): Plan: Creatinine 1.76 upon admission, with baseline 0.79 Continue IV fluids overnight repeat BMP am 2nd to poor oral intake at home following her recent admission for COVID-19 (3) Seizure-like activity: Plan: Continue lamotrigine 50 mg p.o. twice daily NO recent seizure activity reported (4) Hypercholesteremia: Plan: Continue atorvastatin 40mg daily given prior stroke LFTs wnl (5) Type 2 diabetes mellitus: Plan: Hold Metformin most recent HbA1C 6.7% BSGs have been <150 consistently due to poor PO intake may be able to control this without any meds or insulin (6) Parkinsonism: Plan: On no specific treatment for such (7) UTI (urinary tract infection): Plan: concern for such at admission was on rocephin urine culture negative stop the rocephin (8) Constipation: Plan: abd x-rays with moderate-severe distal stool dulcolax suppos not effective give fleets MO x 1 then will need bowel maintenance has mild colonic ileus on imaging due to the severe constipation these issues are the likely cause of her abd distension on exam and mild discomfort noted today (9) Vitamin B12 deficiency: Plan: check b12 level in am to ensure levels are adequate (10) Essential hypertension: Plan: on no meds for such at home, and BPs are controlled thus far monitor (11) History of CVA (cerebrovascular accident): Plan: noted continue statin and plavix for secondary prevention (12) Dementia: Plan: appears quite advanced requires 24/7 care by at her home (13) Ileus: Plan: mild, colonic - 2nd to severe constipation see above (14) DVT prophylaxis: Plan: lovenox daily (15) Severe protein-calorie malnutrition: Plan: weight in 11/2020 was 82 kg weight today 65 kg likely severe failure to thrive from advanced dementia pt's told me by phone today that even prior to her COVID illness she was eating very little will need to address goals of care, code status, etc in light of this very, very poor prognosis (16) Failure to thrive: Plan: 2nd advanced dementia see above (17) Chronic kidney disease, stage 3a: Plan: baseline CrCl 50s repeat BMP am Plan: extensively updated pt's by phone explained that when she returned home after her previous admission for COVID she had ongoing failure to thrive because of the COVID illness in the context of her chronic issues/dementia explained that she could have 2-3 more weeks or more of recovery from COVID also expressed my concerns that her failure to thrive will persist again will need to address goals of care, code status, etc during this stay Admission and Anticipated Discharge Date Admission Date: May 10, 2021 Subjective saw patient in the ER (was on "admission" status but awaiting bed on floor) today upon arrival she was resting comfortably she was confused, unable to provide any meaningful history or ROS she had pulled out her IV and it was laying on the bed no bleeding from IV site fortunately staff report she had had no results with the dulcolax suppository spoke with - he reports that upon hospital discharge recently she did poorly at home - very little appetite, couldn't have bowel movement, couldn't void Review of Systems Review of Systems: Unobtainable due to cognitive status Physical Exam Physical Exam: gen - looks dehydrated, chronically unwell in appearance, and very confused but no agitation during the exam; did follow commands mouth - MM dry neck - no JVD heart - RRR, s1 s2 lungs - occasional rales but no wheeze, good air movement, no distress abd - very distended, mildly tender b/l lower quadrants, large hernia in suprapubic region (reducible) ext - severe muscle wasting of b/l legs; trace edema on right, none on left; pulses 1+ b/l, cool feet skin - turgor poor, no rash neuro - mild resting tremor of right arm Results & Data Results & Data ([facility]) Vital Signs (Past 12 Hours) Vital Signs Pulse Resp BP Pulse Ox 05/11/21 04:00 76 18 120/63 94 05/11/21 03:30 16 109/62 93 05/11/21 03:00 83 20 131/83 94 05/11/21 02:30 79 126/81 95 Laboratory Results Laboratory Results - last 24 hr 05/11/21 05/11/21 05/11/21 04:59 16:27 20:03 Sodium 139 Potassium 3.8 Chloride 110 H Carbon Dioxide 23 Anion Gap 6.0 BUN 39 H Creatinine 1.22 H D Est Cr Clr Drug Dosing 34.6 Est GFR ( Amer) 50.9 Est GFR (Non-Af Amer) 43.9 BUN/Creatinine Ratio 32.1 H Glucose 133 H POC Glucose 95 124 H Calcium 8.8 Total Bilirubin 0.4 AST 32 ALT 27 Alkaline Phosphatase 43 L Total Protein 6.9 Albumin 3.1 L Globulin 3.8 Albumin/Globulin Ratio 0.8 L Diagnostic Findings urine culture NEGATIVE PG Care Time/CCT Total # of Minutes Spent Total Time Spent with Patient: Total time spent is greater than 50% in coordination of care (as documented) at patient's floor/unit and/or counseling patient: Coding Level of Care Code 57898 Subseq Hosp Care Lvl 3 Diagnoses Pneumonia due to 2019 novel coronavirus U07.1; J12.82 SHANTELLE (acute kidney injury) N17.9 Seizure-like activity R56.9 Hypercholesteremia E78.00 Type 2 diabetes mellitus E11.9 Parkinsonism G20 UTI (urinary tract infection) N39.0 Constipation K59.00 Vitamin B12 deficiency E53.8 Essential hypertension I10 History of CVA (cerebrovascular accident) Z86.73 Dementia F03.90 Ileus K56.7 DVT prophylaxis Z29.9 Severe protein-calorie malnutrition E43 Failure to thrive Chronic kidney disease, stage 3a N18.31
[2021-05-11] MEDS ORDERED: SOD PHOSPHATE/SOD BIPHOSPHATE ENEMA 132 ML BTL PR ONE (15:51)
[2021-05-11] MEDS ORDERED: MICONAZOLE NITRATE POWDER 43 GM EXT PRN (16:30)
[2021-05-12] MEDS: AZITHROMYCIN 500 MG in DEXTROSE 5% 250 ML IV SCH (01:09)
[2021-05-12] MEDS: cefTRIAXone SODIUM 1,000 MG in DEXTROSE 5% 50 ML IV SCH (03:21)
[2021-05-12 07:24] LABS: C Reactive Protein 1.55 mg/dl (0-0.29); Calcium 8.3 mg/dl (8.5-10.1); Est GFR (African American) 83.5 ml/min; Est GFR (Non-African American) 72.1 ml/min; Potassium 3.6 mmol/L (3.5-5.1)
[2021-05-12] MEDS: DOCUSATE SODIUM 100 MG CAP PO SCH ×2 (08:38→21:11)
[2021-05-12] MEDS: CHOLECALCIFEROL 1,000 UNITS 25 MCG TAB PO SCH (08:38)
[2021-05-12] MEDS: lamoTRIgine 25 MG TAB PO SCH ×2 (08:38→21:11)
[2021-05-12] MEDS: CLOPIDOGREL BISULFATE 75 MG TAB PO SCH (08:38)
[2021-05-12] MEDS: dexAMETHasone 6 MG in SYRINGE 0 ML IV SCH (08:39)
[2021-05-12] MEDS: ATORVASTATIN 40 MG TAB PO SCH (08:39)
[2021-05-12] MEDS: ENOXAPARIN INJ 30 MG/0.3 ML SYR SQ SCH (10:19)
--- NOTE | 2021-05-12 12:50 | Hospitalist Progress Note ---
Date of Service May 12, 2021 Assessment & Plan (1) Pneumonia due to 2019 novel coronavirus: Plan: mild on imaging and not on oxygen day #3 today of IV dexamethasone 6mg no distress continue dexamethasone for now, will d/w plan with (2) SHANTELLE (acute kidney injury): Plan: Creatinine 1.76 upon admission, with baseline 0.79 treated with IV fluids Cr down to 0.8 today, K is 3.6, HCO3 is 25 repeat BMP am 2nd to poor oral intake at home following her recent admission for COVID-19 (3) Seizure-like activity: Plan: Continue lamotrigine 50 mg p.o. twice daily NO recent seizure activity reported (4) Hypercholesteremia: Plan: Continue atorvastatin 40mg daily given prior stroke LFTs wnl (5) Type 2 diabetes mellitus: Plan: continue to hold Metformin most recent HbA1C 6.7% BSGs have been <150 consistently due to poor PO intake may be able to control this without any meds or insulin (6) Parkinsonism: Plan: On no specific treatment for such (7) UTI (urinary tract infection): Plan: concern for such at admission was on Rocephin urine culture negative stopped the Rocephin (8) Constipation: Plan: abd x-rays with moderate-severe distal stool dulcolax suppos not effective give fleets OR x 1 then will need bowel maintenance has mild colonic ileus on imaging due to the severe constipation these issues are the likely cause of her abd distension and discomfort ongoing issue with poor oral intake, weight loss (9) Vitamin B12 deficiency: Plan: check b12 level in am to ensure levels are adequate (10) Essential hypertension: Plan: on no meds for such at home, and BPs are controlled thus far monitor (11) History of CVA (cerebrovascular accident): Plan: noted continue statin and plavix for secondary prevention (12) Dementia: Plan: appears quite advanced requires 24/7 care by at her home (13) Ileus: Plan: mild, colonic - 2nd to severe constipation see above (14) DVT prophylaxis: Plan: lovenox daily (15) Severe protein-calorie malnutrition: Plan: weight in 11/2020 was 82 kg weight is now 65 kg likely severe failure to thrive from advanced dementia will call her today to discuss goals of care, code status (16) Failure to thrive: Plan: 2nd advanced dementia see above (17) Chronic kidney disease, stage 3a: Plan: baseline CrCl 50s repeat BMP am Admission and Anticipated Discharge Date Admission Date: May 10, 2021 Subjective patient doing fine, sleeping a lot, not eating very much reviewed chart she is pleasant but not a good historian Review of Systems Review of Systems: Unobtainable due to cognitive status (dementia) Physical Exam Physical Exam: General: well developed, thin elderly female, no acute distress, comfortable Neck: supple, trachea midline, normal thyroid Lungs: clear to auscultation bilaterally, normal respiratory effort, no accessory muscle use, no distress Heart: regular S1 and S2, no murmur, peripheral pulses normal, capillary refill normal, no edema Abdomen: soft, NT, ND, + BS, no hepatomegaly, normal to percussion Extremities: normal in appearance, no cyanosis, no petechiae, strength is diminished in general Neuro: awake, cooperative, moves all extremities, no focal motor deficits, CN II-XII intact, mild resting tremors, impaired cognition Skin: warm, dry, no rash, normal turgor Psych: Awake, oriented to person Results & Data Results & Data ([facility]) Vital Signs (Past 12 Hours) Vital Signs Temp Pulse Resp BP Pulse Ox 05/12/21 10:56 36.5 C 64 18 131/84 97 05/12/21 07:23 37.0 C 69 20 144/64 H 92 05/12/21 07:00 64 05/12/21 03:30 68 05/12/21 03:11 37.0 C 64 20 123/70 90 Laboratory Results Laboratory Results - last 24 hr 05/11/21 05/11/21 05/12/21 16:27 20:03 06:11 Sodium 145 Potassium 3.6 Chloride 113 H Carbon Dioxide 25 Anion Gap 7.0 BUN 19 H D Creatinine 0.81 D Est Cr Clr Drug Dosing 53.0 Est GFR ( Amer) 83.5 Est GFR (Non-Af Amer) 72.1 BUN/Creatinine Ratio 23.0 H Glucose 95 POC Glucose 95 124 H Calcium 8.3 L C-Reactive Protein 1.55 H Vitamin B12 05/12/21 06:11 Sodium Potassium Chloride Carbon Dioxide Anion Gap BUN Creatinine Est Cr Clr Drug Dosing Est GFR ( Amer) Est GFR (Non-Af Amer) BUN/Creatinine Ratio Glucose POC Glucose Calcium C-Reactive Protein Vitamin B12 482 Medications Administered Current Inpatient Medications Acetaminophen (Acetaminophen 325 Mg Tab) 650 mg PO Q4H PRN PRN Reason: Pain or Fever Stop: 06/10/21 01:59 Atorvastatin Calcium (Atorvastatin 40 Mg Tab) 40 mg PO QAM [facility] Stop: 06/10/21 08:59 Last Admin: 05/12/21 08:39 Dose: 40 mg Documented by: Clopidogrel Bisulfate (Clopidogrel Bisulfate 75 Mg Tab) 75 mg PO DAILY [facility] Stop: 06/10/21 08:59 Last Admin: 05/12/21 08:38 Dose: 75 mg Documented by: Docusate Sodium (Docusate Sodium 100 Mg Cap) 100 mg PO BID [facility] Stop: 06/10/21 08:59 Last Admin: 05/12/21 08:38 Dose: 100 mg Documented by: Enoxaparin Sodium (Enoxaparin Inj 30 Mg/0.3 Ml Syr) 30 mg SQ Q24H [facility] Stop: 06/10/21 08:59 Last Admin: 05/12/21 10:19 Dose: 30 mg Documented by: Dexamethasone 6 mg/ Syringe 1.5 mls @ 1 mls/min IV DAILY@0900 [facility] Stop: 06/10/21 01:59 Last Admin: 05/12/21 08:39 Dose: 1 mls/min Documented by: Lamotrigine (Lamotrigine 25 Mg Tab) 50 mg PO BID [facility] Stop: 06/10/21 01:59 Last Admin: 05/12/21 08:38 Dose: 50 mg Documented by: Miconazole Nitrate (Miconazole Nitrate Powder 43 Gm) 1 appln EXT BID PRN PRN Reason: Affected Skin Folds Stop: 06/10/21 16:29 Last Admin: 05/11/21 18:10 Dose: 1 appln Documented by: Ondansetron HCl (Ondansetron Inj 2 Mg/Ml 2 Ml Vial) 4 mg IV Q6H PRN PRN Reason: Nausea Stop: 06/10/21 01:59 Vitamin D (Cholecalciferol 1,000 Units 25 Mcg Tab) [facility] [place]: 06/10/21 08:59 Last Admin: 05/12/21 08:38 Dose: 2,000 units Documented by: PG Care Time/CCT Total # of Minutes Spent Total Time Spent with Patient: Total time spent is greater than 50% in coordination of care (as documented) at patient's floor/unit and/or counseling patient: Coding Level of Care Code 58045 Subseq Hosp Care Lvl 2 Diagnoses Pneumonia due to 2019 novel coronavirus U07.1; J12.82 SHANTELLE (acute kidney injury) N17.9 Seizure-like activity R56.9 Hypercholesteremia E78.00 Type 2 diabetes mellitus E11.9 Parkinsonism G20 UTI (urinary tract infection) N39.0 Constipation K59.00 Vitamin B12 deficiency E53.8 Essential hypertension I10 History of CVA (cerebrovascular accident) Z86.73 Dementia F03.90 Ileus K56.7 DVT prophylaxis Z29.9 Severe protein-calorie malnutrition E43 Failure to thrive Chronic kidney disease, stage 3a N18.31
[2021-05-13] MEDS: lamoTRIgine 25 MG TAB PO SCH ×2 (09:13→21:20)
[2021-05-13] MEDS: ENOXAPARIN INJ 30 MG/0.3 ML SYR SQ SCH (09:13)
[2021-05-13] MEDS: ATORVASTATIN 40 MG TAB PO SCH (09:13)
[2021-05-13] MEDS: CLOPIDOGREL BISULFATE 75 MG TAB PO SCH (09:13)
[2021-05-13] MEDS: CHOLECALCIFEROL 1,000 UNITS 25 MCG TAB PO SCH (09:14)
[2021-05-13] MEDS: DOCUSATE SODIUM 100 MG CAP PO SCH ×2 (09:14→21:20)
[2021-05-13] MEDS: dexAMETHasone 6 MG in SYRINGE 0 ML IV SCH (09:14)
--- NOTE | 2021-05-13 10:26 | Hospitalist Progress Note ---
Date of Service May 13, 2021 Assessment & Plan (1) Pneumonia due to 2019 novel coronavirus: Plan: mild on imaging and not on oxygen day #5 today of IV dexamethasone 6mg no distress continue dexamethasone for now tried to reach , need to have discussion about goals of care she has been doing poorly the past few weeks/months with weight loss (2) SHANTELLE (acute kidney injury): Plan: Creatinine 1.76 upon admission, with baseline 0.79 treated with IV fluids Cr down to 0.8 1, K is 3.6, HCO3 is 25 2nd to poor oral intake at home following her recent admission for COVID-19 (3) Seizure-like activity: Plan: Continue lamotrigine 50 mg p.o. twice daily NO recent seizure activity reported (4) Hypercholesteremia: Plan: Continue atorvastatin 40mg daily given prior stroke LFTs wnl (5) Type 2 diabetes mellitus: Plan: continue to hold Metformin most recent HbA1C 6.7% BSGs have been <150 consistently due to poor PO intake may be able to control this without any meds or insulin (6) Parkinsonism: Plan: On no specific treatment for such (7) UTI (urinary tract infection): Plan: concern for such at admission was on Rocephin urine culture negative stopped the Rocephin (8) Constipation: Plan: abd x-rays with moderate-severe distal stool dulcolax suppos not effective give fleets OK x 1 then will need bowel maintenance has mild colonic ileus on imaging due to the severe constipation these issues are the likely cause of her abd distension and discomfort ongoing issue with poor oral intake, weight loss (9) Vitamin B12 deficiency: Plan: check b12 level in am to ensure levels are adequate (10) Essential hypertension: Plan: on no meds for such at home, and BPs are controlled thus far monitor (11) History of CVA (cerebrovascular accident): Plan: noted continue statin and plavix for secondary prevention (12) Dementia: Plan: appears quite advanced requires 24/7 care by at her home (13) Ileus: Plan: mild, colonic - 2nd to severe constipation see above (14) DVT prophylaxis: Plan: lovenox daily (15) Severe protein-calorie malnutrition: Plan: weight in 11/2020 was 82 kg weight is now 65 kg likely severe failure to thrive from advanced dementia (16) Failure to thrive: Plan: 2nd advanced dementia see above (17) Chronic kidney disease, stage 3a: Plan: baseline CrCl 50s repeat BMP am Plan: need to discuss goals of care with , unable to reach him today Admission and Anticipated Discharge Date Admission Date: May 10, 2021 Subjective continues to lay in bed, not eating breathing stable on room air tried to reach but had no luck Review of Systems Review of Systems: Unobtainable due to cognitive status Physical Exam Physical Exam: General: well developed, thin elderly female, no acute distress, comfortable Neck: supple, trachea midline, normal thyroid Lungs: clear to auscultation bilaterally, normal respiratory effort, no accessory muscle use, no distress Heart: regular S1 and S2, no murmur, peripheral pulses normal, capillary refill normal, no edema Abdomen: soft, NT, ND, + BS, no hepatomegaly, normal to percussion Extremities: normal in appearance, no cyanosis, no petechiae, strength is diminished in general Neuro: awake, cooperative, moves all extremities, no focal motor deficits, CN II-XII intact, mild resting tremors, impaired cognition Skin: warm, dry, no rash, normal turgor Psych: Awake, oriented to person Results & Data Results & Data ([facility]) Vital Signs (Past 12 Hours) Vital Signs Temp Pulse Resp BP Pulse Ox 05/13/21 07:47 149/69 H 05/13/21 07:36 36.5 C 60 18 170/86 H 93 05/13/21 03:39 36.6 C 66 18 150/79 H 93 05/12/21 23:12 36.1 C L 59 L 20 167/69 H 95 Medications Administered Current Inpatient Medications Acetaminophen (Acetaminophen 325 Mg Tab) 650 mg PO Q4H PRN PRN Reason: Pain or Fever Stop: 06/10/21 01:59 Atorvastatin Calcium (Atorvastatin 40 Mg Tab) 40 mg PO QAM [facility] Stop: 06/10/21 08:59 Last Admin: 05/13/21 09:13 Dose: 40 mg Documented by: Clopidogrel Bisulfate (Clopidogrel Bisulfate 75 Mg Tab) 75 mg PO DAILY [facility] Stop: 06/10/21 08:59 Last Admin: 05/13/21 09:13 Dose: 75 mg Documented by: Docusate Sodium (Docusate Sodium 100 Mg Cap) 100 mg PO BID [facility] Stop: 06/10/21 08:59 Last Admin: 05/13/21 09:14 Dose: 100 mg Documented by: Enoxaparin Sodium (Enoxaparin Inj 30 Mg/0.3 Ml Syr) 30 mg SQ Q24H [facility] Stop: 06/10/21 08:59 Last Admin: 05/13/21 09:13 Dose: 30 mg Documented by: Dexamethasone 6 mg/ Syringe 1.5 mls @ 1 mls/min IV DAILY@0900 [facility] Stop: 06/10/21 01:59 Last Admin: 05/13/21 09:14 Dose: 1 mls/min Documented by: Lamotrigine (Lamotrigine 25 Mg Tab) 50 mg PO BID [facility] Stop: 06/10/21 01:59 Last Admin: 05/13/21 09:13 Dose: 50 mg Documented by: Miconazole Nitrate (Miconazole Nitrate Powder 43 Gm) 1 appln EXT BID PRN PRN Reason: Affected Skin Folds Stop: 06/10/21 16:29 Last Admin: 05/11/21 18:10 Dose: 1 appln Documented by: Ondansetron HCl (Ondansetron Inj 2 Mg/Ml 2 Ml Vial) 4 mg IV Q6H PRN PRN Reason: Nausea Stop: 06/10/21 01:59 Vitamin D (Cholecalciferol 1,000 Units 25 Mcg Tab) 2,000 units PO QAM [facility] Stop: 06/10/21 08:59 Last Admin: 05/13/21 09:14 Dose: 2,000 units Documented by: PG Care Time/CCT Total # of Minutes Spent Total Time Spent with Patient: Total time spent is greater than 50% in coordination of care (as documented) at patient's floor/unit and/or counseling patient: Coding Level of Care Code 96680 Subseq Hosp Care Lvl 2 Diagnoses Pneumonia due to 2019 novel coronavirus U07.1; J12.82 SHANTELLE (acute kidney injury) N17.9 Seizure-like activity R56.9 Hypercholesteremia E78.00 Type 2 diabetes mellitus E11.9 Parkinsonism G20 UTI (urinary tract infection) N39.0 Constipation K59.00 Vitamin B12 deficiency E53.8 Essential hypertension I10 History of CVA (cerebrovascular accident) Z86.73 Dementia F03.90 Ileus K56.7 DVT prophylaxis Z29.9 Severe protein-calorie malnutrition E43 Failure to thrive Chronic kidney disease, stage 3a N18.31
[2021-05-14] MEDS: ATORVASTATIN 40 MG TAB PO SCH (09:22)
[2021-05-14] MEDS: ENOXAPARIN INJ 30 MG/0.3 ML SYR SQ SCH (09:22)
[2021-05-14] MEDS: CLOPIDOGREL BISULFATE 75 MG TAB PO SCH (09:22)
[2021-05-14] MEDS: dexAMETHasone 6 MG in SYRINGE 0 ML IV SCH (09:22)
[2021-05-14] MEDS: CHOLECALCIFEROL 1,000 UNITS 25 MCG TAB PO SCH (09:23)
[2021-05-14] MEDS: lamoTRIgine 25 MG TAB PO SCH ×2 (09:23→20:35)
[2021-05-14] MEDS: DOCUSATE SODIUM 100 MG CAP PO SCH ×2 (09:31→20:35)
[2021-05-14 11:36] LABS: BUN Creatinine Ratio 18.8 (10-20); Calcium 9.4 mg/dl (8.5-10.1); Creatinine Clr Calc Pharmacy 48.7 ml/min; Est GFR (African American) 76.6 ml/min; Est GFR (Non-African American) 66.1 ml/min; Magnesium 1.9 mg/dl (1.8-2.4); Potassium 3.5 mmol/L (3.5-5.1)
--- NOTE | 2021-05-14 21:08 | Hospitalist Progress Note ---
Date of Service May 14, 2021 Assessment & Plan (1) Pneumonia due to 2019 novel coronavirus: Plan: mild on imaging and not on oxygen sats have improved during the stay day #6 today of IV dexamethasone 6mg no distress continue dexamethasone for now (2) SHANTELLE (acute kidney injury): Plan: Creatinine 1.76 upon admission, with baseline 0.79 treated with IV fluids SHANTELLE now resolved 2nd to poor oral intake at home following her recent admission for COVID-19 (3) Seizure-like activity: Plan: Continue lamotrigine 50 mg p.o. twice daily NO recent seizure activity reported (4) Hypercholesteremia: Plan: Continue atorvastatin 40mg daily given prior stroke LFTs wnl (5) Type 2 diabetes mellitus: Plan: continue to hold Metformin most recent HbA1C 6.7% BSGs have been <150 consistently due to poor PO intake (6) Parkinsonism: Plan: On no specific treatment for such (7) UTI (urinary tract infection): Plan: concern for such at admission grew out lactobacillus - usually not pathogenic rocephin stopped (8) Constipation: Plan: resolved add senna to her colace for maintenance Rx (9) Vitamin B12 deficiency: Plan: B12 level wnl this admission (10) Essential hypertension: Plan: on no meds for such at home BPs mildly high consider low-dose metoprolol or amlodipine (11) History of CVA (cerebrovascular accident): Plan: noted continue statin and plavix for secondary prevention (12) Dementia: Plan: advanced requires 24/7 care by at her home (13) Ileus: Plan: mild, colonic - 2nd to severe constipation resolved (14) DVT prophylaxis: Plan: lovenox daily (15) Severe protein-calorie malnutrition: Plan: weight in 11/2020 was 82 kg weight is now <65 kg - she has lost additional weight while here severe failure to thrive from advanced dementia with worsening of that failure to thrive due to COVID-19 infection this portends very, very poor prognosis (16) Failure to thrive: Plan: 2nd advanced dementia compounded by COVID-19 infection see above (17) Chronic kidney disease, stage 3a: Plan: baseline CrCl 40s/50s stable Plan: need to discuss goals of care with will call him on 05/15/21 Admission and Anticipated Discharge Date Admission Date: May 10, 2021 Subjective patient laying in bed during the visit watching TV - was very comfortable appearing per staff eating little to nothing drinking is poor as well during the visit she could not tell me where she was, why she was here, or the year she denied pain in any location could not provide any additional meaningful history Review of Systems Review of Systems: Unobtainable due to cognitive status Physical Exam Physical Exam: gen - NAD, pleasant confusion mouth - MM slightly dry neck - no JVD heart - RRR, s1 s2 lungs - occasional rales bases; no wheeze abd - distension resolved, NT, BS+, soft ext - severe muscle wasting of b/l legs; pulses 2+ b/l skin - no rash neuro - mild resting tremor of arms psych - oriented to person only Results & Data Results & Data ([facility]) Vital Signs (Past 12 Hours) Vital Signs Temp Pulse Resp BP Pulse Ox 05/14/21 19:20 36.8 C 60 18 160/82 H 95 05/14/21 15:16 36.4 C L 63 18 136/74 90 05/14/21 14:15 81 05/14/21 11:17 36.6 C 64 18 163/74 H 94 Laboratory Results Laboratory Results - last 24 hr 05/14/21 10:58 Sodium 141 Potassium 3.5 Chloride 107 Carbon Dioxide 25 Anion Gap 9.0 BUN 16 Creatinine 0.87 Est Cr Clr Drug Dosing 48.7 Est GFR ( Amer) 76.6 Est GFR (Non-Af Amer) 66.1 BUN/Creatinine Ratio 18.8 Glucose 111 H Calcium 9.4 Magnesium 1.9 PG Care Time/CCT Total # of Minutes Spent Total Time Spent with Patient: Total time spent is greater than 50% in coordination of care (as documented) at patient's floor/unit and/or counseling patient: Coding Level of Care Code 22199 Subseq Hosp Care Lvl 2 Diagnoses Pneumonia due to 2019 novel coronavirus U07.1; J12.82 SHANTELLE (acute kidney injury) N17.9 Seizure-like activity R56.9 Hypercholesteremia E78.00 Type 2 diabetes mellitus E11.9 Parkinsonism G20 UTI (urinary tract infection) N39.0 Constipation K59.00 Vitamin B12 deficiency E53.8 Essential hypertension I10 History of CVA (cerebrovascular accident) Z86.73 Dementia F03.90 Ileus K56.7 DVT prophylaxis Z29.9 Severe protein-calorie malnutrition E43 Failure to thrive Chronic kidney disease, stage 3a N18.31
[2021-05-15] MEDS: dexAMETHasone 6 MG in SYRINGE 0 ML IV SCH (08:14)
[2021-05-15] MEDS: ENOXAPARIN INJ 30 MG/0.3 ML SYR SQ SCH (08:14)
[2021-05-15] MEDS: lamoTRIgine 25 MG TAB PO SCH ×2 (08:14→21:32)
[2021-05-15] MEDS: CLOPIDOGREL BISULFATE 75 MG TAB PO SCH (08:15)
[2021-05-15] MEDS: ATORVASTATIN 40 MG TAB PO SCH (08:15)
[2021-05-15] MEDS: CHOLECALCIFEROL 1,000 UNITS 25 MCG TAB PO SCH (08:15)
[2021-05-15] MEDS: DOCUSATE SODIUM 100 MG CAP PO SCH ×2 (08:16→21:39)
[2021-05-15] MEDS ORDERED: amLODIPine BESYLATE 5 MG TAB PO SCH (09:00)
[2021-05-15] MEDS: SENNA 8.6 MG TAB PO SCH (10:44)
--- NOTE | 2021-05-15 11:32 | Hospitalist Progress Note ---
Date of Service May 15, 2021 Assessment & Plan (1) Pneumonia due to 2019 novel coronavirus: Plan: clinically resolved will stop steroids after 7th dose pneumonia was mild on imaging has not had any o2 requirement with stable o2 sats day #5 today of IV dexamethasone 6mg (start date was 05/11/20) unfortunately, despite steroids, she has had no improvement in appetite (2) SHANTELLE (acute kidney injury): Plan: Creatinine 1.76 upon admission, with baseline 0.79 treated with IV fluids SHANTELLE now resolved 2nd to poor oral intake at home following her recent admission for COVID-19 fluids are off (3) Seizure-like activity: Plan: Continue lamotrigine 50 mg p.o. twice daily NO recent seizure activity reported (4) Hypercholesteremia: Plan: Continue atorvastatin 40mg daily given prior stroke LFTs wnl If we go the hospice route would stop the statin (5) Type 2 diabetes mellitus: Plan: continue to hold Metformin most recent HbA1C 6.7% BSGs have been <150 consistently due to poor PO intake (6) Parkinsonism: Plan: On no specific treatment for such (7) UTI (urinary tract infection): Plan: concern for such at admission grew out lactobacillus - usually not pathogenic rocephin stopped (8) Constipation: Plan: resolved cont senna cont colace titrate as needed (9) Vitamin B12 deficiency: Plan: B12 level wnl this admission (10) Essential hypertension: Plan: on no meds for such at home BPs mildly high start amlodipine (11) History of CVA (cerebrovascular accident): Plan: noted continue statin and plavix for secondary prevention (12) Dementia: Plan: advanced requires 24/7 care by at her home (13) Ileus: Plan: mild, colonic - 2nd to severe constipation resolved (14) DVT prophylaxis: Plan: lovenox daily (15) Severe protein-calorie malnutrition: Plan: weight in 11/2020 was 82 kg weight is now <65 kg - she has lost additional weight while here severe failure to thrive from advanced dementia with worsening of that failure to thrive due to COVID-19 infection this portends very, very poor prognosis no improvement while on steroids (16) Failure to thrive: Plan: 2nd advanced dementia compounded by COVID-19 infection see above she has lost weight in the hospital in fact due to little to no intake (17) Chronic kidney disease, stage 3a: Plan: baseline CrCl 40s/50s stable Plan: spoke with pt's by phone today gave update explained FTT/ongoing malnutrition discussed that I do not anticipate this improving in light of end-stage dementia and recent COVID recommended family discussion re: palliation they have 3 kids one of which has active COVID he will ask other 2 children to join this conversation will do this by phone tomorrow, perhaps late afternoon Admission and Anticipated Discharge Date Admission Date: May 10, 2021 Subjective per staff po intake next to nothing - bite or sip occasionally staring at the TV when I came in did not know where she was or why she was here unable to provide any meaningful history or ROS no issues per staff Review of Systems Review of Systems: Unobtainable due to cognitive status Physical Exam Physical Exam: gen - NAD, pleasant confusion, nontoxic mouth - MM slightly dry once again neck - no JVD heart - RRR, s1 s2 lungs - CTA b/l, slightly decreased BS bases abd - distension resolved, NT, BS+, soft ext - severe muscle wasting of b/l legs; pulses 2+ b/l skin - no rash neuro - mild resting tremor of arms psych - oriented to person only; no change; flat affect Results & Data Results & Data ([facility]) Vital Signs (Past 12 Hours) Vital Signs Temp Pulse Resp BP Pulse Ox 05/15/21 11:19 36.7 C 62 16 167/75 H 93 05/15/21 08:00 52 L 05/15/21 07:35 37.0 C 94 H 16 166/69 H 94 05/15/21 03:33 36.7 C 59 L 18 154/75 H 99 PG Care Time/CCT Total # of Minutes Spent Total Time Spent with Patient: Total time spent is greater than 50% in coordination of care (as documented) at patient's floor/unit and/or counseling patient: Coding Level of Care Code 40851 Subseq Hosp Care Lvl 2 Diagnoses Pneumonia due to 2019 novel coronavirus U07.1; J12.82 SHANTELLE (acute kidney injury) N17.9 Seizure-like activity R56.9 Hypercholesteremia E78.00 Type 2 diabetes mellitus E11.9 Parkinsonism G20 UTI (urinary tract infection) N39.0 Constipation K59.00 Vitamin B12 deficiency E53.8 Essential hypertension I10 History of CVA (cerebrovascular accident) Z86.73 Dementia F03.90 Ileus K56.7 DVT prophylaxis Z29.9 Severe protein-calorie malnutrition E43 Failure to thrive Chronic kidney disease, stage 3a N18.31
[2021-05-15] MEDS: NYSTATIN SUSP 500,000 U/5 ML UDC PO SCH ×3 (13:13→21:32)
[2021-05-16 06:57] LABS: Basophils # (auto) 0.02 K/uL (0-0.2); Basophils % (auto) 0.3 %; Eosinophils # (auto) 0.08 K/uL (0-0.5); Eosinophils % (auto) 1.2 %; Hematocrit (blood only) 38.5 % (37-47); Hemoglobin 13.3 g/dL (12.0-16.0); Immature Granulocytes # (auto) 0.05 K/uL (0.00-0.02); Immature Granulocytes % (auto) 0.8 %; Lymphocytes # (auto) 1.35 K/uL (1.2-3.4); Lymphocytes % (auto) 20.4 %; Mean Corpuscular Hemoglobin 33.3 pg (25-34); Mean Corpuscular Hgb Conc 34.5 g/dL (32-36); Mean Corpuscular Volume 96.5 fL (80-100); Mean Platelet Volume 10.8 fL (7.4-10.4); Monocytes # (auto) 0.73 K/uL (0.11-0.59); Neutrophils % (auto) 66.3 %; Platelet Count 357 K/uL (130-400); RDW Coefficient of Variation 14.5 % (11.5-14.5); RDW Standard Deviation 47.2 fL (36.4-46.3); Red Blood Count 3.99 M/uL (4.2-5.4); White Blood Count 6.63 K/uL (4.8-10.8)
[2021-05-16 07:34] LABS: BUN Creatinine Ratio 24.3 (10-20); Calcium 9.8 mg/dl (8.5-10.1); Creatinine Clr Calc Pharmacy 49.1 ml/min; Est GFR (African American) 78.8 ml/min; Potassium 3.7 mmol/L (3.5-5.1)
[2021-05-16] MEDS: CLOPIDOGREL BISULFATE 75 MG TAB PO SCH (09:53)
[2021-05-16] MEDS: CHOLECALCIFEROL 1,000 UNITS 25 MCG TAB PO SCH (09:53)
[2021-05-16] MEDS: SENNA 8.6 MG TAB PO SCH (09:53)
[2021-05-16] MEDS: NYSTATIN SUSP 500,000 U/5 ML UDC PO SCH ×4 (09:53→21:04)
[2021-05-16] MEDS: lamoTRIgine 25 MG TAB PO SCH ×2 (09:53→21:04)
[2021-05-16] MEDS: ATORVASTATIN 40 MG TAB PO SCH (09:53)
[2021-05-16] MEDS: amLODIPine BESYLATE 5 MG TAB PO SCH (09:53)
[2021-05-16] MEDS: DOCUSATE SODIUM 100 MG CAP PO SCH ×2 (09:53→21:04)
[2021-05-16] MEDS: dexAMETHasone 6 MG in SYRINGE 0 ML IV SCH (09:53)
[2021-05-16] MEDS: ENOXAPARIN INJ 30 MG/0.3 ML SYR SQ SCH (09:54)
--- NOTE | 2021-05-16 14:15 | Hospitalist Progress Note ---
Date of Service May 16, 2021 Assessment & Plan (1) Pneumonia due to 2019 novel coronavirus: Plan: clinically resolved will stop steroids after 7th dose pneumonia was mild on imaging has not had any o2 requirement with stable o2 sats day #6 today of IV dexamethasone 6mg (start date was 05/11/20) unfortunately, despite steroids, she has had no improvement in appetite - which is not unexpected given the advanced dementia (2) SHANTELLE (acute kidney injury): Plan: Creatinine 1.76 upon admission, with baseline 0.79 treated with IV fluids SHANTELLE now resolved 2nd to poor oral intake at home following her recent admission for COVID-19 fluids are off (3) Seizure-like activity: Plan: Continue lamotrigine 50 mg p.o. twice daily NO recent seizure activity reported (4) Hypercholesteremia: Plan: Continue atorvastatin 40mg daily given prior stroke LFTs wnl If we go the hospice route would stop the statin (5) Type 2 diabetes mellitus: Plan: continue to hold Metformin most recent HbA1C 6.7% BSGs have been <150 consistently due to poor PO intake can likely stop BSG checks (6) Parkinsonism: Plan: On no specific treatment for such (7) UTI (urinary tract infection): Plan: concern for such at admission grew out lactobacillus - usually not pathogenic rocephin stopped (8) Constipation: Plan: resolved cont senna cont colace titrate as needed (9) Vitamin B12 deficiency: Plan: B12 level wnl this admission (10) Essential hypertension: Plan: on no meds for such at home BPs mildly high started amlodipine 2.5mg, then titrated to 5mg/day (11) History of CVA (cerebrovascular accident): Plan: noted continue plavix for secondary prevention stop statin more than likely (12) Dementia: Plan: advanced requires 24/7 care by at her home (13) Ileus: Plan: mild, colonic - 2nd to severe constipation resolved (14) DVT prophylaxis: Plan: lovenox daily (15) Severe protein-calorie malnutrition: Plan: weight in 11/2020 was 82 kg weight is now <65 kg - she has lost additional weight while here severe failure to thrive from advanced dementia with worsening of that failure to thrive due to COVID-19 infection this portends very, very poor prognosis no improvement while on steroids (16) Failure to thrive: Plan: 2nd advanced dementia compounded by COVID-19 infection see above she has lost weight in the hospital in fact due to little to no intake (17) Chronic kidney disease, stage 3a: Plan: baseline CrCl 40s/50s stable Plan: phone discussion held with patient's and 2 of their 3 children (1 son, 1 daughter attended the phone call) discussed ongoing failure to thrive from recent COVID infection in the context of advanced, severe dementia explained that even with steroids x 1 week her appetite/liquid intake has been negligible she refuses most meals explained further that dementia is severe/end-stage and that decline will continue explained that even though she never had severe COVID (bad pneumonia, O2 requirement, etc) [id number] this has made her FTT worse discussed options for care - recommended transition to comfort/palliative/hospice family wanting her placed at [facility] -- once there can enroll in Hospice while at [facility] we can - * infection control has given green light to stop COVID isolation * move to private room on med/surg * if we go full comfort we can allow more visitation as she is full palliative * d/c unnecessary medications * d/c BSGs * etc family in agreement with plan above total care time today - 40 minutes including lengthy phone call to pt's family Admission and Anticipated Discharge Date Admission Date: May 10, 2021 Subjective patient laying in bed comfortably was sleeping upon my arrival easily awoken could not tell me where she was told me she has 2 kids (actually has 3) told me she is from [place] - family reports that is not true (she is from [facility]) denies any complaints voice is very low-pitched I offered her sips of water, soda, and boost - declined all 3, pushed my hand a way gently staff report NEXT TO NO ORAL INTAKE, SOLIDS OR LIQUIDS Review of Systems Review of Systems: Unobtainable due to cognitive status Physical Exam Physical Exam: gen - NAD, pleasant confusion, nontoxic mouth - MM DRY neck - no JVD heart - RRR, s1 s2, 1/6 MEGAN RUSB/LUSB lungs - CTA b/l abd - distension resolved, NT, BS+, soft ext - severe muscle wasting of b/l legs; pulses 2+ b/l skin - no rash neuro - mild resting tremor of arms psych - oriented to person only; flat affect; low-pitched voice Results & Data Results & Data ([facility]) Vital Signs (Past 12 Hours) Vital Signs Temp Pulse Resp BP Pulse Ox 05/16/21 07:19 36.5 C 61 18 146/76 H 95 Laboratory Results Laboratory Results - last 24 hr 05/16/21 05/16/21 06:21 06:21 WBC 6.63 RBC 3.99 L Hgb 13.3 Hct 38.5 MCV 96.5 MCH 33.3 MCHC 34.5 RDW Std Deviation 47.2 H RDW Coeff of [place] 14.5 Plt Count 357 MPV 10.8 H Immature Gran % (Auto) 0.8 Neut % (Auto) 66.3 Lymph % (Auto) 20.4 [place] % (Auto) 11.0 Eos % (Auto) 1.2 Baso % (Auto) 0.3 Neut # (Auto) 4.40 Lymph # (Auto) 1.35 [place] # (Auto) 0.73 H Eos # (Auto) 0.08 Baso # (Auto) 0.02 Immature Gran # (Auto) 0.05 H Sodium 140 Potassium 3.7 Chloride 108 H Carbon Dioxide 23 Anion Gap 9.0 BUN 21 H Creatinine 0.85 Est Cr Clr Drug Dosing 49.1 Est GFR ( Amer) 78.8 Est GFR (Non-Af Amer) 68.0 BUN/Creatinine Ratio 24.3 H Glucose 86 Calcium 9.8 PG Care Time/CCT Total # of Minutes Spent Total Time Spent with Patient: Total time spent is greater than 50% in coordination of care (as documented) at patient's floor/unit and/or counseling patient: Coding Level of Care Code 34636 Subseq Hosp Care Lvl 3 Diagnoses Pneumonia due to 2019 novel coronavirus U07.1; J12.82 SHANTELLE (acute kidney injury) N17.9 Seizure-like activity R56.9 Hypercholesteremia E78.00 Type 2 diabetes mellitus E11.9 Parkinsonism G20 UTI (urinary tract infection) N39.0 Constipation K59.00 Vitamin B12 deficiency E53.8 Essential hypertension I10 History of CVA (cerebrovascular accident) Z86.73 Dementia F03.90 Ileus K56.7 DVT prophylaxis Z29.9 Severe protein-calorie malnutrition E43 Failure to thrive Chronic kidney disease, stage 3a N18.31
[2021-05-17] MEDS: dexAMETHasone 6 MG in SYRINGE 0 ML IV SCH (08:59)
[2021-05-17] MEDS: SENNA 8.6 MG TAB PO SCH (09:00)
[2021-05-17] MEDS: ATORVASTATIN 40 MG TAB PO SCH (09:00)
[2021-05-17] MEDS: lamoTRIgine 25 MG TAB PO SCH ×2 (09:00→23:38)
[2021-05-17] MEDS: CHOLECALCIFEROL 1,000 UNITS 25 MCG TAB PO SCH (09:00)
[2021-05-17] MEDS: DOCUSATE SODIUM 100 MG CAP PO SCH ×2 (09:00→23:38)
[2021-05-17] MEDS: amLODIPine BESYLATE 5 MG TAB PO SCH (09:00)
[2021-05-17] MEDS: CLOPIDOGREL BISULFATE 75 MG TAB PO SCH (09:00)
[2021-05-17] MEDS: NYSTATIN SUSP 500,000 U/5 ML UDC PO SCH ×4 (09:00→23:38)
[2021-05-17] MEDS: ENOXAPARIN INJ 30 MG/0.3 ML SYR SQ SCH (09:01)
--- NOTE | 2021-05-17 18:43 | Hospitalist Progress Note ---
Date of Service May 17, 2021 Assessment & Plan (1) Palliative care patient: Plan: lengthy discussion with pt's /2 (of 3) kids yesterday transition to hospice at [facility] at discharge for remainder of her stay will provide comfort care stop labs, unnecessary meds, etc focus on comfort, etc (2) Failure to thrive: Plan: 2nd advanced dementia compounded by COVID-19 infection she has lost weight in the hospital in fact due to little to no PO intake (3) Severe protein-calorie malnutrition: Plan: weight in 11/2020 was 82 kg weight is now <65 kg - she has lost additional weight while here severe failure to thrive from advanced dementia with worsening of that failure to thrive due to COVID-19 infection no improvement in appetite while on steroids (4) Pneumonia due to 2019 novel coronavirus: Plan: clinically resolved pneumonia was mild on imaging had not had any o2 requirement with stable o2 sats since admission day #7 today of IV dexamethasone 6mg (start date was 05/11/20) unfortunately, despite steroids, she has had no improvement in appetite - which is not unexpected given the advanced dementia stop steroids today (5) SHANTELLE (acute kidney injury): Plan: Creatinine 1.76 upon admission, with baseline 0.79 treated with IV fluids SHANTELLE now resolved 2nd to poor oral intake at home following her recent admission for COVID-19 fluids are off (6) Seizure-like activity: Plan: Continue lamotrigine 50 mg p.o. twice daily NO recent seizure activity reported (7) Hypercholesteremia: Plan: stop statin (8) Type 2 diabetes mellitus: Plan: stop metformin most recent HbA1C 6.7% BSGs have been <150 consistently due to poor PO intake can stop BSG checks (9) Parkinsonism: Plan: On no specific treatment for such (10) UTI (urinary tract infection): Plan: concern for such at admission grew out lactobacillus - usually not pathogenic rocephin stopped (11) Constipation: Plan: resolved cont senna cont colace titrate as needed (12) Vitamin B12 deficiency: Plan: B12 level wnl this admission (13) Essential hypertension: Plan: amlodipine (14) History of CVA (cerebrovascular accident): Plan: noted continue plavix stop statin (15) Dementia: Plan: advanced requires 24/7 care by at her home (16) Ileus: Plan: mild, colonic - 2nd to severe constipation resolved (17) DVT prophylaxis: Plan: lovenox daily (18) Chronic kidney disease, stage 3a: Plan: baseline CrCl 40s/50s Plan: cont comfort care measures here hospice at discharge Admission and Anticipated Discharge Date Admission Date: May 10, 2021 Subjective patient was moved from [facility] to [facility] today family came to visit she apparently ate candy bars and drank soda while they were here during my visit she was resting in bed I offered her food and beverage from her bedside tray - she declined no other issues per staff urine output very little she was able to recall that family did come to see her took some time before she could remember who had come Review of Systems Review of Systems: denies pain in any location Physical Exam Physical Exam: gen - NAD mouth - MM DRY neck - no JVD heart - RRR, s1 s2 lungs - CTA b/l abd - soft, NT, ND, BS+ ext - severe muscle wasting of b/l legs; pulses 2+ b/l skin - no rash neuro - mild resting tremor of arms psych - oriented to person only Results & Data Results & Data ([facility]) Vital Signs (Past 12 Hours) Vital Signs Temp Pulse Resp BP Pulse Ox 05/17/21 10:05 36.6 C 59 L 18 177/73 H 95 PG Care Time/CCT Total # of Minutes Spent Total Time Spent with Patient: Total time spent is greater than 50% in coordination of care (as documented) at patient's floor/unit and/or counseling patient: Coding Level of Care Code 17250 Subseq Hosp Care Lvl 2 Diagnoses Pneumonia due to 2019 novel coronavirus U07.1; J12.82 SHANTELLE (acute kidney injury) N17.9 Seizure-like activity R56.9 Hypercholesteremia E78.00 Type 2 diabetes mellitus E11.9 Parkinsonism G20 UTI (urinary tract infection) N39.0 Constipation K59.00 Vitamin B12 deficiency E53.8 Essential hypertension I10 History of CVA (cerebrovascular accident) Z86.73 Dementia F03.90 Ileus K56.7 DVT prophylaxis Z29.9 Severe protein-calorie malnutrition E43 Failure to thrive Chronic kidney disease, stage 3a N18.31 Palliative care patient Z51.5
[2021-05-18] MEDS: NYSTATIN SUSP 500,000 U/5 ML UDC PO SCH ×4 (08:58→20:43)
[2021-05-18] MEDS: DOCUSATE SODIUM 100 MG CAP PO SCH ×2 (10:06→20:43)
[2021-05-18] MEDS: SENNA 8.6 MG TAB PO SCH (10:07)
[2021-05-18] MEDS: amLODIPine BESYLATE 5 MG TAB PO SCH (10:09)
[2021-05-18] MEDS: CLOPIDOGREL BISULFATE 75 MG TAB PO SCH (10:09)
[2021-05-18] MEDS: ENOXAPARIN INJ 30 MG/0.3 ML SYR SQ SCH (10:10)
[2021-05-18] MEDS: lamoTRIgine 25 MG TAB PO SCH ×2 (10:10→20:43)
--- NOTE | 2021-05-18 18:39 | Hospitalist Progress Note ---
Date of Service May 18, 2021 Assessment & Plan (1) Palliative care patient: Plan: lengthy discussion with pt's /2 of her 3 kids on 05/16/21 by phone to discuss goals of care again family confirmed that even prior to her getting sick with COVID she had been steadily declining from her dementia, eating little, losing weight, etc plan is for ongoing comfort/palliative care here while awaiting transition to hospice at [facility] at discharge cont to defer on labs, unnecessary meds, etc focus on comfort, etc will need to complete POLST with family (2) Failure to thrive: Plan: 2nd advanced dementia compounded by COVID-19 infection she has lost weight in the hospital in fact due to little to no PO intake (3) Severe protein-calorie malnutrition: Plan: weight in 11/2020 was 82 kg weight is now <65 kg - she has lost additional weight while here severe failure to thrive from advanced dementia with worsening of that failure to thrive due to COVID-19 infection no improvement in appetite while on steroids (4) Pneumonia due to 2019 novel coronavirus: Plan: clinically resolved pneumonia was mild on imaging had not had any o2 requirement with stable o2 sats since admission completed 7-day course of dexamethasone - now offf unfortunately, despite steroids, she has had no improvement in appetite (5) SHANTELLE (acute kidney injury): Plan: Creatinine 1.76 upon admission, with baseline 0.79 treated with IV fluids SHANTELLE resolved 2nd to poor oral intake (6) Seizure-like activity: Plan: Continue lamotrigine 50 mg p.o. twice daily NO recent seizure activity (7) Hypercholesteremia: Plan: stopped statin - now on palliative care/comfort and will go to SNF on hospice (8) Type 2 diabetes mellitus: Plan: stopped metformin most recent HbA1C 6.7% BSGs have been <150 consistently due to poor PO intake stopped BSG checks (9) Parkinsonism: Plan: On no specific treatment for such (10) UTI (urinary tract infection): Plan: concern for such at admission grew out lactobacillus - usually not pathogenic rocephin stopped (11) Constipation: Plan: resolved cont senna cont colace titrate as needed (12) Vitamin B12 deficiency: Plan: B12 level wnl this admission (13) Essential hypertension: Plan: amlodipine (14) History of CVA (cerebrovascular accident): Plan: noted continue plavix stopped statin (15) Dementia: Plan: advanced had been requiring 24/7 care by at her home dispo - SNF w/ hospice at discharge (16) Ileus: Plan: colonic - 2nd to severe constipation resolved (17) DVT prophylaxis: Plan: stop lovenox (18) Chronic kidney disease, stage 3a: Plan: baseline CrCl 40s/50s (19) Candidiasis of mouth and esophagus: Plan: nystatin Plan: cont comfort care measures here hospice at discharge will need to complete POLST with family Admission and Anticipated Discharge Date Admission Date: May 10, 2021 Subjective during my rounds the pt's son was at bedside pt was able to tell me it was her son and could remember his name she otherwise did not say anything else during the visit throughout the encounter she was constantly shifting in bed; denied any pain in any location, but seemed a little agitated about something the candy, soda, etc that family brought yesterday was still sitting on her b edside table largely untouched flowsheets show limited liquid intake urine concentrated in rangel bag Review of Systems Review of Systems: Unobtainable due to cognitive status Physical Exam Physical Exam: gen - shifting in bed constantly, but doesn't appear in pain mouth - MM DRY neck - no JVD heart - RRR, s1 s2, no murmur lungs - CTA b/l abd - soft, NT, ND, BS+ ext - severe muscle wasting of b/l legs; pulses 2+ b/l neuro - mild resting tremor of arms; flat affect/masked facies psych - oriented to person only Results & Data Results & Data ([facility]) Vital Signs (Past 12 Hours) Vital Signs Temp Pulse Resp BP Pulse Ox 05/18/21 10:05 52 L 145/65 H 05/18/21 07:53 36.7 C 56 L 16 148/65 H 95 PG Care Time/CCT Total # of Minutes Spent Total Time Spent with Patient: Total time spent is greater than 50% in coordination of care (as documented) at patient's floor/unit and/or counseling patient: Coding Level of Care Code 15225 Subseq Hosp Care Lvl 1 Diagnoses Palliative care patient Z51.5 Failure to thrive Severe protein-calorie malnutrition E43 Pneumonia due to 2019 novel coronavirus U07.1; J12.82 SHANTELLE (acute kidney injury) N17.9 Seizure-like activity R56.9 Hypercholesteremia E78.00 Type 2 diabetes mellitus E11.9 Parkinsonism G20 UTI (urinary tract infection) N39.0 Constipation K59.00 Vitamin B12 deficiency E53.8 Essential hypertension I10 History of CVA (cerebrovascular accident) Z86.73 Dementia F03.90 Ileus K56.7 DVT prophylaxis Z29.9 Chronic kidney disease, stage 3a N18.31 Candidiasis of mouth and esophagus B37.81; B37.0
[2021-05-19] MEDS: SENNA 8.6 MG TAB PO SCH (09:51)
[2021-05-19] MEDS: CLOPIDOGREL BISULFATE 75 MG TAB PO SCH (09:51)
[2021-05-19] MEDS: amLODIPine BESYLATE 5 MG TAB PO SCH (09:51)
[2021-05-19] MEDS: lamoTRIgine 25 MG TAB PO SCH ×2 (09:51→20:11)
[2021-05-19] MEDS: NYSTATIN SUSP 500,000 U/5 ML UDC PO SCH ×4 (09:52→20:11)
[2021-05-19] MEDS: DOCUSATE SODIUM 100 MG CAP PO SCH ×2 (09:57→20:13)
--- NOTE | 2021-05-19 20:33 | Hospitalist Progress Note ---
Date of Service May 19, 2021 Assessment & Plan (1) Palliative care patient: Plan: lengthy discussion with pt's /2 of her 3 kids on 05/16/21 by phone to discuss goals of care again family confirmed that even prior to her getting sick with COVID she had been steadily declining from her dementia, eating little, losing weight, etc plan is for ongoing comfort/palliative care here at [facility] while awaiting transition to hospice at [facility] at discharge continue to defer on labs, unnecessary meds, etc focus on comfort, etc will need to complete POLST with family (2) Failure to thrive: Plan: 2nd advanced dementia compounded by recent COVID-19 infection she has lost weight in the hospital (at least 5-6 pounds, if not more) due to anorexia (3) Severe protein-calorie malnutrition: Plan: weight in 11/2020 was 82 kg weight is now <65 kg - she has lost additional weight while here severe failure to thrive from advanced dementia with worsening of that failure to thrive due to COVID-19 infection no improvement in appetite while she was on steroids family bringing in soda, candy bars, other food items that she likes - acceptable given her palliative/comfort status (4) Pneumonia due to 2019 novel coronavirus: Plan: clinically resolved pneumonia was mild on imaging earlier this admission had not had any o2 requirement with stable o2 sats all of this admission completed 7-day course of dexamethasone (5) SHANTELLE (acute kidney injury): Plan: Creatinine 1.76 upon admission, with baseline 0.79 treated with IV fluids SHANTELLE resolved 2nd to poor oral intake deferring on labs due to transition to comfort care/palliative care (6) Seizure-like activity: Plan: Continue lamotrigine 50 mg p.o. twice daily No recent seizure activity (7) Hypercholesteremia: Plan: stopped statin - now on palliative care/comfort and will go to SNF on hospice (8) Type 2 diabetes mellitus: Plan: stopped metformin most recent HbA1C 6.7% BSGs had been <150 consistently due to poor PO intake stopped BSG checks (9) Parkinsonism: Plan: On no specific treatment for such (10) UTI (urinary tract infection): Plan: ruled out (11) Constipation: Plan: resolved cont senna cont colace titrate as needed (12) Vitamin B12 deficiency: Plan: B12 level wnl earlier this admission (13) Essential hypertension: Plan: amlodipine 5mg daily (14) History of CVA (cerebrovascular accident): Plan: continue plavix but stopped statin (15) Dementia: Plan: advanced had been requiring 24/7 care by at her home prior to admission dispo - SNF w/ hospice at discharge (16) Ileus: Plan: colonic - 2nd to severe constipation resolved (17) DVT prophylaxis: Plan: stopped lovenox (18) Chronic kidney disease, stage 3a: Plan: baseline CrCl 40s/50s (19) Candidiasis of mouth and esophagus: Plan: nystatin Plan: cont comfort care measures here hospice at discharge will need to complete POLST with family dispo - [facility] w/ hospice updated this evening Admission and Anticipated Discharge Date Admission Date: May 10, 2021 Subjective pt resting comfortably in bed during my visit she thought she was at a fdc in [place] could not provide any other meaningful history UOP <400cc very little intake once again I spoke with by phone - when he visited today he attempted to feed her and give liquids - she took next to nothing by his report he stated he was glad that at least she had a fair/good day yesterday Review of Systems Review of Systems: Unobtainable due to cognitive status Physical Exam Physical Exam: gen - laying in bed, looks tired, baseline confusion mouth - MM DRY neck - no JVD heart - RRR, s1 s2, no murmur lungs - CTA b/l abd - soft, NT, ND, BS+ ext - severe muscle wasting of b/l legs; pulses 2+ b/l neuro - mild resting tremor of arms psych - oriented to person only Results & Data Results & Data ([facility]) Vital Signs (Past 12 Hours) Vital Signs Pulse BP 05/19/21 09:48 66 126/56 L PG Care Time/CCT Total # of Minutes Spent Total Time Spent with Patient: Total time spent is greater than 50% in coordination of care (as documented) at patient's floor/unit and/or counseling patient: Coding Level of Care Code 44113 Subseq Hosp Care Lvl 1 Diagnoses Palliative care patient Z51.5 Failure to thrive Severe protein-calorie malnutrition E43 Pneumonia due to 2019 novel coronavirus U07.1; J12.82 SHANTELLE (acute kidney injury) N17.9 Seizure-like activity R56.9 Hypercholesteremia E78.00 Type 2 diabetes mellitus E11.9 Parkinsonism G20 UTI (urinary tract infection) N39.0 Constipation K59.00 Vitamin B12 deficiency E53.8 Essential hypertension I10 History of CVA (cerebrovascular accident) Z86.73 Dementia F03.90 Ileus K56.7 DVT prophylaxis Z29.9 Chronic kidney disease, stage 3a N18.31 Candidiasis of mouth and esophagus B37.81; B37.0
[2021-05-20] MEDS: CLOPIDOGREL BISULFATE 75 MG TAB PO SCH (09:43)
[2021-05-20] MEDS: lamoTRIgine 25 MG TAB PO SCH ×2 (09:43→20:24)
[2021-05-20] MEDS: SENNA 8.6 MG TAB PO SCH (09:43)
[2021-05-20] MEDS: amLODIPine BESYLATE 5 MG TAB PO SCH (09:43)
[2021-05-20] MEDS: NYSTATIN SUSP 500,000 U/5 ML UDC PO SCH ×4 (09:44→20:24)
[2021-05-20] MEDS: DOCUSATE SODIUM 100 MG CAP PO SCH ×2 (09:48→20:27)
--- NOTE | 2021-05-20 12:30 | Hospitalist Progress Note ---
Date of Service May 20, 2021 Assessment & Plan (1) Palliative care patient: Plan: Goals of Care: - lengthy discussion with pt's /2 of her 3 kids on 05/16/21 by phone to discuss goals of care. again family confirmed that even prior to her getting sick with COVID she had been steadily declining from her dementia, eating little, losing weight, etc - Plan is ongoing comfort/palliative care here at [facility] while awaiting transition to hospice at [facility] at discharge - continue to defer on labs, unnecessary meds, etc - Pending POLST form (2) Failure to thrive: Plan: 2nd advanced dementia compounded by recent COVID-19 infection she has lost weight in the hospital (at least 5-6 pounds, if not more) due to anorexia (3) Severe protein-calorie malnutrition: Plan: weight in 11/2020 was 82 kg weight is now <65 kg - she has lost additional weight while here severe failure to thrive from advanced dementia with worsening of that failure to thrive due to COVID-19 infection no improvement in appetite while she was on steroids family bringing in soda, candy bars, other food items that she likes - acceptable given her palliative/comfort status (4) Pneumonia due to 2019 novel coronavirus: Plan: clinically resolved pneumonia was mild on imaging earlier this admission had not had any o2 requirement with stable o2 sats all of this admission completed 7-day course of dexamethasone (5) SHANTELLE (acute kidney injury): Plan: Creatinine 1.76 upon admission, with baseline 0.79 treated with IV fluids SHANTELLE resolved 2nd to poor oral intake deferring on labs due to transition to comfort care/palliative care (6) Seizure-like activity: Plan: Continue lamotrigine 50 mg p.o. twice daily No recent seizure activity (7) Hypercholesteremia: Plan: stopped statin - now on palliative care/comfort and will go to SNF on hospice (8) Type 2 diabetes mellitus: Plan: stopped metformin most recent HbA1C 6.7% Stopped BSG checks, comfort oriented goals and BSG were not significantly eleva og due to poor PO intake (9) Parkinsonism: Plan: On no specific treatment for such (10) UTI (urinary tract infection): Plan: ruled out (11) Constipation: Plan: cont senna PRN cont colace PRN (12) Vitamin B12 deficiency: Plan: - Recheck normal levelduring this admission (13) Essential hypertension: Plan: amlodipine 5mg daily (14) History of CVA (cerebrovascular accident): Plan: continue plavix but stopped statin (15) Dementia: Plan: advanced had been requiring 24/7 care by at her home prior to admission dispo - SNF w/ hospice at discharge (16) Ileus: Plan: colonic - 2nd to severe constipation resolved (17) DVT prophylaxis: Plan: stopped lovenox (18) Chronic kidney disease, stage 3a: Plan: baseline CrCl 40s/50s BMPs deferred, comfort oriented goals (19) Candidiasis of mouth and esophagus: Plan: nystatin Plan: cont comfort care measures here hospice at discharge dispo - [facility] w/ hospice Admission and Anticipated Discharge Date Admission Date: May 10, 2021 Subjective Awakens briefly, during exam, not oriented, subjective limited by dementia. Review of Systems Review of Systems: Limited by advanced dementia Physical Exam Physical Exam: General: NAD. HEENT: Atraumatic, normocephalic. Visual acuity/hearing grossly intact. Pulm: Symmetrical chest rise. No increase work of breathing. No respiratory distress. Cardiac: Radial pulses intact and symmetrical. Abdominal: Nontender, nondistended, soft. Results & Data Results & Data ([facility]) Vital Signs (Past 12 Hours) Vital Signs Temp Pulse Resp BP Pulse Ox 05/20/21 07:33 36.5 C 55 L 16 146/71 H 95 PG Care Time/CCT Total # of Minutes Spent Total Time Spent with Patient: Total time spent is greater than 50% in coordination of care (as documented) at patient's floor/unit and/or counseling patient: Coding Level of Care Code 06499 Subseq Hosp Care Lvl 1 Diagnoses Palliative care patient Z51.5 Failure to thrive Severe protein-calorie malnutrition E43 Pneumonia due to 2019 novel coronavirus U07.1; J12.82 SHANTELLE (acute kidney injury) N17.9 Seizure-like activity R56.9 Hypercholesteremia E78.00 Type 2 diabetes mellitus E11.9 Parkinsonism G20 UTI (urinary tract infection) N39.0 Constipation K59.00 Vitamin B12 deficiency E53.8 Essential hypertension I10 History of CVA (cerebrovascular accident) Z86.73 Dementia F03.90 Ileus K56.7 DVT prophylaxis Z29.9 Chronic kidney disease, stage 3a N18.31 Candidiasis of mouth and esophagus B37.81; B37.0
[2021-05-21] MEDS: NYSTATIN SUSP 500,000 U/5 ML UDC PO SCH ×4 (09:28→20:51)
[2021-05-21] MEDS: amLODIPine BESYLATE 5 MG TAB PO SCH (09:28)
[2021-05-21] MEDS: lamoTRIgine 25 MG TAB PO SCH ×2 (09:28→20:51)
[2021-05-21] MEDS: CLOPIDOGREL BISULFATE 75 MG TAB PO SCH (09:28)
[2021-05-21] MEDS: SENNA 8.6 MG TAB PO SCH (09:28)
[2021-05-21] MEDS: DOCUSATE SODIUM 100 MG CAP PO SCH ×2 (09:31→20:51)
--- NOTE | 2021-05-21 13:16 | Hospitalist Progress Note ---
Date of Service May 21, 2021 Assessment & Plan (1) Palliative care patient: Plan: Goals of Care: - 05/16/21: lengthy discussion with pt's /2 of her 3 kids by phone to discuss goals of care. again family confirmed that even prior to her getting sick with COVID she had been steadily declining from her dementia, eating little, losing weight, etc - Plan is ongoing comfort/palliative care here at [facility] while awaiting transition to hospice at [facility] at discharge, currently pending placement/bed availability - continue to defer on labs, unnecessary meds, etc - Pending POLST form, nursing will contact when family present (2) Failure to thrive: Plan: 2nd advanced dementia compounded by recent COVID-19 infection she has lost weight in the hospital (at least 5-6 pounds, if not more) due to anorexia (3) Severe protein-calorie malnutrition: Plan: weight in 11/2020 was 82 kg weight is now <65 kg severe failure to thrive from advanced dementia with worsening of that failure to thrive due to COVID-19 infection no improvement in appetite while she was on steroids family bringing in soda, candy bars, other food items that she likes - acceptable given her palliative/comfort status (4) Pneumonia due to 2019 novel coronavirus: Plan: clinically resolved pneumonia was mild on imaging earlier this admission had not had any o2 requirement with stable o2 sats all of this admission completed 7-day course of dexamethasone (5) SHANTELLE (acute kidney injury): Plan: Creatinine 1.76 upon admission, with baseline 0.79 treated with IV fluids SHANTELLE resolved 2nd to poor oral intake deferring on labs due to transition to comfort care/palliative care (6) Seizure-like activity: Plan: Continue lamotrigine 50 mg p.o. twice daily No recent seizure activity (7) Hypercholesteremia: Plan: stopped statin - now on palliative care/comfort and will go to SNF on hospice (8) Type 2 diabetes mellitus: Plan: stopped metformin most recent HbA1C 6.7% Stopped BSG checks, comfort oriented goals and BSG were not significantly elevated due to poor PO intake (9) Parkinsonism: Plan: On no specific treatment for such (10) UTI (urinary tract infection): Plan: ruled out (11) Constipation: Plan: cont senna PRN cont colace PRN (12) Vitamin B12 deficiency: Plan: - Recheck normal levelduring this admission (13) Essential hypertension: Plan: amlodipine 5mg daily (14) History of CVA (cerebrovascular accident): Plan: continue plavix but stopped statin (15) Dementia: Plan: advanced had been requiring 24/7 care by at her home prior to admission dispo - SNF w/ hospice at discharge (16) Ileus: Plan: colonic - 2nd to severe constipation resolved (17) DVT prophylaxis: Plan: stopped lovenox (18) Chronic kidney disease, stage 3a: Plan: baseline CrCl 40s/50s BMPs deferred, comfort oriented goals (19) Candidiasis of mouth and esophagus: Plan: nystatin Plan: cont comfort care measures here hospice at discharge dispo - [facility] w/ hospice Admission and Anticipated Discharge Date Admission Date: May 10, 2021 Subjective Sleeping comfortably sitting up on arrival, awakens during exam in no acute distress, oriented to name only, subjective limited by dementia. Review of Systems Review of Systems: Limited by advanced dementia Physical Exam Physical Exam: General: NAD. Oriented to name only HEENT: Atraumatic, normocephalic. Visual acuity/hearing grossly intact. Pulm: Symmetrical chest rise. No increase work of breathing. No respiratory distress. Cardiac: Radial pulses intact and symmetrical. Abdominal: Nontender, nondistended, soft. Results & Data Results & Data ([facility]) Vital Signs (Past 12 Hours) Vital Signs Temp Pulse Resp BP Pulse Ox 05/21/21 09:26 74 116/69 95 05/21/21 01:14 36.5 C 54 L 16 120/66 94 PG Care Time/CCT Total # of Minutes Spent Total Time Spent with Patient: Total time spent is greater than 50% in coordination of care (as documented) at patient's floor/unit and/or counseling patient: Coding Level of Care Code 64196 Subseq Hosp Care Lvl 1 Diagnoses Palliative care patient Z51.5 Failure to thrive Severe protein-calorie malnutrition E43 Pneumonia due to 2019 novel coronavirus U07.1; J12.82 SHANTELLE (acute kidney injury) N17.9 Seizure-like activity R56.9 Hypercholesteremia E78.00 Type 2 diabetes mellitus E11.9 Parkinsonism G20 UTI (urinary tract infection) N39.0 Constipation K59.00 Vitamin B12 deficiency E53.8 Essential hypertension I10 History of CVA (cerebrovascular accident) Z86.73 Dementia F03.90 Ileus K56.7 DVT prophylaxis Z29.9 Chronic kidney disease, stage 3a N18.31 Candidiasis of mouth and esophagus B37.81; B37.0
[2021-05-22] MEDS: lamoTRIgine 25 MG TAB PO SCH ×2 (07:44→20:15)
[2021-05-22] MEDS: NYSTATIN SUSP 500,000 U/5 ML UDC PO SCH ×4 (07:44→20:15)
[2021-05-22] MEDS: CLOPIDOGREL BISULFATE 75 MG TAB PO SCH (07:45)
[2021-05-22] MEDS: SENNA 8.6 MG TAB PO SCH (07:45)
[2021-05-22] MEDS: amLODIPine BESYLATE 5 MG TAB PO SCH (07:45)
[2021-05-22] MEDS: DOCUSATE SODIUM 100 MG CAP PO SCH ×2 (07:49→20:14)
--- NOTE | 2021-05-22 10:26 | Hospitalist Progress Note ---
Date of Service May 22, 2021 Assessment & Plan (1) Palliative care patient: Plan: Goals of Care: - 05/16/21: lengthy discussion with pt's /2 of her 3 kids by phone to discuss goals of care. again family confirmed that even prior to her getting sick with COVID she had been steadily declining from her dementia, eating little, losing weight, etc - Plan is ongoing comfort/palliative care here at [facility] while awaiting transition to hospice at [facility] at discharge, currently pending placement/bed availability. Discussed with CM, bed at may be available 05/23 - continue to defer on labs, unnecessary meds, etc - Pending POLST form, nursing will contact when family present (2) Failure to thrive: Plan: 2nd advanced dementia compounded by recent COVID-19 infection she has lost weight in the hospital (at least 5-6 pounds, if not more) due to anorexia (3) Severe protein-calorie malnutrition: Plan: weight in 11/2020 was 82 kg weight is now <65 kg severe failure to thrive from advanced dementia with worsening of that failure to thrive due to COVID-19 infection no improvement in appetite while she was on steroids family bringing in soda, candy bars, other food items that she likes - acceptable given her palliative/comfort status (4) Pneumonia due to 2019 novel coronavirus: Plan: clinically resolved pneumonia was mild on imaging earlier this admission had not had any o2 requirement with stable o2 sats all of this admission completed 7-day course of dexamethasone (5) SHANTELLE (acute kidney injury): Plan: Creatinine 1.76 upon admission, with baseline 0.79 treated with IV fluids SHANTELLE resolved 2nd to poor oral intake deferring on labs due to transition to comfort care/palliative care (6) Seizure-like activity: Plan: Continue lamotrigine 50 mg p.o. twice daily No recent seizure activity (7) Hypercholesteremia: Plan: stopped statin - now on palliative care/comfort and will go to SNF on hospice (8) Type 2 diabetes mellitus: Plan: stopped metformin most recent HbA1C 6.7% Stopped BSG checks, comfort oriented goals and BSG were not significantly elevated due to poor PO intake (9) Parkinsonism: Plan: On no specific treatment for such (10) UTI (urinary tract infection): Plan: ruled out (11) Constipation: Plan: cont senna PRN cont colace PRN (12) Vitamin B12 deficiency: Plan: - Recheck normal levelduring this admission (13) Essential hypertension: Plan: amlodipine 5mg daily (14) History of CVA (cerebrovascular accident): Plan: continue plavix but stopped statin (15) Dementia: Plan: advanced had been requiring 24/7 care by at her home prior to admission dispo - SNF w/ hospice at discharge (16) Ileus: Plan: colonic - 2nd to severe constipation resolved (17) DVT prophylaxis: Plan: stopped lovenox (18) Chronic kidney disease, stage 3a: Plan: baseline CrCl 40s/50s BMPs deferred, comfort oriented goals (19) Candidiasis of mouth and esophagus: Plan: nystatin Plan: cont comfort care measures here hospice at discharge dispo - [facility] w/ hospice Admission and Anticipated Discharge Date Admission Date: May 10, 2021 Subjective Laying in bed on arrival, NAD, dozing. Awakens easily during exam in no acute distress, oriented to name only, subjective limited by dementia. Denies pain/distress. No questions/concerns. Review of Systems Review of Systems: Limited by advanced dementia Physical Exam Physical Exam: General: NAD. Oriented to name only HEENT: Atraumatic, normocephalic. Visual acuity/hearing grossly intact. Pulm: Symmetrical chest rise. No increase work of breathing. No respiratory distress. Cardiac: Radial pulses intact and symmetrical. Abdominal: Nontender, nondistended, soft. Results & Data Results & Data ([facility]) Vital Signs (Past 12 Hours) Vital Signs Temp Pulse Resp BP Pulse Ox 05/22/21 07:28 36.4 C L 55 L 14 120/64 95 PG Care Time/CCT Total # of Minutes Spent Total Time Spent with Patient: Total time spent is greater than 50% in coordination of care (as documented) at patient's floor/unit and/or counseling patient: Coding Level of Care Code 22028 Subseq Hosp Care Lvl 1 Diagnoses Palliative care patient Z51.5 Failure to thrive Severe protein-calorie malnutrition E43 Pneumonia due to 2019 novel coronavirus U07.1; J12.82 HSANTELLE (acute kidney injury) N17.9 Seizure-like activity R56.9 Hypercholesteremia E78.00 Type 2 diabetes mellitus E11.9 Parkinsonism G20 UTI (urinary tract infection) N39.0 Constipation K59.00 Vitamin B12 deficiency E53.8 Essential hypertension I10 History of CVA (cerebrovascular accident) Z86.73 Dementia F03.90 Ileus K56.7 DVT prophylaxis Z29.9 Chronic kidney disease, stage 3a N18.31 Candidiasis of mouth and esophagus B37.81; B37.0
[2021-05-23] MEDS: lamoTRIgine 25 MG TAB PO SCH ×2 (09:10→20:24)
[2021-05-23] MEDS: NYSTATIN SUSP 500,000 U/5 ML UDC PO SCH ×4 (09:10→20:24)
[2021-05-23] MEDS: CLOPIDOGREL BISULFATE 75 MG TAB PO SCH (09:12)
[2021-05-23] MEDS: SENNA 8.6 MG TAB PO SCH (09:12)
[2021-05-23] MEDS: amLODIPine BESYLATE 5 MG TAB PO SCH (09:12)
[2021-05-23] MEDS: DOCUSATE SODIUM 100 MG CAP PO SCH ×2 (10:05→20:25)
[2021-05-23] MEDS ORDERED: COVID-19 VACC, TRIS(PFIZER)/PF 30 MCG/0.3 ML VIAL IM ONE (12:00)
--- NOTE | 2021-05-23 13:28 | Hospitalist Progress Note ---
Date of Service May 23, 2021 Assessment & Plan (1) Palliative care patient: Plan: Goals of Care: - 05/16/21: lengthy discussion with pt's /2 of her 3 kids by phone to discuss goals of care. again family confirmed that even prior to her getting sick with COVID she had been steadily declining from her dementia, eating little, losing weight, etc - Plan is ongoing comfort/palliative care here at [facility] while awaiting transition to hospice at [facility] at discharge, currently pending placement/bed availability. Discussed with CM, no unvacc bed available see below. Pending placement - continue to defer on labs, unnecessary meds, etc -Patient previously partially vaccinated, second dose of Pfizer ordered and given 05/23/2021 (2) Failure to thrive: Plan: 2nd advanced dementia compounded by recent COVID-19 infection she has lost weight in the hospital (at least 5-6 pounds, if not more) due to anorexia (3) Severe protein-calorie malnutrition: Plan: weight in 11/2020 was 82 kg weight is now <65 kg severe failure to thrive from advanced dementia with worsening of that failure to thrive due to COVID-19 infection no improvement in appetite while she was on steroids family bringing in soda, candy bars, other food items that she likes - acceptable given her palliative/comfort status (4) Pneumonia due to 2019 novel coronavirus: Plan: clinically resolved pneumonia was mild on imaging earlier this admission had not had any o2 requirement with stable o2 sats all of this admission completed 7-day course of dexamethasone (5) SHANTELLE (acute kidney injury): Plan: Creatinine 1.76 upon admission, with baseline 0.79 treated with IV fluids SHANTELLE resolved 2nd to poor oral intake deferring on labs due to transition to comfort care/palliative care (6) Seizure-like activity: Plan: Continue lamotrigine 50 mg p.o. twice daily No recent seizure activity (7) Hypercholesteremia: Plan: stopped statin - now on palliative care/comfort and will go to SNF on hospice (8) Type 2 diabetes mellitus: Plan: stopped metformin most recent HbA1C 6.7% Stopped BSG checks, comfort oriented goals and BSG were not significantly elevated due to poor PO intake (9) Parkinsonism: Plan: On no specific treatment for such (10) UTI (urinary tract infection): Plan: ruled out (11) Constipation: Plan: cont senna PRN cont colace PRN (12) Vitamin B12 deficiency: Plan: - Recheck normal levelduring this admission (13) Essential hypertension: Plan: amlodipine 5mg daily (14) History of CVA (cerebrovascular accident): Plan: continue plavix but stopped statin (15) Dementia: Plan: advanced had been requiring 24/7 care by at her home prior to admission dispo - SNF w/ hospice at discharge (16) Ileus: Plan: colonic - 2nd to severe constipation resolved (17) DVT prophylaxis: Plan: stopped lovenox (18) Chronic kidney disease, stage 3a: Plan: baseline CrCl 40s/50s BMPs deferred, comfort oriented goals (19) Candidiasis of mouth and esophagus: Plan: nystatin Plan: cont comfort care measures here hospice at discharge dispo - [facility] w/ hospice Admission and Anticipated Discharge Date Admission Date: May 10, 2021 Subjective Sitting up no acute distress, pleasant at bedside. Case discussed with case management, working at referrals. Patient is incompletely vaccinated, but is able to receive the second Pfizer vaccine. This has been ordered, consent given by family. Review of Systems Review of Systems: Limited by advanced dementia Physical Exam Physical Exam: General: NAD. Oriented to name only HEENT: Atraumatic, normocephalic. Visual acuity/hearing grossly intact. Pulm: Symmetrical chest rise. No increase work of breathing. No respiratory distress. Cardiac: Radial pulses intact and symmetrical. Abdominal: Nontender, nondistended, soft. Results & Data Results & Data ([facility]) Vital Signs (Past 12 Hours) Vital Signs Temp Pulse Resp BP Pulse Ox 05/23/21 07:11 36.5 C 59 L 14 119/69 99 PG Care Time/CCT Total # of Minutes Spent Total Time Spent with Patient: Total time spent is greater than 50% in coordination of care (as documented) at patient's floor/unit and/or counseling patient: Coding Level of Care Code 55945 Subseq Hosp Care Lvl 1 Diagnoses Palliative care patient Z51.5 Failure to thrive Severe protein-calorie malnutrition E43 Pneumonia due to 2019 novel coronavirus U07.1; J12.82 SHANTELLE (acute kidney injury) N17.9 Seizure-like activity R56.9 Hypercholesteremia E78.00 Type 2 diabetes mellitus E11.9 Parkinsonism G20 UTI (urinary tract infection) N39.0 Constipation K59.00 Vitamin B12 deficiency E53.8 Essential hypertension I10 History of CVA (cerebrovascular accident) Z86.73 Dementia F03.90 Ileus K56.7 DVT prophylaxis Z29.9 Chronic kidney disease, stage 3a N18.31 Candidiasis of mouth and esophagus B37.81; B37.0
[2021-05-24] MEDS: NYSTATIN SUSP 500,000 U/5 ML UDC PO SCH ×4 (08:20→21:38)
[2021-05-24] MEDS: amLODIPine BESYLATE 5 MG TAB PO SCH (08:21)
[2021-05-24] MEDS: lamoTRIgine 25 MG TAB PO SCH ×2 (08:21→21:38)
[2021-05-24] MEDS: SENNA 8.6 MG TAB PO SCH (08:22)
[2021-05-24] MEDS: CLOPIDOGREL BISULFATE 75 MG TAB PO SCH (08:22)
[2021-05-24] MEDS: DOCUSATE SODIUM 100 MG CAP PO SCH ×2 (08:23→21:40)
--- NOTE | 2021-05-24 12:33 | Hospitalist Progress Note ---
Date of Service May 24, 2021 Assessment & Plan (1) Palliative care patient: Plan: Goals of Care: - 05/16/21: lengthy discussion with pt's /2 of her 3 kids by phone to discuss goals of care. again family confirmed that even prior to her getting sick with COVID she had been steadily declining from her dementia, eating little, losing weight, etc - Plan is ongoing comfort/palliative care here at [facility] while awaiting transition to hospice at [facility] at discharge, currently pending placement/bed availability. Discussed with CM, no unvacc bed available see below. Pending placement - continue to defer on labs, unnecessary meds, etc -Patient previously partially vaccinated, second dose of Pfizer ordered and given 05/23/2021 POLST form pending completion with who is the surrogate decision- maker. Due to another in the family had not been able to visit 05/23, will still be visiting in the next day or so (2) Failure to thrive: Plan: 2nd advanced dementia compounded by recent COVID-19 infection she has lost weight in the hospital (at least 5-6 pounds, if not more) due to anorexia (3) Severe protein-calorie malnutrition: Plan: weight in 11/2020 was 82 kg weight is now <65 kg severe failure to thrive from advanced dementia with worsening of that failure to thrive due to COVID-19 infection no improvement in appetite while she was on steroids family bringing in soda, candy bars, other food items that she likes - acceptable given her palliative/comfort status (4) Pneumonia due to 2019 novel coronavirus: Plan: clinically resolved pneumonia was mild on imaging earlier this admission had not had any o2 requirement with stable o2 sats all of this admission completed 7-day course of dexamethasone (5) SHANTELLE (acute kidney injury): Plan: Creatinine 1.76 upon admission, with baseline 0.79 treated with IV fluids SHANTELLE resolved 2nd to poor oral intake deferring on labs due to transition to comfort care/palliative care (6) Seizure-like activity: Plan: Continue lamotrigine 50 mg p.o. twice daily No recent seizure activity (7) Hypercholesteremia: Plan: stopped statin - now on palliative care/comfort and will go to SNF on hospice (8) Type 2 diabetes mellitus: Plan: stopped metformin most recent HbA1C 6.7% Stopped BSG checks, comfort oriented goals and BSG were not significantly elevated due to poor PO intake (9) Parkinsonism: Plan: On no specific treatment for such (10) UTI (urinary tract infection): Plan: ruled out (11) Constipation: Plan: cont senna PRN cont colace PRN (12) Vitamin B12 deficiency: Plan: - Recheck normal levelduring this admission (13) Essential hypertension: Plan: amlodipine 5mg daily (14) History of CVA (cerebrovascular accident): Plan: continue plavix but stopped statin (15) Dementia: Plan: advanced had been requiring 24/7 care by at her home prior to admission dispo - SNF w/ hospice at discharge (16) Ileus: Plan: colonic - 2nd to severe constipation resolved (17) DVT prophylaxis: Plan: stopped lovenox (18) Chronic kidney disease, stage 3a: Plan: baseline CrCl 40s/50s BMPs deferred, comfort oriented goals (19) Candidiasis of mouth and esophagus: Plan: nystatin Plan: cont comfort care measures here hospice at discharge dispo - [facility] w/ hospice Admission and Anticipated Discharge Date Admission Date: May 10, 2021 Subjective Sitting up no acute distress, pleasant at bedside. C patient is seen at the bedside with her son present. No questions or concerns, son feels she is doing okay about par for how she has been. Has not noticed any distress, does not have any questions or concerns at time of bedside assessment. Notes patient's is her surrogate decision maker who would sign the POLST form, there has been another in the family which may limit his ability to visit but should be in today or tomorrow. Review of Systems Review of Systems: Limited by advanced dementia Physical Exam Physical Exam: General: NAD. Oriented to name only HEENT: Atraumatic, normocephalic. Visual acuity/hearing grossly intact. Pulm: Symmetrical chest rise. No increase work of breathing. No respiratory distress. Abdominal: Nontender, nondistended, soft. Results & Data Results & Data ([facility]) Vital Signs (Past 12 Hours) Vital Signs Temp Pulse Resp BP Pulse Ox 05/24/21 07:11 36.7 C 78 14 143/81 H 95 PG Care Time/CCT Total # of Minutes Spent Total Time Spent with Patient: Total time spent is greater than 50% in coordination of care (as documented) at patient's floor/unit and/or counseling patient: Coding Level of Care Code 83386 Subseq Hosp Care Lvl 1 Diagnoses Palliative care patient Z51.5 Failure to thrive Severe protein-calorie malnutrition E43 Pneumonia due to 2019 novel coronavirus U07.1; J12.82 SHANTELLE (acute kidney injury) N17.9 Seizure-like activity R56.9 Hypercholesteremia E78.00 Type 2 diabetes mellitus E11.9 Parkinsonism G20 UTI (urinary tract infection) N39.0 Constipation K59.00 Vitamin B12 deficiency E53.8 Essential hypertension I10 History of CVA (cerebrovascular accident) Z86.73 Dementia F03.90 Ileus K56.7 DVT prophylaxis Z29.9 Chronic kidney disease, stage 3a N18.31 Candidiasis of mouth and esophagus B37.81; B37.0
[2021-05-25] MEDS: amLODIPine BESYLATE 5 MG TAB PO SCH (07:48)
[2021-05-25] MEDS: lamoTRIgine 25 MG TAB PO SCH (07:49)
[2021-05-25] MEDS: NYSTATIN SUSP 500,000 U/5 ML UDC PO SCH (07:49)
[2021-05-25] MEDS: CLOPIDOGREL BISULFATE 75 MG TAB PO SCH (07:49)
[2021-05-25] MEDS: SENNA 8.6 MG TAB PO SCH (07:49)
[2021-05-25] MEDS: DOCUSATE SODIUM 100 MG CAP PO SCH (07:52)
--- NOTE | 2021-05-25 11:11 | Discharge Summary ---
Date of Service May 25, 2021 Admission HPI Per Admitting Provider The patient is a 75-year-old female with a past medical history including generalized weakness, TIA, hyperlipidemia, vitamin 12 deficiency, left carotid stenosis, hypertension, ischemic stroke, days mellitus type II, vitamin D deficiency, pulmonary nodule, dementia, seizure-like activity and parkinsonism. She was most recently admitted to [facility] from 05/02-05/08 for COVID-19 pneumonia. She presents to the ED with inability urinate and have a bowel movement since being discharged on 05/08. She continues to have decreased oral intake, which is unchanged from prior to admission. She continues to be very we ak, and does not move much at home. Her reports that she has been more energetic and able to do a few more things at home since being discharged. Admission Exam Per Admitting Provider The patient is awake, lethargic but responsive, normocephalic and atraumatic, lying in bed and in no acute distress. HEENT--PERRL, EOMI, mucous membranes and oropharynx dry. Neck--supple. No JVD. No bruits. Thyroid normal, trachea midline, no adenopathy. Heart--normal S1 and S2. No murmurs, rubs or gallops. Lungs--clear bilaterally, no respiratory distress, no accessory muscle use. Abdomen--normal bowel sounds and soft. Nontender. Nondistended. Morbidly obese Extremities--no cyanosis or clubbing. No edema. Dermatologic--normal skin turgor, normal color, no abnormal lymph nodes, no rash. Neurologic--cranial nerves II through XII grossly intact. Rheumatologic-- limited exam due to body habitus Psychiatric--flat affect. Principal Diagnosis Failure to Thrive, History of COVID19 Dementia with Parkinsonism Discharge Exam General: NAD. Oriented to name only HEENT: Atraumatic, normocephalic. Visual acuity/hearing grossly intact. Pulm: Symmetrical chest rise. No increase work of breathing. No respiratory distress. Abdominal: Nontender, nondistended, soft. Discharge Data Allergies Allergy/AdvReac Type Severity Reaction Status Date / Time No Known Allergies Allergy Verified 05/10/21 19:36 Consultations 05/10/21 22:55 ED Decision to Admit Stat Ordered Studies 05/10/21 20:39 CT abd pelvis wo con Urgent Hospital Course (1) Palliative care patient: Goals of Care: - 05/16/21: lengthy discussion with pt's /2 of her 3 kids by phone to discuss goals of care. again family confirmed that even prior to her getting sick with COVID she had been steadily declining from her dementia, eating little, losing weight, etc - Plan is ongoing comfort/palliative care here at [facility] while awaiting transition to hospice at [facility] at discharge -Patient previously partially vaccinated, second dose of Pfizer ordered and given 05/23/2021 - POLST completed 05/24/21. DNR/DNI, [employer], limtied abx on risk-beneift assessment, no feeding tube under any circumstances - discharged to continue hospice at SNF - Pill burden reduced by d/cing metformin, atorvastatin - Amlodipine continued for BP control (2) Failure to thrive: 2nd advanced dementia compounded by recent COVID-19 infection she has lost weight in the hospital (at least 5-6 pounds, if not more) due to anorexia (3) Severe protein-calorie malnutrition: weight in 11/2020 was 82 kg weight is now <65 kg severe failure to thrive from advanced dementia with worsening of that failure to thrive due to COVID-19 infection no improvement in appetite while she was on steroids family bringing in soda, candy bars, other food items that she likes - acceptable given her palliative/comfort status (4) Pneumonia due to 2019 novel coronavirus: clinically resolved pneumonia was mild on imaging earlier this admission had not had any o2 requirement with stable o2 sats all of this admission completed 7-day course of dexamethasone (5) SHANTELLE (acute kidney injury): Creatinine 1.76 upon admission, with baseline 0.79 treated with IV fluids SHANTELLE resolved 2nd to poor oral intake deferring on labs due to transition to comfort care/palliative care (6) Seizure-like activity: Continue lamotrigine 50 mg p.o. twice daily No recent seizure activity (7) Hypercholesteremia: stopped statin - now on palliative care/comfort and will go to SNF on hospice (8) Type 2 diabetes mellitus: stopped metformin most recent HbA1C 6.7% Stopped BSG checks, comfort oriented goals and BSG were not significantly elevated due to poor PO intake (9) Parkinsonism: On no specific treatment for such (10) UTI (urinary tract infection): ruled out (11) Constipation: cont senna PRN cont colace PRN (12) Vitamin B12 deficiency: - Recheck normal levelduring this admission (13) Essential hypertension: amlodipine 5mg daily (14) History of CVA (cerebrovascular accident): continue plavix but stopped statin (15) Dementia: advanced had been requiring 24/7 care by at her home prior to admission dispo - SNF w/ hospice at discharge (16) Ileus: colonic - 2nd to severe constipation resolved (17) DVT prophylaxis: stopped lovenox (18) Chronic kidney disease, stage 3a: baseline CrCl 40s/50s BMPs deferred, comfort oriented goals (19) Candidiasis of mouth and esophagus: nystatin cont comfort care measures here hospice at discharge dispo - [facility] w/ hospice Total Time Total Time Spent Total Time Spent (In Minutes): Time spend day of discharge 35 minutes including direct patient care, documentation, review of labs and images, and coordination of care. Discharge Plan Discharge Items Patient Disposition: Hospice - Medical Facility Reason For Visit: COVID-19, UTI, WEAKNESS Discharge Diagnosis: Failure to Thrive, Weakness History of COVID19 Dementia Activity: Per Instructions section Non-emergency contact: Primary Care Provider Call non-emergency contact if: you have any medication questions, your symptoms worsen and your pain is not controlled Follow-up/Referrals: Guy Metz III, MD [Physician] - Diet: Regular Addtl Attending Provider Instructions: Amrita is a 75-year-old female with a history of past COVID-19, progressive dementia with some parkinsonism, protein calorie malnutrition, and history of seizure-like activity with progressive decline following COVID-19 previously requiring 24/7 care who is being discharged to assisted with hospice for comfort care goals. Patient is being discharged to hospice. POLST form completed. DNR/DNI, comfort measures only, no feeding tube under any circumstances, and risk/benefits discussion of antibiotics if indicated. Consistent with comfort care goals patient's metformin and atorvastatin have been discontinued to minimize pill burden and for focus on comfort. Blood pressure control has been continued with amlodipine. A follow-up appointment is being scheduled for you with Dr. Metz, she should be seen within 1 month. Pending Studies at Discharge: No Stand-Alone Forms: My [facility] Skilled Items Patient informed of condition?: Yes DNR: Yes Discharge Level of Care: Skilled Communicable Disease: No Discharge Prognosis: Stable Lines: None Urinary Catheter: Yes Medications and DC Order Prescriptions: New nystatin 100,000 unit/mL suspension 5 ml PO QID PRN (Reason: thrush) 14 Days Qty: 60 RF: 2 amlodipine 5 mg tablet 5 mg PO DAILY Qty: 30 RF: 0 Continued clopidogrel [Plavix] 75 mg tablet 75 mg PO DAILY Qty: 90 RF: 3 docusate sodium [Colace] 100 mg capsule 100 mg PO BID 30 Days Qty: 60 RF: 6 lamotrigine [Lamictal] 25 mg tablet 50 mg PO BID Qty: 360 RF: 3 Discontinued atorvastatin 40 mg tablet 40 mg PO QAM Qty: 90 RF: 1 cholecalciferol (vitamin D3) 25 mcg (1,000 unit) capsule 2,000 unit PO QAM RF: 0 metformin 500 mg tablet See Rx Instructions .ROUTE .COMPLEX RF: 0 Discharge Orders: Discharge Order (Routine); Ordered 05/25/21 Ordered By: Heri Hinton/Other Patient Handouts: Preventing Pneumonia Admission Data Admit Date/Time: 05/10/21 23:55 Attending Provider: Heri Donahue Admit Provider: Jonathon Anthony Primary Care Provider: Ruth Nelson Other Providers: [facility] ; Jonathon Anthony ; [facility] Other Interventions: Discharge Summary Assessment (RN) Last Done: 05/25/21 11:11 Coding Level of Care Code D/C DAY MANAGEMENT >30 MINS Diagnoses Palliative care patient Z51.5 Failure to thrive Severe protein-calorie malnutrition E43 Pneumonia due to 2019 novel coronavirus U07.1; J12.82 SHANTELLE (acute kidney injury) N17.9 Seizure-like activity R56.9 Hypercholesteremia E78.00 Type 2 diabetes mellitus E11.9 Parkinsonism G20 UTI (urinary tract infection) N39.0 Constipation K59.00 Vitamin B12 deficiency E53.8 Essential hypertension I10 History of CVA (cerebrovascular accident) Z86.73 Dementia F03.90 Ileus K56.7 DVT prophylaxis Z29.9 Chronic kidney disease, stage 3a N18.31 Candidiasis of mouth and esophagus B37.81; B37.0
== END 2021-05-25 12:31 | disposition hospice, inpatient (51) | DRG 177 ==
LOC: ED 16:32 → SUATTDRO 23:55 → EDINP 23:55 → 2W 05-11 15:14 → 3E 05-17 10:08
DX: U07.1 COVID-19; J12.82 Pneumonia due to coronavirus disease 2019; K56.7 Ileus, unspecified; B37.81 Candidal esophagitis; E78.00 Pure hypercholesterolemia, unspecified; E53.8 Deficiency of other specified B group vitamins; F02.80 Dementia in other diseases classified elsewhere, unspecified severity, without behavioral disturbance, psychotic disturbance, mood disturbance, and anxiety; N17.9 Acute kidney failure, unspecified; N18.31 Chronic kidney disease, stage 3a; Z68.27 Body mass index [BMI] 27.0-27.9, adult; Z66 Do not resuscitate; Z79.84 Long term (current) use of oral hypoglycemic drugs; I65.22 Occlusion and stenosis of left carotid artery; Z86.73 Personal history of transient ischemic attack (TIA), and cerebral infarction without residual deficits; Z51.5 Encounter for palliative care; Z79.899 Other long term (current) drug therapy; B37.0 Candidal stomatitis; E43 Unspecified severe protein-calorie malnutrition; R62.7 Adult failure to thrive; Z79.02 Long term (current) use of antithrombotics/antiplatelets; G31.83 Neurocognitive disorder with Lewy bodies; I12.9 Hypertensive chronic kidney disease with stage 1 through stage 4 chronic kidney disease, or unspecified chronic kidney disease; E11.22 Type 2 diabetes mellitus with diabetic chronic kidney disease; K59.00 Constipation, unspecified